=== PATIENT | male | born 1935 | race Asian ===

== ENCOUNTER 2016-11-20 20:58 | Inpatient (IN) | payer OTHER, MEDICARE, BC ==
[~2016-11-20] VITALS: Ht 170.2 cm; Wt 95.4 kg
[~2016-11-20 20:58] MED LIST: ALLO100T PO; ASPI-650 PO; ATOR40TA68 PO; Acetaminophen PO; CARV12.598 PO; CEFT1PIG2 IVPB; DOCU-159 PO; ETOMIDATE 20 MG INJ ONE; LATA2.5D9 OP; LOV40I SC; METR500T PO; NOVO3I SC; OMEP20CA9 PO; PERCOCET PO; REPA2TAB6 PO; ROCURONIUM 50 MG INJ ONE; SITA50TA2 PO; VANC1VIA2 IVPB; ZOF4I IV; [UNRECOGNIZED DRUG - CODE] IV; [UNRECOGNIZED DRUG - CODE] IV
[2016-11-20 21:14] LABS: ADD SCAN DIFF NO
[2016-11-20 21:17] LABS: BASOPHIL # 0.1 10^3/ul (0.0-0.1); BASOPHILS % 0.8 % (0.0-2.0); EOSINOPHILS # 0.5 10^3/ul (0.0-0.5); EOSINOPHILS % 6.6 % (0.0-7.0); HEMATOCRIT 44.7 % (42.0-52.0); HEMOGLOBIN 13.7 g/dl (14.0-18.0); LYMPHOCYTES # 1.7 10^3/ul (0.8-2.9); LYMPHOCYTES % 22.5 % (15.0-51.0); MEAN CORPUSCULAR HEMOGLOBIN 25.8 pg (29.0-33.0); MEAN CORPUSCULAR HGB CONC 30.6 g/dl (32.0-37.0); MEAN CORPUSCULAR VOLUME 84.3 fl (82.0-101.0); MONOCYTE # 0.9 10^3/ul (0.3-0.9); MONOCYTES % 12.4 % (0.0-11.0); NEUTROPHIL # 4.4 10^3/ul (1.6-7.5); NEUTROPHILS % 57.4 % (39.0-77.0); PLATELET COUNT 200 10^3/UL (140-415); RED CELL DISTRIBUTION WIDTH 16.6 % (11.5-14.5); WHITE BLOOD COUNT 7.6 10^3/ul (4.8-10.8)
[2016-11-20] MEDS ORDERED: HYDR-902 PO (21:21)
[2016-11-20] MEDS ORDERED: FURO40TA4 PO (21:21)
[2016-11-20] MEDS ORDERED: WARF3TAB PO (21:23)
[2016-11-20] MEDS ORDERED: ONDANSETRON 4 MG INJ ONE (21:25)
[2016-11-20 21:29] LABS: CREATININE 1.53 mg/dl (0.61-1.24)
[2016-11-20 21:30] LABS: CALCIUM 8.5 mg/dl (8.4-10.2)
[2016-11-20] MEDS ORDERED: LEVETIRACETAM IV 500 MG in SOD CHLORIDE 0.9% 100 ML IVPB ONE (21:30)
[2016-11-20] MEDS ORDERED: ETOMIDATE 20 MG INJ IV ONE (21:30)
[2016-11-20] MEDS ORDERED: ONDANSETRON 4 MG INJ IV STA (21:30)
--- NOTE | 2016-11-20 21:31 | RADRPT ---
PROCEDURE: CT head, without contrast. CLINICAL INDICATION: Cerebrovascular accident. TECHNIQUE: Noncontrast CT examination of the head, with axial, sagittal and coronal reformatted im ages. Automated dose exposure control was employed. CTDI: 43.86 mGy and DLP: 720.23 mGy-cm. COMPARISON: None. FINDINGS: Right basal ganglia hemorrhagic infarct. Ventricular hemorrhagic component seen in the bilateral la teral ventricles, the third ventricle, the cerebral aqueduct, and in the fourth ventricle. Right basal ganglia region of hemorrhagic infarct measures 38 x 25 x 19 mm. There is a 6 mm right-to -left midline shift at the level of the right basal ganglia. Chronic changes of atrophy and small vessel disease white matter. Subarachnoid spaces are substantially preserved and symmetric. Ventricles are unremarkable. Thomas-white matter distinction is otherwise substantially preserved. Sinuses and osseous structures are unremarkable. IMPRESSION: 1. Right basal ganglia hemorrhagic infarct. 2. Extensive bilateral ventricular hemorrhagic components from the lateral ventricles to the fourth ventricle. 3. There is a 6 mm right to left midline shift at the level of the right basal ganglia. 4. Chronic changes of atrophy and small vessel disease white matter. These findings and impression regarding basal ganglia hemorrhage and ventricular hemorrhagic compone nts were discussed with Dr. Cuenca of the [facility] emergency department at the conclusio n of this examination by the undersigned interpreting radiologist RPTAT: [facility]U Physician Vineet Date Time Electronically viewed and signed by Physician Vineet on 11/20/2016 21:31 RS/
[2016-11-20 21:34] LABS: INR 2.51; PROTIME 27.4 Sec (12.2-14.2); PT RATIO 2.1
[2016-11-20 21:35] LABS: PARTIAL THROMBOPLASTIN TIME 41.8 Sec (25.0-35.0)
[2016-11-20 21:41] LABS: TROPONIN-I 0.019 ng/ml (0.00-0.12)
[2016-11-20] MEDS ORDERED: PHYTONADIONE 10 MG in DEXTROSE 5% 50 ML IVPB ONE (22:00)
[2016-11-20] MEDS ORDERED: MANNITOL 20% 500 ML IV SCH (22:00)
[2016-11-20] MEDS ORDERED: PROTHROMBIN COMPLEX CONCENTRATE IV SCH (22:00)
--- NOTE | 2016-11-20 22:37 | ERA ---
ER Documentation Chief Complaint Date/Time DATE: 11/20/16 Times: On arrival Chief Complaint Left sided weakness HPI The patient is 81-year-old male, presenting to the ER because of sudden onset of left-sided weakness witnessed by his son around 8 PM. 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 He then fell and hit his head as against the chair. He is vomiting and has left-sided weakness. He is able to follow commands and answer simple questions. He complains of headache, denies chest pain, dyspnea, abdominal pain, dysuria, diarrhea. He does not smoke nor drink Past medical history: Hypertension, diabetes mellitus, dyslipidemia, CAD, chronic kidney disease, history of thyroid cancer, history of CHF, GERD Past surgical history: CABG, appendectomy, TURP ROS All systems reviewed and are negative except as per history of present illness. Medications Home Meds Active Scripts Repaglinide* (Prandin*) 2 Mg Tab, 2 MG PO AC MEALS for 30 Days, TAB 5 Refills Prov:HARISH WALKER MD 10/10/15 Insulin Aspart* (Novolog Insulin Pen*) 100 Unit/Ml Soln, 0 UNIT SC WITH MEALS BEDTIME for 30 Days, BOX 5 Refills Prov:HARISH WALKER MD 10/10/15 Carvedilol* (Coreg*) 12.5 Mg Tab, 12.5 MG PO BID, #60 TAB 5 Refills Prov:HARISH WALKER MD 10/10/15 Reported Medications Warfarin Sodium* (Jantoven*) 3 Mg Tablet, 3 MG PO DAILY, TAB TAKE 3MG M,,TH,F,SAT ANS 1.5MG SUN,W. 11/20/16 Furosemide* (Furosemide*) 40 Mg Tablet, 40 MG PO DAILY, TAB 11/20/16 Hydrocodone/Acetaminophen (Villanueva 10-325 Tablet) 1 Each Tablet, 1 EACH PO DAILY Y for PRN, TAB 11/20/16 Allopurinol* (Allopurinol*) 100 Mg Tablet, 100 MG PO DAILY, TAB 09/20/15 Sitagliptin* (Januvia*) 50 Mg Tablet, 50 MG PO DAILY, #30 TAB 09/20/15 Docusate Sodium* (Docusate Sodium*) 100 Mg Capsule, 300 MG PO BID, #60 CAP 09/20/15 Latanoprost (Xalatan) 2.5 Ml Drops, 2.5 ML OP DAILY 02/09/13 Atorvastatin* (Atorvastatin*) 40 Mg Tablet, 40 MG PO DAILY 02/09/13 Omeprazole* (Prilosec*) 20 Mg Capsule.dr, 20 MG PO DAILY 02/09/13 Aspirin (Aspirin) 81 Mg Tablet, 81 MG PO DAILY 09/27/11 Discontinued Scripts Caspofungin (Cancidas) 50 Mg Soln, 50 MG IV DAILY for 7 Days, EA 0 Refills Prov:HARISH WALKER MD 10/10/15 Ceftriaxone Sod* (Rocephin* 1GM/50ML (PMX)) 1 Gm/50 Ml Iv.soln., 1 GM IVPB Q24H for 7 Days, EA 0 Refills Prov:HARISH WALKER MD 10/10/15 Vancomycin Hcl (Vancomycin Hcl) 1 Gm/250 Ml Iv.soln., 1 GM IVPB Q24H for 7 Days , EA Prov:HARISH WALKER MD 10/10/15 Ondansetron Hcl* (Zofran*) 2 Mg/Ml Soln, 4 MG IV Q6H Y for NAUSEA AND/OR VOMITING for 30 Days, SYR 5 Refills Prov:HARISH WALKER MD 10/10/15 Oxycodone Hcl/Acetaminophen (Percocet) 1 Tab Tab, 1 TAB PO Q6H Y for PAIN LEVEL 6-10 for 7 Days, TAB 0 Refills Prov:HARISH WALKER MD 10/10/15 Metronidazole* (Flagyl*) 500 Mg Tab, 500 MG PO Q8 for 7 Days, TAB 0 Refills Prov:HARISH WALKER MD 10/10/15 Furosemide* (Furosemide*) 10 Mg/Ml Soln, 40 MG IV DAILY for 30 Days, SYR 5 Refills Prov:HARISH WALKER MD 10/10/15 Enoxaparin Sodium* (Enoxaparin Sodium*) 40 Mg/0.4 Ml Soln, 40 MG SC DAILY@07 for 30 Days, SYR 5 Refills Prov:HARISH WALKER MD 10/10/15 [Acetaminophen] 325 MG TAB No Conflict Check, 650 MG PO Q6H Y for PAIN AND OR ELEVATED TEMP for 30 Days, TAB 5 Refills Prov:HARISH WALKER MD 10/10/15 Allergies Allergies: Coded Allergies: latex (Verified Allergy, Mild, RASH, 11/20/16) PMhx/Soc History of Surgery: Yes (S/P LAPROSCOPIC HAND ASSISTED COLECTOMY 09-29-15) Anesthesia Reaction: No Hx Neurological Disorder: No Hx Respiratory Disorders: No Hx Cardiac Disorders: Yes (HTN, CAD, HIGH CHOLESTEROL) Hx Psychiatric Problems: No Hx Miscellaneous Medical Probl: Yes (CABG,CAD,CHF,CRI,HTN,MORBID OBESITY, THYROIDECTOMY DUE TO CA) Hx Alcohol Use: No Hx Substance Use: No Hx Tobacco Use: No Smoking Status: Never smoker Physical Exam Vitals Vital Signs Date Time Temp Pulse Resp B/P Pulse Ox O2 Delivery O2 Flow Rate FiO2 11/20/16 21:32 98.3 72 21 142/91 100 Nasal Cannula 2.0 11/20/16 21:15 98.3 63 21 142/92 100 Nasal Cannula 2.0 11/20/16 21:07 Nasal Cannula 2 11/20/16 21:05 98.3 88 18 148/80 98 Physical Exam Const: No acute distress. Head: Atraumatic. Eyes: Normal Conjunctiva. ENT: Normal External Ears, Nose and Mouth. Neck: Full range of motion. No meningismus. Resp: Clear to auscultation bilaterally. Cardio: Regular rate and rhythm, no murmurs. Abd: Soft, non distended, normal bowel sounds, non tender. Skin: No petechiae or rashes. Back: No midline or flank tenderness. Ext: No cyanosis, or edema. Neur: Awake and alert. Right upper and right lower extremity are 5/5. Upper and left lower extremity 0/5 Psych: Limited due to his condition Result Diagram: 11/20/16204911/20/162049 Results 24 hrs Laboratory Tests Test 11/20/16 20:50 11/20/16 20:59 White Blood Count 7.610^3/ul Red Blood Count 5.3010^6/ul Hemoglobin 13.7g/dl Hematocrit 44.7% Mean Corpuscular Volume 84.3fl Mean Corpuscular Hemoglobin 25.8pg Mean Corpuscular Hemoglobin Concent 30.6g/dl Red Cell Distribution Width 16.6% Platelet Count 09421^3/UL Mean Platelet Volume 12.0fl Neutrophils % 57.4% Lymphocytes % 22.5% Monocytes % 12.4% Eosinophils % 6.6% Basophils % 0.8% Nucleated Red Blood Cells % 0.0/100WBC Neutrophils # 4.410^3/ul Lymphocytes # 1.710^3/ul Monocytes # 0.910^3/ul Eosinophils # 0.510^3/ul Basophils # 0.110^3/ul Nucleated Red Blood Cells # 0.010^3/ul Prothrombin Time 27.4Sec Prothrombin Time Ratio 2.1 INR International Normalized Ratio 2.51 Activated Partial Thromboplast Time 41.8Sec Sodium Level 142mmol/L Potassium Level 4.0mmol/L Chloride Level 105mmol/L Carbon Dioxide Level 27mmol/L Anion Gap 14 Blood Urea Nitrogen 31mg/dl Creatinine 1.53mg/dl Glucose Level 137mg/dl Hemoglobin A1c 6.9% Calcium Level 8.5mg/dl Troponin I 0.019ng/ml Bedside Glucose 106mg/dL Current Medications Medications (Trade) Dose Ordered Sig/Zofia Route PRN Reason Start Time Stop Time Status Last Admin Dose Admin Etomidate (Amidate) 20 mg ONCE ONCE IV 11/20/16 21:30 11/20/16 21:31 DC Ondansetron HCl 4 mg 4 mg STK-MED ONCE .ROUTE 11/20/16 21:25 11/20/16 21:26 DC Levetiracetam/ Sodium Chloride (Keppra Iv/NS) 105 ml @ 420 mls/hr ONCE ONCE IVPB 11/20/16 21:30 11/20/16 21:50 DC 11/20/16 21:57 Ondansetron HCl 4 mg 4 mg ONCE STAT IV 11/20/16 21:30 11/20/16 21:31 DC 11/20/16 21:33 Phytonadione 10 mg/Dextrose 51 ml @ 102 mls/hr ONCE ONCE IVPB 11/20/16 22:00 11/20/16 22:29 11/20/16 21:56 Mannitol 500 ml @ 0 mls/hr ONCE IV 11/20/16 22:00 11/20/16 23:59 Prothrombin Complex Concent (Human) (Kcentra Kit) 100 ml @ 500 mls/hr ONCE IV 11/20/16 22:00 11/20/16 23:59 Allopurinol (Zyloprim) 100 mg DAILY PO 11/21/16 09:00 UNV Atorvastatin Calcium (Lipitor) 40 mg DAILY PO 11/21/16 09:00 UNV Carvedilol (Coreg) 12.5 mg BID PO 11/21/16 09:00 UNV Docusate Sodium (Colace) 300 mg BID PO 11/21/16 09:00 UNV Furosemide (Lasix) 40 mg DAILY PO 11/21/16 09:00 UNV Latanoprost (Xalatan) 1 drop DAILY BOTH EYES 11/21/16 09:00 UNV Repaglinide (Prandin) 2 mg AC MEALS PO 11/21/16 07:00 UNV Miscellaneous Information 20 mg DAILY PO 11/21/16 09:00 UNV Miscellaneous Information 50 mg DAILY PO 11/21/16 09:00 UNV Insulin Aspart (Novolog Insulin Pen) NOVOLOG *MILD* ALGORI... Q4 SC 11/21/16 01:00 UNV Miscellaneous Information (* Miscellaneous Pharmacy Order) HYPOGLYCEMIA PROTOCOL w... ONCE ONCE XX 11/20/16 22:30 11/20/16 22:31 UNV Miscellaneous Information (* Miscellaneous Pharmacy Order) Discontinue Glyburide, Glipizide,... ONCE ONCE XX 11/20/16 22:30 11/20/16 22:31 UNV Miscellaneous Information (* Miscellaneous Pharmacy Order) Discontinue all previ... ONCE ONCE XX 11/20/16 22:30 11/20/16 22:31 UNV Procedures/[place] [id number] Radiology Main Line: [phone] DIAGNOSTIC IMAGING REPORT Patient: RYANNE TORO : 1935 Age: 81 Sex: M MR #: [id number] DOS: 11/20/162101 Ordering MD: HARISH RODRIGES MD Location: E/R Room/Bed: PROCEDURE: CT head, without contrast. CLINICAL INDICATION: Cerebrovascular accident. TECHNIQUE: Noncontrast CT examination of the head, with axial, sagittal and coronal reformatted images. Automated dose exposure control was employed. CTDI: 43.86 mGy and DLP: 720.23 mGy-cm. COMPARISON: None. FINDINGS: Right basal ganglia hemorrhagic infarct. Ventricular hemorrhagic component seen in the bilateral lateral ventricles, the third ventricle, the cerebral aqueduct, and in the fourth ventricle. Right basal ganglia region of hemorrhagic infarct measures 38 x 25 x 19 mm. There is a 6 mm [id number] midline shift at the level of the right basal ganglia. Chronic changes of atrophy and small vessel disease white matter. Subarachnoid spaces are substantially preserved and symmetric. Ventricles are unremarkable. Thomas-white matter distinction is otherwise substantially preserved. Sinuses and osseous structures are unremarkable. IMPRESSION: 1. Right basal ganglia hemorrhagic infarct. 2. Extensive bilateral ventricular hemorrhagic components from the lateral ventricles to the fourth ventricle. 3. There is a 6 mm right to left midline shift at the level of the right basal ganglia. 4. Chronic changes of atrophy and small vessel disease white matter. These findings and impression regarding basal ganglia hemorrhage and ventricular hemorrhagic components were discussed with Dr. Cuenca of the [facility] emergency department at the conclusion of this examination by the undersigned interpreting radiologist RPTAT: UU Physician Vineet Date Time Electronically viewed and signed by Physician Vineet on 11/20/2016 21:31 RS/ CC: HARISH RODRIGES MD EKG: Read by emergency physician Rate/Rhythm: Normal Sinus Rhythm 68 beats/min QRS, ST, T-waves: No ST elevation, no T inversion, first-degree AV block, incomplete right bundle branch block, inferior Q waves, prolonged QT Impression: Abnormal EKG Portable chest x-ray is pending MEDICAL MAKING DECISION: The patient is 81-year-old male, presenting with acute hemorrhagic stroke with left hemiparesis. Code stroke was activated at 8:59 PM. He was treated with Zofran 4 mg IV 2 for nausea, vitamin K 10 mg IV over an hour, Kcentra 2500 units IV due to coagulopathy.Mannitol 1 g/kg IV over an hour due to probable increased intra-cerebral pressure. Consultation: I discussed the patient with the on-call neurosurgeon Dr. Smiley at 9:30 PM who agrees with the aforementioned treatment. He does not recommend intubation since patient is awake and alert Departure Diagnosis: Primary Impression: Hemorrhagic stroke Additional Impressions: Left hemiparesis Anemia Condition: Critical Comments I discussed the findings with the patient. I discussed the patient with his physician Dr. Gutierrez who was made aware of the lab, the treatment, the patient condition. The patient is admitted to ICU at 10:05 PM I discussed the patient critical condition with the family Critical Care: Time: 35 minutes excluding all billable procedures. Treatments/Evaluations: Close monitoring and treatment of unstable vital signs, cardiorespiratory, and neurologic status, while maintaining tight balance of fluid, respiratory, and cardiac interventions. HARISH RODRIGES MD Nov 20, 2016 22:37
--- NOTE | 2016-11-20 22:40 | RADRPT ---
PROCEDURE: XR Chest. CLINICAL INDICATION: Shortness of breath. TECHNIQUE: AP Portable chest. COMPARISON: 10/02/2015 FINDINGS: There is moderate cardiomegaly. Prior median sternotomy is noted. The lungs are clear. The osseou s structures are unremarkable. IMPRESSION: No acute findings. RPTAT: HIKT .Ignacio Momin MD, MD Date Time Electronically viewed and signed by .Ignacio Momin MD, MD on 11/20/2016 22:40 .T/
[2016-11-20] MEDS ORDERED: PROPOFOL 100 ML ONE (23:38)
[2016-11-21] VITALS (60 sets, daily range): BP systolic 76–149; BP diastolic 46–78; PULSE 69–98; RESP 18–23; TEMP 97.9
--- NOTE | 2016-11-21 | RADRPT ---
PROCEDURE: XR Chest. CLINICAL INDICATION: Tube placement TECHNIQUE: AP Portable chest. COMPARISON: 11/20/2016 chest x-ray FINDINGS: An endotracheal tube is present 3.5 cm above the vicky. An enteric tube is present in the stomach. The patient is status post median sternotomy. The soft tissues and bones are remarkable for status post median sternotomy and prior heart surgery. Moderate cardiomegaly is present with vascular calcifications of the thoracic aorta. Left lower l obe discoid atelectasis or infiltrate is present. No definite pleural effusions or pneumothorax is present. IMPRESSION: 1. Tubes as indicated above and status post median sternotomy. 2. Moderate cardiomegaly and atherosclerotic vascular disease 3. Left lower lobe discoid atelectasis or infiltrate. Recommend follow-up until resolution. RPTAT: HDC .Sophie Bonilla MD, Date Time Electronically viewed and signed by .Sophie Bonilla MD, on 11/21/2016 00:00 .C/
--- NOTE | 2016-11-21 00:48 | RADRPT ---
PROCEDURE: CT Brain without contrast. CLINICAL INDICATION: Intracranial hemorrhage. TECHNIQUE: A CT of the brain was performed on a multislice detector CT scanner utilizing axial sec tions from the skull base through the vertex without contrast. Images were reviewed on a high-resol [employer] PACS workstation. Exam CTDlvol = 41 mGy and DLP = 810 mGy-cm. One of the following 3 dose red uction techniques were used: Automated exposure control; adjustment of the mA and/or kV according to patient size; or use of iterative reconstruction technique. COMPARISON: None available FINDINGS: There has been interval increase in size of previously described right thalamic intraparenchymal hem orrhage, now measuring 4.3 x 3.7 cm. Hemorrhage extends inferiorly into the right cerebral peduncle. There is mild surrounding edema and increased effacement of the third ventricle. There is localize d 1.1 cm [id number] midline shift related to the hematoma abutting third ventricle. There is dif fuse increased hemorrhage within the ventricles. There is slight interval increase in size of the l ateral ventricles compatible with a component of hydrocephalus. Small amount of hemorrhage is noted the basilar cisterns likely related to fourth ventricular hemorrhage traversing the foramen of Lusc hka. Remainder of the examination is unchanged. Basilar cisterns are intact. There is generalized atrophy. There is nonspecific white matter changes. IMPRESSION: 1. Interval increase in size and volume of previously described acute intraparenchymal hemorrhage. Centered in the right thalamus. 2. Increased effacement third ventricle. 3. Increased intraventricular hemorrhage with increased size of the lateral ventricles compatible w ith mild hydrocephalus. 4. Small amount of hemorrhage within the basilar cisterns likely related to blood traversing the fo ramen of Luschka. 5. Localize right to left midline shift related to the hemorrhage itself. 6. Nonspecific white matter changes most commonly seen with microvascular ischemic disease. Findings reported to Dr. RODRIGES on 11/21/2016 12:43:30 AM. RPTAT: HMVK .Campbell Barajas MD, Date Time Electronically viewed and signed by .Campbell Barajas MD, on 11/21/2016 00:47 .K/
[2016-11-21] MEDS ORDERED: niCARdipine-D5W 0.1MG/ML DRIP 200 ML IV SCH ×2 (01:00→01:10)
[2016-11-21 01:10] LABS: AADO2 Arterial 305.7 mmHg (7.0-24.0); Allen Test ACCEPTAB; Arterial Base Excess -1.2 mmol/L (-3.0-3); Arterial COHb 0.5 % (0.0-3.0); Arterial Fraction of Oxyhgb 98.7 % (93.0-99.0); Arterial HCO3 23.4 mmol/L (22.0-26.0); Arterial MetHb 0.5 % (0.0-1.5); Arterial Total Hemglobin 15.4 g/dl (12.0-18.0); MODE VENT - AC
--- NOTE | 2016-11-21 01:17 | HP ---
Date/Time of Note Date/Time of Note DATE: 11/21/16 TIME: 00:37 Assessment/Plan VTE Prophylaxis VTE Prophylaxis Intervention: contraindicated VTE Contraindication Reason: hemorrhagic cerebral infarction Lines/Catheters Urinary Cath still in place: Yes Reason Cath still needed: other (indicate) (intubated) Assessment/Plan Chief Complaint/Hosp Course 81 year old man with initial complaint of left sided weakness due to hemorrhagic stroke of the basal ganglia that progressed causing patient to become unresponsive and require intubation. Patient will be transferred to the ICU. Neurosurgery and Neurology services have both been consulted. Problems: (1) Hemorrhagic stroke Status: Acute Comment: Patient with hemorrhagic stroke to Basal Ganglia. Recieved Kcentra in the [facility] for reversal of warfarin. Despite this patient rapidly deteriorated. Prognosis grim. (2) Type 2 diabetes mellitus with diabetic chronic kidney disease Status: Chronic Comment: Patient currently NPO. Will follow NPO protocol for accucheck and sliding scale coverage. (3) Diverticulitis of large intestine with perforation Status: Chronic Comment: Status post colectomy with colostomy. No acute issues at this time (4) Chronic kidney disease, stage II (mild) Status: Chronic (5) On mechanically assisted ventilation Status: Acute Comment: Patient with basal ganglia hemorrhagic stroke rapidly deteriorating requiring intubation for airway protection. (6) Chronic diastolic congestive heart failure, NYHA class 1 Status: Chronic (7) Essential (primary) hypertension Status: Chronic (8) H/O four vessel coronary artery bypass graft Status: Chronic Assessment/Plan 81 year old man with hemorrhagic stroke to Basal Ganglia. Prognosis guarded. HPI/ROS Admit Date/Time Admit Date/Time Sunday November 20, 2016 Hx of Present Illness 81 year old man with multiple medical issues and several complicated hospitalizations at [facility] presents to the [facility] with complaint of left sided weakness. (History obtained by Dr. Sherman and patients grandson). Patient was sitting on a chair, reached down to belt picker something that had fallen to the floor. Patient himself then fell and hit his head against another chair. He was not feeling well, immediately noted left sided weakness and was brought to the [facility]. He was initially able to follow commands and answer simple questions. Imaging of the brain showed a hemorrhagic stroke of the Basal Ganglia. Neurology and Neurosurgery were consulted. Patient received Kcentra for reversal of warfarin. While in the [facility] patient progressively deteriorated and became unresponsive at which point he was intubated for airway protection. ROS Per grandson patient was in his usually state of health. They had gone shopping earlier that day. Per grandson denied any complaints of weakness, headache or vertigo. (Patient is currently intubated and ROS obtained by grandson) Subjective hx not possible: pt non-verbal, pt critical status PMH/Family/Social Past Medical History Medical History: congestive heart failure, coronary artery disease, diverticulitis, hypertension, hypothyroid (proceedure induced), other (thyroid cancer) Past Surgical History Past Surgical Hx: appendectomy, bowel resection, coronary bypass surgery, other (total thyroidectomy) Family History Significant Family History: heart disease, vascular disease, other (stroke) Social History Alcohol Use: none Smoking Status: Unknown if ever smoked Drug Use: none Exam/Review of Systems Vital Signs Vitals Vital Signs Date Time Temp Pulse Resp B/P Pulse Ox O2 Delivery O2 Flow Rate FiO2 11/20/16 22:45 77 19 159/97 99 Nasal Cannula 2.0 11/20/16 21:32 98.3 Intake and Output 11/20/16 11/20/16 11/21/16 14:59 22:59 06:59 Intake Total 250 ml Balance 250 ml Exam Exam Patient is intubated and unresponsive. Head: normocephalic ENMT: intubated Neck: supple Respiratory: normal air movement Cardiovascular: regular rate and rhythm Gastrointestinal: soft Genitourinary - Male: nl penis, other ([place] in place) Musculoskeletal: nl extremities to inspection Extremities: normal pulses Neurological: other (unable to assess) Labs Result Diagram: 11/20/16204911/20/162049 Medications Medications Current Medications Allopurinol (Zyloprim) 100 mg DAILY PO ; Start 11/21/16 at 09:00; Status UNV Atorvastatin Calcium (Lipitor) 40 mg DAILY PO ; Start 11/21/16 at 09:00; Status UNV Carvedilol (Coreg) 12.5 mg BID PO ; Start 11/21/16 at 09:00; Status UNV Docusate Sodium (Colace) 300 mg BID PO ; Start 11/21/16 at 09:00; Status UNV Furosemide (Lasix) 40 mg DAILY PO ; Start 11/21/16 at 09:00; Status UNV Latanoprost (Xalatan) 1 drop DAILY BOTH EYES ; Start 11/21/16 at 09:00; Status UNV Miscellaneous Information 20 mg DAILY PO ; Start 11/21/16 at 09:00; Status UNV Miscellaneous Information 50 mg DAILY PO ; Start 11/21/16 at 09:00; Status UNV Insulin Aspart (Novolog Insulin Pen) NOVOLOG *MILD* ALGORI... Q4 SC ; Start at 01:00; Status UNV Miscellaneous Information (* Miscellaneous Pharmacy Order) HYPOGLYCEMIA PROTOCOL w... ONCE ONCE XX ; Start 11/20/16 at 22:30; Stop 11/20/16 at 22:31; Status UNV Miscellaneous Information (* Miscellaneous Pharmacy Order) Discontinue Glyburide , Glipizide,... ONCE ONCE XX ; Start 11/20/16 at 22:30; Stop 11/20/16 at 22:31 ; Status UNV Miscellaneous Information (* Miscellaneous Pharmacy Order) Discontinue all previ... ONCE ONCE XX ; Start 11/20/16 at 22:30; Stop 11/20/16 at 22:31; Status UNV CRISPIN GONZALES MD Nov 21, 2016 00:47
[2016-11-21 01:31] LABS: INR 1.04; PARTIAL THROMBOPLASTIN TIME 32.7 Sec (25.0-35.0); PROTIME 13.6 Sec (12.2-14.2); PT RATIO 1.1
[2016-11-21 01:33] LABS: ADD UMIC YES; URINE BILIRUBIN (Dip) NEGATIVE (NEGATIVE); URINE BLOOD (Dip) TRACE (NEGATIVE); URINE COLOR LT. YELLOW (YELLOW); URINE KETONES (Dip) NEGATIVE (NEGATIVE); URINE LEUKOCYTE ESTERASE (Dip) NEGATIVE (NEGATIVE); URINE NITRITE (Dip) NEGATIVE (NEGATIVE); URINE TOTAL PROTEIN (Dip) NEGATIVE (NEGATIVE); URINE UROBILINOGEN (Dip) 0.2 E.U./dL (0.1-1.0)
[2016-11-21 01:44] LABS: BACTERIA,URINE RARE; SQUAMOUS EPITHELIAL CELL,UR RARE
--- NOTE | 2016-11-21 02:32 | EN ---
Date/Time of Note Date/Time of Note DATE: 11/21/16 TIME: 02:27 ER Progress Note The patient condition deteriorates. GCS now is 5. He is intubated immediately without any difficulty. Nasogastric tube and Adair catheter ordered. I discussed the patient with the neurosurgeon Dr. Smiley at 11:40 PM, who was made aware of the patient condition. He requested for a repeat brain CT and repeat INR. His blood pressure is elevated, therefore he was treated with Cardene drip. He has non behavioral restraint Repeat brain CT show worsening hemorrhage. I did discuss the patient with Dr. Smiley at 12:45 AM regarding the worsening CT scan of the brain. At approximately 2 AM he was informed of the corrected INR of 1 by the nurse I discussed the patient with the admitting physician Dr. Gutierrez, was aware of the patient condition, repeat brain CT, corrected INR and my discussion with the neurosurgeon Dr. Smiley Endotracheal Intubation by me: Pre assessment performed. See preceding note for details. Pre-oxygenation performed with 100% oxygen RSI: Performed w/o complication or hypoxic events. Medications as ordered. Blade: [place] Scope ET Tube: 7.5 cm Depth: 23 cm at the lip Intubation confirmed by colorimetric CO2, equal breath sounds, quiet over the stomach. Critical Care: Time: 35 minutes excluding all billable procedures. Treatments/Evaluations: Close monitoring and treatment of unstable vital signs, cardiorespiratory, and neurologic status, while maintaining tight balance of fluid, respiratory, and cardiac interventions. HARISH RODRIGES MD Nov 21, 2016 02:32
[2016-11-21 02:35] LABS: BARBITURATES Negative (NEGATIVE); BENZODIAZEPINES Negative (NEGATIVE); CANNABINOIDS Negative (NEGATIVE); COCAINE Negative (NEGATIVE); OPIATES Negative (NEGATIVE)
[2016-11-21] MEDS ORDERED: GLUCOSE GEL 15 GRAM TUBE BUCCAL PRN (02:45)
[2016-11-21] MEDS ORDERED: GLUCAGON 1 MG INJ IM PRN (02:45)
[2016-11-21] MEDS ORDERED: DEXTROSE 50% 50 ML SYRINGE IV PRN ×2 (02:45)
[2016-11-21] MEDS ORDERED: GLUCOSE GEL 15 GRAM TUBE PO PRN ×2 (02:45)
--- NOTE | 2016-11-21 04:27 | QN ---
Documentation Comment 81 year old male with multiple medical problems presented to ED with acute onset of left sided deficits. CT showed a small right thalamic ICH with intraventricular extension. Patient takes coumadin and INR was 2.5, He was given K-centra. Upon initial presentation the patient was described as awake and alert in spite of deficits; he subsequently experienced a clinical decline and repeat CT shows significant expansion of the left thalamic clot, now measuring ~4cm, with extension into the ventricular system including casting of the third and fourth ventricles, and significant partial casting of the lateral ventricles. There is minimal increase in the ventricular silhouette. Overall, the prognosis for this combination of large thalamic hemorrhage and intraventricular hemorrhage in this patient population (80+ years old, multiple medical problems) is very very poor bordering on nil. CT follow up to rule out further hemorrhage and/ or development of hydrocephalus is indicated, but there is no role for surgical intervention at the present time. MIKE LEMA MD Nov 21, 2016 04:27
[2016-11-21] MEDS: INSULIN ASPART [NOVOLOG] 3 ML PEN SC SCH ×4 (05:00→16:57)
[2016-11-21] MEDS: PANTOPRAZOLE (EC) 40 MG TAB PO SCH (05:40)
[2016-11-21] MEDS: FUROSEMIDE 40 MG TAB PO SCH (05:40)
[2016-11-21 06:27] LABS: ADD SCAN DIFF NO
[2016-11-21 06:30] LABS: ABNORMAL IP MESSAGE 1; BASOPHILS % 0.3 % (0.0-2.0); EOSINOPHILS # 0.1 10^3/ul (0.0-0.5); EOSINOPHILS % 0.6 % (0.0-7.0); HEMATOCRIT 47.2 % (42.0-52.0); HEMOGLOBIN 14.4 g/dl (14.0-18.0); LYMPHOCYTES # 1.2 10^3/ul (0.8-2.9); LYMPHOCYTES % 12.1 % (15.0-51.0); MEAN CORPUSCULAR HEMOGLOBIN 25.9 pg (29.0-33.0); MEAN CORPUSCULAR HGB CONC 30.5 g/dl (32.0-37.0); MEAN PLATELET VOLUME 12.6 fl (7.4-10.4); MONOCYTES % 10.4 % (0.0-11.0); NEUTROPHIL # 7.5 10^3/ul (1.6-7.5); NEUTROPHILS % 76.3 % (39.0-77.0); PLATELET COUNT 189 10^3/UL (140-415); RED BLOOD COUNT 5.55 10^6/ul (4.70-6.10); RED CELL DISTRIBUTION WIDTH 17.1 % (11.5-14.5); WHITE BLOOD COUNT 9.8 10^3/ul (4.8-10.8)
[2016-11-21 06:47] LABS: INR 1.06; PROTIME 13.8 Sec (12.2-14.2); PT RATIO 1.1
[2016-11-21 07:03] LABS: ALBUMIN 3.5 g/dl (3.3-4.9)
[2016-11-21 07:04] LABS: POTASSIUM 4.2 mmol/L (3.5-5.1)
[2016-11-21 07:06] LABS: BILIRUBIN,INDIRECT 0.6 mg/dl (0-1.1); BILIRUBIN,TOTAL 0.6 mg/dl (0.2-1.3); CREATININE 1.45 mg/dl (0.61-1.24); TOTAL PROTEIN 7.2 g/dl (6.1-8.1)
[2016-11-21 07:07] LABS: CALCIUM 8.8 mg/dl (8.4-10.2)
[2016-11-21 07:36] LABS: ALBUMIN/GLOBULIN RATIO 0.97
--- NOTE | 2016-11-21 07:42 | CONS ---
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 The patient has a very poor prognosis. There is no indication for clot evacuation, but I recommend ventriculostomy placement to divert CSF and hopefully facilitate clearance of IVH.I spoke with the patient's regarding EVD placement; r/b/a were explained in detail including risks of possible iatrogenic hemorrhage. All questions were answered & the patient's has agreed to provide consent for the same. Consultation Date/Type/Reason Admit Date/Time Sunday November 20, 2016 Date of Consultation: Nov 21, 2016 Type of Consultation: neurological surgery Reason for Consultation right thalamic hemorrhage with intraventricular extension Hx of Present Illness 81 year old male with sudden onset of left hemiparesis, CT in ED + for R thalalmic ICH/ IVH, expanded on follow up CT. CT this am shows stable clot but interval development of hydrocephalus on CT. the patient is intubated and obtunded & therefore I cannot obtain ROS other than via chart review. Past Medical History Medical History: congestive heart failure, coronary artery disease, diverticulitis, hypertension, hypothyroid (proceedure induced), other (thyroid cancer) Past Surgical History the patient is intubated and obtunded & therefore this data obtained via chart review. Past Surgical Hx: appendectomy, bowel resection, coronary bypass surgery, other (total thyroidectomy) Family History Significant Family History: other (the patient is intubated and obtunded & therefore this data obtained via chart review.) Social History the patient is intubated and obtunded & therefore this data obtained via chart review. Alcohol Use: none Smoking Status: Unknown if ever smoked Drug Use: none Exam/Review of Systems Vital Signs Vitals Vital Signs Date Time Temp Pulse Resp B/P Pulse Ox O2 Delivery O2 Flow Rate FiO2 11/21/16 07:00 72 20 111/69 100 11/21/16 04:52 50 11/21/16 04:00 98.5 Mechanical Ventilator 11/20/16 22:45 2.0 Intake and Output 11/20/16 11/20/16 11/21/16 15:00 23:00 07:00 Intake Total 250 ml 0 ml Output Total 800 ml Balance 250 ml -800 ml Exam Constitutional: non-verbal, well developed Head: atraumatic, normocephalic Eyes: nl conjunctiva, nl sclera ENMT: nl external ears & nose, nl lips & teeth Neck: supple Respiratory: normal air movement Cardiovascular: regular rate and rhythm Gastrointestinal: soft Musculoskeletal: nl extremities to inspection Extremities: normal pulses Skin: nl turgor, rash or lesions Additional Comments On neurological examination, the patient is [id number]. Right pupil is 4mm, left is 2mm, both non-reactive. He localizes briskly with right upper extremity. Results Result Diagram: 11/21/1651911/20/162049 Results 24 hrs Laboratory Tests Test 11/20/16 20:50 11/20/16 20:59 11/21/16 00:45 11/21/16 00:50 White Blood Count 7.6 # Red Blood Count 5.30 # Hemoglobin 13.7 #L Hematocrit 44.7 # Mean Corpuscular Volume 84.3 Mean Corpuscular Hemoglobin 25.8 L Mean Corpuscular Hemoglobin Concent 30.6 L Red Cell Distribution Width 16.6 H Platelet Count 200 Mean Platelet Volume 12.0 #H Neutrophils % 57.4 Lymphocytes % 22.5 Monocytes % 12.4 H Eosinophils % 6.6 Basophils % 0.8 Nucleated Red Blood Cells % 0.0 Neutrophils # 4.4 Lymphocytes # 1.7 Monocytes # 0.9 Eosinophils # 0.5 Basophils # 0.1 Nucleated Red Blood Cells # 0.0 Prothrombin Time 27.4 H 13.6 # Prothrombin Time Ratio 2.1 1.1 INR International Normalized Ratio 2.51 1.04 Activated Partial Thromboplast Time 41.8 H 32.7 Sodium Level 142 Potassium Level 4.0 Chloride Level 105 Carbon Dioxide Level 27 Anion Gap 14 Blood Urea Nitrogen 31 H Creatinine 1.53 H Glucose Level 137 Hemoglobin A1c 6.9 H Calcium Level 8.5 Troponin I 0.019 Bedside Glucose 106 Urine Color LT. YELLOW Urine Clarity CLEAR Urine pH 6.0 Urine Specific M[place]ester 1.010 Urine Ketones NEGATIVE Urine Nitrite NEGATIVE Urine Bilirubin NEGATIVE Urine Urobilinogen 0.2 E.U./dL Urine Leukocyte Esterase NEGATIVE Urine Microscopic RBC 5-10 Urine Microscopic WBC 0-2 Urine Squamous Epithelial Cells RARE Urine Bacteria RARE Urine Hemoglobin TRACE Urine Glucose 0.1% H Urine Total Protein NEGATIVE Urine Opiates Screen Negative Urine Barbiturates Negative Urine Amphetamines Screen Negative Urine Benzodiazepines Screen Negative Urine Cocaine Screen Negative Urine Cannabinoids Negative Test 11/21/16 01:05 11/21/16 05:20 11/21/16 05:50 Blood Gas Specimen Source Blood arterial Arterial Blood Date Drawn 11/21/2016 1:05:34 AM Arterial Blood pH (Temp corrected) 7.397 Arterial Blood pCO2 (Temp correct) 38.9 Arterial Blood pO2 (Temp corrected) 368.4 H Arterial Blood HCO3 23.4 Arterial Blood Base Excess -1.2 Arterial Blood Oxygen Saturation 99.7 Ashish Test ACCEPTAB Arterial Blood Gas Puncture Site Right Radial Arterial Blood Carboxyhemoglobin 0.5 Arterial Blood Methemoglobin 0.5 Blood Gas A-a O2 Differential 305.7 H Oxyhemoglobin Percent 98.7 Total Hemoglobin 15.4 Blood Gas Temperature 37.0 Blood Gas Respiration Rate 20.0 Blood Gas Actual Respiration Rate 20 Blood Gas Modality VENT - AC FiO2 100.0 Blood Gas Tidal Volume 500.0 Blood Gas Low PEEP Setting 5.0 Blood Gas Notified Whom MG Blood Gas Notified Time 11/21/2016 1:10:00 AM White Blood Count 9.8 # Red Blood Count 5.55 Hemoglobin 14.4 Hematocrit 47.2 Mean Corpuscular Volume 85.0 Mean Corpuscular Hemoglobin 25.9 L Mean Corpuscular Hemoglobin Concent 30.5 L Red Cell Distribution Width 17.1 H Platelet Count 189 Mean Platelet Volume 12.6 H Neutrophils % 76.3 Lymphocytes % 12.1 L Monocytes % 10.4 Eosinophils % 0.6 Basophils % 0.3 Nucleated Red Blood Cells % 0.0 Neutrophils # 7.5 Lymphocytes # 1.2 Monocytes # 1.0 H Eosinophils # 0.1 Basophils # 0.0 Nucleated Red Blood Cells # 0.0 Prothrombin Time 13.8 Prothrombin Time Ratio 1.1 INR International Normalized Ratio 1.06 Sodium Level 139 Potassium Level 4.2 Chloride Level 101 Carbon Dioxide Level 29 Anion Gap 13 Blood Urea Nitrogen 26 H Creatinine 1.45 H Glucose Level 149 Calcium Level 8.8 Total Bilirubin 0.6 Direct Bilirubin 0.00 Indirect Bilirubin 0.6 Aspartate Amino Transf (AST/SGOT) 25 Alanine Aminotransferase (ALT/SGPT) 12 L Alkaline Phosphatase 120 Total Protein 7.2 Albumin 3.5 Globulin 3.70 H Albumin/Globulin Ratio 0.94 Bedside Glucose 115 Medications Medications Current Medications Allopurinol (Zyloprim) 100 mg DAILY PO ; Start 11/21/16 at 09:00 Atorvastatin Calcium (Lipitor) 40 mg DAILY@21 PO ; Start 11/21/16 at 21:00 Carvedilol (Coreg) 12.5 mg BID PO ; Start 11/21/16 at 09:00 Docusate Sodium (Colace) 300 mg BID PO ; Start 11/21/16 at 09:00 Furosemide (Lasix) 40 mg DAILY@06 PO Last administered on 11/21/16 05:40; Admin Dose 40 MG; Start 11/21/16 at 06:00 Latanoprost (Xalatan) 1 drop DAILY BOTH EYES ; Start 11/21/16 at 09:00 Pantoprazole (Protonix Tab) 40 mg DAILY@06 PO Last administered on 11/21/16 05 :40; Admin Dose 40 MG; Start 11/21/16 at 06:00 Linagliptin (Tradjenta) 5 mg DAILY PO ; Start 11/21/16 at 09:00 Insulin Aspart NOVOLOG *MILD* ALGORI... Q4 SC ; Start 11/21/16 at 05:00 Nicardipine HCl (Cardene Iv) 200 ml @ 50 mls/hr TITRATE IV Last administered on 11/21/16 01:31; Admin Dose 25 MLS/HR; Start 11/21/16 at 01:00 Miscellaneous Information 1 ea NOTE XX ; Start 11/21/16 at 02:45 Glucose (Glutose) 15 gm Q15M PRN PO DECREASED GLUCOSE; Start 11/21/16 at 02:45 Glucose (Glutose) 22.5 gm Q15M PRN PO DECREASED GLUCOSE; Start 11/21/16 at 02: 45 Dextrose (D50w Syringe) 25 ml Q15M PRN IV DECREASED GLUCOSE; Start 11/21/16 at 02:45 Dextrose (D50w Syringe) 50 ml Q15M PRN IV DECREASED GLUCOSE; Start 11/21/16 at 02:45 Glucagon (Glucagen) 1 mg Q15M PRN IM DECREASED GLUCOSE; Start 11/21/16 at 02:45 Glucose 15 gm 15 gm Q15M PRN BUCCAL DECREASED GLUCOSE; Start 11/21/16 at 02:45 Levetiracetam/ Dextrose (Keppra Iv/D5W) 105 ml @ 420 mls/hr Q12 IVPB ; Start at 09:00 MIKE LEMA MD Nov 21, 2016 07:42
[2016-11-21] MEDS ORDERED: PROPOFOL 100 ML ONE (07:49)
[2016-11-21] MEDS ORDERED: PROPOFOL 100 ML IV ONE (08:00)
--- NOTE | 2016-11-21 08:06 | RADRPT ---
PROCEDURE: CT Brain without contrast. CLINICAL INDICATION: Intracranial hemorrhage. TECHNIQUE: A CT of the brain was performed on a high-resolution CT scanner utilizing a low dose te chnique with axial imaging from the skull base through the vertex without IV contrast. Multiplanar reformatted images were made. Images were reviewed on a PACS workstation. The CTDIvol is 41.6 mGy and the DLP is 810.25 mGycm. One or more of the following dose reduction techniques were used: - Automated exposure control. - Adjustment of the mA and/or kV according to patient size. Use of iterative reconstruction technique. COMPARISON: CT scan brain 11/21/2016. FINDINGS: There is hemorrhage within the fourth ventricle which remains normal in size. There is a 2 mm calci fication in the cord plexus in the ventral aspect of the fourth ventricle. There is hemorrhage in t he cerebral aqueduct. There is hemorrhage in the third ventricle. There is dilatation of the third and lateral ventricles. The parenchymal hematoma in the right thalamus measures 3.8 mm AP by 4.6 c m transverse which is fairly larger when compared to 11/21/2016. There is surrounding vasogenic marcela ma with 1.2 cm of subfalcine herniation of midline structures from right to left is noted. Cerebral edema extends into the upper brainstem but there is no evidence of transtentorial herniation. Chron ic small vessel ischemic changes are still noted in the periventricular white matter tracts adjacent to the lateral ventricles. There are vascular calcifications in the cavernous and supracavernous po rtions of the internal carotid arteries. . There is minimal mucosal thickening in the maxillary sinuses and ethmoid sinuses. The sphenoid sinu ses are clear. The mastoid air cells and internal auditory canals are normal. The globes and extra ocular muscles are unremarkable except for a senescent calcification in the right lobe. The bony black varium is intact. IMPRESSION: 1. There has been no significant change in the right thalamic parenchymal hemorrhage with extension into the right cerebral peduncle since 11/21/2016 previously measuring 4.3 x 3.7 cm and now measuri ng 4.4 x 3.8 cm. 1.2 cm of subfalcine herniation of midline structures from right to left. 2. Stable moderate communicating hydrocephalus with stable intraventricular hemorrhage. 3. Chronic small vessel ischemic changes in the periventricular white matter tracts adjacent to the lateral ventricles. 4. There are vascular calcifications in the cavernous and supracavernous portions of the internal c arotid arteries. 5. Small scalp hematoma is adjacent to the right and left frontal bones. RPTAT:AAJJ Physician Eleazar Date Time Electronically viewed and signed by Rodrigo Brennan Physician on 11/21/2016 08:06 NAVARRO/
--- NOTE | 2016-11-21 08:09 | RADRPT ---
PROCEDURE: XR Chest. CLINICAL INDICATION: Assess endotracheal tube placement with the patient on ventilator. TECHNIQUE: Single frontal view of the chest was obtained COMPARISON: Chest x-ray 11/20/2016. FINDINGS: The soft tissues are normal. There are degenerative osteophytes in the thoracic spine. The heart i s enlarged. Endotracheal tube is well positioned 2 cm above the vicky. NG tube is positioned dist al to the GE junction. Mediastinum is then performed. Monitoring electrodes a direct across the ch est. The cardiomediastinal silhouette, pulmonary vasculature and hilar structures are normal. Graft sclerotic calcifications in the ectatic left-sided aorta. Mild compressive atelectasis is noted gre ater in the right lower lobe than left. This is unchanged. The costophrenic angles are normal. IMPRESSION: 1. Status post median sternotomy with satisfactory position of the endotracheal tube 2 cm above the vicky. 2. Suboptimal inspiratory effort with compressive atelectasis in the bases of the lung greater in t he left lower lobe. 3. Satisfactory positioning of an NG tube. RPTAT:AAJJ Physician Eleazar Date Time Electronically viewed and signed by Physician Eleazar on 11/21/2016 08:08 NAVARRO/
[2016-11-21] MEDS: LATANOPROST 0.005% 2.5 ML OPH BOTH EYES SCH (09:00)
[2016-11-21] MEDS: DOCUSATE SODIUM 100 MG CAP PO SCH ×2 (09:00→21:32)
[2016-11-21] MEDS: REPAGLINIDE 2 MG TAB PO SCH ×3 (09:32→16:58)
[2016-11-21] MEDS: LINAGLIPTIN 5 MG TABLET PO SCH (09:33)
[2016-11-21] MEDS: ALLOPURINOL 100 MG TAB PO SCH (09:33)
--- NOTE | 2016-11-21 10:11 | OPR ---
DATE OF OPERATION: 11/21/2016 PREOPERATIVE DIAGNOSES: Hydrocephalus and intraventricular hemorrhage. POSTOPERATIVE DIAGNOSES: Hydrocephalus and intraventricular hemorrhage. PROCEDURE PERFORMED: Left frontal ventriculostomy. SURGEON: John Monsivais MD ANESTHESIA: Local anesthetic. PRODUCT DEVELOPMENT CHEMIST: None. INDICATIONS: The patient is an 81-year-old male with a right thalamic bleed and intraventricular ex tension with hydrocephalus on followup CT. The risks, benefits, and alternatives to left frontal ve ntriculostomy were explained to the patient and the patient's and family in detail. Informed c onsent was obtained, the patient was telephone consented for a left frontal ventriculostomy. PROCEDURE IN DETAIL: The patient was positioned supine in the intensive care unit with the head jose luis vated at approximately 30 degrees. The hair over the left hemicalvarium was clipped. The scalp was prepped and draped in usual sterile fashion. A formal timeout was performed. The scalp was infilt rated with local anesthetic over Danyel's point, a stab incision was made with a 15 blade. A hand t wist drill was used to perforate the calvarium. The dura was perforated with the sharp end of the v entriculostomy trocar. A ventricular catheter was advanced to a depth of 7 cm into the frontal horn of the left lateral ventricle using anatomical landmarks in a single pass without difficulty. This was tunneled underneath the skin. CSF was collected and sent for routine studies. The drain was f urther secured with 4-0 nylon suture and ulises. The stab incision was closed with 4-0 figure-of-e ight nylon suture. The drainage catheter was connected to a closed Noland external drainage system, transduced to ICP. COMPLICATIONS: There were no complications. ESTIMATED BLOOD LOSS: 5 to 10 mL. Dictated By: JOHN TRAVIS/LOGAN Conf#: [id number] DID#: [id number]
[2016-11-21] MEDS: LEVETIRACETAM IV 500 MG in DEXTROSE 5% 100 ML IVPB SCH ×3 (10:25→21:33)
[2016-11-21 11:19] LABS: AADO2 Arterial 220.7 mmHg (7.0-24.0); Allen Test ACCEPTAB; Arterial Base Excess -1.6 mmol/L (-3.0-3); Arterial COHb 0.3 % (0.0-3.0); Arterial Fraction of Oxyhgb 97.3 % (93.0-99.0); Arterial HCO3 21.1 mmol/L (22.0-26.0); Arterial MetHb 0.2 % (0.0-1.5); Arterial Total Hemglobin 14.6 g/dl (12.0-18.0); MODE VENT - AC
--- NOTE | 2016-11-21 12:14 | CONS ---
Date/Time of Note Date/Time of Note DATE: 11/21/16 TIME: 12:10 Assessment/Plan Assessment/Plan Additional Assessment/Plan Chest x-ray was reviewed from today which is essentially unremarkable. There is unfolding of the aortic arch. Endotracheal tube is at an adequate level. CT of the head is showing thalamic bleed patient also has had intraventricular bleed as well. Ventilator settings are AC of 20, tidal volume 500, PEEP of 5, 50% FiO2. Assessment recommendations; 1. Patient admitted for CVA with intraventricular bleed, status post ventriculostomy. 2. History of hypertension. Patient off nicardipine drip. 3. Currently no evidence of any infective process. 4. History of multiple other comorbidities as outlined above. Which all appear fairly stable. 5. Currently no seizure activity noted. Continue current treatment. Wean down FiO2 to keep O2 sat around 92-94%. Prognosis appears poor. Consultation Date/Type/Reason Admit Date/Time Sunday November 20, 2016 Date of Consultation: Nov 21, 2016 Type of Consultation: Pulmonary/critical care Reason for Consultation Pulmonary consultation obtained for respiratory failure. Patient admitted for intraventricular hemorrhage. Next History presenting; patient is a 78-year-old oriental male who was brought into the emergency room after development of sudden generalized weakness patient was diagnosed with cerebral hemorrhage underwent emergent neurosurgical intervention where a ventriculostomy was placed. The patient also given respiratory failure. By the time I saw him he is in ICU, or intubated and sedated. Has remained hemodynamically stable. He is off nicardipine drip. History was obtained from medical records. Past medical history; 1. History of laparoscopic colectomy. 2. Acid reflux 3. CHF. 4. Coronary artery disease status post bypass surgery. 5. History of TURP. 6. Appendectomy. 7. Diabetes. 8. Hypertension. 9. History of thyroid cancer. 10. Chronic renal insufficiency. Medications; were reviewed. Allergies; are to latex. Family history; not available. Social history; most of any smoking alcohol or drug abuse. Occupational history; not available. Review of systems; not obtainable. General exam; elderly male, or intubated, sedated. Past Medical History Medical History: congestive heart failure, coronary artery disease, diverticulitis, hypertension, hypothyroid (proceedure induced), other (thyroid cancer) Past Surgical History Past Surgical Hx: appendectomy, bowel resection, coronary bypass surgery, other (total thyroidectomy) Social History Alcohol Use: none Smoking Status: Unknown if ever smoked Drug Use: none Exam/Review of Systems Vital Signs Vitals Vital Signs Date Time Temp Pulse Resp B/P Pulse Ox O2 Delivery O2 Flow Rate FiO2 11/21/16 11:15 85 20 111/61 100 Mechanical Ventilator 11/21/16 09:20 50 11/21/16 07:30 97.6 11/20/16 22:45 2.0 Intake and Output 11/20/16 11/20/16 11/21/16 15:00 23:00 07:00 Intake Total 250 ml 100 ml Output Total 1250 ml Balance 250 ml -1150 ml Exam HEENT examination; supple neck, no JVD. No lymphadenopathy. Midline trachea. No thyromegaly. There is a ventriculostomy in place. Bilateral cataracts are present. Pupils are midsize and nonreactive to light. No neck masses. No thyromegaly. No neck bruits. Chest examination; diminished but clear breath sounds bilaterally. No added salt. S1-S2 audible, no murmurs. Regular rhythm. There is a well-healed sternal scar present. Abdomen examination; soft, nondistended. No organomegaly. Multiple small well- healed scars are present. Extremity examination; no peripheral edema. Pulses 1+ bilaterally. DENTAL AIDE examination; patient is sedated. Results Result Diagram: 11/21/16 0520 11/21/16 0520 Results 24 hrs Laboratory Tests Test 11/20/16 20:50 11/20/16 20:59 11/21/16 00:45 11/21/16 00:50 White Blood Count 7.6 # Red Blood Count 5.30 # Hemoglobin 13.7 #L Hematocrit 44.7 # Mean Corpuscular Volume 84.3 Mean Corpuscular Hemoglobin 25.8 L Mean Corpuscular Hemoglobin Concent 30.6 L Red Cell Distribution Width 16.6 H Platelet Count 200 Mean Platelet Volume 12.0 #H Neutrophils % 57.4 Lymphocytes % 22.5 Monocytes % 12.4 H Eosinophils % 6.6 Basophils % 0.8 Nucleated Red Blood Cells % 0.0 Neutrophils # 4.4 Lymphocytes # 1.7 Monocytes # 0.9 Eosinophils # 0.5 Basophils # 0.1 Nucleated Red Blood Cells # 0.0 Prothrombin Time 27.4 H 13.6 # Prothrombin Time Ratio 2.1 1.1 INR International Normalized Ratio 2.51 1.04 Activated Partial Thromboplast Time 41.8 H 32.7 Sodium Level 142 Potassium Level 4.0 Chloride Level 105 Carbon Dioxide Level 27 Anion Gap 14 Blood Urea Nitrogen 31 H Creatinine 1.53 H Glucose Level 137 Hemoglobin A1c 6.9 H Calcium Level 8.5 Troponin I 0.019 Bedside Glucose 106 Urine Color LT. YELLOW Urine Clarity CLEAR Urine pH 6.0 Urine Specific [place] 1.010 Urine Ketones NEGATIVE Urine Nitrite NEGATIVE Urine Bilirubin NEGATIVE Urine Urobilinogen 0.2 E.U./dL Urine Leukocyte Esterase NEGATIVE Urine Microscopic RBC 5-10 Urine Microscopic WBC 0-2 Urine Squamous Epithelial Cells RARE Urine Bacteria RARE Urine Hemoglobin TRACE Urine Glucose 0.1% H Urine Total Protein NEGATIVE Urine Opiates Screen Negative Urine Barbiturates Negative Urine Amphetamines Screen Negative Urine Benzodiazepines Screen Negative Urine Cocaine Screen Negative Urine Cannabinoids Negative Test 11/21/16 01:05 11/21/16 05:20 11/21/16 05:50 11/21/16 07:00 Blood Gas Specimen Source Blood arterial Blood arterial Arterial Blood Date Drawn 11/21/2016 1:05:34 AM 11/21/2016 8:55:00 AM Arterial Blood pH (Temp corrected) 7.397 7.456 H Arterial Blood pCO2 (Temp correct) 38.9 30.7 L Arterial Blood pO2 (Temp corrected) 368.4 H 101.3 H Arterial Blood HCO3 23.4 21.1 L Arterial Blood Base Excess -1.2 -1.6 Arterial Blood Oxygen Saturation 99.7 97.8 Ashish Test ACCEPTAB ACCEPTAB Arterial Blood Gas Puncture Site Right Radial Right Radial Arterial Blood Carboxyhemoglobin 0.5 0.3 Arterial Blood Methemoglobin 0.5 0.2 Blood Gas A-a O2 Differential 305.7 H 220.7 H Oxyhemoglobin Percent 98.7 97.3 Total Hemoglobin 15.4 14.6 Blood Gas Temperature 37.0 37.0 Blood Gas Respiration Rate 20.0 20.0 Blood Gas Actual Respiration Rate 20 20 Blood Gas Modality VENT - AC VENT - AC FiO2 100.0 50.0 Blood Gas Tidal Volume 500.0 500.0 Blood Gas Low PEEP Setting 5.0 5.0 Blood Gas Notified Whom MG DT Blood Gas Notified Time 11/21/2016 1:10:00 AM 11/21/2016 9:14:00 AM White Blood Count 9.8 # Red Blood Count 5.55 Hemoglobin 14.4 Hematocrit 47.2 Mean Corpuscular Volume 85.0 Mean Corpuscular Hemoglobin 25.9 L Mean Corpuscular Hemoglobin Concent 30.5 L Red Cell Distribution Width 17.1 H Platelet Count 189 Mean Platelet Volume 12.6 H Neutrophils % 76.3 Lymphocytes % 12.1 L Monocytes % 10.4 Eosinophils % 0.6 Basophils % 0.3 Nucleated Red Blood Cells % 0.0 Neutrophils # 7.5 Lymphocytes # 1.2 Monocytes # 1.0 H Eosinophils # 0.1 Basophils # 0.0 Nucleated Red Blood Cells # 0.0 Prothrombin Time 13.8 Prothrombin Time Ratio 1.1 INR International Normalized Ratio 1.06 Sodium Level 139 Potassium Level 4.2 Chloride Level 101 Carbon Dioxide Level 29 Anion Gap 17 H Blood Urea Nitrogen 26 H Creatinine 1.45 H Glucose Level 149 Calcium Level 8.8 Total Bilirubin 0.6 Direct Bilirubin 0.00 Indirect Bilirubin 0.6 Aspartate Amino Transf (AST/SGOT) 25 Alanine Aminotransferase (ALT/SGPT) 12 L Alkaline Phosphatase 120 Total Protein 7.2 Albumin 3.5 Globulin 3.80 H Albumin/Globulin Ratio 0.97 Bedside Glucose 115 Test 11/21/16 09:31 Bedside Glucose 90 Medications Medications Current Medications Allopurinol (Zyloprim) 100 mg DAILY PO Last administered on 11/21/16 09:33; Admin Dose 100 MG; Start 11/21/16 at 09:00 Atorvastatin Calcium (Lipitor) 40 mg DAILY@21 PO ; Start 11/21/16 at 21:00 Carvedilol (Coreg) 12.5 mg BID PO ; Start 11/21/16 at 09:00 Docusate Sodium (Colace) 300 mg BID PO ; Start 11/21/16 at 09:00 Furosemide (Lasix) 40 mg DAILY@06 PO Last administered on 11/21/16 05:40; Admin Dose 40 MG; Start 11/21/16 at 06:00 Latanoprost (Xalatan) 1 drop DAILY BOTH EYES ; Start 11/21/16 at 09:00 Pantoprazole (Protonix Tab) 40 mg DAILY@06 PO Last administered on 11/21/16 05 :40; Admin Dose 40 MG; Start 11/21/16 at 06:00 Linagliptin (Tradjenta) 5 mg DAILY PO Last administered on 11/21/16 09:33; Admin Dose 5 MG; Start 11/21/16 at 09:00 Insulin Aspart NOVOLOG *MILD* ALGORI... Q4 SC ; Start 11/21/16 at 05:00 Nicardipine HCl (Cardene Iv) 200 ml @ 50 mls/hr TITRATE IV Last administered on 11/21/16 01:31; Admin Dose 25 MLS/HR; Start 11/21/16 at 01:00 Miscellaneous Information 1 ea NOTE XX ; Start 11/21/16 at 02:45 Glucose (Glutose) 15 gm Q15M PRN PO DECREASED GLUCOSE; Start 11/21/16 at 02:45 Glucose (Glutose) 22.5 gm Q15M PRN PO DECREASED GLUCOSE; Start 11/21/16 at 02: 45 Dextrose (D50w Syringe) 25 ml Q15M PRN IV DECREASED GLUCOSE; Start 11/21/16 at 02:45 Dextrose (D50w Syringe) 50 ml Q15M PRN IV DECREASED GLUCOSE; Start 11/21/16 at 02:45 Glucagon (Glucagen) 1 mg Q15M PRN IM DECREASED GLUCOSE; Start 11/21/16 at 02:45 Glucose 15 gm 15 gm Q15M PRN BUCCAL DECREASED GLUCOSE; Start 11/21/16 at 02:45 Levetiracetam/ Dextrose (Keppra Iv/D5W) 105 ml @ 420 mls/hr Q12 IVPB Last administered on 11/21/16 10:25; Admin Dose 420 MLS/HR; Start 11/21/16 at 09:00 REGINO RESTREPO Nov 21, 2016 12:14
[2016-11-21] MEDS: DEXTROSE 5%-0.45% NACL 1,000 ML IV SCH (14:50)
--- NOTE | 2016-11-21 15:30 | PN ---
Date/Time of Note Date/Time of Note DATE: 11/21/16 TIME: 15:21 Assessment/Plan VTE Prophylaxis VTE Prophylaxis Intervention: contraindicated VTE Contraindication Reason: hemorrhagic cerebral infarction Lines/Catheters IV [facility] Type [facility]from [facility] Saline Lock Urinary Cath still in place: Yes Reason Cath still needed: other (indicate) (intubated) Assessment/Plan Chief Complaint/Hosp Course 81 year old man with initial complaint of left sided weakness due to hemorrhagic stroke of the basal ganglia that progressed causing patient to become unresponsive and require intubation. Patient will be transferred to the ICU. Neurosurgery and Neurology services have both been consulted. Problems: (1) Hemorrhagic stroke Status: Acute Comment: Seen by neurosurgeon today. Left ventriculostomy placed for relief of hydrocephalus. Patient status critical. Appreciate neurosurgeon's participation in this patient's care. (2) Type 2 diabetes mellitus with diabetic chronic kidney disease Status: Chronic Comment: Good glycemic control. Will add dextrosed fluids as patient remains NPO. May eventually need to start feeds. (3) Essential (primary) hypertension Status: Chronic Comment: Good blood pressure control (4) Malignant neoplasm of thyroid gland Status: Chronic Comment: No issues at this time. (5) On mechanically assisted ventilation Status: Acute Comment: Airway protection in patient that is intubated and unresponsive. Appreciated pulmonary service participation in this patient's care. Assessment/Plan 81 year old man with thalamic bleed. Prognosis guarded Subjective 24 Hr Interval Summary Free Text/Dictation Transferred to ICU. Subjective hx not possible: pt critical status Exam/Review of Systems Vital Signs Vitals Vital Signs Date Time Temp Pulse Resp B/P Pulse Ox O2 Delivery O2 Flow Rate FiO2 11/21/16 15:00 100.0 91 21 110/56 98 Mechanical Ventilator 11/21/16 11:20 30 11/20/16 22:45 2.0 Intake and Output 11/20/16 11/20/16 11/21/16 15:00 23:00 07:00 Intake Total 250 ml 100 ml Output Total 1250 ml Balance 250 ml -1150 ml Exam Intubated, not sedated, unresponsive but withdraws to pain. Constitutional: non-verbal, well developed ENMT: intubated Respiratory: clear to auscultation Cardiovascular: regular rate and rhythm Gastrointestinal: soft Musculoskeletal: nl extremities to inspection Extremities: normal pulses Neurological: other (ventriculostomy in place) Results Labs reviewed Result Diagram: 11/21/16 0520 11/21/16 0520 Results 24 hrs Laboratory Tests Test 11/20/16 20:50 11/20/16 20:59 11/21/16 00:45 11/21/16 00:50 White Blood Count 7.6 # Red Blood Count 5.30 # Hemoglobin 13.7 #L Hematocrit 44.7 # Mean Corpuscular Volume 84.3 Mean Corpuscular Hemoglobin 25.8 L Mean Corpuscular Hemoglobin Concent 30.6 L Red Cell Distribution Width 16.6 H Platelet Count 200 Mean Platelet Volume 12.0 #H Neutrophils % 57.4 Lymphocytes % 22.5 Monocytes % 12.4 H Eosinophils % 6.6 Basophils % 0.8 Nucleated Red Blood Cells % 0.0 Neutrophils # 4.4 Lymphocytes # 1.7 Monocytes # 0.9 Eosinophils # 0.5 Basophils # 0.1 Nucleated Red Blood Cells # 0.0 Prothrombin Time 27.4 H 13.6 # Prothrombin Time Ratio 2.1 1.1 INR International Normalized Ratio 2.51 1.04 Activated Partial Thromboplast Time 41.8 H 32.7 Sodium Level 142 Potassium Level 4.0 Chloride Level 105 Carbon Dioxide Level 27 Anion Gap 14 Blood Urea Nitrogen 31 H Creatinine 1.53 H Glucose Level 137 Hemoglobin A1c 6.9 H Calcium Level 8.5 Troponin I 0.019 Bedside Glucose 106 Urine Color LT. YELLOW Urine Clarity CLEAR Urine pH 6.0 Urine Specific [place] 1.010 Urine Ketones NEGATIVE Urine Nitrite NEGATIVE Urine Bilirubin NEGATIVE Urine Urobilinogen 0.2 E.U./dL Urine Leukocyte Esterase NEGATIVE Urine Microscopic RBC 5-10 Urine Microscopic WBC 0-2 Urine Squamous Epithelial Cells RARE Urine Bacteria RARE Urine Hemoglobin TRACE Urine Glucose 0.1% H Urine Total Protein NEGATIVE Urine Opiates Screen Negative Urine Barbiturates Negative Urine Amphetamines Screen Negative Urine Benzodiazepines Screen Negative Urine Cocaine Screen Negative Urine Cannabinoids Negative Test 11/21/16 01:05 11/21/16 05:20 11/21/16 05:50 11/21/16 07:00 Blood Gas Specimen Source Blood arterial Blood arterial Arterial Blood Date Drawn 11/21/2016 1:05:34 AM 11/21/2016 8:55:00 AM Arterial Blood pH (Temp corrected) 7.397 7.456 H Arterial Blood pCO2 (Temp correct) 38.9 30.7 L Arterial Blood pO2 (Temp corrected) 368.4 H 101.3 H Arterial Blood HCO3 23.4 21.1 L Arterial Blood Base Excess -1.2 -1.6 Arterial Blood Oxygen Saturation 99.7 97.8 Ashish Test ACCEPTAB ACCEPTAB Arterial Blood Gas Puncture Site Right Radial Right Radial Arterial Blood Carboxyhemoglobin 0.5 0.3 Arterial Blood Methemoglobin 0.5 0.2 Blood Gas A-a O2 Differential 305.7 H 220.7 H Oxyhemoglobin Percent 98.7 97.3 Total Hemoglobin 15.4 14.6 Blood Gas Temperature 37.0 37.0 Blood Gas Respiration Rate 20.0 20.0 Blood Gas Actual Respiration Rate 20 20 Blood Gas Modality VENT - AC VENT - AC FiO2 100.0 50.0 Blood Gas Tidal Volume 500.0 500.0 Blood Gas Low PEEP Setting 5.0 5.0 Blood Gas Notified Whom MG DT Blood Gas Notified Time 11/21/2016 1:10:00 AM 11/21/2016 9:14:00 AM White Blood Count 9.8 # Red Blood Count 5.55 Hemoglobin 14.4 Hematocrit 47.2 Mean Corpuscular Volume 85.0 Mean Corpuscular Hemoglobin 25.9 L Mean Corpuscular Hemoglobin Concent 30.5 L Red Cell Distribution Width 17.1 H Platelet Count 189 Mean Platelet Volume 12.6 H Neutrophils % 76.3 Lymphocytes % 12.1 L Monocytes % 10.4 Eosinophils % 0.6 Basophils % 0.3 Nucleated Red Blood Cells % 0.0 Neutrophils # 7.5 Lymphocytes # 1.2 Monocytes # 1.0 H Eosinophils # 0.1 Basophils # 0.0 Nucleated Red Blood Cells # 0.0 Prothrombin Time 13.8 Prothrombin Time Ratio 1.1 INR International Normalized Ratio 1.06 Sodium Level 139 Potassium Level 4.2 Chloride Level 101 Carbon Dioxide Level 29 Anion Gap 17 H Blood Urea Nitrogen 26 H Creatinine 1.45 H Glucose Level 149 Calcium Level 8.8 Total Bilirubin 0.6 Direct Bilirubin 0.00 Indirect Bilirubin 0.6 Aspartate Amino Transf (AST/SGOT) 25 Alanine Aminotransferase (ALT/SGPT) 12 L Alkaline Phosphatase 120 Total Protein 7.2 Albumin 3.5 Globulin 3.80 H Albumin/Globulin Ratio 0.97 Bedside Glucose 115 Test 11/21/16 09:31 11/21/16 12:54 Bedside Glucose 90 107 Medications Medications Current Medications Allopurinol (Zyloprim) 100 mg DAILY PO Last administered on 11/21/16 09:33; Admin Dose 100 MG; Start 11/21/16 at 09:00 Atorvastatin Calcium (Lipitor) 40 mg DAILY@21 PO ; Start 11/21/16 at 21:00 Carvedilol (Coreg) 12.5 mg BID PO ; Start 11/21/16 at 09:00 Docusate Sodium (Colace) 300 mg BID PO ; Start 11/21/16 at 09:00 Furosemide (Lasix) 40 mg DAILY@06 PO Last administered on 11/21/16 05:40; Admin Dose 40 MG; Start 11/21/16 at 06:00 Latanoprost (Xalatan) 1 drop DAILY BOTH EYES ; Start 11/21/16 at 09:00 Pantoprazole (Protonix Tab) 40 mg DAILY@06 PO Last administered on 11/21/16 05 :40; Admin Dose 40 MG; Start 11/21/16 at 06:00 Linagliptin (Tradjenta) 5 mg DAILY PO Last administered on 11/21/16 09:33; Admin Dose 5 MG; Start 11/21/16 at 09:00 Insulin Aspart NOVOLOG *MILD* ALGORI... Q4 SC ; Start 11/21/16 at 05:00 Nicardipine HCl (Cardene Iv) 200 ml @ 50 mls/hr TITRATE IV Last administered on 11/21/16 01:31; Admin Dose 25 MLS/HR; Start 11/21/16 at 01:00 Miscellaneous Information 1 ea NOTE XX ; Start 11/21/16 at 02:45 Glucose (Glutose) 15 gm Q15M PRN PO DECREASED GLUCOSE; Start 11/21/16 at 02:45 Glucose (Glutose) 22.5 gm Q15M PRN PO DECREASED GLUCOSE; Start 11/21/16 at 02: 45 Dextrose (D50w Syringe) 25 ml Q15M PRN IV DECREASED GLUCOSE; Start 11/21/16 at 02:45 Dextrose (D50w Syringe) 50 ml Q15M PRN IV DECREASED GLUCOSE; Start 11/21/16 at 02:45 Glucagon (Glucagen) 1 mg Q15M PRN IM DECREASED GLUCOSE; Start 11/21/16 at 02:45 Glucose 15 gm 15 gm Q15M PRN BUCCAL DECREASED GLUCOSE; Start 11/21/16 at 02:45 Levetiracetam 500 mg/Dextrose 105 ml @ 420 mls/hr Q12 IVPB Last administered on 11/21/16 10:25; Admin Dose 420 MLS/HR; Start 11/21/16 at 09:00 Dextrose/Sodium Chloride (D5-1/2ns) 1,000 ml @ 70 mls/hr [id number] IV Last administered on 11/21/16 14:50; Admin Dose 70 MLS/HR; Start 11/21/16 at 14:30 Procedures Procedures Left ventriculostomy placed today CRISPIN GONZALES MD Nov 21, 2016 15:30
--- NOTE | 2016-11-21 19:28 | RADRPT ---
PROCEDURE: CT Head without. CLINICAL INDICATION: Follow-up intracranial hemorrhage. TECHNIQUE: The study was performed utilizing a multi-slice, multidetector CT scanner. Direct spira l 1 mm axial sections were obtained through the head without the use of intravenous contrast materia l. 1 or more of the following dose reduction techniques were utilized: Automated exposure control, adjustment of the mA and/or kV according to patient's size, iterative reconstruction technique. Co marcello and sagittal reformations were obtained. The images were reviewed on a PACS workstation. RADIATION DOSE: CTDIvol: 44.0 mGyDLP: 810.3 mGy-cm COMPARISON: Multiple prior exams including most recent on 11/22/2015. FINDINGS: There has been interval placement of a left frontal approach ventriculostomy, with postoperative zulema nges in the left frontal region. The ventriculostomy traverses the left frontal lobe, with tip near the left foramen of Monro. There is redemonstration of markedly severe right thalamic hemorrhage m easuring 3.8 x 4.6 x 3.3 cm(AP x TR x CC), which is stable in size compared to the prior examination measuring 4.20 x 4.5 x 3.0 cm. There is redemonstration of moderate mass effect on the midline sep marsha pellucidum, with 12-13 mm of leftward midline shift at the level of the hemorrhage. There is re demonstration of extensive hemorrhage within the lateral, third and fourth ventricles. There is bal looning of the temporal horns compatible with hydrocephalus, slightly improved compared to the prior examination. There is persistent crowding of the cerebellar tonsils at the foramen magnum without definite herniation. There is no significant subfalcine herniation. No definite transtentorial herniation is seen. There is persistent mild periventricular subcortical white matter hypodensity. IMPRESSION: 1. Interval placement of left frontal approach ventriculostomy with tip near the left foramen of Mo nro. There is persistent mild to moderate prominence of the lateral ventricles with mild ballooning of the temporal horns, slightly improved compared to the prior examination on 11/21/2016 at 06:38 a .m.. 2. Stable appearance of prominent left thalamic hemorrhage measuring 4.2 x 4.5 x 3.3 cm, stable com pared to prior exam when it measured 4.2 x 4.5 x 3.0 cm. 3. Redemonstration of extensive intraventricular hemorrhage. 4. Redemonstration of moderate leftward midline shift, measuring 12 13 mm at the level of the septu m lucent, stable compared to the prior examination. 5. Stable crowding of the cerebellar tonsils at the foramen magnum without evidence of herniation. No significant subfalcine transtentorial herniation. RPTAT: HGAS .Atul Xiao MD, MD Date Time Electronically viewed and signed by .Atul Xiao MD, MD on 11/21/2016 19:28 .S/
[2016-11-21] MEDS ORDERED: SOD CHLORIDE 0.9% 1,000 ML IV ONE (21:00)
[2016-11-21] MEDS ORDERED: ACETAMINOPHEN 650 MG SUPP PR PRN (21:00)
[2016-11-21] MEDS: ATORVASTATIN 40 MG TAB PO SCH (21:31)
[2016-11-21] MEDS: ACETAMINOPHEN 650MG/20.3ML CUP NGT PRN (21:31)
[2016-11-21 22:23] LABS: # OF CELLS COUNTED 100
[2016-11-21 23:41] LABS: GLUCOSE,CSF 85 mg/dl (50-80)
[2016-11-22] VITALS (45 sets, daily range): BP systolic 100–140; BP diastolic 53–73; PULSE 69–163; RESP 15–23
[2016-11-22] MEDS: INSULIN ASPART [NOVOLOG] 3 ML PEN SC SCH ×7 (01:00→21:00)
[2016-11-22 01:19] LABS: CSF COLOR RED
[2016-11-22 01:20] LABS: %CREANATED RBC CSF 0 %; CSF#TUBE COUNT TUBE#1; CSF#TUBES REC'D 1
--- NOTE | 2016-11-22 01:56 | RADRPT ---
AMENDMENT: 11/22/2016 1:57:07 AM Bernardo Terry MD ADDENDUM: COMPARISON: Plain film chest dated today, about 14 hours ago. PROCEDURE: XR Chest. CLINICAL INDICATION: Fever. TECHNIQUE: Single frontal view of the chest was obtained COMPARISON: None FINDINGS: Endotracheal intubation is seen with tip about 5 cm above the vicky. Nasogastric tube is seen with tip not visualized below of the inferior heart border, and consider repeat film. The present radio graph is underpenetrated at the lung bases and upper abdomen. Cardiomegaly and tortuous thoracic aorta. Mild left base atelectasis versus airspace disease with small left pleural effusion. Right lung bas e mild atelectasis versus airspace disease, new over interval. There is no pneumothorax. Remote healed fracture of the left clavicle. IMPRESSION: 1. Recommend repeat films evaluate nasogastric tube tip position. 2. Left lung base atelectasis versus airspace disease versus pleural effusion, similar in appearanc e to the prior examination. 3. Right lung base mild atelectasis versus airspace disease, new over the interval. RPTAT: [facility] Physician Vineet Date Time Electronically viewed and signed by Physician Vineet on 11/22/2016 01:57 RS/
[2016-11-22] MEDS: DEXTROSE 5%-0.45% NACL 1,000 ML IV SCH ×3 (04:48→22:00)
[2016-11-22 05:05] LABS: ADD SCAN DIFF NO
[2016-11-22 05:13] LABS: ABNORMAL IP MESSAGE 1; BASOPHILS % 0.3 % (0.0-2.0); EOSINOPHILS % 0.1 % (0.0-7.0); HEMATOCRIT 42.8 % (42.0-52.0); HEMOGLOBIN 13.4 g/dl (14.0-18.0); LYMPHOCYTES # 1.1 10^3/ul (0.8-2.9); LYMPHOCYTES % 7.2 % (15.0-51.0); MEAN CORPUSCULAR HEMOGLOBIN 26.3 pg (29.0-33.0); MEAN CORPUSCULAR HGB CONC 31.3 g/dl (32.0-37.0); MEAN CORPUSCULAR VOLUME 83.9 fl (82.0-101.0); MEAN PLATELET VOLUME 12.5 fl (7.4-10.4); NEUTROPHIL # 12.5 10^3/ul (1.6-7.5); PLATELET COUNT 166 10^3/UL (140-415); RED CELL DISTRIBUTION WIDTH 16.9 % (11.5-14.5); WHITE BLOOD COUNT 14.7 10^3/ul (4.8-10.8)
[2016-11-22 05:31] LABS: POTASSIUM 3.9 mmol/L (3.5-5.1)
[2016-11-22 05:33] LABS: CREATININE 1.99 mg/dl (0.61-1.24)
[2016-11-22] MEDS: FUROSEMIDE 40 MG TAB PO SCH (05:48)
[2016-11-22] MEDS: PANTOPRAZOLE (EC) 40 MG TAB PO SCH (05:48)
[2016-11-22] MEDS: REPAGLINIDE 2 MG TAB PO SCH ×3 (07:05→17:05)
[2016-11-22] MEDS: ALLOPURINOL 100 MG TAB PO SCH (08:19)
[2016-11-22] MEDS: LEVETIRACETAM IV 500 MG in DEXTROSE 5% 100 ML IVPB SCH ×2 (08:19→21:32)
[2016-11-22] MEDS: DOCUSATE SODIUM 100 MG CAP PO SCH ×2 (08:20→21:32)
[2016-11-22] MEDS: LINAGLIPTIN 5 MG TABLET PO SCH (08:21)
[2016-11-22 08:44] LABS: Allen Test ACCEPTAB; Arterial Fraction of Oxyhgb 98.6 % (93.0-99.0); MODE VENT - AC
[2016-11-22 08:48] LABS: Arterial Base Excess -1.4 mmol/L (-3.0-3); Arterial COHb 0.6 % (0.0-3.0); Arterial HCO3 21.2 mmol/L (22.0-26.0); Arterial MetHb 0.3 % (0.0-1.5)
--- NOTE | 2016-11-22 09:26 | CONS ---
Date/Time of Note Date/Time of Note DATE: 11/22/16 TIME: 09:22 Assessment/Plan Assessment/Plan Additional Assessment/Plan Ventilator settings; AC of 20, tidal volume 500, PEEP of 5, 30% FiO2. CT of the head was reviewed from last night which is showing left thalamic bleed with extensive intraventricular bleed as well. Assessment recommendations; 1. Patient admitted for intracranial bleed with respiratory failure. 2. Multiple other comorbidities including history of laparoscopic colectomy, CHF, acid reflux, prior coronary artery disease with coronary artery bypass surgery, diabetes hypertension history of thyroid cancer and chronic renal insufficiency. Continue current treatment. Prognosis is extremely poor. Consultation Date/Type/Reason Admit Date/Time Nov 20, 2016 at 23:09 Initial Consult Date 11/21/16 Type of Consultation: Pulmonary/critical care 24 HR Interval Summary Free Text/Dictation Patient condition remains critical. Still requiring full ventilator support. Patient remains unresponsive. Has been off sedation. General exam; elderly male, orally intubated. Unresponsive. Currently in no distress. Exam/Review of Systems Vital Signs Vitals Vital Signs Date Time Temp Pulse Resp B/P Pulse Ox O2 Delivery O2 Flow Rate FiO2 11/22/16 08:12 80 11/22/16 06:00 21 131/67 97 11/22/16 04:45 30 11/22/16 04:00 98.2 Mechanical Ventilator 11/20/16 22:45 2.0 Intake and Output 11/21/16 11/21/16 11/22/16 15:00 23:00 07:00 Intake Total 490 ml 1785 ml 590 ml Output Total 422 ml 203 ml 302 ml Balance 68 ml 1582 ml 288 ml Exam HEENT examination; supple neck, no JVD. No lymphadenopathy. Midline trachea. No thyromegaly. Ventriculostomy is in place. Pupils are midsize. Next Chest examination; clear to auscultation bilaterally. S1-S2 audible, no murmurs. Regular rhythm. Abdomen examination; soft, no organomegaly. Bowel is audible. Next Extremity examination; no peripheral edema. Next IRRIGATION SERVICE TECHNICIAN examination; patient is awake but does not follow any commands. No spontaneous movements of any limb seen. Results Result Diagram: 11/22/16 0445 11/22/16 0445 Results 24 hrs Laboratory Tests Test 11/21/16 09:31 11/21/16 12:54 11/21/16 16:53 11/21/16 21:36 Bedside Glucose 90 107 127 170 Test 11/22/16 01:20 11/22/16 04:45 11/22/16 05:49 11/22/16 07:00 Bedside Glucose 188 188 White Blood Count 14.7 #H Red Blood Count 5.10 Hemoglobin 13.4 L Hematocrit 42.8 Mean Corpuscular Volume 83.9 Mean Corpuscular Hemoglobin 26.3 L Mean Corpuscular Hemoglobin Concent 31.3 L Red Cell Distribution Width 16.9 H Platelet Count 166 Mean Platelet Volume 12.5 H Neutrophils % 85.0 H Lymphocytes % 7.2 L Monocytes % 7.0 Eosinophils % 0.1 Basophils % 0.3 Nucleated Red Blood Cells % 0.0 Neutrophils # 12.5 H Lymphocytes # 1.1 Monocytes # 1.0 H Eosinophils # 0.0 Basophils # 0.0 Nucleated Red Blood Cells # 0.0 Sodium Level 137 Potassium Level 3.9 Chloride Level 105 Carbon Dioxide Level 25 Anion Gap 11 Blood Urea Nitrogen 33 H Creatinine 1.99 H Glucose Level 225 H Calcium Level 8.0 L Blood Gas Specimen Source Blood arterial Arterial Blood Date Drawn 11/22/2016 8:30:31 AM Arterial Blood pH (Temp corrected) 7.469 H Arterial Blood pCO2 (Temp correct) 29.8 L Arterial Blood pO2 (Temp corrected) 269.1 H Arterial Blood HCO3 21.2 L Arterial Blood Base Excess -1.4 Arterial Blood Oxygen Saturation 99.5 Ashish Test ACCEPTAB Arterial Blood Gas Puncture Site Right Radial Arterial Blood Carboxyhemoglobin 0.6 Arterial Blood Methemoglobin 0.3 Oxyhemoglobin Percent 98.6 Total Hemoglobin 14.0 Blood Gas Temperature 37.0 Blood Gas Respiration Rate 20.0 Blood Gas Actual Respiration Rate 20 Blood Gas Modality VENT - AC FiO2 30.0 Blood Gas Tidal Volume 500.0 Blood Gas Low PEEP Setting 5.0 Blood Gas Critical Value Read Back J TAVIA RN Blood Gas Notified Whom DT Blood Gas Notified Time 11/15/2016 8:48:04 AM Test 11/22/16 08:19 Bedside Glucose 192 Medications Medications Current Medications Allopurinol (Zyloprim) 100 mg DAILY PO Last administered on 11/22/16t 08:19; Admin Dose 100 MG; Start 11/21/16 at 09:00 Atorvastatin Calcium (Lipitor) 40 mg DAILY@21 PO Last administered on 21:31; Admin Dose 40 MG; Start 11/21/16 at 21:00 Carvedilol (Coreg) 12.5 mg BID PO Last administered on 11/22/16 08:20; Admin Dose 12.5 MG; Start 11/21/16 at 09:00 Docusate Sodium (Colace) 300 mg BID PO Last administered on 11/22/16 08:20; Admin Dose 300 MG; Start 11/21/16 at 09:00 Furosemide (Lasix) 40 mg DAILY@06 PO Last administered on 11/22/16 05:48; Admin Dose 40 MG; Start 11/21/16 at 06:00 Latanoprost (Xalatan) 1 drop DAILY BOTH EYES ; Start 11/21/16 at 09:00 Pantoprazole (Protonix Tab) 40 mg DAILY@06 PO Last administered on 11/22/16 05 :48; Admin Dose 40 MG; Start 11/21/16 at 06:00 Linagliptin (Tradjenta) 5 mg DAILY PO Last administered on 11/21/16 09:33; Admin Dose 5 MG; Start 11/21/16 at 09:00 Insulin Aspart NOVOLOG *MILD* ALGORI... Q4 SC Last administered on 11/22/16 08 :22; Admin Dose 2 UNIT; Start 11/21/16 at 05:00 Nicardipine HCl (Cardene Iv) 200 ml @ 50 mls/hr TITRATE IV Last administered on 11/21/16 01:31; Admin Dose 25 MLS/HR; Start 11/21/16 at 01:00 Miscellaneous Information 1 ea NOTE XX ; Start 11/21/16 at 02:45 Glucose (Glutose) 15 gm Q15M PRN PO DECREASED GLUCOSE; Start 11/21/16 at 02:45 Glucose (Glutose) 22.5 gm Q15M PRN PO DECREASED GLUCOSE; Start 11/21/16 at 02: 45 Dextrose (D50w Syringe) 25 ml Q15M PRN IV DECREASED GLUCOSE; Start 11/21/16 at 02:45 Dextrose (D50w Syringe) 50 ml Q15M PRN IV DECREASED GLUCOSE; Start 11/21/16 at 02:45 Glucagon (Glucagen) 1 mg Q15M PRN IM DECREASED GLUCOSE; Start 11/21/16 at 02:45 Glucose 15 gm 15 gm Q15M PRN BUCCAL DECREASED GLUCOSE; Start 11/21/16 at 02:45 Levetiracetam 500 mg/Dextrose 105 ml @ 420 mls/hr Q12 IVPB Last administered on 11/22/16 08:19; Admin Dose 420 MLS/HR; Start 11/21/16 at 09:00 Dextrose/Sodium Chloride (D5-1/2ns) 1,000 ml @ 70 mls/hr [id number] IV Last administered on 11/22/16 06:17; Admin Dose 70 MLS/HR; Start 11/21/16 at 14:30 Acetaminophen (Tylenol Liquid) 650 mg PRN PRN NGT PAIN AND OR ELEVATED TEMP Last administered on 11/21/16 21:31; Admin Dose 650 MG; Start 11/21/16 at 21:00 Acetaminophen (Tylenol Supp) 650 mg PRN PRN [place] fever; Start 11/21/16 at 21:00 REGINO RESTREPO Nov 22, 2016 09:26
[2016-11-22] MEDS: LATANOPROST 0.005% 2.5 ML OPH BOTH EYES SCH (10:30)
[2016-11-22] MEDS: CIPROFLOXACIN 400MG/D5W 200 ML IVPB SCH (13:18)
--- NOTE | 2016-11-22 18:28 | QN ---
Documentation Comment Thalamic ICH with IVH. O/E ICP 2 with good waveform, currently draining 05cc / hour. On exam ?opening eyes to painful stimuli. Gaze not convergent. Does not follow commands. Left hemiplegia. IMP/PLAN: poor prognosis. cont EVD for now. MIKE LEMA MD Nov 22, 2016 18:28
[2016-11-22] MEDS: ATORVASTATIN 40 MG TAB PO SCH (21:32)
--- NOTE | 2016-11-22 22:10 | PN ---
Date/Time of Note Date/Time of Note DATE: 11/22/16 TIME: 22:02 Assessment/Plan VTE Prophylaxis VTE Prophylaxis Intervention: contraindicated VTE Contraindication Reason: hemorrhagic cerebral infarction Lines/Catheters [facility] Peripheral IV Urinary Cath still in place: Yes Reason Cath still needed: other (indicate) (intubated) Assessment/Plan Chief Complaint/Hosp Course 81 year old man with initial complaint of left sided weakness due to hemorrhagic stroke of the basal ganglia that progressed causing patient to become unresponsive and require intubation. Patient will be transferred to the ICU. Neurosurgery and Neurology services have both been consulted. Problems: (1) Hemorrhagic stroke Status: Acute Comment: S/P thalamic stroke. S/P ventriculostomy. Patient remains unresponsive. Poor prognosis. (2) Type 2 diabetes mellitus with diabetic chronic kidney disease Status: Chronic Comment: Blood glucose readings decent on dextrosed fluids. (3) Essential (primary) hypertension Status: Chronic Comment: Blood pressures remain stable. (4) Malignant neoplasm of thyroid gland Status: Chronic Comment: No issues (5) Chronic diastolic congestive heart failure, NYHA class 1 Status: Chronic Comment: Compensated at this time. (6) On mechanically assisted ventilation Status: Acute Comment: Still requiring full ventilator support Assessment/Plan Prognosis guarded Subjective 24 Hr Interval Summary Subjective hx not possible: pt non-verbal, pt critical status Exam/Review of Systems Vital Signs Vitals Vital Signs Date Time Temp Pulse Resp B/P Pulse Ox O2 Delivery O2 Flow Rate FiO2 11/22/16 18:00 72 20 102/53 95 Mechanical Ventilator 11/22/16 17:20 30 11/22/16 16:00 99.6 11/20/16 22:45 2.0 Intake and Output 11/21/16 11/21/16 11/22/16 15:00 23:00 07:00 Intake Total 490 ml 1785 ml 660 ml Output Total 422 ml 203 ml 503 ml Balance 68 ml 1582 ml 157 ml Exam Constitutional: non-verbal, other (unresponsive) ENMT: intubated Respiratory: clear to auscultation, respirations (breathing with ventilator) Cardiovascular: regular rate and rhythm Gastrointestinal: soft Genitourinary - Male: other (webster in place) Musculoskeletal: nl extremities to inspection Extremities: normal pulses Results POC glucose reviewed. I/O reviewed Result Diagram: 11/22/16 0445 11/22/16 0445 Results 24 hrs Laboratory Tests Test 11/22/16 01:20 11/22/16 04:45 11/22/16 05:49 11/22/16 07:00 Bedside Glucose 188 188 White Blood Count 14.7 #H Red Blood Count 5.10 Hemoglobin 13.4 L Hematocrit 42.8 Mean Corpuscular Volume 83.9 Mean Corpuscular Hemoglobin 26.3 L Mean Corpuscular Hemoglobin Concent 31.3 L Red Cell Distribution Width 16.9 H Platelet Count 166 Mean Platelet Volume 12.5 H Neutrophils % 85.0 H Lymphocytes % 7.2 L Monocytes % 7.0 Eosinophils % 0.1 Basophils % 0.3 Nucleated Red Blood Cells % 0.0 Neutrophils # 12.5 H Lymphocytes # 1.1 Monocytes # 1.0 H Eosinophils # 0.0 Basophils # 0.0 Nucleated Red Blood Cells # 0.0 Sodium Level 137 Potassium Level 3.9 Chloride Level 105 Carbon Dioxide Level 25 Anion Gap 11 Blood Urea Nitrogen 33 H Creatinine 1.99 H Glucose Level 225 H Calcium Level 8.0 L Blood Gas Specimen Source Blood arterial Arterial Blood Date Drawn 11/22/2016 8:30:31 AM Arterial Blood pH (Temp corrected) 7.469 H Arterial Blood pCO2 (Temp correct) 29.8 L Arterial Blood pO2 (Temp corrected) 269.1 H Arterial Blood HCO3 21.2 L Arterial Blood Base Excess -1.4 Arterial Blood Oxygen Saturation 99.5 Ashish Test ACCEPTAB Arterial Blood Gas Puncture Site Right Radial Arterial Blood Carboxyhemoglobin 0.6 Arterial Blood Methemoglobin 0.3 Oxyhemoglobin Percent 98.6 Total Hemoglobin 14.0 Blood Gas Temperature 37.0 Blood Gas Respiration Rate 20.0 Blood Gas Actual Respiration Rate 20 Blood Gas Modality VENT - AC FiO2 30.0 Blood Gas Tidal Volume 500.0 Blood Gas Low PEEP Setting 5.0 Blood Gas Critical Value Read Back J TAVIA RN Blood Gas Notified Whom DT Blood Gas Notified Time 11/15/2016 8:48:04 AM Test 11/22/16 08:19 11/22/16 13:26 11/22/16 17:00 11/22/16 21:00 Bedside Glucose 192 148 136 136 Medications Medications Current Medications Allopurinol (Zyloprim) 100 mg DAILY PO Last administered on 11/22/16t 08:19; Admin Dose 100 MG; Start 11/21/16 at 09:00 Atorvastatin Calcium (Lipitor) 40 mg DAILY@21 PO Last administered on 21:32; Admin Dose 40 MG; Start 11/21/16 at 21:00 Carvedilol (Coreg) 12.5 mg BID PO Last administered on 11/22/16 21:32; Admin Dose 12.5 MG; Start 11/21/16 at 09:00 Docusate Sodium (Colace) 300 mg BID PO Last administered on 11/22/16 21:32; Admin Dose 300 MG; Start 11/21/16 at 09:00 Furosemide (Lasix) 40 mg DAILY@06 PO Last administered on 11/22/16 05:48; Admin Dose 40 MG; Start 11/21/16 at 06:00 Latanoprost (Xalatan) 1 drop DAILY BOTH EYES Last administered on 11/22/16 10: 30; Admin Dose 1 DROP; Start 11/21/16 at 09:00 Pantoprazole (Protonix Tab) 40 mg DAILY@06 PO Last administered on 11/22/16 05 :48; Admin Dose 40 MG; Start 11/21/16 at 06:00 Linagliptin (Tradjenta) 5 mg DAILY PO Last administered on 11/21/16 09:33; Admin Dose 5 MG; Start 11/21/16 at 09:00 Insulin Aspart NOVOLOG *MILD* ALGORI... Q4 SC Last administered on 11/22/16 13 :28; Admin Dose 1 UNIT; Start 11/21/16 at 05:00 Nicardipine HCl (Cardene Iv) 200 ml @ 50 mls/hr TITRATE IV Last administered on 11/21/16 01:31; Admin Dose 25 MLS/HR; Start 11/21/16 at 01:00 Miscellaneous Information 1 ea NOTE XX ; Start 11/21/16 at 02:45 Glucose (Glutose) 15 gm Q15M PRN PO DECREASED GLUCOSE; Start 11/21/16 at 02:45 Glucose (Glutose) 22.5 gm Q15M PRN PO DECREASED GLUCOSE; Start 11/21/16 at 02: 45 Dextrose (D50w Syringe) 25 ml Q15M PRN IV DECREASED GLUCOSE; Start 11/21/16 at 02:45 Dextrose (D50w Syringe) 50 ml Q15M PRN IV DECREASED GLUCOSE; Start 11/21/16 at 02:45 Glucagon (Glucagen) 1 mg Q15M PRN IM DECREASED GLUCOSE; Start 11/21/16 at 02:45 Glucose 15 gm 15 gm Q15M PRN BUCCAL DECREASED GLUCOSE; Start 11/21/16 at 02:45 Levetiracetam 500 mg/Dextrose 105 ml @ 420 mls/hr Q12 IVPB Last administered on 11/22/16 21:32; Admin Dose 420 MLS/HR; Start 11/21/16 at 09:00 Dextrose/Sodium Chloride (D5-1/2ns) 1,000 ml @ 70 mls/hr [id number] IV Last administered on 11/22/16 06:17; Admin Dose 70 MLS/HR; Start 11/21/16 at 14:30 Acetaminophen (Tylenol Liquid) 650 mg PRN PRN NGT PAIN AND OR ELEVATED TEMP Last administered on 11/21/16 21:31; Admin Dose 650 MG; Start 11/21/16 at 21:00 Acetaminophen 650 mg 650 mg PRN PRN [place] fever; Start 11/21/16 at 21:00 Ciprofloxacin/ Dextrose (Cipro Ivpb) 200 ml @ 200 mls/hr Q24H IVPB Last administered on 11/22/16 13:18; Admin Dose 200 MLS/HR; Start 11/22/16 at 12:30 CRISPIN GONZALES MD Nov 22, 2016 22:10
[2016-11-23] VITALS (43 sets, daily range): BP systolic 85–134; BP diastolic 42–68; PULSE 59–70; RESP 16–21
[2016-11-23] MEDS: INSULIN ASPART [NOVOLOG] 3 ML PEN SC SCH ×6 (00:37→20:58)
[2016-11-23] MEDS: PANTOPRAZOLE (EC) 40 MG TAB PO SCH (06:31)
[2016-11-23] MEDS: FUROSEMIDE 40 MG TAB PO SCH (06:31)
[2016-11-23] MEDS: REPAGLINIDE 2 MG TAB PO SCH ×3 (07:05→17:05)
[2016-11-23] MEDS: LINAGLIPTIN 5 MG TABLET PO SCH (09:40)
[2016-11-23] MEDS: ALLOPURINOL 100 MG TAB PO SCH (09:40)
[2016-11-23] MEDS: DOCUSATE SODIUM 100 MG CAP PO SCH ×2 (09:40→20:56)
[2016-11-23] MEDS: LATANOPROST 0.005% 2.5 ML OPH BOTH EYES SCH (09:41)
[2016-11-23] MEDS: LEVETIRACETAM IV 500 MG in DEXTROSE 5% 100 ML IVPB SCH ×2 (09:41→20:56)
--- NOTE | 2016-11-23 10:40 | CONS ---
Date/Time of Note Date/Time of Note DATE: 11/23/16 TIME: 10:37 Consult Date/Type/Reason Admit Date/Time Nov 20, 2016 at 23:09 Initial Consult Date 11/21/16 Type of Consultation: Pulmonary/critical care Subjective Patient remains intubated on mechanical ventilation minimal sedation Remains somnolent Ventriculostomy continues to drain Objective Vital Signs Date Time Temp Pulse Resp B/P Pulse Ox O2 Delivery O2 Flow Rate FiO2 11/23/16 09:20 65 20 100 30 11/23/16 08:00 99.7 130/68 Mechanical Ventilator 11/20/16 22:45 2.0 Intake and Output 11/22/16 11/22/16 11/23/16 15:00 23:00 07:00 Intake Total 810 ml 725 ml 490 ml Output Total 780 ml 305 ml 358 ml Balance 30 ml 420 ml 132 ml Exam PHYSICAL EXAMINATION GENERAL: Elderly gentleman, intubated on mechanical ventilation, VITAL SIGNS: see below. HEENT: Pupils equal, round, and reactive to CARDIAC: S1, S2, tachycardia. CHEST: Diminished air entry bilaterally. ABDOMEN: Mildly distended. Bowel sounds present no guarding or rebound EXTREMITIES: No cyanosis, clubbing edema +1 NEUROLOGIC: Unable to assess Results/Medications Result Diagram: 11/22/165 11/22/16 0445 Results 24 hrs Laboratory Tests Test 11/22/16 13:26 11/22/16 17:00 11/22/16 21:00 11/23/16 00:31 Bedside Glucose 148 136 136 165 Test 11/23/16 04:37 11/23/16 09:38 Bedside Glucose 203 184 Medications Current Medications Allopurinol (Zyloprim) 100 mg DAILY PO Last administered on 11/23/16 09:40; Admin Dose 100 MG; Start 11/21/16 at 09:00 Atorvastatin Calcium (Lipitor) 40 mg DAILY@21 PO Last administered on 21:32; Admin Dose 40 MG; Start 11/21/16 at 21:00 Carvedilol (Coreg) 12.5 mg BID PO Last administered on 11/23/16 09:40; Admin Dose 12.5 MG; Start 11/21/16 at 09:00 Docusate Sodium (Colace) 300 mg BID PO Last administered on 11/23/16 09:40; Admin Dose 300 MG; Start 11/21/16 at 09:00 Furosemide (Lasix) 40 mg DAILY@06 PO Last administered on 11/23/16 06:31; Admin Dose 40 MG; Start 11/21/16 at 06:00 Latanoprost (Xalatan) 1 drop DAILY BOTH EYES Last administered on 11/23/16 09: 41; Admin Dose 1 DROP; Start 11/21/16 at 09:00 Pantoprazole (Protonix Tab) 40 mg DAILY@06 PO Last administered on 11/23/16 06 :31; Admin Dose 40 MG; Start 11/21/16 at 06:00 Linagliptin (Tradjenta) 5 mg DAILY PO Last administered on 11/23/16 09:40; Admin Dose 5 MG; Start 11/21/16 at 09:00 Insulin Aspart NOVOLOG *MILD* ALGORI... Q4 SC Last administered on 11/23/16 09 :43; Admin Dose 2 UNIT; Start 11/21/16 at 05:00 Nicardipine HCl (Cardene Iv) 200 ml @ 50 mls/hr TITRATE IV Last administered on 11/21/16 01:31; Admin Dose 25 MLS/HR; Start 11/21/16 at 01:00 Miscellaneous Information 1 ea NOTE XX ; Start 11/21/16 at 02:45 Glucose (Glutose) 15 gm Q15M PRN PO DECREASED GLUCOSE; Start 11/21/16 at 02:45 Glucose (Glutose) 22.5 gm Q15M PRN PO DECREASED GLUCOSE; Start 11/21/16 at 02: 45 Dextrose (D50w Syringe) 25 ml Q15M PRN IV DECREASED GLUCOSE; Start 11/21/16 at 02:45 Dextrose (D50w Syringe) 50 ml Q15M PRN IV DECREASED GLUCOSE; Start 11/21/16 at 02:45 Glucagon (Glucagen) 1 mg Q15M PRN IM DECREASED GLUCOSE; Start 11/21/16 at 02:45 Glucose 15 gm 15 gm Q15M PRN BUCCAL DECREASED GLUCOSE; Start 11/21/16 at 02:45 Levetiracetam 500 mg/Dextrose 105 ml @ 420 mls/hr Q12 IVPB Last administered on 11/23/16 09:41; Admin Dose 420 MLS/HR; Start 11/21/16 at 09:00 Dextrose/Sodium Chloride (D5-1/2ns) 1,000 ml @ 70 mls/hr [id number] IV Last administered on 11/22/16 22:00; Admin Dose 70 MLS/HR; Start 11/21/16 at 14:30 Acetaminophen (Tylenol Liquid) 650 mg PRN PRN NGT PAIN AND OR ELEVATED TEMP Last administered on 11/21/16 21:31; Admin Dose 650 MG; Start 11/21/16 at 21:00 Acetaminophen 650 mg 650 mg PRN PRN [place] fever; Start 11/21/16 at 21:00 Ciprofloxacin/ Dextrose (Cipro Ivpb) 200 ml @ 200 mls/hr Q24H IVPB Last administered on 11/22/16 13:18; Admin Dose 200 MLS/HR; Start 11/22/16 at 12:30 Assessment/Plan Chief Complaint/Hosp Course Assessment 1. Acute intracerebral bleed thalamic and intraventricular status post ventriculostomy, now with encephalopathy 2. History of hypertension 3. Possible aspiration pneumonia 4. Respiratory failure secondary to above 5. History of chronic renal insufficiency 6. History of thyroid cancer Plan 1. Continue mechanical ventilation will check arterial blood gas 2. Continue ventriculostomy drainage and neurosurgical recommendations 3. Consider broadening antibiotic coverage 4. Consider starting to feeding soon 5. DVT and GI prophylaxis Disposition Overall prognosis remains guarded patient may benefit from palliative care consult Problems: LELIA ENGEL MD, [facility] Nov 23, 2016 10:40
[2016-11-23] MEDS: DEXTROSE 5%-0.45% NACL 1,000 ML IV SCH (10:58)
[2016-11-23] MEDS: CIPROFLOXACIN 400MG/D5W 200 ML IVPB SCH (12:21)
--- NOTE | 2016-11-23 17:19 | CONS ---
DATE OF ADMISSION: 11/20/2016 DATE OF CONSULTATION: 11/23/2016 TYPE OF CONSULTATION: Palliative care. REFERRING PHYSICIAN: Dr. Campbell Penaloza HISTORY OF PRESENT ILLNESS: This is an 81-year-old gentleman who does not look like his stated age who became altered on the day of admission and fell to the floor and struck his head. It was notice d by family members they had left-sided weakness. Patient was transferred to the emergency room at [facility]. Initial CT scan showed hemorrhage and basal ganglia. He was seen by n eurology and neurosurgical consultations and the patient was taken to the operating room by Dr. Gerry Smiley, underwent a left frontal ventriculostomy and thereafter has been in the intensive care unit. Unfortunately, reading over Dr. Smiley's notes patient had a further clinical decline. Repe at CT scan showed significant expansion of the left thalamic clot with extension into the ventricula r system including casting of the 3rd and 4th ventricles and significant partial casting of the late ral ventricles. The patient has been in the intensive care unit since hospitalization. He is intub ated, nonsedated but remains unresponsive. He has been seen by pulmonary medicine following his crit ical care course on November 22 patient was reevaluated by Dr. Smiley. At that time his exam was openi ng eyes to painful stimuli, gaze not convergent. Does not follow commands. Left hemiplegia noted. I am asked to speak to family members just to introduce myself initially and begin a level of commun ication and support while patient is in the intensive care unit. MEDICATIONS: Please refer to reconciliation sheets. ALLERGIES: NO KNOWN DRUG ALLERGIES EXCEPT LATEX. MAJOR MEDICAL PROBLEMS IN THE PAST: With an incomplete database send, except what I could detail fro m patient's medical records, type 2 diabetes, diverticulitis, chronic kidney disease, congestive hea rt failure ____ classification 1, hypertension and history of coronary artery bypass. The patient w as anticoagulated and was therapeutic prior to hospitalization. SOCIAL HISTORY: According to medical records he is nonsmoker, nondrinker. FAMILY HISTORY: Noncontributory. REVIEW OF SYSTEMS: Cannot be obtained. PHYSICAL EXAMINATION: VITAL SIGNS: Blood pressure 106/58, pulse is 63 and regular, respirations of 20, temperature 99.7 d egrees, 96% saturations on 30% FIO2 back. GENERAL: Shows an elderly male who looks younger than his chronological age. HEENT: He is otherwise normocephalic, atraumatic. Ventriculostomy is in place. CHEST: Shows bilateral distant breath sounds throughout both lung garcia. CARDIOVASCULAR: S1, S2, without S3, S4, murmur, gallop, rub. Normal rate, normal rhythm. ABDOMEN: Grossly benign. EXTREMITIES: Without clubbing, cyanosis, or edema. NEUROLOGIC: He does not respond to any minor tactile stimulation. He spontaneously moves his right upper extremity, but nonpurposefully. He has sluggish doll's eyes. I cannot appreciate pupillary light reflex. He has a positive gag. LABORATORIES: Pending. ASSESSMENT AND PLAN: This is an 81-year-old gentleman who is in the intensive care unit at [facility] with hemorrhagic stroke, being seen by neurology and neurosurgical consultation status post ventriculostomy. Patient remains altered. This is day 3 of his hospitalization. I hav e had a conversation with patient's brother and with patient's . I have just introduced myself and described what my job would be insofar primarily as transferring information from the physicians and having family conferences, transmitting that information to family members and to be supportiv e. I did tell family members that there was a significant chance that they would have to make some painful decisions in the future, but at this time there is no reason that they have to do so and I s uggested that they do the same that the primary care physicians are doing, and that is follow his ov erall mental status. Hopefully, he will improve. I did tell family members that based on the inform ation I have obtained from medical records and reviewing other physicians' notes, that he may have a very poor outcome and they may have to make some very painful decisions; however, once again I told family members that there is no reason that they need to make those decisions at this time. I have given them my cell phone number and will organize a family meeting. They are 3 children, other seco nd degree relatives. They are all in agreement to speak. I will wait for return phone call to milan rdz this meeting. Dictated By: WENCESLAO MULLEN MD, LP/LOGAN Conf#: [id number] DID#: [id number]
--- NOTE | 2016-11-23 18:26 | PN ---
Date/Time of Note Date/Time of Note DATE: 11/23/16 TIME: 18:18 Assessment/Plan VTE Prophylaxis VTE Prophylaxis Intervention: contraindicated (hemorrhagic CVA) Lines/Catheters IV Catheter Type (from Nrs): Saline Lock Urinary Cath still in place: Yes Reason Cath still needed: terminal illness/intractable pain Assessment/Plan Problems: (1) Hemorrhagic stroke Status: Acute Comment: Neurosurgery following. Prognosis poor. Family expressing wishes that pt. not suffer. Called palliative care consult. (2) Left hemiparesis Status: Acute Comment: Neurosurgery following. Prognosis poor. Family expressing wishes that pt. not suffer. Called palliative care consult. (3) Intraventricular hemorrhage Status: Acute Comment: Neurosurgery following. Prognosis poor. Family expressing wishes that pt. not suffer. Called palliative care consult. (4) On mechanically assisted ventilation Status: Acute Comment: Pulmonology following and managing vent (5) Type 2 diabetes mellitus with diabetic chronic kidney disease Status: Chronic Comment: On linagliptin and Novolog ISS and controlled (6) Essential (primary) hypertension Status: Chronic Comment: On nicardipine and controlled (7) Chronic kidney disease, stage II (mild) Status: Chronic Comment: Monitor renal function Subjective 24 Hr Interval Summary Subjective hx not possible: pt non-verbal, pt critical status Exam/Review of Systems Vital Signs Vitals VS - Last 72 Hours, by Label Date Time Temp Pulse Resp B/P Pulse Ox O2 Delivery O2 Flow Rate FiO2 11/23/16 17:25 66 20 98 30 11/23/16 16:00 66 11/23/16 15:55 65 20 96 30 11/23/16 13:15 68 20 99 30 11/23/16 12:00 64 11/23/16 12:00 30 11/23/16 11:05 63 20 98 30 11/23/16 11:00 63 20 106/58 96 Mechanical Ventilator 11/23/16 10:00 64 20 130/61 98 Mechanical Ventilator 11/23/16 09:30 64 20 114/59 99 Mechanical Ventilator 11/23/16 09:20 65 20 100 30 11/23/16 09:00 65 20 112/59 97 Mechanical Ventilator 11/23/16 08:30 70 20 114/59 100 Mechanical Ventilator 11/23/16 08:00 99.7 67 20 130/68 99 Mechanical Ventilator 11/23/16 08:00 69 11/23/16 08:00 30 11/23/16 07:30 63 20 100 30 11/23/16 07:30 61 21 130/63 100 Mechanical Ventilator 11/23/16 07:00 59 21 129/64 100 Mechanical Ventilator 11/23/16 06:00 64 18 129/62 100 11/23/16 05:30 59 20 109/58 100 11/23/16 05:07 65 20 100 30 11/23/16 05:00 61 20 116/61 100 11/23/16 04:30 62 19 134/64 100 11/23/16 04:00 60 11/23/16 04:00 98.8 63 18 92/58 100 Mechanical Ventilator 11/23/16 03:30 66 20 88/48 94 11/23/16 03:25 66 20 97 30 11/23/16 03:00 66 20 85/53 95 11/23/16 02:30 68 20 97/42 98 11/23/16 02:00 67 18 113/54 97 11/23/16 01:40 64 20 100 30 11/23/16 01:30 65 20 113/43 99 11/23/16 01:00 61 16 99/45 97 11/23/16 00:00 98.1 67 20 90/52 91 11/23/16 00:00 30 11/23/16 00:00 65 11/22/16 23:35 66 20 96 30 11/22/16 23:00 71 20 103/61 93 11/22/16 22:00 71 20 113/61 94 11/22/16 21:30 74 20 100 30 11/22/16 21:00 73 21 118/64 100 11/22/16 20:00 99.1 72 20 106/61 96 Mechanical Ventilator 11/22/16 20:00 75 11/22/16 20:00 30 11/22/16 19:45 70 23 100 30 11/22/16 19:00 69 19 111/59 96 11/22/16 18:00 72 20 102/53 95 Mechanical Ventilator 11/22/16 17:20 81 20 99 30 11/22/16 17:00 70 20 126/63 95 Mechanical Ventilator 11/22/16 16:09 72 11/22/16 16:00 99.6 71 20 111/55 96 Mechanical Ventilator 11/22/16 15:20 71 22 96 30 11/22/16 15:00 70 20 106/58 94 Mechanical Ventilator 11/22/16 14:00 78 20 127/61 100 Mechanical Ventilator 11/22/16 13:20 82 20 98 30 11/22/16 13:00 76 20 106/59 95 Mechanical Ventilator 11/22/16 12:07 72 11/22/16 12:00 99.5 75 22 140/63 99 Mechanical Ventilator 11/22/16 11:20 70 20 99 30 11/22/16 11:00 70 20 126/66 93 Mechanical Ventilator 11/22/16 10:00 72 20 111/59 94 Mechanical Ventilator 11/22/16 09:40 73 20 96 30 11/22/16 09:00 80 22 121/65 96 Mechanical Ventilator 11/22/16 08:30 30 11/22/16 08:12 80 11/22/16 08:00 98.7 80 21 133/73 98 Mechanical Ventilator 11/22/16 07:50 86 20 98 30 11/22/16 07:00 76 23 139/72 96 Mechanical Ventilator 11/22/16 06:00 78 21 131/67 97 11/22/16 05:00 76 15 130/69 92 11/22/16 04:45 78 22 98 30 11/22/16 04:30 79 22 128/64 95 11/22/16 04:00 73 11/22/16 04:00 40 11/22/16 04:00 98.2 72 22 121/73 95 Mechanical Ventilator 11/22/16 03:45 73 21 97 40 11/22/16 03:30 73 21 131/60 94 11/22/16 03:00 75 23 131/62 93 11/22/16 02:30 76 23 130/70 91 11/22/16 02:00 80 23 119/59 92 11/22/16 01:45 79 22 98 40 11/22/16 01:30 78 20 118/56 93 11/22/16 01:00 79 22 117/58 92 11/22/16 00:30 86 20 100/61 93 11/22/16 00:00 75 11/22/16 00:00 98.0 74 19 117/54 92 Mechanical Ventilator 11/22/16 00:00 40 11/21/16 23:30 82 23 98 40 11/21/16 23:30 75 22 110/53 92 11/21/16 23:00 78 20 102/57 94 11/21/16 22:30 80 22 97/52 93 11/21/16 22:00 87 23 119/62 98 11/21/16 21:30 89 22 112/62 94 11/21/16 21:05 95 22 98 50 11/21/16 21:00 92 22 100/70 96 11/21/16 20:30 92 22 104/65 93 11/21/16 20:00 100.6 94 22 99/57 96 Mechanical Ventilator 11/21/16 20:00 94 11/21/16 20:00 50 11/21/16 19:40 95 20 98 50 11/21/16 19:30 94 20 93/56 92 11/21/16 19:00 101.2 98 22 104/59 92 Mechanical Ventilator 11/21/16 18:00 97 21 96/55 98 Mechanical Ventilator 11/21/16 17:20 96 20 99 30 11/21/16 17:00 94 20 90/51 98 Mechanical Ventilator 11/21/16 16:00 87 11/21/16 16:00 86 20 95/52 98 Mechanical Ventilator 11/21/16 15:20 95 22 97 30 11/21/16 15:00 100.0 91 21 110/56 98 Mechanical Ventilator 11/21/16 14:30 92 21 104/55 97 11/21/16 14:00 89 20 106/55 99 Mechanical Ventilator 11/21/16 13:30 81 21 108/49 100 Mechanical Ventilator 11/21/16 13:20 88 20 99 30 11/21/16 13:00 100.0 86 20 111/53 99 Mechanical Ventilator 11/21/16 12:45 81 20 102/51 98 Mechanical Ventilator 11/21/16 12:30 75 20 99/46 99 Mechanical Ventilator 11/21/16 12:15 79 20 92/54 96 Mechanical Ventilator 11/21/16 12:00 84 11/21/16 12:00 100.1 82 20 76/50 97 Mechanical Ventilator 11/21/16 11:30 84 21 105/57 95 Mechanical Ventilator 11/21/16 11:20 86 20 99 30 11/21/16 11:15 85 20 111/61 100 Mechanical Ventilator 11/21/16 11:00 87 21 116/60 100 Mechanical Ventilator 11/21/16 10:45 83 20 120/49 100 Mechanical Ventilator 11/21/16 10:30 80 20 124/64 100 Mechanical Ventilator 11/21/16 10:15 77 21 125/62 100 Mechanical Ventilator 11/21/16 10:00 78 21 131/65 100 Mechanical Ventilator 11/21/16 09:45 75 20 123/64 100 Mechanical Ventilator 11/21/16 09:30 69 20 114/63 100 Mechanical Ventilator 11/21/16 09:22 30 11/21/16 09:20 70 20 99 50 11/21/16 09:15 70 20 107/59 100 Mechanical Ventilator 11/21/16 09:00 75 20 92/56 100 Mechanical Ventilator 11/21/16 08:45 84 20 84/61 100 Mechanical Ventilator 11/21/16 08:30 84 20 102/69 99 Mechanical Ventilator 11/21/16 08:15 81 20 127/70 100 Mechanical Ventilator 11/21/16 08:00 50 11/21/16 08:00 79 11/21/16 08:00 80 19 149/76 100 Mechanical Ventilator 11/21/16 07:30 97.6 69 20 117/68 100 Mechanical Ventilator 11/21/16 07:20 72 20 100 50 11/21/16 07:00 72 20 111/69 100 11/21/16 06:00 84 20 114/56 99 11/21/16 05:30 72 20 126/66 100 11/21/16 05:00 72 20 121/63 100 11/21/16 04:52 72 20 100 50 11/21/16 04:30 78 20 137/78 100 11/21/16 04:15 72 20 121/66 100 11/21/16 04:00 98.5 71 20 135/72 100 Mechanical Ventilator 11/21/16 04:00 50 11/21/16 04:00 85 11/21/16 03:30 72 20 135/70 100 11/21/16 03:15 72 20 128/74 99 11/21/16 03:00 74 20 128/74 100 11/21/16 02:45 98.7 78 18 127/76 98 Mechanical Ventilator 11/21/16 02:30 50 11/21/16 02:30 83 20 144/72 98 11/21/16 02:14 80 20 112/76 97 Mechanical Ventilator 11/21/16 01:50 83 20 143/78 98 11/21/16 01:40 66 20 192/99 100 11/21/16 01:20 175/112 11/21/16 01:15 74 20 100 50 11/21/16 01:08 74 18 172/101 100 11/21/16 00:35 72 20 179/97 100 11/21/16 00:15 97.9 73 20 148/90 100 11/21/16 00:00 67 20 153/90 100 11/20/16 23:35 86 20 100 100 11/20/16 22:45 77 19 159/97 99 Nasal Cannula 2.0 11/20/16 22:30 71 19 157/87 97 Nasal Cannula 2.0 11/20/16 22:00 73 21 152/85 97 Nasal Cannula 2.0 11/20/16 21:45 75 21 160/87 97 Nasal Cannula 2.0 11/20/16 21:32 98.3 72 21 142/91 100 Nasal Cannula 2.0 11/20/16 21:15 98.3 63 21 142/92 100 Nasal Cannula 2.0 11/20/16 21:07 Nasal Cannula 2 11/20/16 21:05 98.3 88 18 148/80 98 Vital Signs Date Time Temp Pulse Resp B/P Pulse Ox O2 Delivery O2 Flow Rate FiO2 11/23/16 17:25 66 20 98 30 11/23/16 11:00 106/58 Mechanical Ventilator 11/23/16 08:00 99.7 11/20/16 22:45 2.0 Intake and Output 11/22/16 11/22/16 11/23/16 15:00 23:00 07:00 Intake Total 810 ml 725 ml 560 ml Output Total 780 ml 305 ml 418 ml Balance 30 ml 420 ml 142 ml Exam Constitutional: non-verbal, obese, No alert ENMT: intubated Respiratory: clear to auscultation, normal air movement Cardiovascular: nl pulses, regular rate and rhythm, No edema, No murmurs/extra sounds, No rub Gastrointestinal: bowel sounds, nl liver, spleen, non-tender, soft, No mass, No rebound or guarding Musculoskeletal: nl extremities to inspection Extremities: normal pulses, No clubbing, No cyanosis, No edema Neurological: unresponsive Additional Comments Bedside Glucose - 72 Hours Test 11/20/16 20:59 11/21/16 05:50 11/21/16 09:31 11/21/16 12:54 Bedside Glucose 106mg/dL (70-220) 115mg/dL (70-220) 90mg/dL (70-220) 107mg/dL (70-220) Test 11/21/16 16:53 11/21/16 21:36 11/22/16 01:20 11/22/16 05:49 Bedside Glucose 127mg/dL (70-220) 170mg/dL (70-220) 188mg/dL (70-220) 188mg/dL (70-220) Test 11/22/16 08:19 11/22/16 13:26 11/22/16 17:00 11/22/16 21:00 Bedside Glucose 192mg/dL (70-220) 148mg/dL (70-220) 136mg/dL (70-220) 136mg/dL (70-220) Test 11/23/16 00:31 11/23/16 04:37 11/23/16 09:38 11/23/16 13:18 Bedside Glucose 165mg/dL (70-220) 203mg/dL (70-220) 184mg/dL (70-220) 187mg/dL (70-220) Test 11/23/16 17:43 Bedside Glucose 155mg/dL (70-220) Results Result Diagram: 11/22/16 0445 11/22/16 0445 Results 24 hrs Laboratory Tests Test 11/22/16 21:00 11/23/16 00:31 11/23/16 04:37 11/23/16 09:38 Bedside Glucose 136 165 203 184 Test 11/23/16 13:18 11/23/16 17:43 Bedside Glucose 187 155 Medications Medications Current Medications Allopurinol (Zyloprim) 100 mg DAILY PO Last administered on 11/23/16 09:40; Admin Dose 100 MG; Start 11/21/16 at 09:00 Atorvastatin Calcium (Lipitor) 40 mg DAILY@21 PO Last administered on 21:32; Admin Dose 40 MG; Start 11/21/16 at 21:00 Carvedilol (Coreg) 12.5 mg BID PO Last administered on 11/23/16 09:40; Admin Dose 12.5 MG; Start 11/21/16 at 09:00 Docusate Sodium (Colace) 300 mg BID PO Last administered on 11/23/16 09:40; Admin Dose 300 MG; Start 11/21/16 at 09:00 Furosemide (Lasix) 40 mg DAILY@06 PO Last administered on 11/23/16 06:31; Admin Dose 40 MG; Start 11/21/16 at 06:00 Latanoprost (Xalatan) 1 drop DAILY BOTH EYES Last administered on 11/23/16 09: 41; Admin Dose 1 DROP; Start 11/21/16 at 09:00 Pantoprazole (Protonix Tab) 40 mg DAILY@06 PO Last administered on 11/23/16 06 :31; Admin Dose 40 MG; Start 11/21/16 at 06:00 Linagliptin (Tradjenta) 5 mg DAILY PO Last administered on 11/23/16 09:40; Admin Dose 5 MG; Start 11/21/16 at 09:00 Insulin Aspart NOVOLOG *MILD* ALGORI... Q4 SC Last administered on 11/23/16 17 :47; Admin Dose 1 UNIT; Start 11/21/16 at 05:00 Nicardipine HCl (Cardene Iv) 200 ml @ 50 mls/hr TITRATE IV Last administered on 11/21/16 01:31; Admin Dose 25 MLS/HR; Start 11/21/16 at 01:00 Miscellaneous Information 1 ea NOTE XX ; Start 11/21/16 at 02:45 Glucose (Glutose) 15 gm Q15M PRN PO DECREASED GLUCOSE; Start 11/21/16 at 02:45 Glucose (Glutose) 22.5 gm Q15M PRN PO DECREASED GLUCOSE; Start 11/21/16 at 02: 45 Dextrose (D50w Syringe) 25 ml Q15M PRN IV DECREASED GLUCOSE; Start 11/21/16 at 02:45 Dextrose (D50w Syringe) 50 ml Q15M PRN IV DECREASED GLUCOSE; Start 11/21/16 at 02:45 Glucagon (Glucagen) 1 mg Q15M PRN IM DECREASED GLUCOSE; Start 11/21/16 at 02:45 Glucose 15 gm 15 gm Q15M PRN BUCCAL DECREASED GLUCOSE; Start 11/21/16 at 02:45 Levetiracetam 500 mg/Dextrose 105 ml @ 420 mls/hr Q12 IVPB Last administered on 11/23/16 09:41; Admin Dose 420 MLS/HR; Start 11/21/16 at 09:00 Dextrose/Sodium Chloride (D5-1/2ns) 1,000 ml @ 70 mls/hr [id number] IV Last administered on 11/23/16 10:58; Admin Dose 70 MLS/HR; Start 11/21/16 at 14:30 Acetaminophen (Tylenol Liquid) 650 mg PRN PRN NGT PAIN AND OR ELEVATED TEMP Last administered on 11/21/16 21:31; Admin Dose 650 MG; Start 11/21/16 at 21:00 Acetaminophen 650 mg 650 mg PRN PRN MD fever; Start 11/21/16 at 21:00 Ciprofloxacin/ Dextrose (Cipro Ivpb) 200 ml @ 200 mls/hr Q24H IVPB Last administered on 11/23/16 12:21; Admin Dose 200 MLS/HR; Start 11/22/16 at 12:30 HARISH WALKER MD Nov 23, 2016 18:26
[2016-11-23] MEDS: ATORVASTATIN 40 MG TAB PO SCH (20:56)
[2016-11-24] VITALS (34 sets, daily range): BP systolic 96–144; BP diastolic 45–70; PULSE 56–98; RESP 18–25; BMI 33.9
[2016-11-24] MEDS: INSULIN ASPART [NOVOLOG] 3 ML PEN SC SCH ×6 (01:22→21:44)
[2016-11-24] MEDS: DEXTROSE 5%-0.45% NACL 1,000 ML IV SCH ×2 (01:23→16:02)
[2016-11-24 05:08] LABS: ADD SCAN DIFF NO
[2016-11-24 05:17] LABS: ABNORMAL IP MESSAGE 1; BASOPHILS % 0.3 % (0.0-2.0); EOSINOPHILS # 0.2 10^3/ul (0.0-0.5); EOSINOPHILS % 1.6 % (0.0-7.0); HEMATOCRIT 40.4 % (42.0-52.0); HEMOGLOBIN 12.8 g/dl (14.0-18.0); LYMPHOCYTES # 0.9 10^3/ul (0.8-2.9); LYMPHOCYTES % 9.1 % (15.0-51.0); MEAN CORPUSCULAR HEMOGLOBIN 26.6 pg (29.0-33.0); MEAN CORPUSCULAR HGB CONC 31.7 g/dl (32.0-37.0); MEAN CORPUSCULAR VOLUME 83.8 fl (82.0-101.0); MONOCYTE # 0.8 10^3/ul (0.3-0.9); MONOCYTES % 8.6 % (0.0-11.0); NEUTROPHIL # 7.7 10^3/ul (1.6-7.5); PLATELET COUNT 151 10^3/UL (140-415); RED BLOOD COUNT 4.82 10^6/ul (4.70-6.10); RED CELL DISTRIBUTION WIDTH 17.1 % (11.5-14.5); WHITE BLOOD COUNT 9.6 10^3/ul (4.8-10.8)
[2016-11-24] MEDS: PANTOPRAZOLE (EC) 40 MG TAB PO SCH (05:28)
[2016-11-24] MEDS: FUROSEMIDE 40 MG TAB PO SCH (05:29)
[2016-11-24] MEDS: REPAGLINIDE 2 MG TAB PO SCH ×3 (07:05→17:23)
[2016-11-24 07:37] LABS: POTASSIUM 3.8 mmol/L (3.5-5.1)
[2016-11-24 07:40] LABS: CREATININE 1.39 mg/dl (0.61-1.24); PHOSPHORUS 2.6 mg/dl (2.5-4.9)
[2016-11-24 07:41] LABS: CALCIUM 7.9 mg/dl (8.4-10.2); MAGNESIUM 2.3 mg/dl (1.7-2.5)
[2016-11-24 08:13] LABS: AADO2 Arterial 92.6 mmHg (7.0-24.0); Allen Test ACCEPTAB; Arterial Base Excess -0.1 mmol/L (-3.0-3); Arterial COHb 0.4 % (0.0-3.0); Arterial HCO3 22.5 mmol/L (22.0-26.0); Arterial MetHb 0.4 % (0.0-1.5); Arterial Total Hemglobin 12.5 g/dl (12.0-18.0); MODE VENT - AC
[2016-11-24] MEDS: DOCUSATE SODIUM 100 MG CAP PO SCH ×2 (09:01→21:09)
[2016-11-24] MEDS: LINAGLIPTIN 5 MG TABLET PO SCH (09:01)
[2016-11-24] MEDS: LEVETIRACETAM IV 500 MG in DEXTROSE 5% 100 ML IVPB SCH ×2 (09:01→21:07)
[2016-11-24] MEDS: ALLOPURINOL 100 MG TAB PO SCH (09:02)
[2016-11-24] MEDS: LATANOPROST 0.005% 2.5 ML OPH BOTH EYES SCH (09:03)
--- NOTE | 2016-11-24 09:37 | RADRPT ---
PROCEDURE: XR Chest 1 view. CLINICAL INDICATION: Shortness of breath TECHNIQUE: AP views of the chest were obtained. COMPARISON: November 21, 2016 FINDINGS: The heart is large. Calcified atherosclerosis is noted in the aorta. Endotracheal and nasogastric t ubes are stable and appear in grossly appropriate location. Retrocardiac opacity is unchanged. Ate lectasis is seen at the right lung base. The osseous structures are osteopenic, but appear grossly intact. Degenerative changes are seen in the shoulders. IMPRESSION: Cardiomegaly with calcified atherosclerosis in the aorta. Stable retrocardiac opacity that may reflect left lower lobe atelectasis or infiltrate combined with small pleural effusion. Atelectasis at the right lung base. RPTAT: AA .Chris Patel MD, Date Time Electronically viewed and signed by .Chris Patel MD, MD on 11/24/2016 09:37 .P/
--- NOTE | 2016-11-24 09:38 | CONS ---
Date/Time of Note Date/Time of Note DATE: 11/24/16 TIME: 09:35 Consult Date/Type/Reason Admit Date/Time Nov 20, 2016 at 23:09 Initial Consult Date 11/21/16 Type of Consultation: Pulmonary/critical care Subjective Patient opens eyes and follows simple commands Continues mechanical ventilation Still has significant bloody drainage from ventriculostomy Objective Vital Signs Date Time Temp Pulse Resp B/P Pulse Ox O2 Delivery O2 Flow Rate FiO2 11/24/16 08:00 66 11/24/16 07:07 20 100 30 11/24/16 07:00 119/53 Mechanical Ventilator 11/24/16 03:00 98.8 11/20/16 22:45 2.0 Intake and Output 11/23/16 11/23/16 11/24/16 15:00 23:00 07:00 Intake Total 465 ml 455 ml 560 ml Output Total 642 ml 578 ml 425 ml Balance -177 ml -123 ml 135 ml Exam PHYSICAL EXAMINATION GENERAL: Elderly gentleman, intubated on mechanical ventilation, ventriculostomy in place VITAL SIGNS: see below. HEENT: Pupils equal, round, and reactive to CARDIAC: S1, S2, tachycardia. CHEST: Diminished air entry bilaterally. ABDOMEN: Mildly distended. Bowel sounds present no guarding or rebound EXTREMITIES: No cyanosis, clubbing edema +1 NEUROLOGIC: Hemiplegia but moves right arm and right foot Results/Medications Result Diagram: 11/24/16 0435 11/24/16 0435 Results 24 hrs Laboratory Tests Test 11/23/16 09:38 11/23/16 13:18 11/23/16 17:43 11/23/16 20:55 Bedside Glucose 184 187 155 142 Test 11/24/16 01:19 11/24/16 04:35 11/24/16 05:24 11/24/16 07:00 Bedside Glucose 151 137 White Blood Count 9.6 # Red Blood Count 4.82 Hemoglobin 12.8 L Hematocrit 40.4 L Mean Corpuscular Volume 83.8 Mean Corpuscular Hemoglobin 26.6 L Mean Corpuscular Hemoglobin Concent 31.7 L Red Cell Distribution Width 17.1 H Platelet Count 151 Mean Platelet Volume 12.0 H Neutrophils % 80.0 H Lymphocytes % 9.1 L Monocytes % 8.6 Eosinophils % 1.6 Basophils % 0.3 Nucleated Red Blood Cells % 0.0 Neutrophils # 7.7 H Lymphocytes # 0.9 Monocytes # 0.8 Eosinophils # 0.2 Basophils # 0.0 Nucleated Red Blood Cells # 0.0 Sodium Level 132 L Potassium Level 3.8 Chloride Level 103 Carbon Dioxide Level 19 L Anion Gap 14 Blood Urea Nitrogen 27 H Creatinine 1.39 H Glucose Level 171 Calcium Level 7.9 L Phosphorus Level 2.6 Magnesium Level 2.3 Blood Gas Specimen Source Blood arterial Arterial Blood Date Drawn 11/24/2016 7:18:08 AM Arterial Blood pH (Temp corrected) 7.488 H Arterial Blood pCO2 (Temp correct) 30.3 L Arterial Blood pO2 (Temp corrected) 85.7 Arterial Blood HCO3 22.5 Arterial Blood Base Excess -0.1 Arterial Blood Oxygen Saturation 96.8 Ashish Test ACCEPTAB Arterial Blood Gas Puncture Site Right Radial Arterial Blood Carboxyhemoglobin 0.4 Arterial Blood Methemoglobin 0.4 Blood Gas A-a O2 Differential 92.6 H Oxyhemoglobin Percent 96.0 Total Hemoglobin 12.5 Blood Gas Temperature 37.0 Blood Gas Respiration Rate 20.0 Blood Gas Actual Respiration Rate 20 Blood Gas Modality VENT - AC FiO2 30.0 Blood Gas Tidal Volume 500.0 Blood Gas Low PEEP Setting 5.0 Blood Gas Notified Whom JLD Blood Gas Notified Time 11/24/2016 8:12:59 AM Test 11/24/16 08:50 Bedside Glucose 148 Medications Current Medications Allopurinol (Zyloprim) 100 mg DAILY PO Last administered on 11/24/16 09:02; Admin Dose 100 MG; Start 11/21/16 at 09:00 Atorvastatin Calcium (Lipitor) 40 mg DAILY@21 PO Last administered on 20:56; Admin Dose 40 MG; Start 11/21/16 at 21:00 Carvedilol (Coreg) 12.5 mg BID PO Last administered on 11/24/16 09:03; Admin Dose 12.5 MG; Start 11/21/16 at 09:00 Docusate Sodium (Colace) 300 mg BID PO Last administered on 11/24/16 09:01; Admin Dose 300 MG; Start 11/21/16 at 09:00 Furosemide (Lasix) 40 mg DAILY@06 PO Last administered on 11/24/16 05:29; Admin Dose 40 MG; Start 11/21/16 at 06:00 Latanoprost (Xalatan) 1 drop DAILY BOTH EYES Last administered on 11/24/16 09: 03; Admin Dose 1 DROP; Start 11/21/16 at 09:00 Pantoprazole (Protonix Tab) 40 mg DAILY@06 PO Last administered on 11/24/16 05 :28; Admin Dose 40 MG; Start 11/21/16 at 06:00 Linagliptin (Tradjenta) 5 mg DAILY PO Last administered on 11/24/16 09:01; Admin Dose 5 MG; Start 11/21/16 at 09:00 Insulin Aspart NOVOLOG *MILD* ALGORI... Q4 SC Last administered on 11/24/16 09 :01; Admin Dose 1 UNIT; Start 11/21/16 at 05:00 Nicardipine HCl (Cardene Iv) 200 ml @ 50 mls/hr TITRATE IV Last administered on 11/21/16 01:31; Admin Dose 25 MLS/HR; Start 11/21/16 at 01:00 Miscellaneous Information 1 ea NOTE XX ; Start 11/21/16 at 02:45 Glucose (Glutose) 15 gm Q15M PRN PO DECREASED GLUCOSE; Start 11/21/16 at 02:45 Glucose (Glutose) 22.5 gm Q15M PRN PO DECREASED GLUCOSE; Start 11/21/16 at 02: 45 Dextrose (D50w Syringe) 25 ml Q15M PRN IV DECREASED GLUCOSE; Start 11/21/16 at 02:45 Dextrose (D50w Syringe) 50 ml Q15M PRN IV DECREASED GLUCOSE; Start 11/21/16 at 02:45 Glucagon (Glucagen) 1 mg Q15M PRN IM DECREASED GLUCOSE; Start 11/21/16 at 02:45 Glucose 15 gm 15 gm Q15M PRN BUCCAL DECREASED GLUCOSE; Start 11/21/16 at 02:45 Levetiracetam 500 mg/Dextrose 105 ml @ 420 mls/hr Q12 IVPB Last administered on 11/24/16 09:01; Admin Dose 420 MLS/HR; Start 11/21/16 at 09:00 Dextrose/Sodium Chloride (D5-1/2ns) 1,000 ml @ 70 mls/hr [id number] IV Last administered on 11/24/16 01:23; Admin Dose 70 MLS/HR; Start 11/21/16 at 14:30 Acetaminophen (Tylenol Liquid) 650 mg PRN PRN NGT PAIN AND OR ELEVATED TEMP Last administered on 11/21/16 21:31; Admin Dose 650 MG; Start 11/21/16 at 21:00 Acetaminophen 650 mg 650 mg PRN PRN SD fever; Start 11/21/16 at 21:00 Ciprofloxacin/ Dextrose (Cipro Ivpb) 200 ml @ 200 mls/hr Q24H IVPB Last administered on 11/23/16 12:21; Admin Dose 200 MLS/HR; Start 11/22/16 at 12:30 Assessment/Plan Chief Complaint/Hosp Course Assessment 1. 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 History of hypertension 3. Possible aspiration pneumonia 4. Respiratory failure secondary to above 5. History of chronic renal insufficiency 6. History of thyroid cancer Plan 1. Continue mechanical ventilation not amenable secondary to mental status 2. Continue ventriculostomy drainage and neurosurgical recommendations. Repeat CT of the head questionable 3. Continue current antibiotics 4. Start tube feeding 5. DVT and GI prophylaxis Disposition Continue current supportive care in intensive care unit Problems: LELIA ENGEL MD, [facility] Nov 24, 2016 09:38
[2016-11-24] MEDS: CIPROFLOXACIN 400MG/D5W 200 ML IVPB SCH (11:46)
--- NOTE | 2016-11-24 13:00 | PN ---
DATE: I spoke to the patient's this morning and daughter. The patient's brother and [id number] we re both present. We have scheduled a meeting for at 1500 hours to speak with the entire family. I have also spoken with Dr. Smiley who confirmed to me that patient has a poor prognosis for any si gnificant improvement in cognitive status. This information will be conveyed to family members and my impressions are the family have already s poken about his code status, but once again this is early after his catastrophic injury and I will n ot press them on that. We will discuss that on . Dictated By: WENCESLAO MULLEN MD, LP/LOGAN Conf#: [id number] DID#: [id number]
--- NOTE | 2016-11-24 14:15 | PN ---
Date/Time of Note Date/Time of Note DATE: 11/24/16 TIME: 14:10 Assessment/Plan VTE Prophylaxis VTE Prophylaxis Intervention: contraindicated VTE Contraindication Reason: hemorrhagic cerebral infarction Lines/Catheters IV Catheter Type (from Nrs): Peripheral IV Urinary Cath still in place: Yes Reason Cath still needed: terminal illness/intractable pain Assessment/Plan Problems: (1) Intraventricular hemorrhage Status: Acute Comment: CSF drainage ongoing. Neurosurgery monitoring. Prognosis remains poor. Palliative care in discussions with family. (2) Left hemiparesis Status: Acute Comment: CSF drainage ongoing. Neurosurgery monitoring. Prognosis remains poor. Palliative care in discussions with family. (3) Hemorrhagic stroke Status: Acute Comment: CSF drainage ongoing. Neurosurgery monitoring. Prognosis remains poor. Palliative care in discussions with family. (4) On mechanically assisted ventilation Status: Acute Comment: Pulmonary managing vent (5) Type 2 diabetes mellitus with diabetic chronic kidney disease Status: Chronic Comment: On tradjenta and ISS which have been effective (6) Essential (primary) hypertension Status: Chronic Comment: Controlled w/ nicardipine (7) Chronic kidney disease, stage II (mild) Status: Chronic Comment: Stable Subjective 24 Hr Interval Summary Subjective hx not possible: pt non-verbal, pt critical status Exam/Review of Systems Vital Signs Vitals VS - Last 72 Hours, by Label Date Time Temp Pulse Resp B/P Pulse Ox O2 Delivery O2 Flow Rate FiO2 11/24/16 13:00 67 23 144/57 100 Mechanical Ventilator 11/24/16 12:00 64 11/24/16 12:00 100.3 65 21 132/64 99 Mechanical Ventilator 11/24/16 11:37 63 20 100 30 11/24/16 11:00 62 21 128/63 100 Mechanical Ventilator 11/24/16 10:00 62 21 127/61 100 Mechanical Ventilator 11/24/16 09:00 61 21 127/61 100 Mechanical Ventilator 11/24/16 09:00 58 20 100 30 11/24/16 08:00 66 11/24/16 08:00 101.0 61 18 119/56 100 Mechanical Ventilator 11/24/16 08:00 30 11/24/16 07:07 60 20 100 30 11/24/16 07:00 60 20 119/53 100 Mechanical Ventilator 11/24/16 06:00 59 20 113/55 100 Mechanical Ventilator 11/24/16 05:00 66 20 129/61 100 Mechanical Ventilator 11/24/16 04:55 58 20 100 30 11/24/16 04:00 59 20 106/45 98 Mechanical Ventilator 11/24/16 04:00 57 11/24/16 03:24 59 20 100 30 11/24/16 03:00 98.8 64 23 133/70 100 Mechanical Ventilator 11/24/16 02:00 61 20 112/52 100 Mechanical Ventilator 11/24/16 01:42 65 20 100 30 11/24/16 01:00 56 20 97/46 100 Mechanical Ventilator 11/24/16 00:00 60 11/24/16 00:00 98.8 58 20 114/58 100 Mechanical Ventilator 11/23/16 23:51 61 20 100 30 11/23/16 23:00 61 20 104/56 96 Mechanical Ventilator 11/23/16 22:00 64 20 98/51 97 Mechanical Ventilator 11/23/16 21:22 64 20 97 30 11/23/16 21:00 64 20 119/58 98 Mechanical Ventilator 11/23/16 20:00 30 11/23/16 20:00 64 11/23/16 20:00 65 21 124/58 100 Mechanical Ventilator 11/23/16 19:19 63 20 100 30 11/23/16 19:00 98.8 64 20 106/52 98 Mechanical Ventilator 11/23/16 18:00 65 20 99/48 97 Mechanical Ventilator 11/23/16 17:25 66 20 98 30 11/23/16 17:00 66 20 100/52 96 Mechanical Ventilator 11/23/16 16:00 66 11/23/16 16:00 99.3 65 20 108/56 94 Mechanical Ventilator 11/23/16 15:55 65 20 96 30 11/23/16 15:00 66 20 117/67 96 Mechanical Ventilator 11/23/16 14:00 63 20 107/54 96 Mechanical Ventilator 11/23/16 13:15 68 20 99 30 11/23/16 13:00 62 20 119/60 100 Mechanical Ventilator 11/23/16 12:00 99.5 64 20 123/67 96 Mechanical Ventilator 11/23/16 12:00 64 11/23/16 12:00 30 11/23/16 11:05 63 20 98 30 11/23/16 11:00 63 20 106/58 96 Mechanical Ventilator 11/23/16 10:00 64 20 130/61 98 Mechanical Ventilator 11/23/16 09:30 64 20 114/59 99 Mechanical Ventilator 11/23/16 09:20 65 20 100 30 11/23/16 09:00 65 20 112/59 97 Mechanical Ventilator 11/23/16 08:30 70 20 114/59 100 Mechanical Ventilator 11/23/16 08:00 99.7 67 20 130/68 99 Mechanical Ventilator 11/23/16 08:00 69 11/23/16 08:00 30 11/23/16 07:30 63 20 100 30 11/23/16 07:30 61 21 130/63 100 Mechanical Ventilator 11/23/16 07:00 59 21 129/64 100 Mechanical Ventilator 11/23/16 06:00 64 18 129/62 100 11/23/16 05:30 59 20 109/58 100 11/23/16 05:07 65 20 100 30 11/23/16 05:00 61 20 116/61 100 11/23/16 04:30 62 19 134/64 100 11/23/16 04:00 60 11/23/16 04:00 98.8 63 18 92/58 100 Mechanical Ventilator 11/23/16 03:30 66 20 88/48 94 11/23/16 03:25 66 20 97 30 11/23/16 03:00 66 20 85/53 95 11/23/16 02:30 68 20 97/42 98 11/23/16 02:00 67 18 113/54 97 11/23/16 01:40 64 20 100 30 11/23/16 01:30 65 20 113/43 99 11/23/16 01:00 61 16 99/45 97 11/23/16 00:00 98.1 67 20 90/52 91 11/23/16 00:00 30 11/23/16 00:00 65 11/22/16 23:35 66 20 96 30 11/22/16 23:00 71 20 103/61 93 11/22/16 22:00 71 20 113/61 94 11/22/16 21:30 74 20 100 30 11/22/16 21:00 73 21 118/64 100 11/22/16 20:00 99.1 72 20 106/61 96 Mechanical Ventilator 11/22/16 20:00 75 11/22/16 20:00 30 11/22/16 19:45 70 23 100 30 11/22/16 19:00 69 19 111/59 96 11/22/16 18:00 72 20 102/53 95 Mechanical Ventilator 11/22/16 17:20 81 20 99 30 11/22/16 17:00 70 20 126/63 95 Mechanical Ventilator 11/22/16 16:09 72 11/22/16 16:00 99.6 71 20 111/55 96 Mechanical Ventilator 11/22/16 15:20 71 22 96 30 11/22/16 15:00 70 20 106/58 94 Mechanical Ventilator 11/22/16 14:00 78 20 127/61 100 Mechanical Ventilator 11/22/16 13:20 82 20 98 30 11/22/16 13:00 76 20 106/59 95 Mechanical Ventilator 11/22/16 12:07 72 11/22/16 12:00 99.5 75 22 140/63 99 Mechanical Ventilator 11/22/16 11:20 70 20 99 30 11/22/16 11:00 70 20 126/66 93 Mechanical Ventilator 11/22/16 10:00 72 20 111/59 94 Mechanical Ventilator 11/22/16 09:40 73 20 96 30 11/22/16 09:00 80 22 121/65 96 Mechanical Ventilator 11/22/16 08:30 30 11/22/16 08:12 80 11/22/16 08:00 98.7 80 21 133/73 98 Mechanical Ventilator 11/22/16 07:50 86 20 98 30 11/22/16 07:00 76 23 139/72 96 Mechanical Ventilator 11/22/16 06:00 78 21 131/67 97 11/22/16 05:00 76 15 130/69 92 11/22/16 04:45 78 22 98 30 11/22/16 04:30 79 22 128/64 95 11/22/16 04:00 73 11/22/16 04:00 40 11/22/16 04:00 98.2 72 22 121/73 95 Mechanical Ventilator 11/22/16 03:45 73 21 97 40 11/22/16 03:30 73 21 131/60 94 11/22/16 03:00 75 23 131/62 93 11/22/16 02:30 76 23 130/70 91 11/22/16 02:00 80 23 119/59 92 11/22/16 01:45 79 22 98 40 11/22/16 01:30 78 20 118/56 93 11/22/16 01:00 79 22 117/58 92 11/22/16 00:30 86 20 100/61 93 11/22/16 00:00 75 11/22/16 00:00 98.0 74 19 117/54 92 Mechanical Ventilator 11/22/16 00:00 40 11/21/16 23:30 82 23 98 40 11/21/16 23:30 75 22 110/53 92 11/21/16 23:00 78 20 102/57 94 11/21/16 22:30 80 22 97/52 93 11/21/16 22:00 87 23 119/62 98 11/21/16 21:30 89 22 112/62 94 11/21/16 21:05 95 22 98 50 11/21/16 21:00 92 22 100/70 96 11/21/16 20:30 92 22 104/65 93 11/21/16 20:00 100.6 94 22 99/57 96 Mechanical Ventilator 11/21/16 20:00 94 11/21/16 20:00 50 11/21/16 19:40 95 20 98 50 11/21/16 19:30 94 20 93/56 92 11/21/16 19:00 101.2 98 22 104/59 92 Mechanical Ventilator 11/21/16 18:00 97 21 96/55 98 Mechanical Ventilator 11/21/16 17:20 96 20 99 30 11/21/16 17:00 94 20 90/51 98 Mechanical Ventilator 11/21/16 16:00 87 11/21/16 16:00 86 20 95/52 98 Mechanical Ventilator 11/21/16 15:20 95 22 97 30 11/21/16 15:00 100.0 91 21 110/56 98 Mechanical Ventilator 11/21/16 14:30 92 21 104/55 97 Vital Signs Date Time Temp Pulse Resp B/P Pulse Ox O2 Delivery O2 Flow Rate FiO2 11/24/16 13:00 67 23 144/57 100 Mechanical Ventilator 11/24/16 12:00 100.3 11/24/16 11:37 30 11/20/16 22:45 2.0 Intake and Output 11/23/16 11/23/16 11/24/16 15:00 23:00 07:00 Intake Total 465 ml 455 ml 560 ml Output Total 642 ml 578 ml 425 ml Balance -177 ml -123 ml 135 ml Exam Constitutional: non-verbal, obese, No alert ENMT: intubated Respiratory: clear to auscultation, normal air movement Cardiovascular: nl pulses, regular rate and rhythm, No edema, No murmurs/extra sounds, No rub Gastrointestinal: bowel sounds, nl liver, spleen, non-tender, soft, No mass, No rebound or guarding Musculoskeletal: nl extremities to inspection Extremities: normal pulses, No clubbing, No cyanosis, No edema Neurological: lethargic (minimally responsive to command. Opens eyes weakly when daughter tells him to.) Additional Comments Bedside Glucose - 72 Hours Test 11/21/16 16:53 11/21/16 21:36 11/22/16 01:20 11/22/16 05:49 Bedside Glucose 127mg/dL (70-220) 170mg/dL (70-220) 188mg/dL (70-220) 188mg/dL (70-220) Test 11/22/16 08:19 11/22/16 13:26 11/22/16 17:00 11/22/16 21:00 Bedside Glucose 192mg/dL (70-220) 148mg/dL (70-220) 136mg/dL (70-220) 136mg/dL (70-220) Test 11/23/16 00:31 11/23/16 04:37 11/23/16 09:38 11/23/16 13:18 Bedside Glucose 165mg/dL (70-220) 203mg/dL (70-220) 184mg/dL (70-220) 187mg/dL (70-220) Test 11/23/16 17:43 11/23/16 20:55 11/24/16 01:19 11/24/16 05:24 Bedside Glucose 155mg/dL (70-220) 142mg/dL (70-220) 151mg/dL (70-220) 137mg/dL (70-220) Test 11/24/16 08:50 11/24/16 12:47 Bedside Glucose 148mg/dL (70-220) 158mg/dL (70-220) Results Result Diagram: 11/24/16 0435 11/24/16 0435 Results 24 hrs Laboratory Tests Test 11/23/16 17:43 11/23/16 20:55 11/24/16 01:19 11/24/16 04:35 Bedside Glucose 155 142 151 White Blood Count 9.6 # Red Blood Count 4.82 Hemoglobin 12.8 L Hematocrit 40.4 L Mean Corpuscular Volume 83.8 Mean Corpuscular Hemoglobin 26.6 L Mean Corpuscular Hemoglobin Concent 31.7 L Red Cell Distribution Width 17.1 H Platelet Count 151 Mean Platelet Volume 12.0 H Neutrophils % 80.0 H Lymphocytes % 9.1 L Monocytes % 8.6 Eosinophils % 1.6 Basophils % 0.3 Nucleated Red Blood Cells % 0.0 Neutrophils # 7.7 H Lymphocytes # 0.9 Monocytes # 0.8 Eosinophils # 0.2 Basophils # 0.0 Nucleated Red Blood Cells # 0.0 Sodium Level 132 L Potassium Level 3.8 Chloride Level 103 Carbon Dioxide Level 19 L Anion Gap 14 Blood Urea Nitrogen 27 H Creatinine 1.39 H Glucose Level 171 Calcium Level 7.9 L Phosphorus Level 2.6 Magnesium Level 2.3 Test 11/24/16 05:24 11/24/16 07:00 11/24/16 08:50 11/24/16 12:47 Bedside Glucose 137 148 158 Blood Gas Specimen Source Blood arterial Arterial Blood Date Drawn 11/24/2016 7:18:08 AM Arterial Blood pH (Temp corrected) 7.488 H Arterial Blood pCO2 (Temp correct) 30.3 L Arterial Blood pO2 (Temp corrected) 85.7 Arterial Blood HCO3 22.5 Arterial Blood Base Excess -0.1 Arterial Blood Oxygen Saturation 96.8 Ashish Test ACCEPTAB Arterial Blood Gas Puncture Site Right Radial Arterial Blood Carboxyhemoglobin 0.4 Arterial Blood Methemoglobin 0.4 Blood Gas A-a O2 Differential 92.6 H Oxyhemoglobin Percent 96.0 Total Hemoglobin 12.5 Blood Gas Temperature 37.0 Blood Gas Respiration Rate 20.0 Blood Gas Actual Respiration Rate 20 Blood Gas Modality VENT - AC FiO2 30.0 Blood Gas Tidal Volume 500.0 Blood Gas Low PEEP Setting 5.0 Blood Gas Notified Whom JLD Blood Gas Notified Time 11/24/2016 8:12:59 AM Medications Medications Current Medications Allopurinol (Zyloprim) 100 mg DAILY PO Last administered on 11/24/16t 09:02; Admin Dose 100 MG; Start 11/21/16 at 09:00 Atorvastatin Calcium (Lipitor) 40 mg DAILY@21 PO Last administered on 20:56; Admin Dose 40 MG; Start 11/21/16 at 21:00 Carvedilol (Coreg) 12.5 mg BID PO Last administered on 11/24/16 09:03; Admin Dose 12.5 MG; Start 11/21/16 at 09:00 Docusate Sodium (Colace) 300 mg BID PO Last administered on 11/24/16 09:01; Admin Dose 300 MG; Start 11/21/16 at 09:00 Furosemide (Lasix) 40 mg DAILY@06 PO Last administered on 11/24/16 05:29; Admin Dose 40 MG; Start 11/21/16 at 06:00 Latanoprost (Xalatan) 1 drop DAILY BOTH EYES Last administered on 11/24/16 09: 03; Admin Dose 1 DROP; Start 11/21/16 at 09:00 Pantoprazole (Protonix Tab) 40 mg DAILY@06 PO Last administered on 11/24/16 05 :28; Admin Dose 40 MG; Start 11/21/16 at 06:00 Linagliptin (Tradjenta) 5 mg DAILY PO Last administered on 11/24/16 09:01; Admin Dose 5 MG; Start 11/21/16 at 09:00 Insulin Aspart NOVOLOG *MILD* ALGORI... Q4 SC Last administered on 11/24/16 12 :51; Admin Dose 1 UNIT; Start 11/21/16 at 05:00 Nicardipine HCl (Cardene Iv) 200 ml @ 50 mls/hr TITRATE IV Last administered on 11/21/16 01:31; Admin Dose 25 MLS/HR; Start 11/21/16 at 01:00 Miscellaneous Information 1 ea NOTE XX ; Start 11/21/16 at 02:45 Glucose (Glutose) 15 gm Q15M PRN PO DECREASED GLUCOSE; Start 11/21/16 at 02:45 Glucose (Glutose) 22.5 gm Q15M PRN PO DECREASED GLUCOSE; Start 11/21/16 at 02: 45 Dextrose (D50w Syringe) 25 ml Q15M PRN IV DECREASED GLUCOSE; Start 11/21/16 at 02:45 Dextrose (D50w Syringe) 50 ml Q15M PRN IV DECREASED GLUCOSE; Start 11/21/16 at 02:45 Glucagon (Glucagen) 1 mg Q15M PRN IM DECREASED GLUCOSE; Start 11/21/16 at 02:45 Glucose 15 gm 15 gm Q15M PRN BUCCAL DECREASED GLUCOSE; Start 11/21/16 at 02:45 Levetiracetam 500 mg/Dextrose 105 ml @ 420 mls/hr Q12 IVPB Last administered on 11/24/16 09:01; Admin Dose 420 MLS/HR; Start 11/21/16 at 09:00 Dextrose/Sodium Chloride (D5-1/2ns) 1,000 ml @ 70 mls/hr [id number] IV Last administered on 11/24/16 01:23; Admin Dose 70 MLS/HR; Start 11/21/16 at 14:30 Acetaminophen (Tylenol Liquid) 650 mg PRN PRN NGT PAIN AND OR ELEVATED TEMP Last administered on 11/21/16 21:31; Admin Dose 650 MG; Start 11/21/16 at 21:00 Acetaminophen 650 mg 650 mg PRN PRN [place] fever; Start 11/21/16 at 21:00 Ciprofloxacin/ Dextrose (Cipro Ivpb) 200 ml @ 200 mls/hr Q24H IVPB Last administered on 11/24/16 11:46; Admin Dose 200 MLS/HR; Start 11/22/16 at 12:30 HARISH WALKER MD Nov 24, 2016 14:14
[2016-11-24] MEDS: ACETAMINOPHEN 650MG/20.3ML CUP NGT PRN (21:09)
[2016-11-24] MEDS: ATORVASTATIN 40 MG TAB PO SCH (21:10)
[2016-11-25] VITALS (51 sets, daily range): BP systolic 88–161; BP diastolic 47–75; PULSE 58–74; RESP 19–26
[2016-11-25] MEDS: DEXTROSE 5%-0.45% NACL 1,000 ML IV SCH ×2 (01:32→19:24)
[2016-11-25] MEDS: INSULIN ASPART [NOVOLOG] 3 ML PEN SC SCH ×6 (01:34→20:51)
[2016-11-25 06:02] LABS: ADD SCAN DIFF NO
[2016-11-25] MEDS: FUROSEMIDE 40 MG TAB PO SCH (06:42)
[2016-11-25] MEDS: REPAGLINIDE 2 MG TAB PO SCH ×3 (06:42→18:10)
[2016-11-25] MEDS: LANSOPRAZOLE 30 MG CAP GTB SCH (06:43)
--- NOTE | 2016-11-25 07:45 | RADRPT ---
PROCEDURE: XR Chest. CLINICAL INDICATION: CHF TECHNIQUE: An AP view of the chest was obtained. COMPARISON: Chest x-ray dated 11/24/2016 FINDINGS: The endotracheal tube tip is approximately 3.8 cm above the vicky. The tip of the enteric tube ex tends below the left diaphragm. Lung volumes are low with ill-defined bilateral interstitial opacities and small bilateral pleural e ffusions. There is obscuration of the left diaphragm. No pneumothorax is seen. The cardiomediastina l silhouette is mildly enlarged . Calcifications are seen within the aortic arch. There are post ca rdiac surgery changes with sternotomy wires. The osseous structures demonstrate an old fracture of t he left mid clavicle. IMPRESSION: 1. Low lung volumes with findings suggesting interstitial edema and small bilateral pleural effusio ns. There is mild increased left basilar atelectasis when compared to the prior examination. Otherw ise, no significant interval change. 2. Mild cardiomegaly and aortic atherosclerosis. 3. Tubes and lines, as described above. RPTAT: HH .Magali Mirza MD, MD Date Time Electronically viewed and signed by .Magali Mirza MD, MD on 11/25/2016 07:44 .G/
[2016-11-25 08:00] LABS: ABNORMAL IP MESSAGE 1; BASOPHILS % 0.4 % (0.0-2.0); EOSINOPHILS # 0.1 10^3/ul (0.0-0.5); HEMATOCRIT 29.4 % (42.0-52.0); HEMOGLOBIN 8.1 g/dl (14.0-18.0); LYMPHOCYTES % 14.2 % (15.0-51.0); MEAN CORPUSCULAR HEMOGLOBIN 26.9 pg (29.0-33.0); MEAN CORPUSCULAR HGB CONC 27.6 g/dl (32.0-37.0); MEAN CORPUSCULAR VOLUME 97.7 fl (82.0-101.0); MEAN PLATELET VOLUME 13.4 fl (7.4-10.4); MONOCYTES % 14.3 % (0.0-11.0); NEUTROPHIL # 4.6 10^3/ul (1.6-7.5); NEUTROPHILS % 67.6 % (39.0-77.0); PLATELET COUNT 100 10^3/UL (140-415); RED BLOOD COUNT 3.01 10^6/ul (4.70-6.10); RED CELL DISTRIBUTION WIDTH 17.9 % (11.5-14.5); WHITE BLOOD COUNT 6.9 10^3/ul (4.8-10.8)
--- NOTE | 2016-11-25 08:56 | CONS ---
Date/Time of Note Date/Time of Note DATE: 11/25/16 TIME: 08:52 Assessment/Plan Assessment/Plan Additional Assessment/Plan Chest x-ray was reviewed from today which is showing a developing left lower lobe infiltrate. Ventilator settings; AC of 20, tidal volume 500, PEEP of 5, 40% FiO2. Assessment and recommendations; 1. Patient admitted with intraventricular and intraparenchymal bleed. Status post ventriculostomy. 2. Respiratory failure. 3. Multiple other comorbidities including chronic renal insufficiency, history of CABG surgery, laparoscopic colectomy, diabetes, hypertension, 4. Left lower lobe pneumonia. Healthcare associated. Continue current treatment. Continue current ventilator settings. Add cefepime 1 g IV every 12 hours. Continue ciprofloxacin. Prognosis is extremely poor. Consultation Date/Type/Reason Admit Date/Time Nov 20, 2016 at 23:09 Initial Consult Date 11/21/16 Type of Consultation: Pulmonary/critical care 24 HR Interval Summary Free Text/Dictation Patient condition remains critical. Remains completely unresponsive. Remains ventilator dependent. No overt seizure activity noted. General exam; elderly male, orally intubated, unresponsive. Currently in no distress. Exam/Review of Systems Vital Signs Vitals Vital Signs Date Time Temp Pulse Resp B/P Pulse Ox O2 Delivery O2 Flow Rate FiO2 11/25/16 08:00 63 23 100 30 11/25/16 05:00 120/54 Mechanical Ventilator 11/25/16 04:00 99.4 Intake and Output 11/24/16 11/24/16 11/25/16 15:00 23:00 07:00 Intake Total 220 ml 830 ml 870 ml Output Total 1190 ml 533 ml 335 ml Balance -970 ml 297 ml 535 ml Exam HEENT examination; supple neck, no JVD. No lymphadenopathy. Midline trachea. Orally intubated. No neck masses. Dentition is fair. Patient bilateral cataracts. Ventriculostomy is in place. Chest examination; diminished breath sounds left lower lobe. S1-S2 audible, no murmurs. Regular rhythm. There is a well-healed sternal scar. Abdomen examination; soft, no organomegaly. Bowel sounds audible. Nondistended. Extremity examination; no peripheral edema. [employer] exam; patient remains unresponsive. Results Result Diagram: 11/25/16 0720 11/24/16 0435 Results 24 hrs Laboratory Tests Test 11/24/16 12:47 11/24/16 16:38 11/24/16 21:39 11/25/16 01:14 Bedside Glucose 158 111 177 188 Test 11/25/16 05:26 11/25/16 07:20 Bedside Glucose 171 White Blood Count 6.9 # Red Blood Count 3.01 #L Hemoglobin 8.1 #L Hematocrit 29.4 #L Mean Corpuscular Volume 97.7 Mean Corpuscular Hemoglobin 26.9 L Mean Corpuscular Hemoglobin Concent 27.6 L Red Cell Distribution Width 17.9 H Platelet Count 100 #L Mean Platelet Volume 13.4 H Neutrophils % 67.6 Lymphocytes % 14.2 L Monocytes % 14.3 H Eosinophils % 2.0 Basophils % 0.4 Nucleated Red Blood Cells % 0.0 Neutrophils # 4.6 Lymphocytes # 1.0 Monocytes # 1.0 H Eosinophils # 0.1 Basophils # 0.0 Nucleated Red Blood Cells # 0.0 Medications Medications Current Medications Allopurinol (Zyloprim) 100 mg DAILY PO Last administered on 11/24/16 09:02; Admin Dose 100 MG; Start 11/21/16 at 09:00 Atorvastatin Calcium (Lipitor) 40 mg DAILY@21 PO Last administered on 21:10; Admin Dose 40 MG; Start 11/21/16 at 21:00 Carvedilol (Coreg) 12.5 mg BID PO Last administered on 11/24/16 21:10; Admin Dose 12.5 MG; Start 11/21/16 at 09:00 Docusate Sodium (Colace) 300 mg BID PO Last administered on 11/24/16 21:09; Admin Dose 300 MG; Start 11/21/16 at 09:00 Furosemide (Lasix) 40 mg DAILY@06 PO Last administered on 11/25/16 06:42; Admin Dose 40 MG; Start 11/21/16 at 06:00 Latanoprost (Xalatan) 1 drop DAILY BOTH EYES Last administered on 11/24/16 09: 03; Admin Dose 1 DROP; Start 11/21/16 at 09:00 Linagliptin (Tradjenta) 5 mg DAILY PO Last administered on 11/24/16 09:01; Admin Dose 5 MG; Start 11/21/16 at 09:00 Insulin Aspart NOVOLOG *MILD* ALGORI... Q4 SC Last administered on 11/25/16 05 :33; Admin Dose 1 UNIT; Start 11/21/16 at 05:00 Nicardipine HCl (Cardene Iv) 200 ml @ 50 mls/hr TITRATE IV Last administered on 11/21/16 01:31; Admin Dose 25 MLS/HR; Start 11/21/16 at 01:00 Miscellaneous Information 1 ea NOTE XX ; Start 11/21/16 at 02:45 Glucose (Glutose) 15 gm Q15M PRN PO DECREASED GLUCOSE; Start 11/21/16 at 02:45 Glucose (Glutose) 22.5 gm Q15M PRN PO DECREASED GLUCOSE; Start 11/21/16 at 02: 45 Dextrose (D50w Syringe) 25 ml Q15M PRN IV DECREASED GLUCOSE; Start 11/21/16 at 02:45 Dextrose (D50w Syringe) 50 ml Q15M PRN IV DECREASED GLUCOSE; Start 11/21/16 at 02:45 Glucagon (Glucagen) 1 mg Q15M PRN IM DECREASED GLUCOSE; Start 11/21/16 at 02:45 Glucose 15 gm 15 gm Q15M PRN BUCCAL DECREASED GLUCOSE; Start 11/21/16 at 02:45 Levetiracetam 500 mg/Dextrose 105 ml @ 420 mls/hr Q12 IVPB Last administered on 11/24/16 21:07; Admin Dose 420 MLS/HR; Start 11/21/16 at 09:00 Dextrose/Sodium Chloride (D5-1/2ns) 1,000 ml @ 70 mls/hr [id number] IV Last administered on 11/25/16 01:32; Admin Dose 70 MLS/HR; Start 11/21/16 at 14:30 Acetaminophen (Tylenol Liquid) 650 mg PRN PRN NGT PAIN AND OR ELEVATED TEMP Last administered on 11/24/16 21:09; Admin Dose 650 MG; Start 11/21/16 at 21:00 Acetaminophen 650 mg 650 mg PRN PRN [place] fever; Start 11/21/16 at 21:00 Ciprofloxacin/ Dextrose (Cipro Ivpb) 200 ml @ 200 mls/hr Q24H IVPB Last administered on 11/24/16 11:46; Admin Dose 200 MLS/HR; Start 11/22/16 at 12:30 Lansoprazole (Prevacid) 30 mg DAILY@06 GTB Last administered on 11/25/16t 06:43 ; Admin Dose 30 MG; Start 11/25/16 at 06:00 REGINO RESTREPO Nov 25, 2016 08:55
[2016-11-25] MEDS: DOCUSATE SODIUM 100 MG CAP PO SCH ×2 (09:00→20:40)
[2016-11-25] MEDS: LINAGLIPTIN 5 MG TABLET PO SCH (09:20)
[2016-11-25] MEDS: ALLOPURINOL 100 MG TAB PO SCH (09:20)
[2016-11-25] MEDS: LATANOPROST 0.005% 2.5 ML OPH BOTH EYES SCH (09:21)
[2016-11-25] MEDS: LEVETIRACETAM IV 500 MG in DEXTROSE 5% 100 ML IVPB SCH (09:42)
[2016-11-25 09:50] LABS: POTASSIUM 3.5 mmol/L (3.5-5.1)
[2016-11-25 09:52] LABS: CREATININE 1.44 mg/dl (0.61-1.24)
[2016-11-25 09:54] LABS: CALCIUM 7.6 mg/dl (8.4-10.2); MAGNESIUM 2.3 mg/dl (1.7-2.5); PHOSPHORUS 2.4 mg/dl (2.5-4.9)
[2016-11-25 10:59] LABS: ADD SCAN DIFF NO
[2016-11-25 11:02] LABS: BASOPHILS % 0.4 % (0.0-2.0); EOSINOPHILS # 0.2 10^3/ul (0.0-0.5); EOSINOPHILS % 2.2 % (0.0-7.0); HEMATOCRIT 38.7 % (42.0-52.0); HEMOGLOBIN 12.2 g/dl (14.0-18.0); LYMPHOCYTES # 1.1 10^3/ul (0.8-2.9); LYMPHOCYTES % 13.6 % (15.0-51.0); MEAN CORPUSCULAR HEMOGLOBIN 26.5 pg (29.0-33.0); MEAN CORPUSCULAR HGB CONC 31.5 g/dl (32.0-37.0); MEAN CORPUSCULAR VOLUME 84.1 fl (82.0-101.0); MEAN PLATELET VOLUME 12.8 fl (7.4-10.4); MONOCYTE # 0.9 10^3/ul (0.3-0.9); MONOCYTES % 11.3 % (0.0-11.0); NEUTROPHIL # 5.6 10^3/ul (1.6-7.5); NEUTROPHILS % 71.2 % (39.0-77.0); PLATELET COUNT 146 10^3/UL (140-415); RED CELL DISTRIBUTION WIDTH 16.9 % (11.5-14.5); WHITE BLOOD COUNT 7.9 10^3/ul (4.8-10.8)
[2016-11-25] MEDS: CEFEPIME 1GM/50 ML (PMX) 50 ML IVPB SCH ×2 (11:28→20:41)
[2016-11-25] MEDS: CIPROFLOXACIN 400MG/D5W 200 ML IVPB SCH (13:25)
--- NOTE | 2016-11-25 14:23 | PN ---
Date/Time of Note Date/Time of Note DATE: 11/25/16 TIME: 14:13 Assessment/Plan VTE Prophylaxis VTE Prophylaxis Intervention: contraindicated VTE Contraindication Reason: hemorrhagic cerebral infarction Lines/Catheters IV Catheter Type (from Nrsg): Peripheral IV Urinary Cath still in place: Yes Reason Cath still needed: terminal illness/intractable pain Assessment/Plan Problems: (1) Hemorrhagic stroke Status: Acute Comment: Pt. continues to have poor responsiveness and poor prognosis. Family aware. Meeting w/ palliative care tomorrow. (2) Left hemiparesis Status: Acute Comment: Pt. continues to have poor responsiveness and poor prognosis. Family aware. Meeting w/ palliative care tomorrow. (3) Intraventricular hemorrhage Status: Acute Comment: Pt. continues to have poor responsiveness and poor prognosis. Family aware. Meeting w/ palliative care tomorrow. (4) On mechanically assisted ventilation Status: Acute Comment: Pulmonary managing vent. Remains vent-dependent. 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 TF on hold due to high residual (6) Essential (primary) hypertension Status: Chronic Comment: Controlled w/ nicardipine (7) Chronic kidney disease, stage II (mild) Status: Chronic Comment: Stable. Cont. to monitor Subjective 24 Hr Interval Summary Subjective hx not possible: pt non-verbal, pt critical status Exam/Review of Systems Vital Signs Vitals VS - Last 72 Hours, by Label Date Time Temp Pulse Resp B/P Pulse Ox O2 Delivery O2 Flow Rate FiO2 11/25/16 13:05 68 26 100 30 11/25/16 12:30 63 22 122/49 100 Mechanical Ventilator 11/25/16 12:00 61 11/25/16 12:00 98.9 64 22 118/48 100 Mechanical Ventilator 11/25/16 11:30 62 23 115/47 99 Mechanical Ventilator 11/25/16 11:08 65 24 100 30 11/25/16 11:00 65 24 116/50 99 Mechanical Ventilator 11/25/16 10:30 62 23 113/48 100 Mechanical Ventilator 11/25/16 10:00 66 22 123/57 100 Mechanical Ventilator 11/25/16 09:30 65 24 100 30 11/25/16 09:00 63 21 118/56 100 Mechanical Ventilator 11/25/16 08:00 63 11/25/16 08:00 98.9 63 23 123/56 100 Mechanical Ventilator 11/25/16 08:00 63 23 100 30 11/25/16 07:00 68 20 105/57 99 Mechanical Ventilator 11/25/16 05:13 68 20 100 30 11/25/16 05:00 69 21 120/54 100 Mechanical Ventilator 11/25/16 04:00 99.4 61 21 111/58 100 Mechanical Ventilator 11/25/16 04:00 58 11/25/16 03:13 62 24 100 30 11/25/16 03:00 59 19 101/48 100 Mechanical Ventilator 11/25/16 02:00 59 20 96/50 98 Mechanical Ventilator 11/25/16 01:10 61 21 98 30 11/25/16 01:00 61 20 88/48 97 Mechanical Ventilator 11/25/16 00:00 65 11/25/16 00:00 99.3 63 21 95/48 97 Mechanical Ventilator 11/25/16 00:00 63 21 95/48 97 11/24/16 23:17 64 22 97 30 11/24/16 23:00 66 23 96/49 95 Mechanical Ventilator 11/24/16 22:00 100.9 70 23 110/53 97 Mechanical Ventilator 11/24/16 21:13 69 24 98 30 11/24/16 21:00 101.2 68 24 120/58 99 Mechanical Ventilator 11/24/16 20:00 102.5 68 23 116/52 100 Mechanical Ventilator 11/24/16 20:00 30 11/24/16 20:00 68 11/24/16 19:21 69 23 100 30 11/24/16 18:00 69 23 119/53 100 Mechanical Ventilator 11/24/16 17:20 70 20 100 30 11/24/16 17:00 69 24 119/52 100 Mechanical Ventilator 11/24/16 16:00 100.2 68 25 128/57 100 Mechanical Ventilator 11/24/16 16:00 69 11/24/16 15:10 66 20 100 30 11/24/16 15:00 70 24 112/50 100 Mechanical Ventilator 11/24/16 14:00 66 21 115/50 100 Mechanical Ventilator 11/24/16 13:40 60 20 100 30 11/24/16 13:00 67 23 144/57 100 Mechanical Ventilator 11/24/16 12:00 64 11/24/16 12:00 100.3 65 21 132/64 99 Mechanical Ventilator 11/24/16 11:37 63 20 100 30 11/24/16 11:00 62 21 128/63 100 Mechanical Ventilator 11/24/16 10:00 62 21 127/61 100 Mechanical Ventilator 11/24/16 09:00 61 21 127/61 100 Mechanical Ventilator 11/24/16 09:00 58 20 100 30 11/24/16 08:00 66 11/24/16 08:00 101.0 61 18 119/56 100 Mechanical Ventilator 11/24/16 08:00 30 11/24/16 07:07 60 20 100 30 11/24/16 07:00 60 20 119/53 100 Mechanical Ventilator 11/24/16 06:00 59 20 113/55 100 Mechanical Ventilator 11/24/16 05:00 66 20 129/61 100 Mechanical Ventilator 11/24/16 04:55 58 20 100 30 11/24/16 04:00 59 20 106/45 98 Mechanical Ventilator 11/24/16 04:00 57 11/24/16 03:24 59 20 100 30 11/24/16 03:00 98.8 64 23 133/70 100 Mechanical Ventilator 11/24/16 02:00 61 20 112/52 100 Mechanical Ventilator 11/24/16 01:42 65 20 100 30 11/24/16 01:00 56 20 97/46 100 Mechanical Ventilator 11/24/16 00:00 60 11/24/16 00:00 98.8 58 20 114/58 100 Mechanical Ventilator 11/23/16 23:51 61 20 100 30 11/23/16 23:00 61 20 104/56 96 Mechanical Ventilator 11/23/16 22:00 64 20 98/51 97 Mechanical Ventilator 11/23/16 21:22 64 20 97 30 11/23/16 21:00 64 20 119/58 98 Mechanical Ventilator 11/23/16 20:00 30 11/23/16 20:00 64 11/23/16 20:00 65 21 124/58 100 Mechanical Ventilator 11/23/16 19:19 63 20 100 30 11/23/16 19:00 98.8 64 20 106/52 98 Mechanical Ventilator 11/23/16 18:00 65 20 99/48 97 Mechanical Ventilator 11/23/16 17:25 66 20 98 30 11/23/16 17:00 66 20 100/52 96 Mechanical Ventilator 11/23/16 16:00 66 3/27/17 16:00 99.3 65 20 108/56 94 Mechanical Ventilator 11/23/16 15:55 65 20 96 30 11/23/16 15:00 66 20 117/67 96 Mechanical Ventilator 11/23/16 14:00 63 20 107/54 96 Mechanical Ventilator 11/23/16 13:15 68 20 99 30 11/23/16 13:00 62 20 119/60 100 Mechanical Ventilator 11/23/16 12:00 99.5 64 20 123/67 96 Mechanical Ventilator 11/23/16 12:00 64 11/23/16 12:00 30 11/23/16 11:05 63 20 98 30 11/23/16 11:00 63 20 106/58 96 Mechanical Ventilator 11/23/16 10:00 64 20 130/61 98 Mechanical Ventilator 11/23/16 09:30 64 20 114/59 99 Mechanical Ventilator 11/23/16 09:20 65 20 100 30 11/23/16 09:00 65 20 112/59 97 Mechanical Ventilator 11/23/16 08:30 70 20 114/59 100 Mechanical Ventilator 11/23/16 08:00 99.7 67 20 130/68 99 Mechanical Ventilator 11/23/16 08:00 69 11/23/16 08:00 30 11/23/16 07:30 63 20 100 30 11/23/16 07:30 61 21 130/63 100 Mechanical Ventilator 11/23/16 07:00 59 21 129/64 100 Mechanical Ventilator 11/23/16 06:00 64 18 129/62 100 11/23/16 05:30 59 20 109/58 100 11/23/16 05:07 65 20 100 30 11/23/16 05:00 61 20 116/61 100 11/23/16 04:30 62 19 134/64 100 11/23/16 04:00 60 11/23/16 04:00 98.8 63 18 92/58 100 Mechanical Ventilator 11/23/16 03:30 66 20 88/48 94 11/23/16 03:25 66 20 97 30 11/23/16 03:00 66 20 85/53 95 11/23/16 02:30 68 20 97/42 98 11/23/16 02:00 67 18 113/54 97 11/23/16 01:40 64 20 100 30 11/23/16 01:30 65 20 113/43 99 11/23/16 01:00 61 16 99/45 97 11/23/16 00:00 98.1 67 20 90/52 91 11/23/16 00:00 30 11/23/16 00:00 65 11/22/16 23:35 66 20 96 30 11/22/16 23:00 71 20 103/61 93 11/22/16 22:00 71 20 113/61 94 11/22/16 21:30 74 20 100 30 11/22/16 21:00 73 21 118/64 100 11/22/16 20:00 99.1 72 20 106/61 96 Mechanical Ventilator 11/22/16 20:00 75 11/22/16 20:00 30 11/22/16 19:45 70 23 100 30 11/22/16 19:00 69 19 111/59 96 11/22/16 18:00 72 20 102/53 95 Mechanical Ventilator 11/22/16 17:20 81 20 99 30 11/22/16 17:00 70 20 126/63 95 Mechanical Ventilator 11/22/16 16:09 72 11/22/16 16:00 99.6 71 20 111/55 96 Mechanical Ventilator 11/22/16 15:20 71 22 96 30 11/22/16 15:00 70 20 106/58 94 Mechanical Ventilator Vital Signs Date Time Temp Pulse Resp B/P Pulse Ox O2 Delivery O2 Flow Rate FiO2 11/25/16 13:05 68 26 100 30 11/25/16 12:30 122/49 Mechanical Ventilator 11/25/16 12:00 98.9 Intake and Output 11/24/16 11/24/16 11/25/16 15:00 23:00 07:00 Intake Total 220 ml 830 ml 870 ml Output Total 1190 ml 533 ml 355 ml Balance -970 ml 297 ml 515 ml Exam Constitutional: non-verbal, No alert ENMT: intubated Respiratory: clear to auscultation, normal air movement Cardiovascular: nl pulses, regular rate and rhythm, No edema, No murmurs/extra sounds, No rub Gastrointestinal: bowel sounds, nl liver, spleen, non-tender, soft, No mass, No rebound or guarding Musculoskeletal: nl extremities to inspection Extremities: normal pulses, No clubbing, No cyanosis, No edema Neurological: unresponsive Additional Comments Bedside Glucose - 72 Hours Test 11/22/16 17:00 11/22/16 21:00 11/23/16 00:31 11/23/16 04:37 Bedside Glucose 136mg/dL (70-220) 136mg/dL (70-220) 165mg/dL (70-220) 203mg/dL (70-220) Test 11/23/16 09:38 11/23/16 13:18 11/23/16 17:43 11/23/16 20:55 Bedside Glucose 184mg/dL (70-220) 187mg/dL (70-220) 155mg/dL (70-220) 142mg/dL (70-220) Test 11/24/16 01:19 11/24/16 05:24 11/24/16 08:50 11/24/16 12:47 Bedside Glucose 151mg/dL (70-220) 137mg/dL (70-220) 148mg/dL (70-220) 158mg/dL (70-220) Test 11/24/16 16:38 11/24/16 21:39 11/25/16 01:14 11/25/16 05:26 Bedside Glucose 111mg/dL (70-220) 177mg/dL (70-220) 188mg/dL (70-220) 171mg/dL (70-220) Test 11/25/16 09:29 11/25/16 13:13 Bedside Glucose 169mg/dL (70-220) 181mg/dL (70-220) Results Result Diagram: 11/25/16 0910 11/25/16 0700 Results 24 hrs Laboratory Tests Test 11/24/16 16:38 11/24/16 21:39 11/25/16 01:14 11/25/16 05:26 Bedside Glucose 111 177 188 171 Test 11/25/16 07:00 11/25/16 07:20 11/25/16 09:10 11/25/16 09:29 Sodium Level 133 L Potassium Level 3.5 Chloride Level 102 Carbon Dioxide Level 26 Anion Gap 9 # Blood Urea Nitrogen 28 H Creatinine 1.44 H Glucose Level 197 Calcium Level 7.6 L Phosphorus Level 2.4 L Magnesium Level 2.3 White Blood Count 6.9 # 7.9 Red Blood Count 3.01 #L 4.60 #L Hemoglobin 8.1 #L 12.2 #L Hematocrit 29.4 #L 38.7 #L Mean Corpuscular Volume 97.7 84.1 Mean Corpuscular Hemoglobin 26.9 L 26.5 L Mean Corpuscular Hemoglobin Concent 27.6 L 31.5 L Red Cell Distribution Width 17.9 H 16.9 H Platelet Count 100 #L 146 # Mean Platelet Volume 13.4 H 12.8 H Neutrophils % 67.6 71.2 Lymphocytes % 14.2 L 13.6 L Monocytes % 14.3 H 11.3 H Eosinophils % 2.0 2.2 Basophils % 0.4 0.4 Nucleated Red Blood Cells % 0.0 0.0 Neutrophils # 4.6 5.6 Lymphocytes # 1.0 1.1 Monocytes # 1.0 H 0.9 Eosinophils # 0.1 0.2 Basophils # 0.0 0.0 Nucleated Red Blood Cells # 0.0 0.0 Bedside Glucose 169 Test 11/25/16 13:13 Bedside Glucose 181 Medications Medications Current Medications Allopurinol (Zyloprim) 100 mg DAILY PO Last administered on 11/25/16 09:20; Admin Dose 100 MG; Start 11/21/16 at 09:00 Atorvastatin Calcium (Lipitor) 40 mg DAILY@21 PO Last administered on 21:10; Admin Dose 40 MG; Start 11/21/16 at 21:00 Carvedilol (Coreg) 12.5 mg BID PO Last administered on 11/25/16 09:20; Admin Dose 12.5 MG; Start 11/21/16 at 09:00 Docusate Sodium (Colace) 300 mg BID PO Last administered on 11/24/16 21:09; Admin Dose 300 MG; Start 11/21/16 at 09:00 Furosemide (Lasix) 40 mg DAILY@06 PO Last administered on 11/25/16 06:42; Admin Dose 40 MG; Start 11/21/16 at 06:00 Latanoprost (Xalatan) 1 drop DAILY BOTH EYES Last administered on 11/25/16 09: 21; Admin Dose 1 DROP; Start 11/21/16 at 09:00 Linagliptin (Tradjenta) 5 mg DAILY PO Last administered on 11/25/16 09:20; Admin Dose 5 MG; Start 11/21/16 at 09:00 Insulin Aspart NOVOLOG *MILD* ALGORI... Q4 SC Last administered on 11/25/16 13 :25; Admin Dose 2 UNIT; Start 11/21/16 at 05:00 Nicardipine HCl (Cardene Iv) 200 ml @ 50 mls/hr TITRATE IV Last administered on 11/21/16 01:31; Admin Dose 25 MLS/HR; Start 11/21/16 at 01:00 Miscellaneous Information 1 ea NOTE XX ; Start 11/21/16 at 02:45 Glucose (Glutose) 15 gm Q15M PRN PO DECREASED GLUCOSE; Start 11/21/16 at 02:45 Glucose (Glutose) 22.5 gm Q15M PRN PO DECREASED GLUCOSE; Start 11/21/16 at 02: 45 Dextrose (D50w Syringe) 25 ml Q15M PRN IV DECREASED GLUCOSE; Start 11/21/16 at 02:45 Dextrose (D50w Syringe) 50 ml Q15M PRN IV DECREASED GLUCOSE; Start 11/21/16 at 02:45 Glucagon (Glucagen) 1 mg Q15M PRN IM DECREASED GLUCOSE; Start 11/21/16 at 02:45 Glucose 15 gm 15 gm Q15M PRN BUCCAL DECREASED GLUCOSE; Start 11/21/16 at 02:45 Dextrose/Sodium Chloride (D5-1/2ns) 1,000 ml @ 70 mls/hr [id number] IV Last administered on 11/25/16 01:32; Admin Dose 70 MLS/HR; Start 11/21/16 at 14:30 Acetaminophen (Tylenol Liquid) 650 mg PRN PRN NGT PAIN AND OR ELEVATED TEMP Last administered on 11/24/16 21:09; Admin Dose 650 MG; Start 11/21/16 at 21:00 Acetaminophen 650 mg 650 mg PRN PRN [place] fever; Start 11/21/16 at 21:00 Ciprofloxacin/ Dextrose (Cipro Ivpb) 200 ml @ 200 mls/hr Q24H IVPB Last administered on 11/25/16 13:25; Admin Dose 200 MLS/HR; Start 11/22/16 at 12:30 Lansoprazole 30 mg 30 mg DAILY@06 GTB Last administered on 11/25/16 06:43; Admin Dose 30 MG; Start 11/25/16 at 06:00 Cefepime HCl 50 ml @ 100 mls/hr Q12 IVPB Last administered on 11/25/16t 11:28 ; Admin Dose 100 MLS/HR; Start 11/25/16 at 10:30 Levetiracetam (Keppra 500 Mg/ 100ml (Pmx)) 100 ml @ 400 mls/hr Q12 IVPB ; Start 11/25/16 at 21:00 HARISH WALKER MD Nov 25, 2016 14:23
--- NOTE | 2016-11-25 17:19 | PN ---
DATE: 11/25/2016 SUBJECTIVE: There has been no significant improvement in his overall neurological condition. Famil y members are at the bedside. I have a family conference scheduled tomorrow at 3:00 and confirmed t hat with his yesterday. OBJECTIVE: VITAL SIGNS: Blood pressure 130/53, pulse of 65 and regular, respiration of 25, saturations 100% on 30% FIO2. NEUROLOGICAL: He has sluggish doll's eyes. I cannot elicit a pupillary light reflex on left and e right eye. The left side is cloudy and erythematous conjunctiva and difficult to evaluate. He villar s a positive gag reflex and no corneals, does not respond to any verbal stimulation. ____ he is not moving purposefully today. PLAN: Family conference tomorrow. Further recommendations and code status recommendations after e family conference. Dictated By: WENCESLAO MULLEN MD, LP/LOGAN Conf#: [id number] DID#: [id number]
[2016-11-25] MEDS: ACETAMINOPHEN 650MG/20.3ML CUP NGT PRN (19:54)
[2016-11-25] MEDS: ATORVASTATIN 40 MG TAB PO SCH (20:41)
[2016-11-25] MEDS: LEVETIRACETAM 500 MG (PMX) 100 ML IVPB SCH (20:45)
[2016-11-26] VITALS (52 sets, daily range): BP systolic 85–131; BP diastolic 41–66; PULSE 56–75; RESP 19–23; Ht 170.2 cm; Wt 95.4 kg
[2016-11-26] MEDS: INSULIN ASPART [NOVOLOG] 3 ML PEN SC SCH ×6 (01:14→20:49)
[2016-11-26] MEDS: FUROSEMIDE 40 MG TAB PO SCH (06:02)
[2016-11-26] MEDS: ACETAMINOPHEN 650MG/20.3ML CUP NGT PRN (06:02)
[2016-11-26] MEDS: LANSOPRAZOLE 30 MG CAP GTB SCH (06:02)
[2016-11-26] MEDS: REPAGLINIDE 2 MG TAB PO SCH ×3 (06:12→16:45)
--- NOTE | 2016-11-26 08:58 | PN ---
DATE: 11/26/2016 There has been no clinical change in his overall cognitive status. I have an appointment for a [facility] conference today with the patient's , children and other extended family members at 1500 hour s. A followup note will be done at that time. Dictated By: WENCESLAO MULLEN MD LP/NTS Conf#: [id number] DID#: [id number]
--- NOTE | 2016-11-26 09:14 | CONS ---
Date/Time of Note Date/Time of Note DATE: 11/26/16 TIME: 09:11 Assessment/Plan Assessment/Plan Additional Assessment/Plan Ventilator settings are AC of 20, tidal volume 500, PEEP of 5, 30% FiO2. Assessment and recommendations; 1. Patient admitted intraventricular bleed. Requiring ventriculostomy. 2. Respiratory failure. 3. History of hypertension. 4. Very minimal neurological recovery. Continue supportive care for now obtain routine CBC and a BMP panel. The patient's family likely may opt for terminal extubation sometime today. Prognosis is poor. Consultation Date/Type/Reason Admit Date/Time Nov 20, 2016 at 23:09 Initial Consult Date 11/21/16 Type of Consultation: Pulmonary/critical care 24 HR Interval Summary Free Text/Dictation Patient condition remains critical. Still requiring full ventilator support. Patient however is waking up gradually. And very rarely follow simple commands like minimal hand squeezing on command on the right side. Has remained hemodynamically stable. General exam; elderly male, orally intubated, awake now. Exam/Review of Systems Vital Signs Vitals Vital Signs Date Time Temp Pulse Resp B/P Pulse Ox O2 Delivery O2 Flow Rate FiO2 11/26/16 08:00 57 11/26/16 06:00 20 114/56 100 11/26/16 05:15 30 11/26/16 04:00 100.8 11/25/16 20:00 Mechanical Ventilator Intake and Output 11/25/16 11/25/16 11/26/16 15:00 23:00 07:00 Intake Total 800 ml 1050 ml 820 ml Output Total 963 ml 862 ml 605 ml Balance -163 ml 188 ml 215 ml Exam HEENT examination; supple neck, no JVD. No lymphadenopathy. Midline trachea. No thyromegaly. Orally intubated. No neck masses, pupils are small bilaterally. Ventriculostomy in place. Chest examination; diminished but clear breath sounds bilaterally. S1-S2 audible, no murmurs. Regular rhythm. Abdomen examination; soft, nondistended. No organomegaly. Bowel sounds audible. Extremity exam is; no peripheral edema. Pulses 1+ bilaterally. NURSING TECH examination; patient is awake. Moves right hand to a very minimal extent on command. Results Result Diagram: 11/25/16 0910 11/25/16 0700 Results 24 hrs Laboratory Tests Test 3/29/17 09:29 11/25/16 13:13 11/25/16 18:49 11/25/16 20:48 Bedside Glucose 169 181 134 161 Test 11/26/16 01:11 11/26/16 05:59 Bedside Glucose 183 155 Medications Medications Current Medications Allopurinol (Zyloprim) 100 mg DAILY PO Last administered on 11/25/16 09:20; Admin Dose 100 MG; Start 11/21/16 at 09:00 Atorvastatin Calcium (Lipitor) 40 mg DAILY@21 PO Last administered on 20:41; Admin Dose 40 MG; Start 11/21/16 at 21:00 Carvedilol (Coreg) 12.5 mg BID PO Last administered on 11/25/16 20:43; Admin Dose 12.5 MG; Start 11/21/16 at 09:00 Docusate Sodium (Colace) 300 mg BID PO Last administered on 11/25/16 20:40; Admin Dose 300 MG; Start 11/21/16 at 09:00 Furosemide (Lasix) 40 mg DAILY@06 PO Last administered on 11/26/16 06:02; Admin Dose 40 MG; Start 11/21/16 at 06:00 Latanoprost (Xalatan) 1 drop DAILY BOTH EYES Last administered on 11/25/16 09: 21; Admin Dose 1 DROP; Start 11/21/16 at 09:00 Linagliptin (Tradjenta) 5 mg DAILY PO Last administered on 11/25/16 09:20; Admin Dose 5 MG; Start 11/21/16 at 09:00 Insulin Aspart NOVOLOG *MILD* ALGORI... Q4 SC Last administered on 11/26/16 06 :01; Admin Dose 1 UNIT; Start 11/21/16 at 05:00 Nicardipine HCl (Cardene Iv) 200 ml @ 50 mls/hr TITRATE IV Last administered on 11/21/16 01:31; Admin Dose 25 MLS/HR; Start 11/21/16 at 01:00 Miscellaneous Information 1 ea NOTE XX ; Start 11/21/16 at 02:45 Glucose (Glutose) 15 gm Q15M PRN PO DECREASED GLUCOSE; Start 11/21/16 at 02:45 Glucose (Glutose) 22.5 gm Q15M PRN PO DECREASED GLUCOSE; Start 11/21/16 at 02: 45 Dextrose (D50w Syringe) 25 ml Q15M PRN IV DECREASED GLUCOSE; Start 11/21/16 at 02:45 Dextrose (D50w Syringe) 50 ml Q15M PRN IV DECREASED GLUCOSE; Start 11/21/16 at 02:45 Glucagon (Glucagen) 1 mg Q15M PRN IM DECREASED GLUCOSE; Start 11/21/16 at 02:45 Glucose 15 gm 15 gm Q15M PRN BUCCAL DECREASED GLUCOSE; Start 11/21/16 at 02:45 Dextrose/Sodium Chloride (D5-1/2ns) 1,000 ml @ 70 mls/hr [id number] IV Last administered on 11/25/16 19:24; Admin Dose 70 MLS/HR; Start 11/21/16 at 14:30 Acetaminophen (Tylenol Liquid) 650 mg PRN PRN NGT PAIN AND OR ELEVATED TEMP Last administered on 11/26/16 06:02; Admin Dose 650 MG; Start 11/21/16 at 21:00 Acetaminophen 650 mg 650 mg PRN PRN [place] fever; Start 11/21/16 at 21:00 Ciprofloxacin/ Dextrose (Cipro Ivpb) 200 ml @ 200 mls/hr Q24H IVPB Last administered on 11/25/16 13:25; Admin Dose 200 MLS/HR; Start 11/22/16 at 12:30 Lansoprazole 30 mg 30 mg DAILY@06 GTB Last administered on 11/26/16 06:02; Admin Dose 30 MG; Start 11/25/16 at 06:00 Cefepime HCl 50 ml @ 100 mls/hr Q12 IVPB Last administered on 11/25/16 20:41 ; Admin Dose 100 MLS/HR; Start 11/25/16 at 10:30 Levetiracetam (Keppra 500 Mg/ 100ml (Pmx)) 100 ml @ 400 mls/hr Q12 IVPB Last administered on 11/25/16 20:45; Admin Dose 400 MLS/HR; Start 11/25/16 at 21:00 REGINO RESTREPO Nov 26, 2016 09:14
[2016-11-26] MEDS: CEFEPIME 1GM/50 ML (PMX) 50 ML IVPB SCH ×2 (09:41→20:41)
[2016-11-26] MEDS: LINAGLIPTIN 5 MG TABLET PO SCH (09:41)
[2016-11-26] MEDS: ALLOPURINOL 100 MG TAB PO SCH (09:41)
[2016-11-26] MEDS: LATANOPROST 0.005% 2.5 ML OPH BOTH EYES SCH (09:41)
[2016-11-26] MEDS: LEVETIRACETAM 500 MG (PMX) 100 ML IVPB SCH ×2 (09:43→20:39)
[2016-11-26 10:06] LABS: ADD SCAN DIFF NO
[2016-11-26 10:18] LABS: POTASSIUM 4.4 mmol/L (3.5-5.1)
[2016-11-26 10:21] LABS: CREATININE 1.25 mg/dl (0.61-1.24)
[2016-11-26 10:22] LABS: CALCIUM 7.7 mg/dl (8.4-10.2)
[2016-11-26 11:10] LABS: BASOPHILS % 0.2 % (0.0-2.0); EOSINOPHILS # 0.3 10^3/ul (0.0-0.5); EOSINOPHILS % 3.5 % (0.0-7.0); HEMATOCRIT 35.9 % (42.0-52.0); HEMOGLOBIN 11.3 g/dl (14.0-18.0); LYMPHOCYTES % 11.7 % (15.0-51.0); MEAN CORPUSCULAR HEMOGLOBIN 25.9 pg (29.0-33.0); MEAN CORPUSCULAR HGB CONC 31.5 g/dl (32.0-37.0); MEAN CORPUSCULAR VOLUME 82.3 fl (82.0-101.0); MEAN PLATELET VOLUME 12.7 fl (7.4-10.4); MONOCYTE # 1.1 10^3/ul (0.3-0.9); MONOCYTES % 12.3 % (0.0-11.0); NEUTROPHIL # 6.1 10^3/ul (1.6-7.5); NEUTROPHILS % 70.8 % (39.0-77.0); PLATELET COUNT 159 10^3/UL (140-415); RED BLOOD COUNT 4.36 10^6/ul (4.70-6.10); RED CELL DISTRIBUTION WIDTH 16.8 % (11.5-14.5); WHITE BLOOD COUNT 8.6 10^3/ul (4.8-10.8)
[2016-11-26] MEDS: DEXTROSE 5%-0.45% NACL 1,000 ML IV SCH (12:03)
[2016-11-26] MEDS: DOCUSATE SODIUM 100 MG CAP PO SCH ×2 (12:04→20:40)
[2016-11-26] MEDS: CIPROFLOXACIN 400MG/D5W 200 ML IVPB SCH (12:05)
--- NOTE | 2016-11-26 13:22 | PN ---
Date/Time of Note Date/Time of Note DATE: 11/26/16 TIME: 13:16 Assessment/Plan VTE Prophylaxis VTE Prophylaxis Intervention: contraindicated VTE Contraindication Reason: hemorrhagic cerebral infarction Lines/Catheters IV Catheter Type (from Nrs): Peripheral IV Urinary Cath still in place: Yes Reason Cath still needed: terminal illness/intractable pain Assessment/Plan Problems: (1) Hemorrhagic stroke Status: Acute Comment: Marked improvement in neurologic status but pt. continues to have poor prognosis for recovery. Family to have meeting w/ palliative care today. (2) Left hemiparesis Status: Acute Comment: Marked improvement in neurologic status but pt. continues to have poor prognosis for recovery. Hemiparesis persists. Family to have meeting w/ palliative care today. (3) Intraventricular hemorrhage Status: Acute Comment: Marked improvement in neurologic status but pt. continues to have poor prognosis for recovery. Neurological improvement likely represents reduction in pressure of blood in ventricles. Family to have meeting w/ palliative care today. (4) On mechanically assisted ventilation Status: Acute Comment: Pt. continues to mostly "ride the vent." Per RT breathing over the vent about 2x/minute. 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 linagliptin and Novolog ISS (6) Essential (primary) hypertension Status: Chronic Comment: Cont. nicardipine (7) Chronic kidney disease, stage II (mild) Status: Chronic Comment: Stable. Will monitor Subjective 24 Hr Interval Summary Subjective hx not possible: pt non-verbal, pt critical status Exam/Review of Systems Vital Signs Vitals VS - Last 72 Hours, by Label Date Time Temp Pulse Resp B/P Pulse Ox O2 Delivery O2 Flow Rate FiO2 11/26/16 12:00 59 11/26/16 11:30 59 20 124/63 100 11/26/16 11:10 59 20 100 30 11/26/16 11:00 59 20 109/57 100 11/26/16 10:30 60 20 114/53 97 11/26/16 10:00 57 21 113/50 97 11/26/16 09:30 59 23 120/59 99 11/26/16 09:10 61 22 99 30 11/26/16 09:00 57 19 85/51 100 11/26/16 08:30 56 20 94/51 99 11/26/16 08:00 99.1 58 20 95/47 100 11/26/16 08:00 57 11/26/16 07:40 59 22 98 30 11/26/16 07:30 59 20 90/41 98 11/26/16 07:00 59 20 91/48 99 11/26/16 06:00 57 20 114/56 100 11/26/16 05:15 58 20 100 30 11/26/16 05:00 61 20 114/54 100 11/26/16 04:00 61 20 128/54 100 11/26/16 04:00 100.8 11/26/16 04:00 59 11/26/16 03:09 58 20 100 30 11/26/16 03:00 60 20 121/54 100 11/26/16 02:00 63 20 112/55 100 11/26/16 01:12 56 20 100 30 11/26/16 01:00 57 20 108/47 100 11/26/16 00:00 99.8 11/26/16 00:00 59 11/26/16 00:00 59 20 111/54 100 11/25/16 23:30 60 20 109/54 100 11/25/16 23:25 61 20 100 30 11/25/16 23:00 60 20 100/59 99 11/25/16 22:00 62 20 105/53 97 11/25/16 21:15 59 20 100 30 11/25/16 21:00 100.6 11/25/16 21:00 65 21 118/56 98 11/25/16 20:30 65 21 119/57 95 11/25/16 20:00 101.8 66 21 130/55 99 Mechanical Ventilator 11/25/16 20:00 65 11/25/16 19:41 59 20 100 30 11/25/16 19:00 69 24 134/62 98 Mechanical Ventilator 11/25/16 18:45 74 25 161/63 100 11/25/16 18:30 69 26 147/69 98 11/25/16 18:15 67 23 139/58 99 11/25/16 18:00 68 22 133/64 99 Mechanical Ventilator 11/25/16 17:45 68 22 139/63 99 Mechanical Ventilator 11/25/16 17:30 68 24 143/66 99 Mechanical Ventilator 11/25/16 17:15 64 24 140/61 99 Mechanical Ventilator 11/25/16 17:05 66 24 99 30 11/25/16 17:00 67 26 146/75 99 Mechanical Ventilator 11/25/16 16:45 66 23 100 11/25/16 16:30 66 24 138/54 100 Mechanical Ventilator 11/25/16 16:15 66 23 128/59 100 Mechanical Ventilator 11/25/16 16:00 30 11/25/16 16:00 67 11/25/16 16:00 99.9 63 24 134/54 99 Mechanical Ventilator 11/25/16 15:30 65 25 130/53 100 Mechanical Ventilator 11/25/16 15:05 68 25 100 30 11/25/16 15:00 63 21 113/52 100 Mechanical Ventilator 11/25/16 14:30 66 24 127/52 99 Mechanical Ventilator 11/25/16 14:00 69 23 132/63 99 Mechanical Ventilator 11/25/16 13:30 66 24 138/68 99 Mechanical Ventilator 11/25/16 13:05 68 26 100 30 11/25/16 13:00 66 23 134/59 100 Mechanical Ventilator 11/25/16 12:30 63 22 122/49 100 Mechanical Ventilator 11/25/16 12:00 61 11/25/16 12:00 98.9 64 22 118/48 100 Mechanical Ventilator 11/25/16 12:00 30 11/25/16 11:30 62 23 115/47 99 Mechanical Ventilator 11/25/16 11:08 65 24 100 30 11/25/16 11:00 65 24 116/50 99 Mechanical Ventilator 11/25/16 10:30 62 23 113/48 100 Mechanical Ventilator 11/25/16 10:00 66 22 123/57 100 Mechanical Ventilator 11/25/16 09:30 65 24 100 30 11/25/16 09:00 63 21 118/56 100 Mechanical Ventilator 11/25/16 08:00 63 11/25/16 08:00 30 11/25/16 08:00 98.9 63 23 123/56 100 Mechanical Ventilator 11/25/16 08:00 63 23 100 30 11/25/16 07:00 68 20 105/57 99 Mechanical Ventilator 11/25/16 05:13 68 20 100 30 11/25/16 05:00 69 21 120/54 100 Mechanical Ventilator 11/25/16 04:00 99.4 61 21 111/58 100 Mechanical Ventilator 11/25/16 04:00 58 11/25/16 03:13 62 24 100 30 11/25/16 03:00 59 19 101/48 100 Mechanical Ventilator 11/25/16 02:00 59 20 96/50 98 Mechanical Ventilator 11/25/16 01:10 61 21 98 30 11/25/16 01:00 61 20 88/48 97 Mechanical Ventilator 11/25/16 00:00 65 11/25/16 00:00 99.3 63 21 95/48 97 Mechanical Ventilator 11/25/16 00:00 63 21 95/48 97 11/24/16 23:17 64 22 97 30 11/24/16 23:00 66 23 96/49 95 Mechanical Ventilator 11/24/16 22:00 100.9 70 23 110/53 97 Mechanical Ventilator 11/24/16 21:13 69 24 98 30 11/24/16 21:00 101.2 68 24 120/58 99 Mechanical Ventilator 11/24/16 20:00 102.5 68 23 116/52 100 Mechanical Ventilator 11/24/16 20:00 30 11/24/16 20:00 68 11/24/16 19:21 69 23 100 30 11/24/16 18:00 69 23 119/53 100 Mechanical Ventilator 11/24/16 17:20 70 20 100 30 11/24/16 17:00 69 24 119/52 100 Mechanical Ventilator 11/24/16 16:00 100.2 68 25 128/57 100 Mechanical Ventilator 11/24/16 16:00 69 11/24/16 15:10 66 20 100 30 11/24/16 15:00 70 24 112/50 100 Mechanical Ventilator 11/24/16 14:00 66 21 115/50 100 Mechanical Ventilator 11/24/16 13:40 60 20 100 30 11/24/16 13:00 67 23 144/57 100 Mechanical Ventilator 11/24/16 12:00 64 11/24/16 12:00 100.3 65 21 132/64 99 Mechanical Ventilator 11/24/16 11:37 63 20 100 30 11/24/16 11:00 62 21 128/63 100 Mechanical Ventilator 11/24/16 10:00 62 21 127/61 100 Mechanical Ventilator 11/24/16 09:00 61 21 127/61 100 Mechanical Ventilator 11/24/16 09:00 58 20 100 30 11/24/16 08:00 66 11/24/16 08:00 101.0 61 18 119/56 100 Mechanical Ventilator 11/24/16 08:00 30 11/24/16 07:07 60 20 100 30 11/24/16 07:00 60 20 119/53 100 Mechanical Ventilator 11/24/16 06:00 59 20 113/55 100 Mechanical Ventilator 11/24/16 05:00 66 20 129/61 100 Mechanical Ventilator 11/24/16 04:55 58 20 100 30 11/24/16 04:00 59 20 106/45 98 Mechanical Ventilator 11/24/16 04:00 57 11/24/16 03:24 59 20 100 30 11/24/16 03:00 98.8 64 23 133/70 100 Mechanical Ventilator 11/24/16 02:00 61 20 112/52 100 Mechanical Ventilator 11/24/16 01:42 65 20 100 30 11/24/16 01:00 56 20 97/46 100 Mechanical Ventilator 11/24/16 00:00 60 11/24/16 00:00 98.8 58 20 114/58 100 Mechanical Ventilator 11/23/16 23:51 61 20 100 30 11/23/16 23:00 61 20 104/56 96 Mechanical Ventilator 11/23/16 22:00 64 20 98/51 97 Mechanical Ventilator 11/23/16 21:22 64 20 97 30 11/23/16 21:00 64 20 119/58 98 Mechanical Ventilator 11/23/16 20:00 30 11/23/16 20:00 64 11/23/16 20:00 65 21 124/58 100 Mechanical Ventilator 11/23/16 19:19 63 20 100 30 11/23/16 19:00 98.8 64 20 106/52 98 Mechanical Ventilator 11/23/16 18:00 65 20 99/48 97 Mechanical Ventilator 11/23/16 17:25 66 20 98 30 11/23/16 17:00 66 20 100/52 96 Mechanical Ventilator 11/23/16 16:00 66 11/23/16 16:00 99.3 65 20 108/56 94 Mechanical Ventilator 11/23/16 15:55 65 20 96 30 11/23/16 15:00 66 20 117/67 96 Mechanical Ventilator 11/23/16 14:00 63 20 107/54 96 Mechanical Ventilator Vital Signs Date Time Temp Pulse Resp B/P Pulse Ox O2 Delivery O2 Flow Rate FiO2 11/26/16 12:00 59 11/26/16 11:30 20 124/63 100 11/26/16 11:10 30 11/26/16 08:00 99.1 11/25/16 20:00 Mechanical Ventilator Intake and Output 11/25/16 11/25/16 11/26/16 15:00 23:00 07:00 Intake Total 800 ml 1050 ml 820 ml Output Total 963 ml 862 ml 605 ml Balance -163 ml 188 ml 215 ml Exam Constitutional: alert, frail, non-verbal, obese, No oriented Respiratory: clear to auscultation, normal air movement Cardiovascular: nl pulses, regular rate and rhythm, No edema, No murmurs/extra sounds, No rub Gastrointestinal: bowel sounds, nl liver, spleen, non-tender, soft, No mass, No rebound or guarding Musculoskeletal: nl extremities to inspection Extremities: normal pulses, No clubbing, No cyanosis, No edema Neurological: focal weakness (L side but still has strength to follow commands RUE and RLE), lethargic, other (follows commands) Additional Comments Bedside Glucose - 72 Hours Test 11/23/16 13:18 11/23/16 17:43 11/23/16 20:55 11/24/16 01:19 Bedside Glucose 187mg/dL (70-220) 155mg/dL (70-220) 142mg/dL (70-220) 151mg/dL (70-220) Test 11/24/16 05:24 11/24/16 08:50 11/24/16 12:47 11/24/16 16:38 Bedside Glucose 137mg/dL (70-220) 148mg/dL (70-220) 158mg/dL (70-220) 111mg/dL (70-220) Test 11/24/16 21:39 11/25/16 01:14 11/25/16 05:26 11/25/16 09:29 Bedside Glucose 177mg/dL (70-220) 188mg/dL (70-220) 171mg/dL (70-220) 169mg/dL (70-220) Test 11/25/16 13:13 11/25/16 18:49 11/25/16 20:48 11/26/16 01:11 Bedside Glucose 181mg/dL (70-220) 134mg/dL (70-220) 161mg/dL (70-220) 183mg/dL (70-220) Test 11/26/16 05:59 11/26/16 09:46 11/26/16 12:27 Bedside Glucose 155mg/dL (70-220) 150mg/dL (70-220) 137mg/dL (70-220) Results Result Diagram: 11/26/16 1100 11/26/16 0947 Results 24 hrs Laboratory Tests Test 11/25/16 18:49 11/25/16 20:48 11/26/16 01:11 11/26/16 05:59 Bedside Glucose 134 161 183 155 Test 11/26/16 09:46 11/26/16 09:47 11/26/16 11:00 11/26/16 12:27 Bedside Glucose 150 137 Sodium Level 132 L Potassium Level 4.4 Chloride Level 102 Carbon Dioxide Level 23 Anion Gap 11 Blood Urea Nitrogen 29 H Creatinine 1.25 H Glucose Level 168 Calcium Level 7.7 L White Blood Count 8.6 Red Blood Count 4.36 L Hemoglobin 11.3 L Hematocrit 35.9 L Mean Corpuscular Volume 82.3 Mean Corpuscular Hemoglobin 25.9 L Mean Corpuscular Hemoglobin Concent 31.5 L Red Cell Distribution Width 16.8 H Platelet Count 159 Mean Platelet Volume 12.7 H Neutrophils % 70.8 Lymphocytes % 11.7 L Monocytes % 12.3 H Eosinophils % 3.5 Basophils % 0.2 Nucleated Red Blood Cells % 0.0 Neutrophils # 6.1 Lymphocytes # 1.0 Monocytes # 1.1 H Eosinophils # 0.3 Basophils # 0.0 Nucleated Red Blood Cells # 0.0 Medications Medications Current Medications Allopurinol (Zyloprim) 100 mg DAILY PO Last administered on 11/26/16 09:41; Admin Dose 100 MG; Start 11/21/16 at 09:00 Atorvastatin Calcium (Lipitor) 40 mg DAILY@21 PO Last administered on 20:41; Admin Dose 40 MG; Start 11/21/16 at 21:00 Carvedilol (Coreg) 12.5 mg BID PO Last administered on 11/26/16 12:05; Admin Dose 12.5 MG; Start 11/21/16 at 09:00 Docusate Sodium (Colace) 300 mg BID PO Last administered on 11/26/16 12:04; Admin Dose 300 MG; Start 11/21/16 at 09:00 Furosemide (Lasix) 40 mg DAILY@06 PO Last administered on 11/26/16 06:02; Admin Dose 40 MG; Start 11/21/16 at 06:00 Latanoprost (Xalatan) 1 drop DAILY BOTH EYES Last administered on 11/26/16 09: 41; Admin Dose 1 DROP; Start 11/21/16 at 09:00 Linagliptin (Tradjenta) 5 mg DAILY PO Last administered on 11/26/16 09:41; Admin Dose 5 MG; Start 11/21/16 at 09:00 Insulin Aspart NOVOLOG *MILD* ALGORI... Q4 SC Last administered on 11/26/16 09 :56; Admin Dose 1 UNIT; Start 11/21/16 at 05:00 Nicardipine HCl (Cardene Iv) 200 ml @ 50 mls/hr TITRATE IV Last administered on 11/21/16 01:31; Admin Dose 25 MLS/HR; Start 11/21/16 at 01:00 Miscellaneous Information 1 ea NOTE XX ; Start 11/21/16 at 02:45 Glucose (Glutose) 15 gm Q15M PRN PO DECREASED GLUCOSE; Start 11/21/16 at 02:45 Glucose (Glutose) 22.5 gm Q15M PRN PO DECREASED GLUCOSE; Start 11/21/16 at 02: 45 Dextrose (D50w Syringe) 25 ml Q15M PRN IV DECREASED GLUCOSE; Start 11/21/16 at 02:45 Dextrose (D50w Syringe) 50 ml Q15M PRN IV DECREASED GLUCOSE; Start 11/21/16 at 02:45 Glucagon (Glucagen) 1 mg Q15M PRN IM DECREASED GLUCOSE; Start 11/21/16 at 02:45 Glucose 15 gm 15 gm Q15M PRN BUCCAL DECREASED GLUCOSE; Start 11/21/16 at 02:45 Dextrose/Sodium Chloride (D5-1/2ns) 1,000 ml @ 70 mls/hr [id number] IV Last administered on 11/26/16 12:03; Admin Dose 70 MLS/HR; Start 11/21/16 at 14:30 Acetaminophen (Tylenol Liquid) 650 mg PRN PRN NGT PAIN AND OR ELEVATED TEMP Last administered on 3/30/17at 06:02; Admin Dose 650 MG; Start 11/21/16 at 21:00 Acetaminophen 650 mg 650 mg PRN PRN [place] fever; Start 11/21/16 at 21:00 Ciprofloxacin/ Dextrose (Cipro Ivpb) 200 ml @ 200 mls/hr Q24H IVPB Last administered on 11/26/16 12:05; Admin Dose 200 MLS/HR; Start 11/22/16 at 12:30 Lansoprazole 30 mg 30 mg DAILY@06 GTB Last administered on 11/26/16 06:02; Admin Dose 30 MG; Start 11/25/16 at 06:00 Cefepime HCl 50 ml @ 100 mls/hr Q12 IVPB Last administered on 11/26/16 09:41 ; Admin Dose 100 MLS/HR; Start 11/25/16 at 10:30 Levetiracetam (Keppra 500 Mg/ 100ml (Pmx)) 100 ml @ 400 mls/hr Q12 IVPB Last administered on 11/26/16 09:43; Admin Dose 400 MLS/HR; Start 11/25/16 at 21:00 HARISH WALKER MD Nov 26, 2016 13:22
--- NOTE | 2016-11-26 15:53 | PN ---
DATE: 11/26/2016 ADDENDUM I spoke with family members about the code status. They are all in agreement to change to DO NOT RE SUSCITATE. Dictated By: WENCESLAO MULLEN MD LP/LOGAN Conf#: [id number] DID#: [id number]
--- NOTE | 2016-11-26 15:53 | PN ---
DATE: 11/26/2016 PALLIATIVE CARE PROGRESS NOTE: I had a family conference today with patient's , all of the children, his brother and sister-in- law, reviewed his current medical condition and I spoke to them about the different consultants' op inion on his short term prognosis. The family states that he had prior experiences with being offer ed aggressive intervention including PEGs and trachs and they have refused those interventions in th e past and they do not want to pursue that level of care with Mr. Mcgee. I discussed with them ab out a compassionate extubation. They are leaning in that direction. They want to make sure he is c omfortable if we do proceed with a compassionate extubation, but I cannot assure them that would be the case. In the meantime, they are speaking amongst themselves to decide upon when. We will feli nue to support them. I will speak to family members to make sure that we change the code status. Dictated By: WENCESLAO MULLEN MD, LP/LOGAN Conf#: [id number] DID#: [id number]
[2016-11-26] MEDS: FENTAnyl 50 MCG/ML VIAL IV PRN (16:56)
[2016-11-26] MEDS: ATORVASTATIN 40 MG TAB PO SCH (20:40)
[2016-11-27] VITALS (51 sets, daily range): BP systolic 100–161; BP diastolic 47–85; PULSE 53–66; RESP 13–26
[2016-11-27] MEDS: INSULIN ASPART [NOVOLOG] 3 ML PEN SC SCH ×6 (01:25→20:21)
[2016-11-27] MEDS: DEXTROSE 5%-0.45% NACL 1,000 ML IV SCH ×2 (04:06→20:10)
[2016-11-27 05:01] LABS: ADD SCAN DIFF NO
[2016-11-27 05:21] LABS: ALBUMIN 2.7 g/dl (3.3-4.9)
[2016-11-27 05:22] LABS: POTASSIUM 4.1 mmol/L (3.5-5.1)
[2016-11-27 05:24] LABS: ALBUMIN/GLOBULIN RATIO 0.72; BILIRUBIN,INDIRECT 0.8 mg/dl (0-1.1); BILIRUBIN,TOTAL 0.8 mg/dl (0.2-1.3); CREATININE 1.38 mg/dl (0.61-1.24); TOTAL PROTEIN 6.4 g/dl (6.1-8.1)
[2016-11-27 05:25] LABS: CALCIUM 7.8 mg/dl (8.4-10.2)
[2016-11-27] MEDS: LANSOPRAZOLE 30 MG CAP GTB SCH (06:16)
[2016-11-27 06:18] LABS: ABNORMAL IP MESSAGE 1; BASOPHILS % 0.5 % (0.0-2.0); EOSINOPHILS # 0.3 10^3/ul (0.0-0.5); EOSINOPHILS % 3.6 % (0.0-7.0); HEMATOCRIT 39.1 % (42.0-52.0); HEMOGLOBIN 12.4 g/dl (14.0-18.0); LYMPHOCYTES # 1.2 10^3/ul (0.8-2.9); LYMPHOCYTES % 14.5 % (15.0-51.0); MEAN CORPUSCULAR HEMOGLOBIN 26.4 pg (29.0-33.0); MEAN CORPUSCULAR HGB CONC 31.7 g/dl (32.0-37.0); MEAN CORPUSCULAR VOLUME 83.4 fl (82.0-101.0); MEAN PLATELET VOLUME 12.5 fl (7.4-10.4); MONOCYTE # 0.9 10^3/ul (0.3-0.9); MONOCYTES % 10.7 % (0.0-11.0); NEUTROPHIL # 5.9 10^3/ul (1.6-7.5); NEUTROPHILS % 69.3 % (39.0-77.0); PLATELET COUNT 152 10^3/UL (140-415); RED BLOOD COUNT 4.69 10^6/ul (4.70-6.10); RED CELL DISTRIBUTION WIDTH 16.5 % (11.5-14.5); WHITE BLOOD COUNT 8.4 10^3/ul (4.8-10.8)
[2016-11-27] MEDS: FUROSEMIDE 40 MG TAB PO SCH (06:19)
[2016-11-27] MEDS: REPAGLINIDE 2 MG TAB PO SCH ×3 (07:05→17:05)
--- NOTE | 2016-11-27 08:10 | CONS ---
Date/Time of Note Date/Time of Note DATE: 11/27/16 TIME: 08:08 Assessment/Plan Assessment/Plan Additional Assessment/Plan Data settings; AC of 20, tidal volume 500, PEEP of 5, 30% FiO2. Assessment recommendations; 1. Patient admitted for acute intraventricular bleed requiring a ventriculostomy. 2. Respiratory failure. 3. Very poor mental status. 4. Mild renal insufficiency. Continue current supportive care. Patient's family likely will opt for terminal extubation sometime soon. Prognosis is dismal. Consultation Date/Type/Reason Admit Date/Time Nov 20, 2016 at 23:09 Initial Consult Date 11/21/16 Type of Consultation: Pulmonary/critical care 24 HR Interval Summary Free Text/Dictation Patient condition remains critical. Remains unresponsive again. Has remained hemodynamically stable. General exam; elderly male, orally intubated, unresponsive. Exam/Review of Systems Vital Signs Vitals Vital Signs Date Time Temp Pulse Resp B/P Pulse Ox O2 Delivery O2 Flow Rate FiO2 11/27/16 07:30 53 20 106/48 100 Mechanical Ventilator 11/27/16 05:19 30 11/27/16 04:00 100.0 Intake and Output 11/26/16 11/26/16 11/27/16 15:00 23:00 07:00 Intake Total 1005 ml 780 ml 280 ml Output Total 854 ml 667 ml 490 ml Balance 151 ml 113 ml -210 ml Exam HEENT exam is; supple neck, ventriculostomy in place. Pupils are small bilaterally. Bilateral cataracts are present. Patient has fair dentition. No neck masses. No thyromegaly. Orally intubated. Chest examination; diminished but clear breath sounds bilaterally. S1-S2 audible, no murmurs. Regular rhythm. Abdomen examination; soft, no organomegaly. Bowel sounds are audible. Extremity exam is; no peripheral edema. BUNDLE BREAKER examination; patient remains completely unresponsive. Results Result Diagram: 11/27/16 0553 11/27/16 0500 Results 24 hrs Laboratory Tests Test 11/26/16 09:46 11/26/16 09:47 11/26/16 11:00 11/26/16 12:27 Bedside Glucose 150 137 Sodium Level 132 L Potassium Level 4.4 Chloride Level 102 Carbon Dioxide Level 23 Anion Gap 11 Blood Urea Nitrogen 29 H Creatinine 1.25 H Glucose Level 168 Calcium Level 7.7 L White Blood Count 8.6 Red Blood Count 4.36 L Hemoglobin 11.3 L Hematocrit 35.9 L Mean Corpuscular Volume 82.3 Mean Corpuscular Hemoglobin 25.9 L Mean Corpuscular Hemoglobin Concent 31.5 L Red Cell Distribution Width 16.8 H Platelet Count 159 Mean Platelet Volume 12.7 H Neutrophils % 70.8 Lymphocytes % 11.7 L Monocytes % 12.3 H Eosinophils % 3.5 Basophils % 0.2 Nucleated Red Blood Cells % 0.0 Neutrophils # 6.1 Lymphocytes # 1.0 Monocytes # 1.1 H Eosinophils # 0.3 Basophils # 0.0 Nucleated Red Blood Cells # 0.0 Test 11/26/16 17:08 11/26/16 20:48 11/27/16 00:55 11/27/16 04:32 Bedside Glucose 168 139 154 169 Test 11/27/16 05:00 11/27/16 05:53 Sodium Level 133 L Potassium Level 4.1 Chloride Level 103 Carbon Dioxide Level 22 Anion Gap 12 Blood Urea Nitrogen 28 H Creatinine 1.38 H Glucose Level 176 Calcium Level 7.8 L Total Bilirubin 0.8 Direct Bilirubin 0.00 Indirect Bilirubin 0.8 Aspartate Amino Transf (AST/SGOT) 81 H Alanine Aminotransferase (ALT/SGPT) 83 H Alkaline Phosphatase 316 H Total Protein 6.4 Albumin 2.7 L Globulin 3.70 H Albumin/Globulin Ratio 0.72 White Blood Count 8.4 Red Blood Count 4.69 L Hemoglobin 12.4 L Hematocrit 39.1 L Mean Corpuscular Volume 83.4 Mean Corpuscular Hemoglobin 26.4 L Mean Corpuscular Hemoglobin Concent 31.7 L Red Cell Distribution Width 16.5 H Platelet Count 152 Mean Platelet Volume 12.5 H Neutrophils % 69.3 Lymphocytes % 14.5 L Monocytes % 10.7 Eosinophils % 3.6 Basophils % 0.5 Nucleated Red Blood Cells % 0.0 Neutrophils # 5.9 Lymphocytes # 1.2 Monocytes # 0.9 Eosinophils # 0.3 Basophils # 0.0 Nucleated Red Blood Cells # 0.0 Medications Medications Current Medications Allopurinol (Zyloprim) 100 mg DAILY PO Last administered on 11/26/16 09:41; Admin Dose 100 MG; Start 11/21/16 at 09:00 Atorvastatin Calcium (Lipitor) 40 mg DAILY@21 PO Last administered on 20:40; Admin Dose 40 MG; Start 11/21/16 at 21:00 Carvedilol (Coreg) 12.5 mg BID PO Last administered on 11/26/16 20:44; Admin Dose 12.5 MG; Start 11/21/16 at 09:00 Docusate Sodium (Colace) 300 mg BID PO Last administered on 11/26/16 20:40; Admin Dose 300 MG; Start 11/21/16 at 09:00 Furosemide (Lasix) 40 mg DAILY@06 PO Last administered on 11/27/16 06:19; Admin Dose 40 MG; Start 11/21/16 at 06:00 Latanoprost (Xalatan) 1 drop DAILY BOTH EYES Last administered on 11/26/16 09: 41; Admin Dose 1 DROP; Start 11/21/16 at 09:00 Linagliptin (Tradjenta) 5 mg DAILY PO Last administered on 11/26/16 09:41; Admin Dose 5 MG; Start 11/21/16 at 09:00 Insulin Aspart NOVOLOG *MILD* ALGORI... Q4 SC Last administered on 11/27/16 04 :38; Admin Dose 1 UNIT; Start 11/21/16 at 05:00 Nicardipine HCl (Cardene Iv) 200 ml @ 50 mls/hr TITRATE IV Last administered on 11/21/16 01:31; Admin Dose 25 MLS/HR; Start 11/21/16 at 01:00 Miscellaneous Information 1 ea NOTE XX ; Start 11/21/16 at 02:45 Glucose (Glutose) 15 gm Q15M PRN PO DECREASED GLUCOSE; Start 11/21/16 at 02:45 Glucose (Glutose) 22.5 gm Q15M PRN PO DECREASED GLUCOSE; Start 11/21/16 at 02: 45 Dextrose (D50w Syringe) 25 ml Q15M PRN IV DECREASED GLUCOSE; Start 11/21/16 at 02:45 Dextrose (D50w Syringe) 50 ml Q15M PRN IV DECREASED GLUCOSE; Start 11/21/16 at 02:45 Glucagon (Glucagen) 1 mg Q15M PRN IM DECREASED GLUCOSE; Start 11/21/16 at 02:45 Glucose 15 gm 15 gm Q15M PRN BUCCAL DECREASED GLUCOSE; Start 11/21/16 at 02:45 Dextrose/Sodium Chloride (D5-1/2ns) 1,000 ml @ 70 mls/hr [id number] IV Last administered on 11/27/16 04:06; Admin Dose 70 MLS/HR; Start 11/21/16 at 14:30 Acetaminophen (Tylenol Liquid) 650 mg PRN PRN NGT PAIN AND OR ELEVATED TEMP Last administered on 11/26/16 06:02; Admin Dose 650 MG; Start 11/21/16 at 21:00 Acetaminophen 650 mg 650 mg PRN PRN [place] fever; Start 11/21/16 at 21:00 Ciprofloxacin/ Dextrose (Cipro Ivpb) 200 ml @ 200 mls/hr Q24H IVPB Last administered on 11/26/16 12:05; Admin Dose 200 MLS/HR; Start 11/22/16 at 12:30 Lansoprazole 30 mg 30 mg DAILY@06 GTB Last administered on 11/27/16 06:16; Admin Dose 30 MG; Start 11/25/16 at 06:00 Cefepime HCl 50 ml @ 100 mls/hr Q12 IVPB Last administered on 11/26/16 20:41 ; Admin Dose 100 MLS/HR; Start 11/25/16 at 10:30 Levetiracetam (Keppra 500 Mg/ 100ml (Pmx)) 100 ml @ 400 mls/hr Q12 IVPB Last administered on 11/26/16 20:39; Admin Dose 400 MLS/HR; Start 11/25/16 at 21:00 Fentanyl (Sublimaze) 25 mcg Q3H PRN IV PAIN Last administered on 11/26/16 16: 56; Admin Dose 25 MCG; Start 11/26/16 at 16:00 REGINO RESTREPO Nov 27, 2016 08:10
[2016-11-27] MEDS: ALLOPURINOL 100 MG TAB PO SCH (08:51)
[2016-11-27] MEDS: LATANOPROST 0.005% 2.5 ML OPH BOTH EYES SCH (08:51)
[2016-11-27] MEDS: LEVETIRACETAM 500 MG (PMX) 100 ML IVPB SCH ×2 (08:51→20:46)
[2016-11-27] MEDS: DOCUSATE SODIUM 100 MG CAP PO SCH ×2 (08:51→20:45)
[2016-11-27] MEDS: CEFEPIME 1GM/50 ML (PMX) 50 ML IVPB SCH ×2 (08:51→20:46)
[2016-11-27] MEDS: LINAGLIPTIN 5 MG TABLET PO SCH (08:52)
--- NOTE | 2016-11-27 10:00 | PN ---
DATE: 11/27/2016 FAMILY CONFERENCE I had a long conversation with family conference with patient's and all of his children and pat gael's brother and [id number]. We discuss all of his current medical problems and discuss the co nsultant's opinion on this short-term and long-term prognosis and the fact that he will, in all prob ability, have significant cognitive loss and motor dysfunction if he survives this hospitalization. The patient's states that he would never want to be left in this moribund condition and they h ad discussed this prior to the patient having his intracranial hemorrhage. They adamantly are oppos ed to having a PEG and trach and would like to have time with Mr. Mcgee until they make a decision on compassionate extubation; however, they did not commit themselves to a time or a date. I have gi caio them my cell phone number and asked them to call me for further questions, and I will continue t o speak with them and contact Dr. Penaloza. Dictated By: WENCESLAO MULLEN MD, LP/LOGAN Conf#: [id number] DID#: [id number]
[2016-11-27] MEDS: CIPROFLOXACIN 400MG/D5W 200 ML IVPB SCH (13:22)
--- NOTE | 2016-11-27 20:25 | PN ---
Date/Time of Note Date/Time of Note DATE: 11/27/16 TIME: 20:20 Assessment/Plan VTE Prophylaxis VTE Prophylaxis Intervention: contraindicated VTE Contraindication Reason: hemorrhagic cerebral infarction Lines/Catheters IV Catheter Type (from Nrs): Peripheral IV Urinary Cath still in place: Yes Reason Cath still needed: terminal illness/intractable pain Assessment/Plan Problems: (1) Hemorrhagic stroke Status: Acute Comment: Ongoing poor prognosis. Family has decided that after reasonable period of acceptance they will terminally extubate pt. No one in family wants trach/PEG. Family desires comfort measures. This is appropriate. 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 Comment: Controlled on current regimen (5) Essential (primary) hypertension Status: Chronic Comment: Controlled on nicardipine (6) Chronic kidney disease, stage II (mild) Status: Chronic Comment: Stable Subjective 24 Hr Interval Summary Subjective hx not possible: pt non-verbal, pt critical status Exam/Review of Systems Vital Signs Vitals VS - Last 72 Hours, by Label Date Time Temp Pulse Resp B/P Pulse Ox O2 Delivery O2 Flow Rate FiO2 11/27/16 18:59 59 20 99 30 11/27/16 18:30 58 25 103/60 97 11/27/16 18:00 63 20 108/57 97 11/27/16 17:30 66 26 161/85 97 11/27/16 17:00 64 20 100 30 11/27/16 17:00 59 20 117/62 96 11/27/16 16:30 57 20 119/55 99 11/27/16 16:00 99.9 58 20 113/60 100 11/27/16 16:00 57 11/27/16 15:30 55 20 108/52 100 11/27/16 15:00 59 20 121/51 98 11/27/16 15:00 57 20 99 30 11/27/16 14:30 58 20 126/51 100 11/27/16 14:00 61 20 138/66 99 11/27/16 13:30 60 20 138/63 99 11/27/16 13:00 60 20 100 30 11/27/16 13:00 57 20 132/64 99 Mechanical Ventilator 11/27/16 12:30 58 21 129/61 99 11/27/16 12:00 99.9 58 19 122/57 100 Mechanical Ventilator 11/27/16 12:00 58 11/27/16 11:30 56 20 115/52 99 11/27/16 11:20 58 20 99 30 11/27/16 11:00 57 20 110/54 100 Mechanical Ventilator 11/27/16 10:30 61 20 119/60 97 11/27/16 10:00 64 13 120/78 100 Mechanical Ventilator 11/27/16 09:30 60 20 114/58 99 11/27/16 09:20 58 20 99 30 11/27/16 09:00 62 15 126/60 99 Mechanical Ventilator 11/27/16 08:30 61 21 118/61 100 Mechanical Ventilator 11/27/16 08:00 54 11/27/16 08:00 30 11/27/16 08:00 99.8 57 20 113/52 100 Mechanical Ventilator 11/27/16 07:30 53 20 106/48 100 Mechanical Ventilator 11/27/16 07:10 58 20 99 30 11/27/16 07:00 56 20 104/50 100 Mechanical Ventilator 11/27/16 06:30 60 21 115/50 100 Mechanical Ventilator 11/27/16 06:00 62 21 116/59 100 Mechanical Ventilator 11/27/16 05:19 60 20 100 30 11/27/16 05:00 60 20 113/55 99 Mechanical Ventilator 11/27/16 04:00 55 11/27/16 04:00 100.0 59 20 105/56 98 Mechanical Ventilator 11/27/16 03:18 60 20 100 30 11/27/16 03:00 60 20 106/47 99 Mechanical Ventilator 11/27/16 02:00 64 20 118/58 100 Mechanical Ventilator 11/27/16 01:17 60 20 99 30 11/27/16 01:00 59 20 100/54 99 Mechanical Ventilator 11/27/16 00:30 63 21 112/59 100 Mechanical Ventilator 11/27/16 00:00 65 11/27/16 00:00 98.8 62 20 106/54 99 Mechanical Ventilator 11/26/16 23:30 58 20 99/52 98 Mechanical Ventilator 11/26/16 23:10 61 20 100 30 11/26/16 23:00 56 20 93/46 97 Mechanical Ventilator 11/26/16 22:30 61 20 92/47 96 Mechanical Ventilator 11/26/16 22:00 66 20 121/60 98 Mechanical Ventilator 11/26/16 21:30 68 21 131/64 98 Mechanical Ventilator 11/26/16 21:08 60 20 100 30 11/26/16 21:00 64 20 130/66 99 Mechanical Ventilator 11/26/16 20:30 66 20 119/64 99 Mechanical Ventilator 11/26/16 20:15 30 11/26/16 20:00 65 11/26/16 20:00 100.0 65 20 114/61 100 Mechanical Ventilator 11/26/16 19:30 64 22 118/59 100 Mechanical Ventilator 11/26/16 19:15 60 20 100 30 11/26/16 19:00 62 20 111/53 100 11/26/16 18:30 62 20 110/55 99 11/26/16 18:00 61 20 104/52 98 11/26/16 17:30 63 20 99/56 98 11/26/16 17:10 65 20 98 30 11/26/16 17:00 65 20 112/60 100 11/26/16 16:30 64 20 122/64 100 11/26/16 16:00 98.9 64 20 122/63 100 11/26/16 16:00 30 11/26/16 16:00 62 11/26/16 15:30 61 20 123/58 100 11/26/16 15:10 60 20 100 30 11/26/16 15:00 62 20 109/63 100 11/26/16 14:00 59 21 121/60 100 11/26/16 13:30 63 22 125/57 100 11/26/16 13:10 62 21 100 30 11/26/16 13:00 60 20 120/58 99 11/26/16 12:30 75 23 127/61 100 11/26/16 12:00 98.9 60 20 123/64 100 11/26/16 12:00 59 11/26/16 12:00 30 11/26/16 11:30 59 20 124/63 100 11/26/16 11:10 59 20 100 30 11/26/16 11:00 59 20 109/57 100 11/26/16 10:30 60 20 114/53 97 11/26/16 10:00 57 21 113/50 97 11/26/16 09:30 59 23 120/59 99 11/26/16 09:10 61 22 99 30 11/26/16 09:00 57 19 85/51 100 11/26/16 08:30 56 20 94/51 99 11/26/16 08:00 30 11/26/16 08:00 99.1 58 20 95/47 100 11/26/16 08:00 57 11/26/16 07:40 59 22 98 30 11/26/16 07:30 59 20 90/41 98 11/26/16 07:00 59 20 91/48 99 11/26/16 06:00 57 20 114/56 100 11/26/16 05:15 58 20 100 30 11/26/16 05:00 61 20 114/54 100 11/26/16 04:00 61 20 128/54 100 11/26/16 04:00 100.8 11/26/16 04:00 59 11/26/16 03:09 58 20 100 30 11/26/16 03:00 60 20 121/54 100 11/26/16 02:00 63 20 112/55 100 11/26/16 01:12 56 20 100 30 11/26/16 01:00 57 20 108/47 100 11/26/16 00:00 99.8 11/26/16 00:00 59 11/26/16 00:00 59 20 111/54 100 11/25/16 23:30 60 20 109/54 100 11/25/16 23:25 61 20 100 30 11/25/16 23:00 60 20 100/59 99 11/25/16 22:00 62 20 105/53 97 11/25/16 21:15 59 20 100 30 11/25/16 21:00 100.6 11/25/16 21:00 65 21 118/56 98 11/25/16 20:30 65 21 119/57 95 11/25/16 20:00 101.8 66 21 130/55 99 Mechanical Ventilator 11/25/16 20:00 65 11/25/16 19:41 59 20 100 30 11/25/16 19:00 69 24 134/62 98 Mechanical Ventilator 11/25/16 18:45 74 25 161/63 100 11/25/16 18:30 69 26 147/69 98 11/25/16 18:15 67 23 139/58 99 11/25/16 18:00 68 22 133/64 99 Mechanical Ventilator 11/25/16 17:45 68 22 139/63 99 Mechanical Ventilator 11/25/16 17:30 68 24 143/66 99 Mechanical Ventilator 11/25/16 17:15 64 24 140/61 99 Mechanical Ventilator 11/25/16 17:05 66 24 99 30 11/25/16 17:00 67 26 146/75 99 Mechanical Ventilator 11/25/16 16:45 66 23 100 11/25/16 16:30 66 24 138/54 100 Mechanical Ventilator 11/25/16 16:15 66 23 128/59 100 Mechanical Ventilator 11/25/16 16:00 30 11/25/16 16:00 67 11/25/16 16:00 99.9 63 24 134/54 99 Mechanical Ventilator 11/25/16 15:30 65 25 130/53 100 Mechanical Ventilator 11/25/16 15:05 68 25 100 30 11/25/16 15:00 63 21 113/52 100 Mechanical Ventilator 11/25/16 14:30 66 24 127/52 99 Mechanical Ventilator 11/25/16 14:00 69 23 132/63 99 Mechanical Ventilator 11/25/16 13:30 66 24 138/68 99 Mechanical Ventilator 11/25/16 13:05 68 26 100 30 11/25/16 13:00 66 23 134/59 100 Mechanical Ventilator 11/25/16 12:30 63 22 122/49 100 Mechanical Ventilator 11/25/16 12:00 61 11/25/16 12:00 98.9 64 22 118/48 100 Mechanical Ventilator 11/25/16 12:00 30 11/25/16 11:30 62 23 115/47 99 Mechanical Ventilator 11/25/16 11:08 65 24 100 30 11/25/16 11:00 65 24 116/50 99 Mechanical Ventilator 11/25/16 10:30 62 23 113/48 100 Mechanical Ventilator 11/25/16 10:00 66 22 123/57 100 Mechanical Ventilator 11/25/16 09:30 65 24 100 30 11/25/16 09:00 63 21 118/56 100 Mechanical Ventilator 11/25/16 08:00 63 11/25/16 08:00 30 11/25/16 08:00 98.9 63 23 123/56 100 Mechanical Ventilator 11/25/16 08:00 63 23 100 30 11/25/16 07:00 68 20 105/57 99 Mechanical Ventilator 11/25/16 05:13 68 20 100 30 11/25/16 05:00 69 21 120/54 100 Mechanical Ventilator 11/25/16 04:00 99.4 61 21 111/58 100 Mechanical Ventilator 11/25/16 04:00 58 11/25/16 03:13 62 24 100 30 11/25/16 03:00 59 19 101/48 100 Mechanical Ventilator 11/25/16 02:00 59 20 96/50 98 Mechanical Ventilator 11/25/16 01:10 61 21 98 30 11/25/16 01:00 61 20 88/48 97 Mechanical Ventilator 11/25/16 00:00 65 11/25/16 00:00 99.3 63 21 95/48 97 Mechanical Ventilator 11/25/16 00:00 63 21 95/48 97 11/24/16 23:17 64 22 97 30 11/24/16 23:00 66 23 96/49 95 Mechanical Ventilator 11/24/16 22:00 100.9 70 23 110/53 97 Mechanical Ventilator 11/24/16 21:13 69 24 98 30 11/24/16 21:00 101.2 68 24 120/58 99 Mechanical Ventilator Vital Signs Date Time Temp Pulse Resp B/P Pulse Ox O2 Delivery O2 Flow Rate FiO2 11/27/16 18:59 59 20 99 30 11/27/16 18:30 103/60 11/27/16 16:00 99.9 11/27/16 13:00 Mechanical Ventilator Intake and Output 11/26/16 11/26/16 11/27/16 15:00 23:00 07:00 Intake Total 1005 ml 780 ml 280 ml Output Total 854 ml 667 ml 565 ml Balance 151 ml 113 ml -285 ml Exam Constitutional: non-verbal, obese, No alert ENMT: intubated Respiratory: clear to auscultation, normal air movement Cardiovascular: nl pulses, regular rate and rhythm, No edema, No murmurs/extra sounds, No rub Gastrointestinal: bowel sounds, nl liver, spleen, non-tender, soft, No mass, No rebound or guarding Musculoskeletal: nl extremities to inspection Extremities: normal pulses, No clubbing, No cyanosis, No edema Neurological: unresponsive Additional Comments Bedside Glucose - 72 Hours Test 11/24/16 21:39 11/25/16 01:14 11/25/16 05:26 11/25/16 09:29 Bedside Glucose 177mg/dL (70-220) 188mg/dL (70-220) 171mg/dL (70-220) 169mg/dL (70-220) Test 11/25/16 13:13 11/25/16 18:49 11/25/16 20:48 11/26/16 01:11 Bedside Glucose 181mg/dL (70-220) 134mg/dL (70-220) 161mg/dL (70-220) 183mg/dL (70-220) Test 11/26/16 05:59 11/26/16 09:46 11/26/16 12:27 11/26/16 17:08 Bedside Glucose 155mg/dL (70-220) 150mg/dL (70-220) 137mg/dL (70-220) 168mg/dL (70-220) Test 11/26/16 20:48 11/27/16 00:55 11/27/16 04:32 11/27/16 08:54 Bedside Glucose 139mg/dL (70-220) 154mg/dL (70-220) 169mg/dL (70-220) 155mg/dL (70-220) Test 11/27/16 12:36 11/27/16 17:20 11/27/16 20:19 Bedside Glucose 155mg/dL (70-220) 169mg/dL (70-220) 146mg/dL (70-220) Results Result Diagram: 11/27/16 0553 11/27/16 0500 Results 24 hrs Laboratory Tests Test 11/26/16 20:48 11/27/16 00:55 11/27/16 04:32 11/27/16 05:00 Bedside Glucose 139 154 169 Sodium Level 133 L Potassium Level 4.1 Chloride Level 103 Carbon Dioxide Level 22 Anion Gap 12 Blood Urea Nitrogen 28 H Creatinine 1.38 H Glucose Level 176 Calcium Level 7.8 L Total Bilirubin 0.8 Direct Bilirubin 0.00 Indirect Bilirubin 0.8 Aspartate Amino Transf (AST/SGOT) 81 H Alanine Aminotransferase (ALT/SGPT) 83 H Alkaline Phosphatase 316 H Total Protein 6.4 Albumin 2.7 L Globulin 3.70 H Albumin/Globulin Ratio 0.72 Test 11/27/16 05:53 11/27/16 08:54 11/27/16 12:36 11/27/16 17:20 White Blood Count 8.4 Red Blood Count 4.69 L Hemoglobin 12.4 L Hematocrit 39.1 L Mean Corpuscular Volume 83.4 Mean Corpuscular Hemoglobin 26.4 L Mean Corpuscular Hemoglobin Concent 31.7 L Red Cell Distribution Width 16.5 H Platelet Count 152 Mean Platelet Volume 12.5 H Neutrophils % 69.3 Lymphocytes % 14.5 L Monocytes % 10.7 Eosinophils % 3.6 Basophils % 0.5 Nucleated Red Blood Cells % 0.0 Neutrophils # 5.9 Lymphocytes # 1.2 Monocytes # 0.9 Eosinophils # 0.3 Basophils # 0.0 Nucleated Red Blood Cells # 0.0 Bedside Glucose 155 155 169 Medications Medications Current Medications Allopurinol (Zyloprim) 100 mg DAILY PO Last administered on 11/27/16 08:51; Admin Dose 100 MG; Start 11/21/16 at 09:00 Atorvastatin Calcium (Lipitor) 40 mg DAILY@21 PO Last administered on 20:40; Admin Dose 40 MG; Start 11/21/16 at 21:00 Carvedilol (Coreg) 12.5 mg BID PO Last administered on 11/27/16 08:52; Admin Dose 12.5 MG; Start 11/21/16 at 09:00 Docusate Sodium (Colace) 300 mg BID PO Last administered on 11/27/16 08:51; Admin Dose 300 MG; Start 11/21/16 at 09:00 Furosemide (Lasix) 40 mg DAILY@06 PO Last administered on 11/27/16 06:19; Admin Dose 40 MG; Start 11/21/16 at 06:00 Latanoprost (Xalatan) 1 drop DAILY BOTH EYES Last administered on 11/27/16 08: 51; Admin Dose 1 DROP; Start 11/21/16 at 09:00 Linagliptin (Tradjenta) 5 mg DAILY PO Last administered on 11/27/16 08:52; Admin Dose 5 MG; Start 11/21/16 at 09:00 Insulin Aspart NOVOLOG *MILD* ALGORI... Q4 SC Last administered on 11/27/16 17 :23; Admin Dose 1 UNIT; Start 11/21/16 at 05:00 Nicardipine HCl (Cardene Iv) 200 ml @ 50 mls/hr TITRATE IV Last administered on 11/21/16 01:31; Admin Dose 25 MLS/HR; Start 11/21/16 at 01:00 Miscellaneous Information 1 ea NOTE XX ; Start 11/21/16 at 02:45 Glucose (Glutose) 15 gm Q15M PRN PO DECREASED GLUCOSE; Start 11/21/16 at 02:45 Glucose (Glutose) 22.5 gm Q15M PRN PO DECREASED GLUCOSE; Start 11/21/16 at 02: 45 Dextrose (D50w Syringe) 25 ml Q15M PRN IV DECREASED GLUCOSE; Start 11/21/16 at 02:45 Dextrose (D50w Syringe) 50 ml Q15M PRN IV DECREASED GLUCOSE; Start 11/21/16 at 02:45 Glucagon (Glucagen) 1 mg Q15M PRN IM DECREASED GLUCOSE; Start 11/21/16 at 02:45 Glucose 15 gm 15 gm Q15M PRN BUCCAL DECREASED GLUCOSE; Start 11/21/16 at 02:45 Dextrose/Sodium Chloride (D5-1/2ns) 1,000 ml @ 70 mls/hr [id number] IV Last administered on 11/27/16 20:10; Admin Dose 70 MLS/HR; Start 11/21/16 at 14:30 Acetaminophen (Tylenol Liquid) 650 mg PRN PRN NGT PAIN AND OR ELEVATED TEMP Last administered on 11/26/16 06:02; Admin Dose 650 MG; Start 11/21/16 at 21:00 Acetaminophen 650 mg 650 mg PRN PRN [place] fever Last administered on 11/27/16 17: 29; Admin Dose 650 MG; Start 11/21/16 at 21:00 Ciprofloxacin/ Dextrose (Cipro Ivpb) 200 ml @ 200 mls/hr Q24H IVPB Last administered on 11/27/16 13:22; Admin Dose 200 MLS/HR; Start 11/22/16 at 12:30 Lansoprazole 30 mg 30 mg DAILY@06 GTB Last administered on 11/27/16 06:16; Admin Dose 30 MG; Start 11/25/16 at 06:00 Cefepime HCl 50 ml @ 100 mls/hr Q12 IVPB Last administered on 11/27/16 08:51 ; Admin Dose 100 MLS/HR; Start 11/25/16 at 10:30 Levetiracetam (Keppra 500 Mg/ 100ml (Pmx)) 100 ml @ 400 mls/hr Q12 IVPB Last administered on 11/27/16 08:51; Admin Dose 400 MLS/HR; Start 11/25/16 at 21:00 Fentanyl (Sublimaze) 25 mcg Q3H PRN IV PAIN Last administered on 11/26/16 16: 56; Admin Dose 25 MCG; Start 11/26/16 at 16:00 HARISH WALKER MD Nov 27, 2016 20:25
[2016-11-27] MEDS: ATORVASTATIN 40 MG TAB PO SCH (20:45)
[2016-11-27] MEDS: FENTAnyl 50 MCG/ML VIAL IV PRN (22:07)
[2016-11-28] VITALS (44 sets, daily range): BP systolic 83–144; BP diastolic 40–97; PULSE 53–75; RESP 16–23
[2016-11-28] MEDS: INSULIN ASPART [NOVOLOG] 3 ML PEN SC SCH ×6 (01:18→20:40)
[2016-11-28] MEDS: FUROSEMIDE 40 MG TAB PO SCH (06:08)
[2016-11-28] MEDS: LANSOPRAZOLE 30 MG CAP GTB SCH (06:09)
--- NOTE | 2016-11-28 07:02 | PN ---
Date/Time of Note Date/Time of Note DATE: 11/28/16 TIME: 06:58 Assessment/Plan VTE Prophylaxis VTE Prophylaxis Intervention: contraindicated (Intracranial hemorrhage) Lines/Catheters IV Catheter Type (from [facility]): Peripheral IV Urinary Cath still in place: Yes Reason Cath still needed: urinary retention Assessment/Plan Problems: (1) Intraventricular hemorrhage Status: Acute Comment: He has minimal responsiveness to outside stimuli which is more reflexive than cognitive. His overall prognosis at this point time is extremely poor. Please see the notes from my colleagues. I am in concurrence with a DNR status and believe that comfort measures are legitimate consideration. While the family is considering will continue supporting care (2) Elevated liver enzymes Status: Acute Comment: As above this is most likely due to some of the new medications are being given to this patient. Attempt aggressive workup and evaluation is not appropriate (3) Chronic kidney disease, stage II (mild) Status: Chronic Comment: Noted and stable (4) Chronic diastolic congestive heart failure, NYHA class 1 Status: Chronic Comment: Adequately compensated (5) Essential (primary) hypertension Status: Chronic Comment: Controlled (6) Type 2 diabetes mellitus with diabetic chronic kidney disease Status: Chronic Comment: Adequately controlled. 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 He responds to very simple commands such as blinking eyes but can only blink once when asked to do it twice. No other meaningful reaction to requests Subjective hx not possible: pt non-verbal, pt critical status Exam/Review of Systems Vital Signs Vitals Vital Signs Date Time Temp Pulse Resp B/P Pulse Ox O2 Delivery O2 Flow Rate FiO2 11/28/16 06:00 57 22 140/71 100 Mechanical Ventilator 11/28/16 05:00 30 11/28/16 04:00 100.1 Intake and Output 11/27/16 11/27/16 11/28/16 15:00 23:00 07:00 Intake Total 810 ml 657.5 ml 490 ml Output Total 749 ml 493 ml 72 ml Balance 61 ml 164.5 ml 418 ml Exam Constitutional: alert, oriented Head: other (Ventriculostomy present) Eyes: nl conjunctiva, nl lids, nl sclera, other (Eyes deviated to left does not cross midline pupils do not react to light) Respiratory: clear to auscultation, normal air movement (On ventilator) Cardiovascular: nl pulses, regular rate and rhythm Results Result Diagram: 11/27/16 0553 11/27/16 0500 Results 24 hrs Laboratory Tests Test 11/27/16 08:54 11/27/16 12:36 11/27/16 17:20 11/27/16 20:19 Bedside Glucose 155 155 169 146 Test 11/28/16 01:16 11/28/16 05:18 Bedside Glucose 141 166 Medications Medications Current Medications Allopurinol (Zyloprim) 100 mg DAILY PO Last administered on 11/27/16 08:51; Admin Dose 100 MG; Start 11/21/16 at 09:00 Atorvastatin Calcium (Lipitor) 40 mg DAILY@21 PO Last administered on 20:45; Admin Dose 40 MG; Start 11/21/16 at 21:00 Carvedilol (Coreg) 12.5 mg BID PO Last administered on 11/27/16 08:52; Admin Dose 12.5 MG; Start 11/21/16 at 09:00 Docusate Sodium (Colace) 300 mg BID PO Last administered on 11/27/16 20:45; Admin Dose 300 MG; Start 11/21/16 at 09:00 Furosemide (Lasix) 40 mg DAILY@06 PO Last administered on 11/28/16 06:08; Admin Dose 40 MG; Start 11/21/16 at 06:00 Latanoprost (Xalatan) 1 drop DAILY BOTH EYES Last administered on 11/27/16 08: 51; Admin Dose 1 DROP; Start 11/21/16 at 09:00 Linagliptin (Tradjenta) 5 mg DAILY PO Last administered on 11/27/16 08:52; Admin Dose 5 MG; Start 11/21/16 at 09:00 Insulin Aspart NOVOLOG *MILD* ALGORI... Q4 SC Last administered on 11/28/16 05: 20; Admin Dose 1 UNIT; Start 11/21/16 at 05:00 Nicardipine HCl (Cardene Iv) 200 ml @ 50 mls/hr TITRATE IV Last administered on 11/21/16 01:31; Admin Dose 25 MLS/HR; Start 11/21/16 at 01:00 Miscellaneous Information 1 ea NOTE XX ; Start 11/21/16 at 02:45 Glucose (Glutose) 15 gm Q15M PRN PO DECREASED GLUCOSE; Start 11/21/16 at 02:45 Glucose (Glutose) 22.5 gm Q15M PRN PO DECREASED GLUCOSE; Start 11/21/16 at 02: 45 Dextrose (D50w Syringe) 25 ml Q15M PRN IV DECREASED GLUCOSE; Start 11/21/16 at 02:45 Dextrose (D50w Syringe) 50 ml Q15M PRN IV DECREASED GLUCOSE; Start 11/21/16 at 02:45 Glucagon (Glucagen) 1 mg Q15M PRN IM DECREASED GLUCOSE; Start 11/21/16 at 02:45 Glucose 15 gm 15 gm Q15M PRN BUCCAL DECREASED GLUCOSE; Start 11/21/16 at 02:45 Dextrose/Sodium Chloride (D5-1/2ns) 1,000 ml @ 70 mls/hr [id number] IV Last administered on 11/27/16 20:10; Admin Dose 70 MLS/HR; Start 11/21/16 at 14:30 Acetaminophen (Tylenol Liquid) 650 mg PRN PRN NGT PAIN AND OR ELEVATED TEMP Last administered on 11/26/16 06:02; Admin Dose 650 MG; Start 11/21/16 at 21:00 Acetaminophen 650 mg 650 mg PRN PRN [place] fever Last administered on 11/27/16 17: 29; Admin Dose 650 MG; Start 11/21/16 at 21:00 Ciprofloxacin/ Dextrose (Cipro Ivpb) 200 ml @ 200 mls/hr Q24H IVPB Last administered on 11/27/16 13:22; Admin Dose 200 MLS/HR; Start 11/22/16 at 12:30 Lansoprazole 30 mg 30 mg DAILY@06 GTB Last administered on 11/28/16 06:09; Admin Dose 30 MG; Start 11/25/16 at 06:00 Cefepime HCl 50 ml @ 100 mls/hr Q12 IVPB Last administered on 11/27/16 20:46 ; Admin Dose 100 MLS/HR; Start 11/25/16 at 10:30 Levetiracetam (Keppra 500 Mg/ 100ml (Pmx)) 100 ml @ 400 mls/hr Q12 IVPB Last administered on 11/27/16 20:46; Admin Dose 400 MLS/HR; Start 11/25/16 at 21:00 Fentanyl (Sublimaze) 25 mcg Q3H PRN IV PAIN Last administered on 11/27/16 22: 07; Admin Dose 25 MCG; Start 11/26/16 at 16:00 ALEX FELDMAN MD Nov 28, 2016 07:02
[2016-11-28] MEDS: REPAGLINIDE 2 MG TAB PO SCH ×3 (07:05→17:05)
[2016-11-28 08:18] LABS: ADD SCAN DIFF NO
[2016-11-28] MEDS: LATANOPROST 0.005% 2.5 ML OPH BOTH EYES SCH (08:32)
[2016-11-28] MEDS: LEVETIRACETAM 500 MG (PMX) 100 ML IVPB SCH ×2 (08:32→20:30)
[2016-11-28] MEDS: DOCUSATE SODIUM 100 MG CAP PO SCH ×2 (08:33→20:31)
[2016-11-28] MEDS: ALLOPURINOL 100 MG TAB PO SCH (08:33)
[2016-11-28] MEDS: CEFEPIME 1GM/50 ML (PMX) 50 ML IVPB SCH ×2 (08:33→20:30)
[2016-11-28 08:37] LABS: POTASSIUM 3.7 mmol/L (3.5-5.1)
[2016-11-28 08:39] LABS: CREATININE 1.24 mg/dl (0.61-1.24)
[2016-11-28 08:40] LABS: CALCIUM 7.4 mg/dl (8.4-10.2)
[2016-11-28 08:49] LABS: BASOPHILS % 0.5 % (0.0-2.0); EOSINOPHILS # 0.3 10^3/ul (0.0-0.5); EOSINOPHILS % 4.1 % (0.0-7.0); HEMATOCRIT 36.1 % (42.0-52.0); HEMOGLOBIN 11.7 g/dl (14.0-18.0); LYMPHOCYTES # 1.3 10^3/ul (0.8-2.9); LYMPHOCYTES % 15.1 % (15.0-51.0); MEAN CORPUSCULAR HEMOGLOBIN 27.1 pg (29.0-33.0); MEAN CORPUSCULAR HGB CONC 32.4 g/dl (32.0-37.0); MEAN CORPUSCULAR VOLUME 83.6 fl (82.0-101.0); MEAN PLATELET VOLUME 13.3 fl (7.4-10.4); MONOCYTE # 0.8 10^3/ul (0.3-0.9); NEUTROPHIL # 5.7 10^3/ul (1.6-7.5); NEUTROPHILS % 68.7 % (39.0-77.0); PLATELET COUNT 177 10^3/UL (140-415); RED BLOOD COUNT 4.32 10^6/ul (4.70-6.10); RED CELL DISTRIBUTION WIDTH 16.4 % (11.5-14.5); WHITE BLOOD COUNT 8.3 10^3/ul (4.8-10.8)
--- NOTE | 2016-11-28 11:28 | CONS ---
Date/Time of Note Date/Time of Note DATE: 11/28/16 TIME: 11:23 Consult Date/Type/Reason Admit Date/Time Nov 20, 2016 at 23:09 Initial Consult Date 11/21/16 Type of Consultation: Pulmonary/critical care Subjective Minimally responsive. +GAG and corneal reflexes present. Objective Vital Signs Date Time Temp Pulse Resp B/P Pulse Ox O2 Delivery O2 Flow Rate FiO2 11/28/16 08:00 55 11/28/16 06:00 22 140/71 100 Mechanical Ventilator 11/28/16 05:00 30 11/28/16 04:00 100.1 Intake and Output 11/27/16 11/27/16 11/28/16 15:00 23:00 07:00 Intake Total 810 ml 657.5 ml 550 ml Output Total 749 ml 493 ml 426 ml Balance 61 ml 164.5 ml 124 ml Exam HEENT: Neck supple; no JVD; no LAD; ET tube in place CVS: RRR, S1 and S2 CHEST: Clear ABD: Soft, NT, + BS EXT: No c/c/e NEURO: Flaccid; +GAG and corneal Results/Medications Result Diagram: 11/28/1615 11/28/16 0815 Results 24 hrs Laboratory Tests Test 11/27/16 12:36 11/27/16 17:20 11/27/16 20:19 11/28/16 01:16 Bedside Glucose 155 169 146 141 Test 11/28/16 05:18 11/28/16 08:15 11/28/16 08:27 Bedside Glucose 166 177 White Blood Count 8.3 Red Blood Count 4.32 L Hemoglobin 11.7 L Hematocrit 36.1 L Mean Corpuscular Volume 83.6 Mean Corpuscular Hemoglobin 27.1 L Mean Corpuscular Hemoglobin Concent 32.4 Red Cell Distribution Width 16.4 H Platelet Count 177 Mean Platelet Volume 13.3 H Neutrophils % 68.7 Lymphocytes % 15.1 Monocytes % 10.0 Eosinophils % 4.1 Basophils % 0.5 Nucleated Red Blood Cells % 0.0 Neutrophils # 5.7 Lymphocytes # 1.3 Monocytes # 0.8 Eosinophils # 0.3 Basophils # 0.0 Nucleated Red Blood Cells # 0.0 Sodium Level 131 L Potassium Level 3.7 Chloride Level 99 Carbon Dioxide Level 24 Anion Gap 12 Blood Urea Nitrogen 26 H Creatinine 1.24 Glucose Level 277 #H Calcium Level 7.4 L Medications Current Medications Allopurinol (Zyloprim) 100 mg DAILY PO Last administered on 11/28/16 08:33; Admin Dose 100 MG; Start 11/21/16 at 09:00 Atorvastatin Calcium (Lipitor) 40 mg DAILY@21 PO Last administered on 20:45; Admin Dose 40 MG; Start 11/21/16 at 21:00 Carvedilol (Coreg) 12.5 mg BID PO Last administered on 11/27/16 08:52; Admin Dose 12.5 MG; Start 11/21/16 at 09:00 Docusate Sodium (Colace) 300 mg BID PO Last administered on 11/28/16 08:33; Admin Dose 300 MG; Start 11/21/16 at 09:00 Furosemide (Lasix) 40 mg DAILY@06 PO Last administered on 11/28/16 06:08; Admin Dose 40 MG; Start 11/21/16 at 06:00 Latanoprost (Xalatan) 1 drop DAILY BOTH EYES Last administered on 11/28/16 08: 32; Admin Dose 1 DROP; Start 11/21/16 at 09:00 Linagliptin (Tradjenta) 5 mg DAILY PO Last administered on 11/27/16 08:52; Admin Dose 5 MG; Start 11/21/16 at 09:00 Insulin Aspart NOVOLOG *MILD* ALGORI... Q4 SC Last administered on 11/28/16 05: 20; Admin Dose 1 UNIT; Start 11/21/16 at 05:00 Nicardipine HCl (Cardene Iv) 200 ml @ 50 mls/hr TITRATE IV Last administered on 11/21/16 01:31; Admin Dose 25 MLS/HR; Start 11/21/16 at 01:00 Miscellaneous Information 1 ea NOTE XX ; Start 11/21/16 at 02:45 Glucose (Glutose) 15 gm Q15M PRN PO DECREASED GLUCOSE; Start 11/21/16 at 02:45 Glucose (Glutose) 22.5 gm Q15M PRN PO DECREASED GLUCOSE; Start 11/21/16 at 02: 45 Dextrose (D50w Syringe) 25 ml Q15M PRN IV DECREASED GLUCOSE; Start 11/21/16 at 02:45 Dextrose (D50w Syringe) 50 ml Q15M PRN IV DECREASED GLUCOSE; Start 11/21/16 at 02:45 Glucagon (Glucagen) 1 mg Q15M PRN IM DECREASED GLUCOSE; Start 11/21/16 at 02:45 Glucose 15 gm 15 gm Q15M PRN BUCCAL DECREASED GLUCOSE; Start 11/21/16 at 02:45 Dextrose/Sodium Chloride (D5-1/2ns) 1,000 ml @ 70 mls/hr [id number] IV Last administered on 11/27/16 20:10; Admin Dose 70 MLS/HR; Start 11/21/16 at 14:30 Acetaminophen (Tylenol Liquid) 650 mg PRN PRN NGT PAIN AND OR ELEVATED TEMP Last administered on 11/26/16 06:02; Admin Dose 650 MG; Start 11/21/16 at 21:00 Acetaminophen 650 mg 650 mg PRN PRN [place] fever Last administered on 11/27/16 17: 29; Admin Dose 650 MG; Start 11/21/16 at 21:00 Ciprofloxacin/ Dextrose (Cipro Ivpb) 200 ml @ 200 mls/hr Q24H IVPB Last administered on 11/27/16 13:22; Admin Dose 200 MLS/HR; Start 11/22/16 at 12:30 Lansoprazole 30 mg 30 mg DAILY@06 GTB Last administered on 11/28/16 06:09; Admin Dose 30 MG; Start 11/25/16 at 06:00 Cefepime HCl 50 ml @ 100 mls/hr Q12 IVPB Last administered on 11/28/16 08:33; Admin Dose 100 MLS/HR; Start 11/25/16 at 10:30 Levetiracetam (Keppra 500 Mg/ 100ml (Pmx)) 100 ml @ 400 mls/hr Q12 IVPB Last administered on 11/28/16 08:32; Admin Dose 400 MLS/HR; Start 11/25/16 at 21:00 Fentanyl (Sublimaze) 25 mcg Q3H PRN IV PAIN Last administered on 11/27/16 22: 07; Admin Dose 25 MCG; Start 11/26/16 at 16:00 Chlorpromazine (Thorazine) 25 mg Q8 PO ; Start 11/28/16 at 14:00; Stop 11/29/16 at 13:59 Metoclopramide HCl (Reglan Liq) 5 mg Q6H PRN PO NAUSEA AND/OR VOMITING; Start 11/28/16 at 11:30 Assessment/Plan Additional Assessment/Plan IMP: 1. 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 ICH 3. 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 ARF: Improved 5. CAD 6. Anemia RECS: 1. Spoke with family about goals of care--they need a bit more time prior to transition to comfort measures 2. Vent support 3. ISS for glucose control 4. Minimize all sedatives 5. Am labs 35 min cc time POOJA EATON MD Nov 28, 2016 11:28
[2016-11-28] MEDS ORDERED: METOCLOPRAMIDE (1 MG/ML) 10 ML CUP PO PRN (11:30)
[2016-11-28] MEDS: LINAGLIPTIN 5 MG TABLET PO SCH (12:48)
[2016-11-28] MEDS: CIPROFLOXACIN 400MG/D5W 200 ML IVPB SCH (12:49)
[2016-11-28] MEDS: DEXTROSE 5%-0.45% NACL 1,000 ML IV SCH (12:51)
[2016-11-28] MEDS: CHLORPROMAZINE 25 MG TAB PO SCH ×2 (14:06→20:58)
[2016-11-28] MEDS: ACETAMINOPHEN 650MG/20.3ML CUP NGT PRN (17:09)
[2016-11-28] MEDS: ATORVASTATIN 40 MG TAB PO SCH (20:32)
[2016-11-29] VITALS (36 sets, daily range): BP systolic 93–115; BP diastolic 38–58; PULSE 55–64; RESP 18–22
[2016-11-29] MEDS: INSULIN ASPART [NOVOLOG] 3 ML PEN SC SCH ×6 (01:13→21:34)
[2016-11-29 05:40] LABS: ADD SCAN DIFF NO
[2016-11-29 06:04] LABS: BASOPHILS % 0.4 % (0.0-2.0); EOSINOPHILS # 0.3 10^3/ul (0.0-0.5); EOSINOPHILS % 3.9 % (0.0-7.0); HEMATOCRIT 38.6 % (42.0-52.0); LYMPHOCYTES # 1.2 10^3/ul (0.8-2.9); LYMPHOCYTES % 14.4 % (15.0-51.0); MEAN CORPUSCULAR HEMOGLOBIN 25.7 pg (29.0-33.0); MEAN CORPUSCULAR HGB CONC 31.1 g/dl (32.0-37.0); MEAN CORPUSCULAR VOLUME 82.7 fl (82.0-101.0); MEAN PLATELET VOLUME 12.5 fl (7.4-10.4); MONOCYTE # 0.8 10^3/ul (0.3-0.9); MONOCYTES % 9.6 % (0.0-11.0); NEUTROPHIL # 5.7 10^3/ul (1.6-7.5); NEUTROPHILS % 70.2 % (39.0-77.0); PLATELET COUNT 159 10^3/UL (140-415); RED BLOOD COUNT 4.67 10^6/ul (4.70-6.10); RED CELL DISTRIBUTION WIDTH 16.5 % (11.5-14.5); WHITE BLOOD COUNT 8.1 10^3/ul (4.8-10.8)
[2016-11-29] MEDS: CHLORPROMAZINE 25 MG TAB PO SCH (06:05)
[2016-11-29] MEDS: REPAGLINIDE 2 MG TAB PO SCH ×3 (06:05→17:35)
[2016-11-29] MEDS: FUROSEMIDE 40 MG TAB PO SCH (06:05)
[2016-11-29] MEDS: LANSOPRAZOLE 30 MG CAP GTB SCH (06:05)
[2016-11-29 06:12] LABS: POTASSIUM 4.1 mmol/L (3.5-5.1)
[2016-11-29 06:15] LABS: CALCIUM 7.3 mg/dl (8.4-10.2); CREATININE 1.25 mg/dl (0.61-1.24)
[2016-11-29] MEDS: DEXTROSE 5%-0.45% NACL 1,000 ML IV SCH (07:59)
[2016-11-29] MEDS: LEVETIRACETAM 500 MG (PMX) 100 ML IVPB SCH ×2 (08:45→20:36)
[2016-11-29] MEDS: CEFEPIME 1GM/50 ML (PMX) 50 ML IVPB SCH ×2 (08:45→20:36)
[2016-11-29] MEDS: LINAGLIPTIN 5 MG TABLET PO SCH (08:46)
[2016-11-29] MEDS: DOCUSATE SODIUM 100 MG CAP PO SCH ×2 (08:46→20:36)
[2016-11-29] MEDS: ALLOPURINOL 100 MG TAB PO SCH (08:46)
[2016-11-29] MEDS: LATANOPROST 0.005% 2.5 ML OPH BOTH EYES SCH (08:57)
--- NOTE | 2016-11-29 08:57 | PN ---
Date/Time of Note Date/Time of Note DATE: 11/29/16 TIME: 08:53 Assessment/Plan VTE Prophylaxis VTE Prophylaxis Intervention: contraindicated (Intracranial hemorrhage) Lines/Catheters IV [facility]from [facility] Peripheral IV Urinary Cath still in place: Yes Reason Cath still needed: urinary retention Assessment/Plan Problems: (1) Intracranial shunt Status: Acute Comment: The shunt appears to be functioning adequately at this time. Unfortunately the patient's status has not improved and in fact it appears by clinical measures he is less well off today. The family is working on getting to the point of going for comfort measures (2) Elevated liver enzymes Status: Acute Comment: Noted and discussed yesterday no evaluation is indicated under the circumstances (3) Hemorrhagic stroke Status: Acute Comment: Unfortunate catastrophic event in this gentleman with poor hope of meaningful recovery (4) On mechanically assisted ventilation Status: Acute Comment: Being managed with a careful guidance of pulmonology (5) Chronic diastolic congestive heart failure, NYHA class 1 Status: Chronic Comment: Noted on on treatment (6) Chronic kidney disease, stage II (mild) Status: Chronic Comment: Noted and stable (7) Type 2 diabetes mellitus with diabetic chronic kidney disease Status: Chronic Comment: His sugars have been low but higher than I want given that he is not eating rather than using there are [place] night that is in the order set to give him some long-acting basal insulin to cover Qualifiers: Diabetes mellitus termite exterminator insulin use: without termite exterminator use Chronic kidney disease stage: stage 2 (mild) Qualified Code: E11.22 - Type 2 diabetes mellitus with stage 2 chronic kidney disease, without long-term current use of insulin Subjective 24 Hr Interval Summary Free Text/Dictation Patient remains intubated and extremely critically ill less responsive than yesterday Subjective hx not possible: pt non-verbal, pt critical status Exam/Review of Systems Vital Signs Vitals Vital Signs Date Time Temp Pulse Resp B/P Pulse Ox O2 Delivery O2 Flow Rate FiO2 11/29/16 06:00 58 20 112/57 100 Mechanical Ventilator 11/29/16 05:19 30 11/29/16 04:00 99.1 Intake and Output 11/28/16 11/28/16 11/29/16 15:00 23:00 07:00 Intake Total 1000 ml 1090 ml 880 ml Output Total 1001 ml 581 ml 884 ml Balance -1 ml 509 ml -4 ml Exam Constitutional: non-verbal (Nonresponsive does not have corneal reflex today) Head: other (Ventriculostomy present in the left upper crown area) Neck: non-tender, supple Respiratory: clear to auscultation, normal air movement (On ventilator) Cardiovascular: nl pulses, regular rate and rhythm Results Result Diagram: 11/29/16 0457 11/29/16 0457 Results 24 hrs Laboratory Tests Test 11/28/16 12:39 11/28/16 17:12 11/28/16 20:29 11/29/16 01:11 Bedside Glucose 160 168 200 187 Test 11/29/16 04:57 11/29/16 06:02 White Blood Count 8.1 Red Blood Count 4.67 L Hemoglobin 12.0 L Hematocrit 38.6 L Mean Corpuscular Volume 82.7 Mean Corpuscular Hemoglobin 25.7 L Mean Corpuscular Hemoglobin Concent 31.1 L Red Cell Distribution Width 16.5 H Platelet Count 159 Mean Platelet Volume 12.5 H Neutrophils % 70.2 Lymphocytes % 14.4 L Monocytes % 9.6 Eosinophils % 3.9 Basophils % 0.4 Nucleated Red Blood Cells % 0.0 Neutrophils # 5.7 Lymphocytes # 1.2 Monocytes # 0.8 Eosinophils # 0.3 Basophils # 0.0 Nucleated Red Blood Cells # 0.0 Sodium Level 128 L Potassium Level 4.1 Chloride Level 100 Carbon Dioxide Level 22 Anion Gap 10 Blood Urea Nitrogen 30 H Creatinine 1.25 H Glucose Level 210 Calcium Level 7.3 L Bedside Glucose 223 H Medications Medications Current Medications Allopurinol (Zyloprim) 100 mg DAILY PO Last administered on 11/29/16 08:46; Admin Dose 100 MG; Start 11/21/16 at 09:00 Atorvastatin Calcium (Lipitor) 40 mg DAILY@21 PO Last administered on 11/28/16 20:32; Admin Dose 40 MG; Start 11/21/16 at 21:00 Carvedilol (Coreg) 12.5 mg BID PO Last administered on 11/28/16 12:49; Admin Dose 12.5 MG; Start 11/21/16 at 09:00 Docusate Sodium (Colace) 300 mg BID PO Last administered on 11/29/16 08:46; Admin Dose 300 MG; Start 11/21/16 at 09:00 Furosemide (Lasix) 40 mg DAILY@06 PO Last administered on 11/29/16 06:05; Admin Dose 40 MG; Start 11/21/16 at 06:00 Latanoprost (Xalatan) 1 drop DAILY BOTH EYES Last administered on 11/28/16 08: 32; Admin Dose 1 DROP; Start 11/21/16 at 09:00 Linagliptin (Tradjenta) 5 mg DAILY PO Last administered on 11/29/16 08:46; Admin Dose 5 MG; Start 11/21/16 at 09:00 Insulin Aspart NOVOLOG *MILD* ALGORI... Q4 SC Last administered on 11/29/16 06: 05; Admin Dose 3 UNIT; Start 11/21/16 at 05:00 Nicardipine HCl (Cardene Iv) 200 ml @ 50 mls/hr TITRATE IV Last administered on 11/21/16 01:31; Admin Dose 25 MLS/HR; Start 11/21/16 at 01:00 Miscellaneous Information 1 ea NOTE XX ; Start 11/21/16 at 02:45 Glucose (Glutose) 15 gm Q15M PRN PO DECREASED GLUCOSE; Start 11/21/16 at 02:45 Glucose (Glutose) 22.5 gm Q15M PRN PO DECREASED GLUCOSE; Start 11/21/16 at 02: 45 Dextrose (D50w Syringe) 25 ml Q15M PRN IV DECREASED GLUCOSE; Start 11/21/16 at 02:45 Dextrose (D50w Syringe) 50 ml Q15M PRN IV DECREASED GLUCOSE; Start 11/21/16 at 02:45 Glucagon (Glucagen) 1 mg Q15M PRN IM DECREASED GLUCOSE; Start 11/21/16 at 02:45 Glucose 15 gm 15 gm Q15M PRN BUCCAL DECREASED GLUCOSE; Start 11/21/16 at 02:45 Dextrose/Sodium Chloride (D5-1/2ns) 1,000 ml @ 70 mls/hr [id number] IV Last administered on 11/29/16 07:59; Admin Dose 70 MLS/HR; Start 11/21/16 at 14:30 Acetaminophen (Tylenol Liquid) 650 mg PRN PRN NGT PAIN AND OR ELEVATED TEMP Last administered on 11/28/16 17:09; Admin Dose 650 MG; Start 11/21/16 at 21:00 Acetaminophen 650 mg 650 mg PRN PRN [place] fever Last administered on 11/27/16 17: 29; Admin Dose 650 MG; Start 11/21/16 at 21:00 Ciprofloxacin/ Dextrose (Cipro Ivpb) 200 ml @ 200 mls/hr Q24H IVPB Last administered on 11/28/16 12:49; Admin Dose 200 MLS/HR; Start 11/22/16 at 12:30 Lansoprazole 30 mg 30 mg DAILY@06 GTB Last administered on 11/29/16 06:05; Admin Dose 30 MG; Start 11/25/16 at 06:00 Cefepime HCl 50 ml @ 100 mls/hr Q12 IVPB Last administered on 11/29/16 08:45; Admin Dose 100 MLS/HR; Start 11/25/16 at 10:30 Levetiracetam (Keppra 500 Mg/ 100ml (Pmx)) 100 ml @ 400 mls/hr Q12 IVPB Last administered on 11/29/16 08:45; Admin Dose 400 MLS/HR; Start 11/25/16 at 21:00 Fentanyl (Sublimaze) 25 mcg Q3H PRN IV PAIN Last administered on 11/27/16 22: 07; Admin Dose 25 MCG; Start 11/26/16 at 16:00 Chlorpromazine (Thorazine) 25 mg Q8 PO Last administered on 11/29/16 06:05; Admin Dose 25 MG; Start 11/28/16 at 14:00; Stop 11/29/16 at 13:59 Metoclopramide HCl (Reglan Liq) 5 mg Q6H PRN PO NAUSEA AND/OR VOMITING Last administered on 11/28/16 14:06; Admin Dose 5 MG; Start 11/28/16 at 11:30 Insulin Glargine (Lantus) 8 unit DAILY@08 SC ; Start 11/30/16 at 08:00; Status UNV Insulin Glargine (Lantus) 8 unit ONCE ONCE SC ; Start 11/29/16 at 09:00; Stop at 09:01; Status MERLEV ALEX FELDMAN MD Nov 29, 2016 08:57
[2016-11-29] MEDS ORDERED: INSULIN GLARGINE [LANtus] 3 ML PEN SC ONE (09:00)
[2016-11-29] MEDS: POTASSIUM CHLORIDE 10 MEQ in DEXTROSE 5%-0.9% NACL 1,000 ML IV SCH (10:38)
--- NOTE | 2016-11-29 11:43 | CONS ---
Date/Time of Note Date/Time of Note DATE: 11/29/16 TIME: 11:38 Consult Date/Type/Reason Admit Date/Time Nov 20, 2016 at 23:09 Initial Consult Date 11/21/16 Type of Consultation: Pulmonary/critical care Subjective No events. Remans minimally responsive. Objective Vital Signs Date Time Temp Pulse Resp B/P Pulse Ox O2 Delivery O2 Flow Rate FiO2 11/29/16 09:00 59 20 101/50 100 Mechanical Ventilator 11/29/16 08:00 30 11/29/16 08:00 99.3 Intake and Output 11/28/16 11/28/16 11/29/16 14:59 22:59 06:59 Intake Total 970 ml 1140 ml 930 ml Output Total 1000 ml 643 ml 919 ml Balance -30 ml 497 ml 11 ml Exam HEENT: Neck supple; no JVD; no LAD; ET tube in place CVS: RRR, S1 and S2 CHEST: Clear ABD: Soft, NT, + BS EXT: No c/c/e NEURO: Flaccid; +GAG and corneal Results/Medications Result Diagram: 11/29/16 0457 11/29/16 0457 Results 24 hrs Laboratory Tests Test 11/28/16 12:39 11/28/16 17:12 11/28/16 20:29 11/29/16 01:11 Bedside Glucose 160 168 200 187 Test 11/29/16 04:57 11/29/16 06:02 11/29/16 08:53 White Blood Count 8.1 Red Blood Count 4.67 L Hemoglobin 12.0 L Hematocrit 38.6 L Mean Corpuscular Volume 82.7 Mean Corpuscular Hemoglobin 25.7 L Mean Corpuscular Hemoglobin Concent 31.1 L Red Cell Distribution Width 16.5 H Platelet Count 159 Mean Platelet Volume 12.5 H Neutrophils % 70.2 Lymphocytes % 14.4 L Monocytes % 9.6 Eosinophils % 3.9 Basophils % 0.4 Nucleated Red Blood Cells % 0.0 Neutrophils # 5.7 Lymphocytes # 1.2 Monocytes # 0.8 Eosinophils # 0.3 Basophils # 0.0 Nucleated Red Blood Cells # 0.0 Sodium Level 128 L Potassium Level 4.1 Chloride Level 100 Carbon Dioxide Level 22 Anion Gap 10 Blood Urea Nitrogen 30 H Creatinine 1.25 H Glucose Level 210 Calcium Level 7.3 L Bedside Glucose 223 H 154 Medications Current Medications Allopurinol (Zyloprim) 100 mg DAILY PO Last administered on 11/29/16 08:46; Admin Dose 100 MG; Start 11/21/16 at 09:00 Atorvastatin Calcium (Lipitor) 40 mg DAILY@21 PO Last administered on 11/28/16 20:32; Admin Dose 40 MG; Start 11/21/16 at 21:00 Carvedilol (Coreg) 12.5 mg BID PO Last administered on 11/28/16 12:49; Admin Dose 12.5 MG; Start 11/21/16 at 09:00 Docusate Sodium (Colace) 300 mg BID PO Last administered on 11/29/16 08:46; Admin Dose 300 MG; Start 11/21/16 at 09:00 Furosemide (Lasix) 40 mg DAILY@06 PO Last administered on 11/29/16 06:05; Admin Dose 40 MG; Start 11/21/16 at 06:00 Latanoprost (Xalatan) 1 drop DAILY BOTH EYES Last administered on 11/29/16 08: 57; Admin Dose 1 DROP; Start 11/21/16 at 09:00 Linagliptin (Tradjenta) 5 mg DAILY PO Last administered on 11/29/16 08:46; Admin Dose 5 MG; Start 11/21/16 at 09:00 Insulin Aspart NOVOLOG *MILD* ALGORI... Q4 SC Last administered on 11/29/16 08: 56; Admin Dose 1 UNIT; Start 11/21/16 at 05:00 Nicardipine HCl (Cardene Iv) 200 ml @ 50 mls/hr TITRATE IV Last administered on 11/21/16 01:31; Admin Dose 25 MLS/HR; Start 11/21/16 at 01:00 Miscellaneous Information 1 ea NOTE XX ; Start 11/21/16 at 02:45 Glucose (Glutose) 15 gm Q15M PRN PO DECREASED GLUCOSE; Start 11/21/16 at 02:45 Glucose (Glutose) 22.5 gm Q15M PRN PO DECREASED GLUCOSE; Start 11/21/16 at 02: 45 Dextrose (D50w Syringe) 25 ml Q15M PRN IV DECREASED GLUCOSE; Start 11/21/16 at 02:45 Dextrose (D50w Syringe) 50 ml Q15M PRN IV DECREASED GLUCOSE; Start 11/21/16 at 02:45 Glucagon (Glucagen) 1 mg Q15M PRN IM DECREASED GLUCOSE; Start 11/21/16 at 02:45 Glucose (Glutose) 15 gm Q15M PRN BUCCAL DECREASED GLUCOSE; Start 11/21/16 at 02 :45 Acetaminophen (Tylenol Liquid) 650 mg PRN PRN NGT PAIN AND OR ELEVATED TEMP Last administered on 11/28/16 17:09; Admin Dose 650 MG; Start 11/21/16 at 21:00 Acetaminophen 650 mg 650 mg PRN PRN [place] fever Last administered on 11/27/16 17: 29; Admin Dose 650 MG; Start 11/21/16 at 21:00 Ciprofloxacin/ Dextrose (Cipro Ivpb) 200 ml @ 200 mls/hr Q24H IVPB Last administered on 11/28/16 12:49; Admin Dose 200 MLS/HR; Start 11/22/16 at 12:30 Lansoprazole 30 mg 30 mg DAILY@06 GTB Last administered on 11/29/16 06:05; Admin Dose 30 MG; Start 11/25/16 at 06:00 Cefepime HCl 50 ml @ 100 mls/hr Q12 IVPB Last administered on 11/29/16 08:45; Admin Dose 100 MLS/HR; Start 11/25/16 at 10:30 Levetiracetam (Keppra 500 Mg/ 100ml (Pmx)) 100 ml @ 400 mls/hr Q12 IVPB Last administered on 11/29/16 08:45; Admin Dose 400 MLS/HR; Start 11/25/16 at 21:00 Fentanyl (Sublimaze) 25 mcg Q3H PRN IV PAIN Last administered on 11/27/16 22: 07; Admin Dose 25 MCG; Start 11/26/16 at 16:00 Chlorpromazine (Thorazine) 25 mg Q8 PO Last administered on 11/29/16 06:05; Admin Dose 25 MG; Start 11/28/16 at 14:00; Stop 11/29/16 at 13:59 Metoclopramide HCl (Reglan Liq) 5 mg Q6H PRN PO NAUSEA AND/OR VOMITING Last administered on 11/28/16 14:06; Admin Dose 5 MG; Start 11/28/16 at 11:30 Insulin Glargine 8 unit 8 unit DAILY@08 SC ; Start 11/30/16 at 08:00 Potassium Chloride/Dextrose/ Sodium Chloride (KCl/D5-NS) 1,005 ml @ 70 mls/hr [id number] IV Last administered on 11/29/16t 10:38; Admin Dose 70 MLS/HR; Start 11/29/16 at 09:00 Assessment/Plan Additional Assessment/Plan IMP: 1. 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 ICH 3. 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 ARF: Improved 5. CAD 6. Anemia RECS: 1. Await family decision regarding goals of care and ultimate transition to comfort measures 2. Vent support 3. ISS for glucose control 4. Minimize all sedatives 5. Continue to reassess mental status 35 min cc time POOJA EATON MD Nov 29, 2016 11:43
[2016-11-29] MEDS: CIPROFLOXACIN 400MG/D5W 200 ML IVPB SCH (13:22)
[2016-11-29] MEDS: ATORVASTATIN 40 MG TAB PO SCH (20:37)
[2016-11-30] VITALS (34 sets, daily range): BP systolic 79–112; BP diastolic 45–59; PULSE 57–103; RESP 15–24
[2016-11-30] MEDS: FENTAnyl 50 MCG/ML VIAL IV PRN (00:36)
[2016-11-30] MEDS: INSULIN ASPART [NOVOLOG] 3 ML PEN SC SCH ×6 (01:18→21:00)
[2016-11-30] MEDS: POTASSIUM CHLORIDE 10 MEQ in DEXTROSE 5%-0.9% NACL 1,000 ML IV SCH ×3 (03:45→17:00)
[2016-11-30 05:53] LABS: AADO2 Arterial 86.4 mmHg (7.0-24.0); Allen Test ACCEPTAB; Arterial Base Excess 1.9 mmol/L (-3.0-3); Arterial COHb 0.3 % (0.0-3.0); Arterial Fraction of Oxyhgb 96.1 % (93.0-99.0); Arterial HCO3 24.9 mmol/L (22.0-26.0); Arterial MetHb 0.2 % (0.0-1.5); Arterial Total Hemglobin 12.1 g/dl (12.0-18.0); MODE VENT - AC
[2016-11-30] MEDS: LANSOPRAZOLE 30 MG CAP GTB SCH (05:55)
[2016-11-30] MEDS: FUROSEMIDE 40 MG TAB PO SCH (05:56)
[2016-11-30 06:34] LABS: ADD SCAN DIFF NO
[2016-11-30 06:42] LABS: BASOPHIL # 0.1 10^3/ul (0.0-0.1); BASOPHILS % 0.6 % (0.0-2.0); EOSINOPHILS # 0.3 10^3/ul (0.0-0.5); EOSINOPHILS % 4.1 % (0.0-7.0); HEMATOCRIT 36.8 % (42.0-52.0); HEMOGLOBIN 11.5 g/dl (14.0-18.0); LYMPHOCYTES # 0.9 10^3/ul (0.8-2.9); LYMPHOCYTES % 10.4 % (15.0-51.0); MEAN CORPUSCULAR HEMOGLOBIN 26.1 pg (29.0-33.0); MEAN CORPUSCULAR HGB CONC 31.3 g/dl (32.0-37.0); MEAN CORPUSCULAR VOLUME 83.4 fl (82.0-101.0); MONOCYTE # 0.7 10^3/ul (0.3-0.9); MONOCYTES % 8.3 % (0.0-11.0); NEUTROPHIL # 6.2 10^3/ul (1.6-7.5); PLATELET COUNT 129 10^3/UL (140-415); RED BLOOD COUNT 4.41 10^6/ul (4.70-6.10); RED CELL DISTRIBUTION WIDTH 16.2 % (11.5-14.5); WHITE BLOOD COUNT 8.3 10^3/ul (4.8-10.8)
[2016-11-30 06:54] LABS: POTASSIUM 4.5 mmol/L (3.5-5.1)
[2016-11-30 06:56] LABS: CREATININE 1.14 mg/dl (0.61-1.24)
[2016-11-30 06:57] LABS: CALCIUM 7.5 mg/dl (8.4-10.2)
[2016-11-30] MEDS: REPAGLINIDE 2 MG TAB PO SCH ×3 (07:52→17:41)
[2016-11-30] MEDS: INSULIN GLARGINE [LANtus] 3 ML PEN SC SCH (07:55)
[2016-11-30] MEDS: LATANOPROST 0.005% 2.5 ML OPH BOTH EYES SCH (08:17)
[2016-11-30] MEDS: LEVETIRACETAM 500 MG (PMX) 100 ML IVPB SCH ×2 (08:17→20:58)
[2016-11-30] MEDS: CEFEPIME 1GM/50 ML (PMX) 50 ML IVPB SCH ×2 (08:18→20:57)
[2016-11-30] MEDS: ALLOPURINOL 100 MG TAB PO SCH (08:18)
--- NOTE | 2016-11-30 08:18 | RADRPT ---
PROCEDURE: XR Chest. CLINICAL INDICATION: Shortness of breath. TECHNIQUE: Single frontal view. COMPARISON: 11/25/2016. FINDINGS: The endotracheal tube and nasogastric tube are in satisfactory position. Mild pulmonary edema and l eft basilar atelectasis are unchanged. The lungs are otherwise clear. The heart is enlarged. There is calcification in the aorta consistent with atherosclerosis. There are sternal wires. There is no pleural effusion. There is no pneumothorax. IMPRESSION: 1. No change from 11/25/2016. RPTAT: QQ .Shad Solorzano MD, MD Date Time Electronically viewed and signed by .Shad Solorzano MD, MD on 11/30/2016 08:18 .R/
[2016-11-30] MEDS: LINAGLIPTIN 5 MG TABLET PO SCH (08:29)
[2016-11-30] MEDS: DOCUSATE SODIUM 10 MG/ML (10ML CUP) NGT SCH ×2 (09:06→20:58)
--- NOTE | 2016-11-30 11:23 | CONS ---
Date/Time of Note Date/Time of Note DATE: 11/30/16 TIME: 11:21 Assessment/Plan Assessment/Plan Additional Assessment/Plan Chest x-ray was reviewed from today which is essentially unremarkable. Ventilator settings; AC of 20, tidal volume 500, PEEP of 5, 30% FiO2. Assessment recommendations; 1. Patient admitted for intraventricular hemorrhage leading to respiratory failure. 2. History of prior coronary artery disease status post bypass surgery. 3. Status post ventriculostomy. 4. Very poor mental status. Continue current supportive care. The patient's family still has not decided about CODE STATUS. Prognosis is extremely poor. Consultation Date/Type/Reason Admit Date/Time Nov 20, 2016 at 23:09 Initial Consult Date 11/21/16 Type of Consultation: Pulmonary/critical care 24 HR Interval Summary Free Text/Dictation Patient condition remains critical but stable. Still requiring full ventilator support. Remains minimally responsive. General exam; elderly male, on ventilator via endotracheal tube. Currently unresponsive. Exam/Review of Systems Vital Signs Vitals Vital Signs Date Time Temp Pulse Resp B/P Pulse Ox O2 Delivery O2 Flow Rate FiO2 11/30/16 11:00 62 20 83/49 98 Mechanical Ventilator 11/30/16 08:00 98.5 11/30/16 06:00 30 Intake and Output 11/29/16 11/29/16 11/30/16 15:00 23:00 07:00 Intake Total 1225 ml 1340 ml 930 ml Output Total 1418 ml 611 ml 446 ml Balance -193 ml 729 ml 484 ml Exam HEENT exam; supple neck, positive JVD. No lymphadenopathy. Midline trachea. No thyromegaly. There is a ventriculostomy in place. Bilateral cataracts are present. Has multiple carious teeth. No neck masses. No thyromegaly. Chest examination; diminished but clear breath sounds bilaterally. S1-S2 audible, no murmurs. Regular rhythm. There is a well-healed sternal scar. Abdomen examination; soft, nondistended. No organomegaly. Bowel sounds audible. Extremity exam; no peripheral edema. FINGERNAIL FORMER examination; patient remains unresponsive. There is minimal if any eye opening on deep sternal rubbing. Results Result Diagram: 11/30/16 0607 11/30/16 0607 Results 24 hrs Laboratory Tests Test 11/29/16 13:21 11/29/16 17:35 11/29/16 21:27 11/30/16 01:13 Bedside Glucose 143 178 196 200 Test 11/30/16 05:00 11/30/16 05:13 11/30/16 06:07 11/30/16 09:08 Blood Gas Specimen Source Blood arterial Arterial Blood Date Drawn 11/30/2016 5:40:50 AM Arterial Blood pH (Temp corrected) 7.486 H Arterial Blood pCO2 (Temp correct) 33.8 L Arterial Blood pO2 (Temp corrected) 87.8 Arterial Blood HCO3 24.9 Arterial Blood Base Excess 1.9 Arterial Blood Oxygen Saturation 96.6 Ashish Test ACCEPTAB Arterial Blood Gas Puncture Site Right Radial Arterial Blood Carboxyhemoglobin 0.3 Arterial Blood Methemoglobin 0.2 Blood Gas A-a O2 Differential 86.4 H Oxyhemoglobin Percent 96.1 Total Hemoglobin 12.1 Blood Gas Temperature 37.0 Blood Gas Respiration Rate 20.0 Blood Gas Actual Respiration Rate 20 Blood Gas Modality VENT - AC FiO2 30.0 Blood Gas Tidal Volume 500.0 Blood Gas Low PEEP Setting 5.0 Blood Gas Inspiratory Pressure 28.0 Blood Gas Notified Nata KOO RCP Blood Gas Notified Time 11/30/2016 5:52:49 AM Bedside Glucose 172 235 H White Blood Count 8.3 Red Blood Count 4.41 L Hemoglobin 11.5 L Hematocrit 36.8 L Mean Corpuscular Volume 83.4 Mean Corpuscular Hemoglobin 26.1 L Mean Corpuscular Hemoglobin Concent 31.3 L Red Cell Distribution Width 16.2 H Platelet Count 129 L Mean Platelet Volume Neutrophils % 75.0 Lymphocytes % 10.4 L Monocytes % 8.3 Eosinophils % 4.1 Basophils % 0.6 Nucleated Red Blood Cells % 0.0 Neutrophils # 6.2 Lymphocytes # 0.9 Monocytes # 0.7 Eosinophils # 0.3 Basophils # 0.1 Nucleated Red Blood Cells # 0.0 Sodium Level 130 L Potassium Level 4.5 Chloride Level 103 Carbon Dioxide Level 23 Anion Gap 9 Blood Urea Nitrogen 31 H Creatinine 1.14 Glucose Level 206 Calcium Level 7.5 L Medications Medications Current Medications Allopurinol (Zyloprim) 100 mg DAILY PO Last administered on 11/30/16 08:18; Admin Dose 100 MG; Start 11/21/16 at 09:00 Atorvastatin Calcium (Lipitor) 40 mg DAILY@21 PO Last administered on 11/29/16 20:37; Admin Dose 40 MG; Start 11/21/16 at 21:00 Carvedilol (Coreg) 12.5 mg BID PO Last administered on 11/30/16 08:19; Admin Dose 12.5 MG; Start 11/21/16 at 09:00 Furosemide (Lasix) 40 mg DAILY@06 PO Last administered on 11/30/16 05:56; Admin Dose 40 MG; Start 11/21/16 at 06:00 Latanoprost (Xalatan) 1 drop DAILY BOTH EYES Last administered on 11/30/16 08: 17; Admin Dose 1 DROP; Start 11/21/16 at 09:00 Linagliptin (Tradjenta) 5 mg DAILY PO Last administered on 11/30/16 08:29; Admin Dose 5 MG; Start 11/21/16 at 09:00 Insulin Aspart NOVOLOG *MILD* ALGORI... Q4 SC Last administered on 11/30/16 09: 11; Admin Dose 3 UNIT; Start 11/21/16 at 05:00 Nicardipine HCl (Cardene Iv) 200 ml @ 50 mls/hr TITRATE IV Last administered on 11/21/16 01:31; Admin Dose 25 MLS/HR; Start 11/21/16 at 01:00 Miscellaneous Information 1 ea NOTE XX ; Start 11/21/16 at 02:45 Glucose (Glutose) 15 gm Q15M PRN PO DECREASED GLUCOSE; Start 11/21/16 at 02:45 Glucose (Glutose) 22.5 gm Q15M PRN PO DECREASED GLUCOSE; Start 11/21/16 at 02: 45 Dextrose (D50w Syringe) 25 ml Q15M PRN IV DECREASED GLUCOSE; Start 11/21/16 at 02:45 Dextrose (D50w Syringe) 50 ml Q15M PRN IV DECREASED GLUCOSE; Start 11/21/16 at 02:45 Glucagon (Glucagen) 1 mg Q15M PRN IM DECREASED GLUCOSE; Start 11/21/16 at 02:45 Glucose (Glutose) 15 gm Q15M PRN BUCCAL DECREASED GLUCOSE; Start 11/21/16 at 02 :45 Acetaminophen (Tylenol Liquid) 650 mg PRN PRN NGT PAIN AND OR ELEVATED TEMP Last administered on 11/28/16 17:09; Admin Dose 650 MG; Start 11/21/16 at 21:00 Acetaminophen 650 mg 650 mg PRN PRN SC fever Last administered on 11/27/16 17: 29; Admin Dose 650 MG; Start 11/21/16 at 21:00 Ciprofloxacin/ Dextrose (Cipro Ivpb) 200 ml @ 200 mls/hr Q24H IVPB Last administered on 11/29/16 13:22; Admin Dose 200 MLS/HR; Start 11/22/16 at 12:30 Lansoprazole 30 mg 30 mg DAILY@06 GTB Last administered on 11/30/16 05:55; Admin Dose 30 MG; Start 11/25/16 at 06:00 Cefepime HCl 50 ml @ 100 mls/hr Q12 IVPB Last administered on 11/30/16 08:18; Admin Dose 100 MLS/HR; Start 11/25/16 at 10:30 Levetiracetam (Keppra 500 Mg/ 100ml (Pmx)) 100 ml @ 400 mls/hr Q12 IVPB Last administered on 11/30/16 08:17; Admin Dose 400 MLS/HR; Start 11/25/16 at 21:00 Fentanyl (Sublimaze) 25 mcg Q3H PRN IV PAIN Last administered on 11/30/16 00:36 ; Admin Dose 25 MCG; Start 11/26/16 at 16:00 Metoclopramide HCl (Reglan Liq) 5 mg Q6H PRN PO NAUSEA AND/OR VOMITING Last administered on 11/28/16 14:06; Admin Dose 5 MG; Start 11/28/16 at 11:30 Insulin Glargine 8 unit 8 unit DAILY@08 SC Last administered on 11/30/16 07:55 ; Admin Dose 8 UNIT; Start 11/30/16 at 08:00 Potassium Chloride/Dextrose/ Sodium Chloride (KCl/D5-NS) 1,005 ml @ 70 mls/hr [id number] IV Last administered on 11/30/16 03:45; Admin Dose 70 MLS/HR; Start 11/29/16 at 09:00 Docusate Sodium (Colace Liquid Cup) 100 mg BID NGT Last administered on 09:06; Admin Dose 100 MG; Start 11/30/16 at 09:00 REGINO RESTREPO Nov 30, 2016 11:23
[2016-11-30] MEDS: CIPROFLOXACIN 400MG/D5W 200 ML IVPB SCH (13:03)
--- NOTE | 2016-11-30 14:57 | PN ---
Date/Time of Note Date/Time of Note DATE: 11/30/16 TIME: 14:40 Assessment/Plan VTE Prophylaxis VTE Prophylaxis Intervention: contraindicated VTE Contraindication Reason: hemorrhagic cerebral infarction Lines/Catheters IV Catheter Type (from Nrs): Peripheral IV Urinary Cath still in place: Yes Reason Cath still needed: terminal illness/intractable pain Assessment/Plan Problems: (1) Hemorrhagic stroke Status: Acute Comment: Pt. w/ ongoing poor neurologic recovery. Family planning terminal extubation in 72 hours. Will get better evaluation of neurological status at the time. (2) On mechanically assisted ventilation Status: Acute Comment: D/w pulmonary re: reducing back-up rate on the vent to evaluate if pt. breathes over vent to decide if pt. will breathe after terminal extubation. O/w defer to pulmonary for vent management. 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 However, given prognosis, don't need to be more aggressive at this time. If glucose levels get to be higher than this, will have to be more aggressive with therapy. Qualifiers: Diabetes mellitus termite exterminator insulin use: without termite exterminator use Chronic kidney disease stage: stage 2 (mild) Qualified Code: E11.22 - Type 2 diabetes mellitus with stage 2 chronic kidney disease, without long-term current use of insulin (4) Essential (primary) hypertension Status: Chronic Comment: Controlled w/ nicardipine. Now below goal. Will have to monitor b/c BP now lower. Reeval daily (5) Chronic kidney disease, stage II (mild) Status: Chronic Comment: Stable Subjective 24 Hr Interval Summary Subjective hx not possible: pt non-verbal, pt critical status Exam/Review of Systems Vital Signs Vitals VS - Last 72 Hours, by Label Date Time Temp Pulse Resp B/P Pulse Ox O2 Delivery O2 Flow Rate FiO2 11/30/16 12:00 103 11/30/16 11:00 62 20 83/49 98 Mechanical Ventilator 11/30/16 10:00 63 20 94/56 98 Mechanical Ventilator 11/30/16 09:00 66 20 105/53 98 Mechanical Ventilator 11/30/16 08:00 98.5 69 20 104/55 98 Mechanical Ventilator 11/30/16 08:00 69 11/30/16 06:56 62 20 105/55 99 Mechanical Ventilator 11/30/16 06:00 30 11/30/16 06:00 64 20 109/55 99 Mechanical Ventilator 11/30/16 05:34 61 20 100 30 11/30/16 04:00 61 11/30/16 04:00 99.1 60 20 112/56 100 Mechanical Ventilator 11/30/16 03:25 62 20 100 30 11/30/16 03:00 59 20 96/49 97 Mechanical Ventilator 11/30/16 02:00 57 20 95/46 98 Mechanical Ventilator 11/30/16 01:23 62 20 100 30 11/30/16 01:00 59 20 90/46 97 Mechanical Ventilator 11/30/16 00:00 30 11/30/16 00:00 98.6 59 24 112/50 99 Mechanical Ventilator 11/30/16 00:00 59 11/29/16 23:25 60 20 98 30 11/29/16 23:00 61 20 99/47 99 Mechanical Ventilator 11/29/16 22:00 58 20 95/44 98 Mechanical Ventilator 11/29/16 21:15 59 20 98 30 11/29/16 21:00 59 20 93/44 98 Mechanical Ventilator 11/29/16 20:00 99.1 62 19 110/48 99 Mechanical Ventilator 11/29/16 20:00 30 11/29/16 20:00 61 11/29/16 19:27 59 20 98 30 11/29/16 19:00 60 20 94/44 98 Mechanical Ventilator 11/29/16 18:00 61 20 97/43 99 Mechanical Ventilator 11/29/16 17:40 65 22 98 30 11/29/16 17:00 58 20 100/44 97 Mechanical Ventilator 11/29/16 16:00 60 11/29/16 16:00 99.3 61 20 108/55 100 Mechanical Ventilator 11/29/16 15:20 60 20 99 30 11/29/16 15:00 63 21 111/52 98 Mechanical Ventilator 11/29/16 14:00 59 20 103/43 100 Mechanical Ventilator 11/29/16 13:55 63 20 99 30 11/29/16 13:00 63 21 98/42 99 Mechanical Ventilator 11/29/16 12:00 99.0 62 20 102/50 100 Mechanical Ventilator 11/29/16 12:00 64 11/29/16 11:05 59 20 99 30 11/29/16 11:00 59 20 103/58 100 Mechanical Ventilator 11/29/16 10:00 60 20 103/54 100 Mechanical Ventilator 11/29/16 09:30 61 20 100 30 11/29/16 09:00 59 20 101/50 100 Mechanical Ventilator 11/29/16 08:00 30 11/29/16 08:00 99.3 59 21 96/53 98 Mechanical Ventilator 11/29/16 08:00 61 11/29/16 07:50 60 20 100 30 11/29/16 07:00 61 20 95/48 99 Mechanical Ventilator 11/29/16 06:00 58 20 112/57 100 Mechanical Ventilator 11/29/16 05:19 60 20 100 30 11/29/16 05:00 59 21 115/56 100 Mechanical Ventilator 11/29/16 04:00 58 11/29/16 04:00 99.1 59 21 109/45 100 Mechanical Ventilator 11/29/16 03:43 56 20 100 30 11/29/16 03:00 56 19 109/43 100 Mechanical Ventilator 11/29/16 02:00 57 20 109/49 100 Mechanical Ventilator 11/29/16 01:19 59 20 100 30 11/29/16 01:00 59 18 108/49 100 Mechanical Ventilator 11/29/16 00:00 99.4 55 20 96/38 100 Mechanical Ventilator 11/29/16 00:00 56 11/28/16 23:43 56 20 100 30 11/28/16 23:00 56 20 96/40 100 Mechanical Ventilator 11/28/16 22:00 57 20 90/50 100 Mechanical Ventilator 11/28/16 21:27 56 20 100 30 11/28/16 21:00 56 20 94/47 100 Mechanical Ventilator 11/28/16 20:04 54 20 99 30 11/28/16 20:00 100.1 55 20 83/44 99 Mechanical Ventilator 11/28/16 20:00 30 11/28/16 20:00 55 11/28/16 19:00 57 20 87/48 98 Mechanical Ventilator 11/28/16 18:30 57 20 90/50 98 11/28/16 18:00 58 20 94/53 97 Mechanical Ventilator 11/28/16 17:30 57 21 118/53 97 11/28/16 17:00 65 23 99 30 11/28/16 16:30 58 20 123/57 100 11/28/16 16:00 59 11/28/16 16:00 99.9 60 19 121/58 100 Mechanical Ventilator 11/28/16 16:00 30 11/28/16 15:30 57 21 101/49 100 11/28/16 15:29 62 22 100 30 11/28/16 15:00 56 20 134/58 100 11/28/16 14:30 59 17 126/97 100 Mechanical Ventilator 11/28/16 14:00 59 17 130/72 100 Mechanical Ventilator 11/28/16 14:00 59 17 130/72 100 11/28/16 13:30 61 21 140/69 100 Mechanical Ventilator 11/28/16 13:20 68 20 100 30 11/28/16 13:00 59 20 134/61 99 Mechanical Ventilator 11/28/16 12:30 62 17 138/71 100 Mechanical Ventilator 11/28/16 12:00 57 11/28/16 12:00 30 11/28/16 12:00 98.5 58 19 129/59 100 Mechanical Ventilator 11/28/16 12:00 75 11/28/16 11:30 58 20 100 30 11/28/16 11:00 58 20 139/53 98 Mechanical Ventilator 11/28/16 10:30 61 16 139/67 100 Mechanical Ventilator 11/28/16 10:00 58 20 144/67 99 Mechanical Ventilator 11/28/16 09:25 64 20 100 30 11/28/16 09:00 57 21 137/67 100 Mechanical Ventilator 11/28/16 08:30 56 20 124/57 100 Mechanical Ventilator 11/28/16 08:00 55 11/28/16 08:00 30 11/28/16 08:00 99.8 54 20 135/57 100 Mechanical Ventilator 11/28/16 07:50 63 20 100 30 11/28/16 07:30 53 21 135/65 100 Mechanical Ventilator 11/28/16 07:00 55 22 126/60 100 Mechanical Ventilator 11/28/16 06:00 57 22 140/71 100 Mechanical Ventilator 11/28/16 05:00 55 20 140/63 100 Mechanical Ventilator 11/28/16 05:00 55 20 100 30 11/28/16 04:00 100.1 55 20 129/63 100 Mechanical Ventilator 11/28/16 04:00 55 11/28/16 03:14 55 20 100 30 11/28/16 03:00 53 20 116/59 100 Mechanical Ventilator 11/28/16 02:00 53 20 116/47 100 Mechanical Ventilator 11/28/16 01:39 52 20 100 30 11/28/16 01:00 53 20 106/46 100 Mechanical Ventilator 11/28/16 00:00 100.0 56 20 127/64 100 Mechanical Ventilator 11/28/16 00:00 57 11/27/16 23:21 55 21 100 30 11/27/16 23:00 56 18 121/62 99 Mechanical Ventilator 11/27/16 22:30 57 20 100/52 98 Mechanical Ventilator 11/27/16 22:05 57 20 99 30 11/27/16 22:00 56 20 100 Mechanical Ventilator 11/27/16 21:30 58 20 125/64 100 Mechanical Ventilator 11/27/16 21:00 57 20 117/58 100 Mechanical Ventilator 11/27/16 20:30 56 20 112/54 100 Mechanical Ventilator 11/27/16 20:00 30 11/27/16 20:00 58 11/27/16 20:00 100.7 57 20 117/60 100 Mechanical Ventilator 11/27/16 19:30 57 20 121/58 100 Mechanical Ventilator 11/27/16 19:00 59 20 115/55 98 Mechanical Ventilator 11/27/16 18:59 59 20 99 30 11/27/16 18:30 58 25 103/60 97 11/27/16 18:00 63 20 108/57 97 11/27/16 17:30 66 26 161/85 97 11/27/16 17:00 64 20 100 30 11/27/16 17:00 59 20 117/62 96 11/27/16 16:30 57 20 119/55 99 11/27/16 16:00 99.9 58 20 113/60 100 11/27/16 16:00 57 11/27/16 15:30 55 20 108/52 100 11/27/16 15:00 59 20 121/51 98 11/27/16 15:00 57 20 99 30 Vital Signs Date Time Temp Pulse Resp B/P Pulse Ox O2 Delivery O2 Flow Rate FiO2 11/30/16 12:00 103 11/30/16 11:00 20 83/49 98 Mechanical Ventilator 11/30/16 08:00 98.5 11/30/16 06:00 30 Intake and Output 11/29/16 11/29/16 11/30/16 15:00 23:00 07:00 Intake Total 1225 ml 1340 ml 930 ml Output Total 1418 ml 611 ml 446 ml Balance -193 ml 729 ml 484 ml Exam Constitutional: frail, non-verbal, obese, No alert ENMT: intubated Respiratory: clear to auscultation, normal air movement Cardiovascular: nl pulses, regular rate and rhythm, No edema, No murmurs/extra sounds, No rub Gastrointestinal: bowel sounds, nl liver, spleen, non-tender, soft, No mass, No rebound or guarding Musculoskeletal: nl extremities to inspection Extremities: normal pulses, No clubbing, No cyanosis, No edema Neurological: unresponsive Additional Comments Bedside Glucose - 72 Hours Test 11/27/16 17:20 11/27/16 20:19 11/28/16 01:16 11/28/16 05:18 Bedside Glucose 169mg/dL (70-220) 146mg/dL (70-220) 141mg/dL (70-220) 166mg/dL (70-220) Test 11/28/16 08:27 11/28/16 12:39 11/28/16 17:12 11/28/16 20:29 Bedside Glucose 177mg/dL (70-220) 160mg/dL (70-220) 168mg/dL (70-220) 200mg/dL (70-220) Test 11/29/16 01:11 11/29/16 06:02 11/29/16 08:53 11/29/16 13:21 Bedside Glucose 187mg/dL (70-220) 223mg/dL (70-220) H 154mg/dL (70-220) 143mg/dL (70-220) Test 11/29/16 17:35 11/29/16 21:27 11/30/16 01:13 11/30/16 05:13 Bedside Glucose 178mg/dL (70-220) 196mg/dL (70-220) 200mg/dL (70-220) 172mg/dL (70-220) Test 11/30/16 09:08 11/30/16 13:27 Bedside Glucose 235mg/dL (70-220) H 218mg/dL (70-220) Results Result Diagram: 11/30/16 0607 11/30/16 0607 Results 24 hrs Laboratory Tests Test 11/29/16 17:35 11/29/16 21:27 11/30/16 01:13 11/30/16 05:00 Bedside Glucose 178 196 200 Blood Gas Specimen Source Blood arterial Arterial Blood Date Drawn 11/30/2016 5:40:50 AM Arterial Blood pH (Temp corrected) 7.486 H Arterial Blood pCO2 (Temp correct) 33.8 L Arterial Blood pO2 (Temp corrected) 87.8 Arterial Blood HCO3 24.9 Arterial Blood Base Excess 1.9 Arterial Blood Oxygen Saturation 96.6 Ashish Test ACCEPTAB Arterial Blood Gas Puncture Site Right Radial Arterial Blood Carboxyhemoglobin 0.3 Arterial Blood Methemoglobin 0.2 Blood Gas A-a O2 Differential 86.4 H Oxyhemoglobin Percent 96.1 Total Hemoglobin 12.1 Blood Gas Temperature 37.0 Blood Gas Respiration Rate 20.0 Blood Gas Actual Respiration Rate 20 Blood Gas Modality VENT - AC FiO2 30.0 Blood Gas Tidal Volume 500.0 Blood Gas Low PEEP Setting 5.0 Blood Gas Inspiratory Pressure 28.0 Blood Gas Notified Whom HAYES KEENAN Blood Gas Notified Time 11/30/2016 5:52:49 AM Test 11/30/16 05:13 11/30/16 06:07 11/30/16 09:08 11/30/16 13:27 Bedside Glucose 172 235 H 218 White Blood Count 8.3 Red Blood Count 4.41 L Hemoglobin 11.5 L Hematocrit 36.8 L Mean Corpuscular Volume 83.4 Mean Corpuscular Hemoglobin 26.1 L Mean Corpuscular Hemoglobin Concent 31.3 L Red Cell Distribution Width 16.2 H Platelet Count 129 L Mean Platelet Volume Neutrophils % 75.0 Lymphocytes % 10.4 L Monocytes % 8.3 Eosinophils % 4.1 Basophils % 0.6 Nucleated Red Blood Cells % 0.0 Neutrophils # 6.2 Lymphocytes # 0.9 Monocytes # 0.7 Eosinophils # 0.3 Basophils # 0.1 Nucleated Red Blood Cells # 0.0 Sodium Level 130 L Potassium Level 4.5 Chloride Level 103 Carbon Dioxide Level 23 Anion Gap 9 Blood Urea Nitrogen 31 H Creatinine 1.14 Glucose Level 206 Calcium Level 7.5 L Medications Medications Current Medications Allopurinol (Zyloprim) 100 mg DAILY PO Last administered on 11/30/16t 08:18; Admin Dose 100 MG; Start 11/21/16 at 09:00 Atorvastatin Calcium (Lipitor) 40 mg DAILY@21 PO Last administered on 11/29/16 20:37; Admin Dose 40 MG; Start 11/21/16 at 21:00 Carvedilol (Coreg) 12.5 mg BID PO Last administered on 11/30/16 08:19; Admin Dose 12.5 MG; Start 11/21/16 at 09:00 Furosemide (Lasix) 40 mg DAILY@06 PO Last administered on 11/30/16 05:56; Admin Dose 40 MG; Start 11/21/16 at 06:00 Latanoprost (Xalatan) 1 drop DAILY BOTH EYES Last administered on 11/30/16 08: 17; Admin Dose 1 DROP; Start 11/21/16 at 09:00 Linagliptin (Tradjenta) 5 mg DAILY PO Last administered on 11/30/16 08:29; Admin Dose 5 MG; Start 11/21/16 at 09:00 Insulin Aspart NOVOLOG *MILD* ALGORI... Q4 SC Last administered on 11/30/16 13: 31; Admin Dose 2 UNIT; Start 11/21/16 at 05:00 Nicardipine HCl (Cardene Iv) 200 ml @ 50 mls/hr TITRATE IV Last administered on 11/21/16 01:31; Admin Dose 25 MLS/HR; Start 11/21/16 at 01:00 Miscellaneous Information 1 ea NOTE XX ; Start 11/21/16 at 02:45 Glucose (Glutose) 15 gm Q15M PRN PO DECREASED GLUCOSE; Start 11/21/16 at 02:45 Glucose (Glutose) 22.5 gm Q15M PRN PO DECREASED GLUCOSE; Start 11/21/16 at 02: 45 Dextrose (D50w Syringe) 25 ml Q15M PRN IV DECREASED GLUCOSE; Start 11/21/16 at 02:45 Dextrose (D50w Syringe) 50 ml Q15M PRN IV DECREASED GLUCOSE; Start 11/21/16 at 02:45 Glucagon (Glucagen) 1 mg Q15M PRN IM DECREASED GLUCOSE; Start 11/21/16 at 02:45 Glucose (Glutose) 15 gm Q15M PRN BUCCAL DECREASED GLUCOSE; Start 11/21/16 at 02 :45 Acetaminophen (Tylenol Liquid) 650 mg PRN PRN NGT PAIN AND OR ELEVATED TEMP Last administered on 11/28/16 17:09; Admin Dose 650 MG; Start 11/21/16 at 21:00 Acetaminophen 650 mg 650 mg PRN PRN NC fever Last administered on 11/27/16 17: 29; Admin Dose 650 MG; Start 11/21/16 at 21:00 Ciprofloxacin/ Dextrose (Cipro Ivpb) 200 ml @ 200 mls/hr Q24H IVPB Last administered on 11/30/16 13:03; Admin Dose 200 MLS/HR; Start 11/22/16 at 12:30 Lansoprazole 30 mg 30 mg DAILY@06 GTB Last administered on 11/30/16 05:55; Admin Dose 30 MG; Start 11/25/16 at 06:00 Cefepime HCl 50 ml @ 100 mls/hr Q12 IVPB Last administered on 11/30/16 08:18; Admin Dose 100 MLS/HR; Start 11/25/16 at 10:30 Levetiracetam (Keppra 500 Mg/ 100ml (Pmx)) 100 ml @ 400 mls/hr Q12 IVPB Last administered on 11/30/16 08:17; Admin Dose 400 MLS/HR; Start 11/25/16 at 21:00 Fentanyl (Sublimaze) 25 mcg Q3H PRN IV PAIN Last administered on 11/30/16 00:36 ; Admin Dose 25 MCG; Start 11/26/16 at 16:00 Metoclopramide HCl (Reglan Liq) 5 mg Q6H PRN PO NAUSEA AND/OR VOMITING Last administered on 11/28/16 14:06; Admin Dose 5 MG; Start 11/28/16 at 11:30 Insulin Glargine 8 unit 8 unit DAILY@08 SC Last administered on 11/30/16 07:55 ; Admin Dose 8 UNIT; Start 11/30/16 at 08:00 Potassium Chloride/Dextrose/ Sodium Chloride (KCl/D5-NS) 1,005 ml @ 70 mls/hr [id number] IV Last administered on 11/30/16 03:45; Admin Dose 70 MLS/HR; Start 11/29/16 at 09:00 Docusate Sodium (Colace Liquid Cup) 100 mg BID NGT Last administered on 09:06; Admin Dose 100 MG; Start 4/3/17 at 09:00 HARISH WALKER MD Nov 30, 2016 14:51
--- NOTE | 2016-11-30 15:59 | PN ---
DATE: 11/30/2016 PALLIATIVE CARE PROGRESS NOTE I have had an extensive conversation today with patient's . Family members have decided to do a compassionate extubation this week, , which will be 12/03/2016 at 1500 hours. I have assur ed them that patient will be comfortable undergoing the extubation and especially throughout the dyi ng process. Dictated By: WENCESLAO MULLEN MD LP/NTS Conf#: [id number] DID#: [id number]
[2016-11-30] MEDS: ATORVASTATIN 40 MG TAB PO SCH (20:58)
[2016-12-01] VITALS (35 sets, daily range): BP systolic 97–143; BP diastolic 49–67; PULSE 50–72; RESP 16–22
[2016-12-01] MEDS: INSULIN ASPART [NOVOLOG] 3 ML PEN SC SCH ×6 (01:58→20:45)
[2016-12-01] MEDS: POTASSIUM CHLORIDE 10 MEQ in DEXTROSE 5%-0.9% NACL 1,000 ML IV SCH ×3 (04:00→22:33)
[2016-12-01] MEDS: LANSOPRAZOLE 30 MG CAP GTB SCH (06:01)
[2016-12-01] MEDS: FUROSEMIDE 40 MG TAB PO SCH (06:01)
[2016-12-01] MEDS: REPAGLINIDE 2 MG TAB PO SCH ×3 (07:38→18:00)
[2016-12-01] MEDS: INSULIN GLARGINE [LANtus] 3 ML PEN SC SCH (07:40)
[2016-12-01] MEDS: DOCUSATE SODIUM 10 MG/ML (10ML CUP) NGT SCH ×2 (08:05→20:40)
[2016-12-01] MEDS: LATANOPROST 0.005% 2.5 ML OPH BOTH EYES SCH (08:05)
[2016-12-01] MEDS: CEFEPIME 1GM/50 ML (PMX) 50 ML IVPB SCH ×2 (08:06→20:50)
[2016-12-01] MEDS: LEVETIRACETAM 500 MG (PMX) 100 ML IVPB SCH ×2 (08:06→20:35)
[2016-12-01] MEDS: ALLOPURINOL 100 MG TAB PO SCH (08:06)
[2016-12-01] MEDS: LINAGLIPTIN 5 MG TABLET PO SCH (08:06)
--- NOTE | 2016-12-01 08:24 | CONS ---
Date/Time of Note Date/Time of Note DATE: 12/01/16 TIME: 08:22 Assessment/Plan Assessment/Plan Additional Assessment/Plan Ventilator settings are AC of 14, tidal volume 500, PEEP of 5, 30% FiO2. Assessment and recommendations; 1. Patient admitted for acute CVA with intraventricular hemorrhage. 2. Extremely poor mental status. 3. Respiratory failure. 4. History of coronary artery disease status post bypass surgery in the remote past. Continue current treatment. The family likely has decided for terminal extubation which will be performed on this coming . Prognosis is dismal. Consultation Date/Type/Reason Admit Date/Time Nov 20, 2016 at 23:09 Initial Consult Date 11/21/16 Type of Consultation: Pulmonary/critical care 24 HR Interval Summary Free Text/Dictation Patient condition remains critical. Remains essentially unresponsive. Except for perhaps minimal occasional eye opening on deep sternal rubbing. Has remained hemodynamically stable. General exam; elderly male, orally intubated, essentially unresponsive. Currently in no distress. Exam/Review of Systems Vital Signs Vitals Vital Signs Date Time Temp Pulse Resp B/P Pulse Ox O2 Delivery O2 Flow Rate FiO2 12/01/16 08:00 99.0 61 20 113/50 100 Mechanical Ventilator 12/01/16 05:07 30 Intake and Output 11/30/16 11/30/16 12/01/16 15:00 23:00 07:00 Intake Total 1430 ml 870 ml 979 ml Output Total 1187 ml 645 ml 540 ml Balance 243 ml 225 ml 439 ml Exam HEENT exam is; supple neck, no JVD. No lymphadenopathy. Midline trachea. No thyromegaly. Orally intubated. No neck masses. Bilateral cataracts are present. Patient has fair dentition. Chest examination NM: Diminished but clear breath sounds bilaterally. S1-S2 audible, no murmurs. Regular rhythm. There is a well-healed sternal scar. Abdomen examination; soft, nondistended. No organomegaly. Bowel sounds audible. Extremity exam; no peripheral edema. CANVAS MARKER examination; patient is unresponsive. Results Result Diagram: 11/30/16 0607 11/30/16 0607 Results 24 hrs Laboratory Tests Test 11/30/16 09:08 11/30/16 13:27 11/30/16 17:38 11/30/16 20:53 Bedside Glucose 235 H 218 170 193 Test 12/01/16 01:40 12/01/16 06:00 Bedside Glucose 195 174 Medications Medications Current Medications Allopurinol (Zyloprim) 100 mg DAILY PO Last administered on 12/01/16 08:06; Admin Dose 100 MG; Start 11/21/16 at 09:00 Atorvastatin Calcium (Lipitor) 40 mg DAILY@21 PO Last administered on 11/30/16 20:58; Admin Dose 40 MG; Start 11/21/16 at 21:00 Carvedilol (Coreg) 12.5 mg BID PO Last administered on 11/30/16 08:19; Admin Dose 12.5 MG; Start 11/21/16 at 09:00 Furosemide (Lasix) 40 mg DAILY@06 PO Last administered on 12/01/16 06:01; Admin Dose 40 MG; Start 11/21/16 at 06:00 Latanoprost (Xalatan) 1 drop DAILY BOTH EYES Last administered on 12/01/16 08: 05; Admin Dose 1 DROP; Start 11/21/16 at 09:00 Linagliptin (Tradjenta) 5 mg DAILY PO Last administered on 12/01/16 08:06; Admin Dose 5 MG; Start 11/21/16 at 09:00 Insulin Aspart NOVOLOG *MILD* ALGORI... Q4 SC Last administered on 12/01/16 06: 04; Admin Dose 1 UNIT; Start 11/21/16 at 05:00 Nicardipine HCl (Cardene Iv) 200 ml @ 50 mls/hr TITRATE IV Last administered on 11/21/16 01:31; Admin Dose 25 MLS/HR; Start 11/21/16 at 01:00 Miscellaneous Information 1 ea NOTE XX ; Start 11/21/16 at 02:45 Glucose (Glutose) 15 gm Q15M PRN PO DECREASED GLUCOSE; Start 11/21/16 at 02:45 Glucose (Glutose) 22.5 gm Q15M PRN PO DECREASED GLUCOSE; Start 11/21/16 at 02: 45 Dextrose (D50w Syringe) 25 ml Q15M PRN IV DECREASED GLUCOSE; Start 11/21/16 at 02:45 Dextrose (D50w Syringe) 50 ml Q15M PRN IV DECREASED GLUCOSE; Start 11/21/16 at 02:45 Glucagon (Glucagen) 1 mg Q15M PRN IM DECREASED GLUCOSE; Start 11/21/16 at 02:45 Glucose (Glutose) 15 gm Q15M PRN BUCCAL DECREASED GLUCOSE; Start 11/21/16 at 02 :45 Acetaminophen (Tylenol Liquid) 650 mg PRN PRN NGT PAIN AND OR ELEVATED TEMP Last administered on 11/28/16 17:09; Admin Dose 650 MG; Start 11/21/16 at 21:00 Acetaminophen 650 mg 650 mg PRN PRN [place] fever Last administered on 11/27/16 17: 29; Admin Dose 650 MG; Start 11/21/16 at 21:00 Ciprofloxacin/ Dextrose (Cipro Ivpb) 200 ml @ 200 mls/hr Q24H IVPB Last administered on 11/30/16 13:03; Admin Dose 200 MLS/HR; Start 11/22/16 at 12:30 Lansoprazole 30 mg 30 mg DAILY@06 GTB Last administered on 12/01/16 06:01; Admin Dose 30 MG; Start 11/25/16 at 06:00 Cefepime HCl 50 ml @ 100 mls/hr Q12 IVPB Last administered on 12/01/16 08:06; Admin Dose 100 MLS/HR; Start 11/25/16 at 10:30 Levetiracetam (Keppra 500 Mg/ 100ml (Pmx)) 100 ml @ 400 mls/hr Q12 IVPB Last administered on 12/01/16 08:06; Admin Dose 400 MLS/HR; Start 11/25/16 at 21:00 Fentanyl (Sublimaze) 25 mcg Q3H PRN IV PAIN Last administered on 11/30/16 00:36 ; Admin Dose 25 MCG; Start 11/26/16 at 16:00 Metoclopramide HCl (Reglan Liq) 5 mg Q6H PRN PO NAUSEA AND/OR VOMITING Last administered on 11/28/16 14:06; Admin Dose 5 MG; Start 11/28/16 at 11:30 Insulin Glargine 8 unit 8 unit DAILY@08 SC Last administered on 12/01/16 07:40 ; Admin Dose 8 UNIT; Start 11/30/16 at 08:00 Potassium Chloride/Dextrose/ Sodium Chloride (KCl/D5-NS) 1,005 ml @ 70 mls/hr [id number] IV Last administered on 12/01/16 04:00; Admin Dose 70 MLS/HR; Start 11/29/16 at 09:00 Docusate Sodium (Colace Liquid Cup) 100 mg BID NGT Last administered on 08:05; Admin Dose 100 MG; Start 11/30/16 at 09:00 REGINO RESTREPO Dec 01, 2016 08:24
--- NOTE | 2016-12-01 10:33 | PN ---
DATE: 12/01/2016 PALLIATIVE CARE I spoke to Mr. Mcgee's over the phone last evening, who states that she has spoken to all her family members and they have decided to withdraw care on this week 12/03/2016. In the inte rim, I have spoken to the patient's son. I assured him that we will keep his father comfortable wit h whatever means necessary. I have explained the extubation procedure with the patient's son in gen eral detail with the understanding that I will have a family conference prior to the time that mady horton's level of care will be withdrawn including extubation. The patient's is understandably dev astated but she is leading the family through this difficult process. Dictated By: WENCESLAO MULLEN MD, LP/LOGAN Conf#: [id number] DID#: [id number]
[2016-12-01] MEDS: CIPROFLOXACIN 400MG/D5W 200 ML IVPB SCH (12:30)
[2016-12-01] MEDS: FENTAnyl 50 MCG/ML VIAL IV PRN ×2 (13:48→23:08)
--- NOTE | 2016-12-01 19:18 | PN ---
Date/Time of Note Date/Time of Note DATE: 12/01/16 TIME: 19:11 Assessment/Plan VTE Prophylaxis VTE Prophylaxis Intervention: contraindicated VTE Contraindication Reason: hemorrhagic cerebral infarction Lines/Catheters IV Catheter Type (from Nrsg): Peripheral IV Urinary Cath still in place: Yes Reason Cath still needed: terminal illness/intractable pain Assessment/Plan Problems: (1) Hemorrhagic stroke Status: Acute Comment: Pt. w/ ongoing poor prognosis. Family agreeing to terminal extubation in 2 days. Defer to palliative care and appreciate their intervention. (2) On mechanically assisted ventilation Status: Acute Comment: Pulmonary managing. AC rate reduced and pt. w/ minimal breathing over ventilator rate. 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 Given prognosis, doubt benefit of intervening. Will allow for permissive hyperglycemia. Qualifiers: Diabetes mellitus intermission coordinator insulin use: without halfway use Chronic kidney disease stage: stage 2 (mild) Qualified Code: E11.22 - Type 2 diabetes mellitus with stage 2 chronic kidney disease, without long-term current use of insulin (4) Essential (primary) hypertension Status: Chronic Comment: BP's mostly low. BP meds on hold. (5) Chronic kidney disease, stage II (mild) Status: Chronic Comment: Recheck renal function tomorrow. Subjective 24 Hr Interval Summary Subjective hx not possible: pt non-verbal, pt critical status Exam/Review of Systems Vital Signs Vitals VS - Last 72 Hours, by Label Date Time Temp Pulse Resp B/P Pulse Ox O2 Delivery O2 Flow Rate FiO2 12/01/16 18:00 66 19 106/52 100 Mechanical Ventilator 12/01/16 17:30 59 16 100 30 12/01/16 17:00 64 19 97/56 100 Mechanical Ventilator 12/01/16 16:00 59 12/01/16 16:00 99.0 59 19 107/56 100 Mechanical Ventilator 12/01/16 15:17 60 18 100 30 12/01/16 15:00 57 17 112/56 100 Mechanical Ventilator 12/01/16 14:00 59 18 115/55 100 Mechanical Ventilator 12/01/16 13:09 61 20 100 30 12/01/16 13:00 61 19 124/55 100 Mechanical Ventilator 12/01/16 12:00 58 12/01/16 12:00 98.7 58 17 128/59 100 Mechanical Ventilator 12/01/16 12:00 30 12/01/16 11:33 61 19 100 30 12/01/16 11:00 61 22 122/62 Mechanical Ventilator 12/01/16 10:00 58 22 122/58 Mechanical Ventilator 12/01/16 09:45 59 19 100 30 12/01/16 09:00 57 16 101/51 100 Mechanical Ventilator 12/01/16 08:00 30 12/01/16 08:00 61 20 100 30 12/01/16 08:00 99.0 61 20 113/50 100 Mechanical Ventilator 12/01/16 08:00 60 12/01/16 07:00 59 19 119/52 100 Mechanical Ventilator 12/01/16 06:00 58 18 119/52 100 Mechanical Ventilator 12/01/16 05:07 60 18 100 30 12/01/16 05:00 62 20 115/53 100 Mechanical Ventilator 12/01/16 04:00 98.0 63 19 108/49 99 Mechanical Ventilator 12/01/16 04:00 55 12/01/16 03:11 62 19 100 30 12/01/16 03:00 61 19 108/52 99 Mechanical Ventilator 12/01/16 02:00 60 17 119/53 100 Mechanical Ventilator 12/01/16 01:10 58 18 100 30 12/01/16 01:00 59 19 110/51 100 Mechanical Ventilator 12/01/16 00:01 30 12/01/16 00:00 97.7 55 19 99/50 99 Mechanical Ventilator 12/01/16 00:00 50 11/30/16 23:00 58 15 93/45 98 Mechanical Ventilator 11/30/16 22:59 55 19 100 30 11/30/16 22:00 57 18 101/59 100 Mechanical Ventilator 11/30/16 21:17 63 19 98 30 11/30/16 21:00 63 19 111/53 100 Mechanical Ventilator 11/30/16 20:00 30 11/30/16 20:00 65 11/30/16 20:00 98.0 68 19 102/54 99 Mechanical Ventilator 11/30/16 19:35 67 21 100 30 11/30/16 19:00 64 19 79/54 99 Mechanical Ventilator 11/30/16 18:00 61 18 82/50 99 Mechanical Ventilator 11/30/16 17:00 69 19 107/53 100 Mechanical Ventilator 11/30/16 16:00 30 11/30/16 16:00 60 11/30/16 16:00 99.1 59 19 105/54 100 Mechanical Ventilator 11/30/16 15:25 60 18 100 30 11/30/16 15:00 59 19 84/55 100 Mechanical Ventilator 11/30/16 14:00 66 18 96/58 100 Mechanical Ventilator 11/30/16 13:12 67 22 99 30 11/30/16 13:00 71 20 85/52 97 Mechanical Ventilator 11/30/16 12:00 98.1 74 21 82/51 97 Mechanical Ventilator 11/30/16 12:00 103 11/30/16 12:00 30 11/30/16 11:13 69 20 98 30 11/30/16 11:00 62 20 83/49 98 Mechanical Ventilator 11/30/16 10:00 63 20 94/56 98 Mechanical Ventilator 11/30/16 09:12 68 20 98 30 11/30/16 09:00 66 20 105/53 98 Mechanical Ventilator 11/30/16 08:00 98.5 69 20 104/55 98 Mechanical Ventilator 11/30/16 08:00 69 11/30/16 07:35 66 20 98 30 11/30/16 06:56 62 20 105/55 99 Mechanical Ventilator 11/30/16 06:00 30 11/30/16 06:00 64 20 109/55 99 Mechanical Ventilator 11/30/16 05:34 61 20 100 30 11/30/16 04:00 61 11/30/16 04:00 99.1 60 20 112/56 100 Mechanical Ventilator 11/30/16 03:25 62 20 100 30 11/30/16 03:00 59 20 96/49 97 Mechanical Ventilator 11/30/16 02:00 57 20 95/46 98 Mechanical Ventilator 11/30/16 01:23 62 20 100 30 11/30/16 01:00 59 20 90/46 97 Mechanical Ventilator 11/30/16 00:00 30 11/30/16 00:00 98.6 59 24 112/50 99 Mechanical Ventilator 11/30/16 00:00 59 11/29/16 23:25 60 20 98 30 11/29/16 23:00 61 20 99/47 99 Mechanical Ventilator 11/29/16 22:00 58 20 95/44 98 Mechanical Ventilator 11/29/16 21:15 59 20 98 30 11/29/16 21:00 59 20 93/44 98 Mechanical Ventilator 11/29/16 20:00 99.1 62 19 110/48 99 Mechanical Ventilator 11/29/16 20:00 30 11/29/16 20:00 61 11/29/16 19:27 59 20 98 30 11/29/16 19:00 60 20 94/44 98 Mechanical Ventilator 11/29/16 18:00 61 20 97/43 99 Mechanical Ventilator 11/29/16 17:40 65 22 98 30 11/29/16 17:00 58 20 100/44 97 Mechanical Ventilator 11/29/16 16:00 60 11/29/16 16:00 99.3 61 20 108/55 100 Mechanical Ventilator 11/29/16 15:20 60 20 99 30 11/29/16 15:00 63 21 111/52 98 Mechanical Ventilator 11/29/16 14:00 59 20 103/43 100 Mechanical Ventilator 11/29/16 13:55 63 20 99 30 11/29/16 13:00 63 21 98/42 99 Mechanical Ventilator 11/29/16 12:00 99.0 62 20 102/50 100 Mechanical Ventilator 11/29/16 12:00 64 11/29/16 11:05 59 20 99 30 11/29/16 11:00 59 20 103/58 100 Mechanical Ventilator 11/29/16 10:00 60 20 103/54 100 Mechanical Ventilator 11/29/16 09:30 61 20 100 30 11/29/16 09:00 59 20 101/50 100 Mechanical Ventilator 11/29/16 08:00 30 11/29/16 08:00 99.3 59 21 96/53 98 Mechanical Ventilator 11/29/16 08:00 61 11/29/16 07:50 60 20 100 30 11/29/16 07:00 61 20 95/48 99 Mechanical Ventilator 11/29/16 06:00 58 20 112/57 100 Mechanical Ventilator 11/29/16 05:19 60 20 100 30 11/29/16 05:00 59 21 115/56 100 Mechanical Ventilator 11/29/16 04:00 58 11/29/16 04:00 99.1 59 21 109/45 100 Mechanical Ventilator 11/29/16 03:43 56 20 100 30 11/29/16 03:00 56 19 109/43 100 Mechanical Ventilator 11/29/16 02:00 57 20 109/49 100 Mechanical Ventilator 11/29/16 01:19 59 20 100 30 11/29/16 01:00 59 18 108/49 100 Mechanical Ventilator 11/29/16 00:00 99.4 55 20 96/38 100 Mechanical Ventilator 11/29/16 00:00 56 11/28/16 23:43 56 20 100 30 11/28/16 23:00 56 20 96/40 100 Mechanical Ventilator 11/28/16 22:00 57 20 90/50 100 Mechanical Ventilator 11/28/16 21:27 56 20 100 30 11/28/16 21:00 56 20 94/47 100 Mechanical Ventilator 11/28/16 20:04 54 20 99 30 11/28/16 20:00 100.1 55 20 83/44 99 Mechanical Ventilator 11/28/16 20:00 30 11/28/16 20:00 55 Vital Signs Date Time Temp Pulse Resp B/P Pulse Ox O2 Delivery O2 Flow Rate FiO2 12/01/16 18:00 66 19 106/52 100 Mechanical Ventilator 12/01/16 17:30 30 12/01/16 16:00 99.0 Intake and Output 11/30/16 11/30/16 12/01/16 15:00 23:00 07:00 Intake Total 1430 ml 870 ml 1029 ml Output Total 1187 ml 645 ml 840 ml Balance 243 ml 225 ml 189 ml Exam Constitutional: frail, non-verbal, obese, No alert (eyes open but minimally responsive) ENMT: intubated Respiratory: clear to auscultation, normal air movement Cardiovascular: nl pulses, regular rate and rhythm, No edema, No murmurs/extra sounds, No rub Gastrointestinal: bowel sounds, nl liver, spleen, non-tender, soft, No mass, No rebound or guarding Musculoskeletal: nl extremities to inspection Extremities: normal pulses, No clubbing, No cyanosis, No edema Neurological: unresponsive Additional Comments Bedside Glucose - 72 Hours Test 11/28/16 20:29 11/29/16 01:11 11/29/16 06:02 11/29/16 08:53 Bedside Glucose 200mg/dL (70-220) 187mg/dL (70-220) 223mg/dL (70-220) H 154mg/dL (70-220) Test 11/29/16 13:21 11/29/16 17:35 11/29/16 21:27 11/30/16 01:13 Bedside Glucose 143mg/dL (70-220) 178mg/dL (70-220) 196mg/dL (70-220) 200mg/dL (70-220) Test 11/30/16 05:13 11/30/16 09:08 11/30/16 13:27 11/30/16 17:38 Bedside Glucose 172mg/dL (70-220) 235mg/dL (70-220) H 218mg/dL (70-220) 170mg/dL (70-220) Test 11/30/16 20:53 12/01/16 01:40 12/01/16 06:00 12/01/16 10:20 Bedside Glucose 193mg/dL (70-220) 195mg/dL (70-220) 174mg/dL (70-220) 204mg/dL (70-220) Test 12/01/16 13:17 12/01/16 17:26 Bedside Glucose 169mg/dL (70-220) 250mg/dL (70-220) H Results Result Diagram: 11/30/16 0607 11/30/16 0607 Results 24 hrs Laboratory Tests Test 11/30/16 20:53 12/01/16 01:40 12/01/16 06:00 12/01/16 10:20 Bedside Glucose 193 195 174 204 Test 12/01/16 13:17 12/01/16 17:26 Bedside Glucose 169 250 H Medications Medications Current Medications Allopurinol (Zyloprim) 100 mg DAILY PO Last administered on 12/01/16 08:06; Admin Dose 100 MG; Start 11/21/16 at 09:00 Atorvastatin Calcium (Lipitor) 40 mg DAILY@21 PO Last administered on 11/30/16 20:58; Admin Dose 40 MG; Start 11/21/16 at 21:00 Carvedilol (Coreg) 12.5 mg BID PO Last administered on 11/30/16 08:19; Admin Dose 12.5 MG; Start 11/21/16 at 09:00 Furosemide (Lasix) 40 mg DAILY@06 PO Last administered on 12/01/16 06:01; Admin Dose 40 MG; Start 11/21/16 at 06:00 Latanoprost (Xalatan) 1 drop DAILY BOTH EYES Last administered on 12/01/16 08: 05; Admin Dose 1 DROP; Start 11/21/16 at 09:00 Linagliptin (Tradjenta) 5 mg DAILY PO Last administered on 12/01/16 08:06; Admin Dose 5 MG; Start 11/21/16 at 09:00 Insulin Aspart NOVOLOG *MILD* ALGORI... Q4 SC Last administered on 12/01/16 17: 30; Admin Dose 3 UNIT; Start 11/21/16 at 05:00 Nicardipine HCl (Cardene Iv) 200 ml @ 50 mls/hr TITRATE IV Last administered on 11/21/16 01:31; Admin Dose 25 MLS/HR; Start 11/21/16 at 01:00 Miscellaneous Information 1 ea NOTE XX ; Start 11/21/16 at 02:45 Glucose (Glutose) 15 gm Q15M PRN PO DECREASED GLUCOSE; Start 11/21/16 at 02:45 Glucose (Glutose) 22.5 gm Q15M PRN PO DECREASED GLUCOSE; Start 11/21/16 at 02: 45 Dextrose (D50w Syringe) 25 ml Q15M PRN IV DECREASED GLUCOSE; Start 11/21/16 at 02:45 Dextrose (D50w Syringe) 50 ml Q15M PRN IV DECREASED GLUCOSE; Start 11/21/16 at 02:45 Glucagon (Glucagen) 1 mg Q15M PRN IM DECREASED GLUCOSE; Start 11/21/16 at 02:45 Glucose (Glutose) 15 gm Q15M PRN BUCCAL DECREASED GLUCOSE; Start 11/21/16 at 02 :45 Acetaminophen (Tylenol Liquid) 650 mg PRN PRN NGT PAIN AND OR ELEVATED TEMP Last administered on 11/28/16 17:09; Admin Dose 650 MG; Start 11/21/16 at 21:00 Acetaminophen 650 mg 650 mg PRN PRN [place] fever Last administered on 11/27/16 17: 29; Admin Dose 650 MG; Start 11/21/16 at 21:00 Ciprofloxacin/ Dextrose (Cipro Ivpb) 200 ml @ 200 mls/hr Q24H IVPB Last administered on 12/01/16 12:30; Admin Dose 200 MLS/HR; Start 11/22/16 at 12:30 Lansoprazole 30 mg 30 mg DAILY@06 GTB Last administered on 12/01/16 06:01; Admin Dose 30 MG; Start 11/25/16 at 06:00 Cefepime HCl 50 ml @ 100 mls/hr Q12 IVPB Last administered on 12/01/16 08:06; Admin Dose 100 MLS/HR; Start 11/25/16 at 10:30 Levetiracetam (Keppra 500 Mg/ 100ml (Pmx)) 100 ml @ 400 mls/hr Q12 IVPB Last administered on 12/01/16 08:06; Admin Dose 400 MLS/HR; Start 11/25/16 at 21:00 Fentanyl (Sublimaze) 25 mcg Q3H PRN IV PAIN Last administered on 12/01/16 13:48 ; Admin Dose 25 MCG; Start 11/26/16 at 16:00 Metoclopramide HCl (Reglan Liq) 5 mg Q6H PRN PO NAUSEA AND/OR VOMITING Last administered on 11/28/16 14:06; Admin Dose 5 MG; Start 11/28/16 at 11:30 Insulin Glargine 8 unit 8 unit DAILY@08 SC Last administered on 12/01/16 07:40 ; Admin Dose 8 UNIT; Start 11/30/16 at 08:00 Potassium Chloride/Dextrose/ Sodium Chloride (KCl/D5-NS) 1,005 ml @ 70 mls/hr [id number] IV Last administered on 12/01/16 04:00; Admin Dose 70 MLS/HR; Start 11/29/16 at 09:00 Docusate Sodium (Colace Liquid Cup) 100 mg BID NGT Last administered on 08:05; Admin Dose 100 MG; Start 11/30/16 at 09:00 HARISH WALKER MD Dec 01, 2016 19:18
[2016-12-01] MEDS: ATORVASTATIN 40 MG TAB PO SCH (20:40)
[2016-12-02] VITALS (37 sets, daily range): BP systolic 84–136; BP diastolic 49–68; PULSE 46–72; RESP 12–22
[2016-12-02] MEDS: INSULIN ASPART [NOVOLOG] 3 ML PEN SC SCH ×6 (01:06→20:50)
[2016-12-02] MEDS: FUROSEMIDE 40 MG TAB PO SCH (05:29)
[2016-12-02] MEDS: LANSOPRAZOLE 30 MG CAP GTB SCH (05:30)
[2016-12-02 06:08] LABS: ADD SCAN DIFF NO
[2016-12-02 06:19] LABS: BASOPHILS % 0.4 % (0.0-2.0); EOSINOPHILS # 0.4 10^3/ul (0.0-0.5); EOSINOPHILS % 3.8 % (0.0-7.0); HEMATOCRIT 37.3 % (42.0-52.0); HEMOGLOBIN 11.5 g/dl (14.0-18.0); LYMPHOCYTES % 9.9 % (15.0-51.0); MEAN CORPUSCULAR HEMOGLOBIN 26.2 pg (29.0-33.0); MEAN CORPUSCULAR HGB CONC 30.8 g/dl (32.0-37.0); MEAN PLATELET VOLUME 13.1 fl (7.4-10.4); MONOCYTE # 0.8 10^3/ul (0.3-0.9); MONOCYTES % 7.3 % (0.0-11.0); NEUTROPHILS % 77.6 % (39.0-77.0); PLATELET COUNT 224 10^3/UL (140-415); RED BLOOD COUNT 4.39 10^6/ul (4.70-6.10); RED CELL DISTRIBUTION WIDTH 16.5 % (11.5-14.5); WHITE BLOOD COUNT 10.3 10^3/ul (4.8-10.8)
[2016-12-02 06:28] LABS: CREATININE 0.96 mg/dl (0.61-1.24)
[2016-12-02 06:29] LABS: CALCIUM 7.6 mg/dl (8.4-10.2)
[2016-12-02] MEDS: REPAGLINIDE 2 MG TAB PO SCH ×3 (09:09→17:13)
[2016-12-02] MEDS: DOCUSATE SODIUM 10 MG/ML (10ML CUP) NGT SCH ×2 (09:09→20:50)
[2016-12-02] MEDS: ALLOPURINOL 100 MG TAB PO SCH (09:09)
[2016-12-02] MEDS: LATANOPROST 0.005% 2.5 ML OPH BOTH EYES SCH (09:11)
[2016-12-02] MEDS: INSULIN GLARGINE [LANtus] 3 ML PEN SC SCH (09:13)
[2016-12-02] MEDS: CEFEPIME 1GM/50 ML (PMX) 50 ML IVPB SCH ×2 (09:43→20:49)
[2016-12-02] MEDS: LINAGLIPTIN 5 MG TABLET PO SCH (09:44)
--- NOTE | 2016-12-02 10:17 | CONS ---
Date/Time of Note Date/Time of Note DATE: 12/02/16 TIME: 10:16 Consult Date/Type/Reason Admit Date/Time Nov 20, 2016 at 23:09 Initial Consult Date 11/21/16 Type of Consultation: Pulmonary/critical care Subjective Remains intubated sedated on mechanical ventilation Objective Vital Signs Date Time Temp Pulse Resp B/P Pulse Ox O2 Delivery O2 Flow Rate FiO2 12/02/16 08:00 66 19 120/59 100 Mechanical Ventilator 12/02/16 07:30 99.6 12/02/16 05:16 30 Intake and Output 12/01/16 12/01/16 12/02/16 15:00 23:00 07:00 Intake Total 1950 ml 990 ml 990 ml Output Total 1020 ml 778 ml 1195 ml Balance 930 ml 212 ml -205 ml Exam PHYSICAL EXAMINATION GENERAL: Elderly gentleman, intubated on mechanical ventilation, opens eyes and appears somewhat agitated. Orally intubated. VITAL SIGNS: see below. HEENT: Pupils equal, round, and reactive to light. CARDIAC: S1, S2, tachycardia. CHEST: Diminished air entry bilaterally. ABDOMEN: Mildly distended. Bowel sounds present no guarding or rebound EXTREMITIES: No cyanosis, clubbing or edema. NEUROLOGIC: Unable to assess Results/Medications Result Diagram: 12/02/16 0600 12/02/16 0600 Results 24 hrs Laboratory Tests Test 12/01/16 10:20 12/01/16 13:17 12/01/16 17:26 12/01/16 20:39 Bedside Glucose 204 169 250 H 192 Test 12/02/16 01:04 12/02/16 04:31 12/02/16 06:00 12/02/16 09:20 Bedside Glucose 186 180 223 H White Blood Count 10.3 # Red Blood Count 4.39 L Hemoglobin 11.5 L Hematocrit 37.3 L Mean Corpuscular Volume 85.0 Mean Corpuscular Hemoglobin 26.2 L Mean Corpuscular Hemoglobin Concent 30.8 L Red Cell Distribution Width 16.5 H Platelet Count 224 # Mean Platelet Volume 13.1 H Neutrophils % 77.6 H Lymphocytes % 9.9 L Monocytes % 7.3 Eosinophils % 3.8 Basophils % 0.4 Nucleated Red Blood Cells % 0.0 Neutrophils # 8.0 H Lymphocytes # 1.0 Monocytes # 0.8 Eosinophils # 0.4 Basophils # 0.0 Nucleated Red Blood Cells # 0.0 Sodium Level 130 L Potassium Level 5.0 Chloride Level 102 Carbon Dioxide Level 25 Anion Gap 8 Blood Urea Nitrogen 24 H Creatinine 0.96 Glucose Level 244 H Calcium Level 7.6 L Medications Current Medications Allopurinol (Zyloprim) 100 mg DAILY PO Last administered on 12/02/16 09:09; Admin Dose 100 MG; Start 11/21/16 at 09:00 Atorvastatin Calcium (Lipitor) 40 mg DAILY@21 PO Last administered on 12/01/16 20:40; Admin Dose 40 MG; Start 11/21/16 at 21:00 Carvedilol (Coreg) 12.5 mg BID PO Last administered on 12/02/16 09:09; Admin Dose 12.5 MG; Start 11/21/16 at 09:00 Furosemide (Lasix) 40 mg DAILY@06 PO Last administered on 12/02/16 05:29; Admin Dose 40 MG; Start 11/21/16 at 06:00 Latanoprost (Xalatan) 1 drop DAILY BOTH EYES Last administered on 12/02/16 09: 11; Admin Dose 1 DROP; Start 11/21/16 at 09:00 Linagliptin (Tradjenta) 5 mg DAILY PO Last administered on 12/02/16 09:44; Admin Dose 5 MG; Start 11/21/16 at 09:00 Insulin Aspart NOVOLOG *MILD* ALGORI... Q4 SC Last administered on 12/02/16 09: 23; Admin Dose 3 UNIT; Start 11/21/16 at 05:00 Nicardipine HCl (Cardene Iv) 200 ml @ 50 mls/hr TITRATE IV Last administered on 11/21/16 01:31; Admin Dose 25 MLS/HR; Start 11/21/16 at 01:00 Miscellaneous Information 1 ea NOTE XX ; Start 11/21/16 at 02:45 Glucose (Glutose) 15 gm Q15M PRN PO DECREASED GLUCOSE; Start 11/21/16 at 02:45 Glucose (Glutose) 22.5 gm Q15M PRN PO DECREASED GLUCOSE; Start 11/21/16 at 02: 45 Dextrose (D50w Syringe) 25 ml Q15M PRN IV DECREASED GLUCOSE; Start 11/21/16 at 02:45 Dextrose (D50w Syringe) 50 ml Q15M PRN IV DECREASED GLUCOSE; Start 11/21/16 at 02:45 Glucagon (Glucagen) 1 mg Q15M PRN IM DECREASED GLUCOSE; Start 11/21/16 at 02:45 Glucose (Glutose) 15 gm Q15M PRN BUCCAL DECREASED GLUCOSE; Start 11/21/16 at 02 :45 Acetaminophen (Tylenol Liquid) 650 mg PRN PRN NGT PAIN AND OR ELEVATED TEMP Last administered on 11/28/16 17:09; Admin Dose 650 MG; Start 11/21/16 at 21:00 Acetaminophen 650 mg 650 mg PRN PRN [place] fever Last administered on 11/27/16 17: 29; Admin Dose 650 MG; Start 11/21/16 at 21:00 Ciprofloxacin/ Dextrose (Cipro Ivpb) 200 ml @ 200 mls/hr Q24H IVPB Last administered on 12/01/16 12:30; Admin Dose 200 MLS/HR; Start 11/22/16 at 12:30 Lansoprazole 30 mg 30 mg DAILY@06 GTB Last administered on 12/02/16 05:30; Admin Dose 30 MG; Start 11/25/16 at 06:00 Cefepime HCl (Maxipime 1gm/50 ml (Pmx)) 50 ml @ 100 mls/hr Q12 IVPB Last administered on 12/02/16 09:43; Admin Dose 100 MLS/HR; Start 11/25/16 at 10:30 Fentanyl (Sublimaze) 25 mcg Q3H PRN IV PAIN Last administered on 12/01/16 23:08 ; Admin Dose 25 MCG; Start 11/26/16 at 16:00 Metoclopramide HCl (Reglan Liq) 5 mg Q6H PRN PO NAUSEA AND/OR VOMITING Last administered on 11/28/16 14:06; Admin Dose 5 MG; Start 11/28/16 at 11:30 Insulin Glargine 8 unit 8 unit DAILY@08 SC Last administered on 12/02/16 09:13 ; Admin Dose 8 UNIT; Start 11/30/16 at 08:00 Potassium Chloride/Dextrose/ Sodium Chloride (KCl/D5-NS) 1,005 ml @ 70 mls/hr [id number] IV Last administered on 12/01/16 22:33; Admin Dose 70 MLS/HR; Start 11/29/16 at 09:00 Docusate Sodium 100 mg 100 mg BID NGT Last administered on 12/02/16t 09:09; Admin Dose 100 MG; Start 11/30/16 at 09:00 Levetiracetam (Keppra 500 Mg/ 100ml (Pmx)) 100 ml @ 400 mls/hr Q12 IVPB ; Start 12/02/16 at 10:30 Assessment/Plan Chief Complaint/Hosp Course Assessment 1. Acute intracerebral bleed thalamic and intraventricular status post ventriculostomy, significant neurological deficits 2. History of hypertension 3. Possible aspiration pneumonia 4. Respiratory failure secondary to above 5. History of chronic renal insufficiency 6. History of thyroid cancer Plan 1. Continue mechanical ventilation not amenable secondary to mental status 2. Continue ventriculostomy drainage 3. Continue current antibiotics 4. Start tube feeding 5. DVT and GI prophylaxis Disposition Terminal extubation tomorrow with complicated comfort care Problems: LELIA ENGEL MD, [facility] Dec 02, 2016 10:17
[2016-12-02] MEDS: ACETAMINOPHEN 650MG/20.3ML CUP NGT PRN (10:49)
[2016-12-02] MEDS: CIPROFLOXACIN 400MG/D5W 200 ML IVPB SCH (12:04)
--- NOTE | 2016-12-02 14:56 | PN ---
Date/Time of Note Date/Time of Note DATE: 12/02/16 TIME: 14:51 Assessment/Plan VTE Prophylaxis VTE Prophylaxis Intervention: contraindicated VTE Contraindication Reason: hemorrhagic cerebral infarction Lines/Catheters IV Catheter Type (from Nrs): Peripheral IV Urinary Cath still in place: Yes Reason Cath still needed: terminal illness/intractable pain Assessment/Plan Problems: (1) Hemorrhagic stroke Status: Acute Comment: Prognosis remains poor. Family understanding of this and planning terminal extubation of pt. tomorrow @ 1500. If pt. survives terminal extubation , will initiate comfort measures at that time. (2) On mechanically assisted ventilation Status: Acute Comment: Pulmonary managing vent. Pt. stable. 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 Chronic kidney disease stage: stage 2 (mild) Qualified Code: E11.22 - Type 2 diabetes mellitus with stage 2 chronic kidney disease, without long-term current use of insulin (4) Essential (primary) hypertension Status: Chronic Comment: Not requiring antihypertensive meds (5) Chronic kidney disease, stage II (mild) Status: Chronic Comment: Stable Subjective 24 Hr Interval Summary Subjective hx not possible: pt non-verbal, pt critical status Exam/Review of Systems Vital Signs Vitals VS - Last 72 Hours, by Label Date Time Temp Pulse Resp B/P Pulse Ox O2 Delivery O2 Flow Rate FiO2 12/02/16 13:20 51 18 99 30 12/02/16 12:00 57 12/02/16 11:13 58 19 100 30 12/02/16 09:17 62 16 100 30 12/02/16 08:00 66 12/02/16 08:00 66 19 120/59 100 Mechanical Ventilator 12/02/16 07:35 63 19 100 30 12/02/16 07:30 99.6 65 18 100 Mechanical Ventilator 12/02/16 07:00 63 14 118/62 100 Mechanical Ventilator 12/02/16 06:00 55 17 130/56 99 Mechanical Ventilator 12/02/16 05:16 63 18 100 30 12/02/16 05:00 63 16 118/55 100 Mechanical Ventilator 12/02/16 04:00 64 12/02/16 04:00 100.2 64 18 126/64 100 Mechanical Ventilator 12/02/16 03:25 65 18 98 30 12/02/16 03:00 67 18 136/67 99 Mechanical Ventilator 12/02/16 02:00 65 18 132/68 100 Mechanical Ventilator 12/02/16 01:19 64 19 99 30 12/02/16 01:00 66 18 116/62 99 Mechanical Ventilator 12/02/16 00:00 71 12/02/16 00:00 99.0 72 18 102/54 99 Mechanical Ventilator 12/01/16 23:30 70 17 100 30 12/01/16 23:00 66 19 116/57 99 Mechanical Ventilator 12/01/16 22:00 62 17 124/59 100 Mechanical Ventilator 12/01/16 21:13 63 21 100 30 12/01/16 21:00 72 20 143/67 100 Mechanical Ventilator 12/01/16 20:00 99.5 63 19 132/65 100 Mechanical Ventilator 12/01/16 20:00 30 12/01/16 20:00 64 12/01/16 19:43 63 19 100 30 12/01/16 19:00 66 17 108/56 100 Mechanical Ventilator 12/01/16 18:00 66 19 106/52 100 Mechanical Ventilator 12/01/16 17:30 59 16 100 30 12/01/16 17:00 64 19 97/56 100 Mechanical Ventilator 12/01/16 16:00 59 12/01/16 16:00 99.0 59 19 107/56 100 Mechanical Ventilator 12/01/16 15:17 60 18 100 30 12/01/16 15:00 57 17 112/56 100 Mechanical Ventilator 12/01/16 14:00 59 18 115/55 100 Mechanical Ventilator 12/01/16 13:09 61 20 100 30 12/01/16 13:00 61 19 124/55 100 Mechanical Ventilator 12/01/16 12:00 58 12/01/16 12:00 98.7 58 17 128/59 100 Mechanical Ventilator 12/01/16 12:00 30 12/01/16 11:33 61 19 100 30 12/01/16 11:00 61 22 122/62 Mechanical Ventilator 12/01/16 10:00 58 22 122/58 Mechanical Ventilator 12/01/16 09:45 59 19 100 30 12/01/16 09:00 57 16 101/51 100 Mechanical Ventilator 12/01/16 08:00 30 12/01/16 08:00 61 20 100 30 12/01/16 08:00 99.0 61 20 113/50 100 Mechanical Ventilator 12/01/16 08:00 60 12/01/16 07:00 59 19 119/52 100 Mechanical Ventilator 12/01/16 06:00 58 18 119/52 100 Mechanical Ventilator 12/01/16 05:07 60 18 100 30 12/01/16 05:00 62 20 115/53 100 Mechanical Ventilator 12/01/16 04:00 98.0 63 19 108/49 99 Mechanical Ventilator 12/01/16 04:00 55 12/01/16 03:11 62 19 100 30 12/01/16 03:00 61 19 108/52 99 Mechanical Ventilator 12/01/16 02:00 60 17 119/53 100 Mechanical Ventilator 12/01/16 01:10 58 18 100 30 12/01/16 01:00 59 19 110/51 100 Mechanical Ventilator 12/01/16 00:01 30 12/01/16 00:00 97.7 55 19 99/50 99 Mechanical Ventilator 12/01/16 00:00 50 11/30/16 23:00 58 15 93/45 98 Mechanical Ventilator 11/30/16 22:59 55 19 100 30 11/30/16 22:00 57 18 101/59 100 Mechanical Ventilator 11/30/16 21:17 63 19 98 30 11/30/16 21:00 63 19 111/53 100 Mechanical Ventilator 11/30/16 20:00 30 11/30/16 20:00 65 11/30/16 20:00 98.0 68 19 102/54 99 Mechanical Ventilator 11/30/16 19:35 67 21 100 30 11/30/16 19:00 64 19 79/54 99 Mechanical Ventilator 11/30/16 18:00 61 18 82/50 99 Mechanical Ventilator 11/30/16 17:00 69 19 107/53 100 Mechanical Ventilator 11/30/16 16:00 30 11/30/16 16:00 60 11/30/16 16:00 99.1 59 19 105/54 100 Mechanical Ventilator 11/30/16 15:25 60 18 100 30 11/30/16 15:00 59 19 84/55 100 Mechanical Ventilator 11/30/16 14:00 66 18 96/58 100 Mechanical Ventilator 11/30/16 13:12 67 22 99 30 11/30/16 13:00 71 20 85/52 97 Mechanical Ventilator 11/30/16 12:00 98.1 74 21 82/51 97 Mechanical Ventilator 11/30/16 12:00 103 11/30/16 12:00 30 11/30/16 11:13 69 20 98 30 11/30/16 11:00 62 20 83/49 98 Mechanical Ventilator 11/30/16 10:00 63 20 94/56 98 Mechanical Ventilator 11/30/16 09:12 68 20 98 30 11/30/16 09:00 66 20 105/53 98 Mechanical Ventilator 11/30/16 08:00 98.5 69 20 104/55 98 Mechanical Ventilator 11/30/16 08:00 69 11/30/16 07:35 66 20 98 30 11/30/16 06:56 62 20 105/55 99 Mechanical Ventilator 11/30/16 06:00 30 11/30/16 06:00 64 20 109/55 99 Mechanical Ventilator 11/30/16 05:34 61 20 100 30 11/30/16 04:00 61 11/30/16 04:00 99.1 60 20 112/56 100 Mechanical Ventilator 11/30/16 03:25 62 20 100 30 11/30/16 03:00 59 20 96/49 97 Mechanical Ventilator 11/30/16 02:00 57 20 95/46 98 Mechanical Ventilator 11/30/16 01:23 62 20 100 30 11/30/16 01:00 59 20 90/46 97 Mechanical Ventilator 11/30/16 00:00 30 11/30/16 00:00 98.6 59 24 112/50 99 Mechanical Ventilator 11/30/16 00:00 59 11/29/16 23:25 60 20 98 30 11/29/16 23:00 61 20 99/47 99 Mechanical Ventilator 11/29/16 22:00 58 20 95/44 98 Mechanical Ventilator 11/29/16 21:15 59 20 98 30 11/29/16 21:00 59 20 93/44 98 Mechanical Ventilator 11/29/16 20:00 99.1 62 19 110/48 99 Mechanical Ventilator 11/29/16 20:00 30 11/29/16 20:00 61 11/29/16 19:27 59 20 98 30 11/29/16 19:00 60 20 94/44 98 Mechanical Ventilator 11/29/16 18:00 61 20 97/43 99 Mechanical Ventilator 11/29/16 17:40 65 22 98 30 11/29/16 17:00 58 20 100/44 97 Mechanical Ventilator 11/29/16 16:00 60 11/29/16 16:00 99.3 61 20 108/55 100 Mechanical Ventilator 11/29/16 15:20 60 20 99 30 11/29/16 15:00 63 21 111/52 98 Mechanical Ventilator Vital Signs Date Time Temp Pulse Resp B/P Pulse Ox O2 Delivery O2 Flow Rate FiO2 12/02/16 13:20 51 18 99 30 12/02/16 08:00 120/59 Mechanical Ventilator 12/02/16 07:30 99.6 Intake and Output 12/01/16 12/01/16 12/02/16 15:00 23:00 07:00 Intake Total 1950 ml 990 ml 990 ml Output Total 1020 ml 778 ml 1195 ml Balance 930 ml 212 ml -205 ml Exam Constitutional: frail, non-verbal, obese ENMT: intubated Respiratory: clear to auscultation, normal air movement Cardiovascular: nl pulses, regular rate and rhythm, No edema, No murmurs/extra sounds, No rub Gastrointestinal: bowel sounds, nl liver, spleen, non-tender, soft, No mass, No rebound or guarding Musculoskeletal: nl extremities to inspection Extremities: normal pulses, No clubbing, No cyanosis, No edema Neurological: unresponsive (eyes open, unfocused, disconjugate gaze, not following directions to squeeze hand) Additional Comments Bedside Glucose - 72 Hours Test 11/29/16 17:35 11/29/16 21:27 11/30/16 01:13 11/30/16 05:13 Bedside Glucose 178mg/dL (70-220) 196mg/dL (70-220) 200mg/dL (70-220) 172mg/dL (70-220) Test 11/30/16 09:08 11/30/16 13:27 11/30/16 17:38 11/30/16 20:53 Bedside Glucose 235mg/dL (70-220) H 218mg/dL (70-220) 170mg/dL (70-220) 193mg/dL (70-220) Test 12/01/16 01:40 12/01/16 06:00 12/01/16 10:20 12/01/16 13:17 Bedside Glucose 195mg/dL (70-220) 174mg/dL (70-220) 204mg/dL (70-220) 169mg/dL (70-220) Test 12/01/16 17:26 12/01/16 20:39 12/02/16 01:04 12/02/16 04:31 Bedside Glucose 250mg/dL (70-220) H 192mg/dL (70-220) 186mg/dL (70-220) 180mg/dL (70-220) Test 12/02/16 09:20 12/02/16 12:41 Bedside Glucose 223mg/dL (70-220) H 256mg/dL (70-220) H Results Result Diagram: 12/02/16 0600 12/02/16 0600 Results 24 hrs Laboratory Tests Test 12/01/16 17:26 12/01/16 20:39 12/02/16 01:04 12/02/16 04:31 Bedside Glucose 250 H 192 186 180 Test 12/02/16 06:00 12/02/16 09:20 12/02/16 12:41 White Blood Count 10.3 # Red Blood Count 4.39 L Hemoglobin 11.5 L Hematocrit 37.3 L Mean Corpuscular Volume 85.0 Mean Corpuscular Hemoglobin 26.2 L Mean Corpuscular Hemoglobin Concent 30.8 L Red Cell Distribution Width 16.5 H Platelet Count 224 # Mean Platelet Volume 13.1 H Neutrophils % 77.6 H Lymphocytes % 9.9 L Monocytes % 7.3 Eosinophils % 3.8 Basophils % 0.4 Nucleated Red Blood Cells % 0.0 Neutrophils # 8.0 H Lymphocytes # 1.0 Monocytes # 0.8 Eosinophils # 0.4 Basophils # 0.0 Nucleated Red Blood Cells # 0.0 Sodium Level 130 L Potassium Level 5.0 Chloride Level 102 Carbon Dioxide Level 25 Anion Gap 8 Blood Urea Nitrogen 24 H Creatinine 0.96 Glucose Level 244 H Calcium Level 7.6 L Bedside Glucose 223 H 256 H Medications Medications Current Medications Allopurinol (Zyloprim) 100 mg DAILY PO Last administered on 12/02/16 09:09; Admin Dose 100 MG; Start 11/21/16 at 09:00 Atorvastatin Calcium (Lipitor) 40 mg DAILY@21 PO Last administered on 12/01/16 20:40; Admin Dose 40 MG; Start 11/21/16 at 21:00 Carvedilol (Coreg) 12.5 mg BID PO Last administered on 12/02/16 09:09; Admin Dose 12.5 MG; Start 11/21/16 at 09:00 Furosemide (Lasix) 40 mg DAILY@06 PO Last administered on 12/02/16 05:29; Admin Dose 40 MG; Start 11/21/16 at 06:00 Latanoprost (Xalatan) 1 drop DAILY BOTH EYES Last administered on 12/02/16 09: 11; Admin Dose 1 DROP; Start 11/21/16 at 09:00 Linagliptin (Tradjenta) 5 mg DAILY PO Last administered on 12/02/16 09:44; Admin Dose 5 MG; Start 11/21/16 at 09:00 Insulin Aspart NOVOLOG *MILD* ALGORI... Q4 SC Last administered on 12/02/16 12: 45; Admin Dose 3 UNIT; Start 11/21/16 at 05:00 Nicardipine HCl (Cardene Iv) 200 ml @ 50 mls/hr TITRATE IV Last administered on 11/21/16 01:31; Admin Dose 25 MLS/HR; Start 11/21/16 at 01:00 Miscellaneous Information 1 ea NOTE XX ; Start 11/21/16 at 02:45 Glucose (Glutose) 15 gm Q15M PRN PO DECREASED GLUCOSE; Start 11/21/16 at 02:45 Glucose (Glutose) 22.5 gm Q15M PRN PO DECREASED GLUCOSE; Start 11/21/16 at 02: 45 Dextrose (D50w Syringe) 25 ml Q15M PRN IV DECREASED GLUCOSE; Start 11/21/16 at 02:45 Dextrose (D50w Syringe) 50 ml Q15M PRN IV DECREASED GLUCOSE; Start 11/21/16 at 02:45 Glucagon (Glucagen) 1 mg Q15M PRN IM DECREASED GLUCOSE; Start 11/21/16 at 02:45 Glucose (Glutose) 15 gm Q15M PRN BUCCAL DECREASED GLUCOSE; Start 11/21/16 at 02 :45 Acetaminophen (Tylenol Liquid) 650 mg PRN PRN NGT PAIN AND OR ELEVATED TEMP Last administered on 12/02/16 10:49; Admin Dose 650 MG; Start 11/21/16 at 21:00 Acetaminophen 650 mg 650 mg PRN PRN [place] fever Last administered on 11/27/16 17: 29; Admin Dose 650 MG; Start 11/21/16 at 21:00 Ciprofloxacin/ Dextrose (Cipro Ivpb) 200 ml @ 200 mls/hr Q24H IVPB Last administered on 12/02/16 12:04; Admin Dose 200 MLS/HR; Start 11/22/16 at 12:30 Lansoprazole 30 mg 30 mg DAILY@06 GTB Last administered on 12/02/16 05:30; Admin Dose 30 MG; Start 11/25/16 at 06:00 Cefepime HCl (Maxipime 1gm/50 ml (Pmx)) 50 ml @ 100 mls/hr Q12 IVPB Last administered on 12/02/16 09:43; Admin Dose 100 MLS/HR; Start 11/25/16 at 10:30 Fentanyl (Sublimaze) 25 mcg Q3H PRN IV PAIN Last administered on 12/01/16 23:08 ; Admin Dose 25 MCG; Start 11/26/16 at 16:00 Metoclopramide HCl (Reglan Liq) 5 mg Q6H PRN PO NAUSEA AND/OR VOMITING Last administered on 11/28/16 14:06; Admin Dose 5 MG; Start 11/28/16 at 11:30 Insulin Glargine 8 unit 8 unit DAILY@08 SC Last administered on 12/02/16 09:13 ; Admin Dose 8 UNIT; Start 11/30/16 at 08:00 Potassium Chloride/Dextrose/ Sodium Chloride (KCl/D5-NS) 1,005 ml @ 70 mls/hr [id number] IV Last administered on 12/01/16 22:33; Admin Dose 70 MLS/HR; Start 11/29/16 at 09:00 Docusate Sodium 100 mg 100 mg BID NGT Last administered on 12/02/16 09:09; Admin Dose 100 MG; Start 11/30/16 at 09:00 Levetiracetam (Keppra 500 Mg/ 100ml (Pmx)) 100 ml @ 400 mls/hr Q12 IVPB ; Start 12/02/16 at 10:30 HARISH WALKER MD Dec 02, 2016 14:56
[2016-12-02] MEDS: POTASSIUM CHLORIDE 10 MEQ in DEXTROSE 5%-0.9% NACL 1,000 ML IV SCH (17:02)
[2016-12-02] MEDS: LEVETIRACETAM 500 MG (PMX) 100 ML IVPB SCH (20:39)
[2016-12-02] MEDS: ATORVASTATIN 40 MG TAB PO SCH (20:50)
[2016-12-03] VITALS (28 sets, daily range): BP systolic 83–129; BP diastolic 50–108; PULSE 54–64; RESP 13–20
[2016-12-03] MEDS: INSULIN ASPART [NOVOLOG] 3 ML PEN SC SCH ×4 (01:48→13:57)
[2016-12-03] MEDS: LANSOPRAZOLE 30 MG CAP GTB SCH (05:13)
[2016-12-03] MEDS: FUROSEMIDE 40 MG TAB PO SCH (05:13)
[2016-12-03] MEDS: LINAGLIPTIN 5 MG TABLET PO SCH (08:42)
[2016-12-03] MEDS: REPAGLINIDE 2 MG TAB PO SCH ×2 (08:47→12:07)
[2016-12-03] MEDS: INSULIN GLARGINE [LANtus] 3 ML PEN SC SCH (08:48)
[2016-12-03] MEDS: POTASSIUM CHLORIDE 10 MEQ in DEXTROSE 5%-0.9% NACL 1,000 ML IV SCH (08:49)
[2016-12-03] MEDS: DOCUSATE SODIUM 10 MG/ML (10ML CUP) NGT SCH (08:57)
[2016-12-03] MEDS: ALLOPURINOL 100 MG TAB PO SCH (08:57)
[2016-12-03] MEDS: LEVETIRACETAM 500 MG (PMX) 100 ML IVPB SCH ×2 (08:59→20:27)
[2016-12-03] MEDS: CEFEPIME 1GM/50 ML (PMX) 50 ML IVPB SCH (09:00)
[2016-12-03] MEDS: LATANOPROST 0.005% 2.5 ML OPH BOTH EYES SCH (09:13)
--- NOTE | 2016-12-03 09:40 | CONS ---
Date/Time of Note Date/Time of Note DATE: 12/03/16 TIME: 09:39 Consult Date/Type/Reason Admit Date/Time Nov 20, 2016 at 23:09 Initial Consult Date 11/21/16 Type of Consultation: Pulmonary/critical care Subjective Patient remains somnolent on mechanical ventilation Objective Vital Signs Date Time Temp Pulse Resp B/P Pulse Ox O2 Delivery O2 Flow Rate FiO2 12/03/16 09:07 56 18 100 30 12/03/16 06:00 113/56 Mechanical Ventilator 12/03/16 04:00 99.9 Intake and Output 12/02/16 12/02/16 12/03/16 15:00 23:00 07:00 Intake Total 1464 ml 985 ml 1070 ml Output Total 1830 ml 477 ml 655 ml Balance -366 ml 508 ml 415 ml Exam PHYSICAL EXAMINATION GENERAL: Elderly gentleman, intubated on mechanical ventilation. Orally intubated. VITAL SIGNS: see below. HEENT: Pupils equal, round, and reactive to light. CARDIAC: S1, S2, tachycardia. CHEST: Diminished air entry bilaterally. ABDOMEN: Mildly distended. Bowel sounds present no guarding or rebound EXTREMITIES: No cyanosis, clubbing or edema. NEUROLOGIC: Unable to assess Results/Medications Result Diagram: 12/02/16 0600 12/02/16 0600 Results 24 hrs Laboratory Tests Test 12/02/16 12:41 12/02/16 17:08 12/02/16 20:48 12/03/16 01:46 Bedside Glucose 256 H 207 182 214 Test 12/03/16 04:51 12/03/16 09:11 Bedside Glucose 201 234 H Medications Current Medications Allopurinol (Zyloprim) 100 mg DAILY PO Last administered on 12/03/16 08:57; Admin Dose 100 MG; Start 11/21/16 at 09:00 Atorvastatin Calcium (Lipitor) 40 mg DAILY@21 PO Last administered on 12/02/16 20:50; Admin Dose 40 MG; Start 11/21/16 at 21:00 Carvedilol (Coreg) 12.5 mg BID PO Last administered on 12/02/16 09:09; Admin Dose 12.5 MG; Start 11/21/16 at 09:00 Furosemide (Lasix) 40 mg DAILY@06 PO Last administered on 12/03/16 05:13; Admin Dose 40 MG; Start 11/21/16 at 06:00 Latanoprost (Xalatan) 1 drop DAILY BOTH EYES Last administered on 12/03/16 09: 13; Admin Dose 1 DROP; Start 11/21/16 at 09:00 Linagliptin (Tradjenta) 5 mg DAILY PO Last administered on 12/03/16 08:42; Admin Dose 5 MG; Start 11/21/16 at 09:00 Insulin Aspart NOVOLOG *MILD* ALGORI... Q4 SC Last administered on 12/03/16 09: 15; Admin Dose 3 UNIT; Start 11/21/16 at 05:00 Nicardipine HCl (Cardene Iv) 200 ml @ 50 mls/hr TITRATE IV Last administered on 11/21/16 01:31; Admin Dose 25 MLS/HR; Start 11/21/16 at 01:00 Miscellaneous Information 1 ea NOTE XX ; Start 11/21/16 at 02:45 Glucose (Glutose) 15 gm Q15M PRN PO DECREASED GLUCOSE; Start 11/21/16 at 02:45 Glucose (Glutose) 22.5 gm Q15M PRN PO DECREASED GLUCOSE; Start 11/21/16 at 02: 45 Dextrose (D50w Syringe) 25 ml Q15M PRN IV DECREASED GLUCOSE; Start 11/21/16 at 02:45 Dextrose (D50w Syringe) 50 ml Q15M PRN IV DECREASED GLUCOSE; Start 11/21/16 at 02:45 Glucagon (Glucagen) 1 mg Q15M PRN IM DECREASED GLUCOSE; Start 11/21/16 at 02:45 Glucose (Glutose) 15 gm Q15M PRN BUCCAL DECREASED GLUCOSE; Start 11/21/16 at 02 :45 Acetaminophen (Tylenol Liquid) 650 mg PRN PRN NGT PAIN AND OR ELEVATED TEMP Last administered on 12/02/16 10:49; Admin Dose 650 MG; Start 11/21/16 at 21:00 Acetaminophen 650 mg 650 mg PRN PRN [place] fever Last administered on 11/27/16 17: 29; Admin Dose 650 MG; Start 11/21/16 at 21:00 Ciprofloxacin/ Dextrose (Cipro Ivpb) 200 ml @ 200 mls/hr Q24H IVPB Last administered on 12/02/16 12:04; Admin Dose 200 MLS/HR; Start 11/22/16 at 12:30 Lansoprazole 30 mg 30 mg DAILY@06 GTB Last administered on 12/03/16 05:13; Admin Dose 30 MG; Start 11/25/16 at 06:00 Cefepime HCl (Maxipime 1gm/50 ml (Pmx)) 50 ml @ 100 mls/hr Q12 IVPB Last administered on 12/03/16 09:00; Admin Dose 100 MLS/HR; Start 11/25/16 at 10:30 Fentanyl (Sublimaze) 25 mcg Q3H PRN IV PAIN Last administered on 12/01/16 23:08 ; Admin Dose 25 MCG; Start 11/26/16 at 16:00 Metoclopramide HCl (Reglan Liq) 5 mg Q6H PRN PO NAUSEA AND/OR VOMITING Last administered on 11/28/16 14:06; Admin Dose 5 MG; Start 11/28/16 at 11:30 Insulin Glargine 8 unit 8 unit DAILY@08 SC Last administered on 12/03/16 08:48 ; Admin Dose 8 UNIT; Start 11/30/16 at 08:00 Potassium Chloride/Dextrose/ Sodium Chloride (KCl/D5-NS) 1,005 ml @ 70 mls/hr [id number] IV Last administered on 12/03/16 08:49; Admin Dose 70 MLS/HR; Start 11/29/16 at 09:00 Docusate Sodium 100 mg 100 mg BID NGT Last administered on 12/03/16 08:57; Admin Dose 100 MG; Start 11/30/16 at 09:00 Levetiracetam (Keppra 500 Mg/ 100ml (Pmx)) 100 ml @ 400 mls/hr Q12 IVPB Last administered on 12/03/16 08:59; Admin Dose 400 MLS/HR; Start 12/02/16 at 10:30 Assessment/Plan Chief Complaint/Hosp Course Assessment 1. Acute intracerebral bleed thalamic and intraventricular status post ventriculostomy, significant neurological deficits 2. History of hypertension 3. Possible aspiration pneumonia 4. Respiratory failure secondary to above 5. History of chronic renal insufficiency 6. History of thyroid cancer Plan 1. Continue mechanical ventilation not amenable secondary to mental status 2. Continue ventriculostomy drainage 3. Continue current antibiotics 4. Start tube feeding 5. DVT and GI prophylaxis Disposition Terminal extubation scheduled for this afternoon Problems: LEL[facility] ENGEL [facility], [facility] Dec 03, 2016 09:40
--- NOTE | 2016-12-03 11:45 | PN ---
DATE: 12/03/2016 PALLIATIVE CARE PROGRESS NOTE REASON FOR FOLLOWUP: The patient is to have compassionate extubation today, per family members' dec ision. The patient remains encephalopathic and unable to make any decisions on his own. He has not had any significant improvement in his overall neurological condition. Hopes of the family members are to make sure he has a compassionate and dignified end of life. Fears and understanding of end of life care and compassionate extubation have been explained to family members and will be reiterat ed today at 1500 hours with the entire family available. Decision making is primarily the patient's . PHYSICAL EXAMINATION: VITAL SIGNS: Today blood pressure is 113/56, pulse of 60 and regular, respirations of 17, temperatu re pending, 100% saturation on 30% FIO2. NEUROLOGICAL EXAMINATION: He does not respond to any simple verbal or tactile stimulations. He has roving bilateral eyes. His oculocephalics are sluggish, but are intact. ASSESSMENT, PLAN AND GOALS OF CARE: For compassionate extubation to be done today, when family membe rs arrive. Thereafter, I suspect he will continue to breathe for some period of time. He will be s upported throughout the dying process. There is no evidence of pain management at this time. Psychosocial support has been given to family members. The patient is DO NOT RESUSCITATE. Dictated By: WENCESLAO MULLEN MD, LP/LOGAN Conf#: [id number] DID#: [id number]
[2016-12-03] MEDS: CIPROFLOXACIN 400MG/D5W 200 ML IVPB SCH (13:23)
[2016-12-03] MEDS ORDERED: LORAZEPAM (MDV) 60 MG in DEXTROSE 5% 30 ML IV SCH (14:30)
[2016-12-03] MEDS: morphine (DRIP) 100 MG/100 ML 100 ML IV SCH (15:18)
--- NOTE | 2016-12-03 17:30 | PN ---
Date/Time of Note Date/Time of Note DATE: 12/03/16 TIME: 17:23 Assessment/Plan VTE Prophylaxis VTE Prophylaxis Intervention: contraindicated VTE Contraindication Reason: hemorrhagic cerebral infarction Lines/Catheters IV Catheter Type (from Nrs): Peripheral IV Urinary Cath still in place: Yes Reason Cath still needed: terminal illness/intractable pain Assessment/Plan Problems: (1) Comfort measures only status Status: Acute Comment: Pt. now s/p terminal extubation. Breathing on own. On morphine and ativan drip. After respectful period of time, will transfer to med-surg. (2) On mechanically assisted ventilation Status: Resolved (3) Hemorrhagic stroke Status: Acute Comment: Poor prognosis. Comfort measures for this patient. (4) Intraventricular hemorrhage Status: Acute Comment: Poor prognosis. Comfort measures for this patient. (5) Left hemiparesis Status: Acute Comment: Poor prognosis. 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 Qualifiers: Diabetes mellitus [facility] insulin use: without termite technician use Chronic kidney disease stage: stage 2 (mild) Qualified Code: E11.22 - Type 2 diabetes mellitus with stage 2 chronic kidney disease, without long-term current use of insulin Subjective 24 Hr Interval Summary Subjective hx not possible: pt non-verbal Exam/Review of Systems Vital Signs Vitals VS - Last 72 Hours, by Label Date Time Temp Pulse Resp B/P Pulse Ox O2 Delivery O2 Flow Rate FiO2 12/03/16 17:15 99 2.0 12/03/16 16:00 55 12/03/16 14:57 55 19 100 30 12/03/16 14:00 58 15 118/59 100 Mechanical Ventilator 12/03/16 13:12 60 17 100 30 12/03/16 13:00 62 14 101/50 100 Mechanical Ventilator 12/03/16 12:00 60 12/03/16 12:00 99.3 60 15 100/50 100 Mechanical Ventilator 12/03/16 11:00 56 16 109/52 99 Mechanical Ventilator 12/03/16 10:00 58 17 126/62 99 Mechanical Ventilator 12/03/16 09:27 60 16 100 30 12/03/16 09:07 56 18 100 30 12/03/16 09:00 58 13 118/54 97 Mechanical Ventilator 12/03/16 08:00 60 12/03/16 08:00 30 12/03/16 08:00 99.1 59 17 127/61 98 Mechanical Ventilator 12/03/16 07:10 60 14 100 30 12/03/16 07:00 60 13 112/55 100 Mechanical Ventilator 12/03/16 06:00 59 17 113/56 100 Mechanical Ventilator 12/03/16 05:03 59 18 100 30 12/03/16 05:00 64 15 129/108 100 Mechanical Ventilator 12/03/16 04:00 56 12/03/16 04:00 99.9 56 16 111/53 100 Mechanical Ventilator 12/03/16 03:25 64 20 100 30 12/03/16 03:00 61 14 114/56 100 Mechanical Ventilator 12/03/16 02:00 58 17 116/57 100 Mechanical Ventilator 12/03/16 01:42 63 19 100 30 12/03/16 01:00 57 15 120/59 100 Mechanical Ventilator 12/03/16 00:00 99.0 62 18 116/51 100 Mechanical Ventilator 12/03/16 00:00 61 12/03/16 00:00 61 12/02/16 23:54 60 19 100 30 12/02/16 23:00 61 20 119/66 100 Mechanical Ventilator 12/02/16 22:00 57 18 117/56 100 Mechanical Ventilator 12/02/16 21:40 61 22 100 30 12/02/16 21:00 54 15 121/59 100 Mechanical Ventilator 12/02/16 20:00 30 12/02/16 20:00 53 12/02/16 20:00 97.6 54 18 120/59 100 Mechanical Ventilator 12/02/16 19:44 55 19 98 30 12/02/16 19:00 53 12 116/53 100 Mechanical Ventilator 12/02/16 18:00 51 17 118/57 100 Mechanical Ventilator 12/02/16 17:07 54 17 100 30 12/02/16 17:00 98.9 51 16 110/52 100 Mechanical Ventilator 12/02/16 16:00 54 12/02/16 16:00 60 21 109/52 100 Mechanical Ventilator 12/02/16 15:19 53 16 100 30 12/02/16 15:00 56 17 100/49 100 Mechanical Ventilator 12/02/16 14:00 46 17 103/51 98 Mechanical Ventilator 12/02/16 13:20 51 18 99 30 12/02/16 13:00 60 15 103/55 99 Mechanical Ventilator 12/02/16 12:00 57 12/02/16 12:00 99.0 58 17 84/50 99 Mechanical Ventilator 12/02/16 11:13 58 19 100 30 12/02/16 11:00 60 14 127/58 99 Mechanical Ventilator 12/02/16 10:00 62 18 130/60 99 Mechanical Ventilator 12/02/16 09:17 62 16 100 30 12/02/16 09:00 63 13 125/59 100 Mechanical Ventilator 12/02/16 08:00 30 12/02/16 08:00 66 12/02/16 08:00 66 19 120/59 100 Mechanical Ventilator 12/02/16 07:35 63 19 100 30 12/02/16 07:30 99.6 65 18 100 Mechanical Ventilator 12/02/16 07:00 63 14 118/62 100 Mechanical Ventilator 12/02/16 06:00 55 17 130/56 99 Mechanical Ventilator 12/02/16 05:16 63 18 100 30 12/02/16 05:00 63 16 118/55 100 Mechanical Ventilator 12/02/16 04:00 64 12/02/16 04:00 100.2 64 18 126/64 100 Mechanical Ventilator 12/02/16 03:25 65 18 98 30 12/02/16 03:00 67 18 136/67 99 Mechanical Ventilator 12/02/16 02:00 65 18 132/68 100 Mechanical Ventilator 12/02/16 01:19 64 19 99 30 12/02/16 01:00 66 18 116/62 99 Mechanical Ventilator 12/02/16 00:00 71 12/02/16 00:00 99.0 72 18 102/54 99 Mechanical Ventilator 12/01/16 23:30 70 17 100 30 12/01/16 23:00 66 19 116/57 99 Mechanical Ventilator 12/01/16 22:00 62 17 124/59 100 Mechanical Ventilator 12/01/16 21:13 63 21 100 30 12/01/16 21:00 72 20 143/67 100 Mechanical Ventilator 12/01/16 20:00 99.5 63 19 132/65 100 Mechanical Ventilator 12/01/16 20:00 30 12/01/16 20:00 64 12/01/16 19:43 63 19 100 30 12/01/16 19:00 66 17 108/56 100 Mechanical Ventilator 12/01/16 18:00 66 19 106/52 100 Mechanical Ventilator 12/01/16 17:30 59 16 100 30 12/01/16 17:00 64 19 97/56 100 Mechanical Ventilator 12/01/16 16:00 59 12/01/16 16:00 99.0 59 19 107/56 100 Mechanical Ventilator 12/01/16 15:17 60 18 100 30 12/01/16 15:00 57 17 112/56 100 Mechanical Ventilator 12/01/16 14:00 59 18 115/55 100 Mechanical Ventilator 12/01/16 13:09 61 20 100 30 12/01/16 13:00 61 19 124/55 100 Mechanical Ventilator 12/01/16 12:00 58 12/01/16 12:00 98.7 58 17 128/59 100 Mechanical Ventilator 12/01/16 12:00 30 12/01/16 11:33 61 19 100 30 12/01/16 11:00 61 22 122/62 Mechanical Ventilator 12/01/16 10:00 58 22 122/58 Mechanical Ventilator 12/01/16 09:45 59 19 100 30 12/01/16 09:00 57 16 101/51 100 Mechanical Ventilator 12/01/16 08:00 30 12/01/16 08:00 61 20 100 30 12/01/16 08:00 99.0 61 20 113/50 100 Mechanical Ventilator 12/01/16 08:00 60 12/01/16 07:00 59 19 119/52 100 Mechanical Ventilator 12/01/16 06:00 58 18 119/52 100 Mechanical Ventilator 12/01/16 05:07 60 18 100 30 12/01/16 05:00 62 20 115/53 100 Mechanical Ventilator 12/01/16 04:00 98.0 63 19 108/49 99 Mechanical Ventilator 12/01/16 04:00 55 12/01/16 03:11 62 19 100 30 12/01/16 03:00 61 19 108/52 99 Mechanical Ventilator 12/01/16 02:00 60 17 119/53 100 Mechanical Ventilator 12/01/16 01:10 58 18 100 30 12/01/16 01:00 59 19 110/51 100 Mechanical Ventilator 12/01/16 00:01 30 12/01/16 00:00 97.7 55 19 99/50 99 Mechanical Ventilator 12/01/16 00:00 50 11/30/16 23:00 58 15 93/45 98 Mechanical Ventilator 11/30/16 22:59 55 19 100 30 11/30/16 22:00 57 18 101/59 100 Mechanical Ventilator 11/30/16 21:17 63 19 98 30 11/30/16 21:00 63 19 111/53 100 Mechanical Ventilator 11/30/16 20:00 30 11/30/16 20:00 65 11/30/16 20:00 98.0 68 19 102/54 99 Mechanical Ventilator 11/30/16 19:35 67 21 100 30 11/30/16 19:00 64 19 79/54 99 Mechanical Ventilator 11/30/16 18:00 61 18 82/50 99 Mechanical Ventilator Vital Signs Date Time Temp Pulse Resp B/P Pulse Ox O2 Delivery O2 Flow Rate FiO2 12/03/16 17:15 99 2.0 12/03/16 16:00 55 12/03/16 14:57 19 30 12/03/16 14:00 118/59 Mechanical Ventilator 12/03/16 12:00 99.3 Intake and Output 12/02/16 12/02/16 12/03/16 15:00 23:00 07:00 Intake Total 1464 ml 985 ml 1070 ml Output Total 1830 ml 477 ml 655 ml Balance -366 ml 508 ml 415 ml Exam immediately s/p extubation Constitutional: frail, non-verbal, obese, No alert, No oriented Respiratory: congested cough, other (rhonchorous) Cardiovascular: nl pulses, regular rate and rhythm, No edema, No murmurs/extra sounds, No rub Gastrointestinal: bowel sounds, nl liver, spleen, non-tender, soft, No mass, No rebound or guarding Musculoskeletal: nl extremities to inspection Extremities: normal pulses, No clubbing, No cyanosis, No edema Neurological: lethargic Additional Comments Bedside Glucose - 72 Hours Test 11/30/16 17:38 11/30/16 20:53 12/01/16 01:40 12/01/16 06:00 Bedside Glucose 170mg/dL (70-220) 193mg/dL (70-220) 195mg/dL (70-220) 174mg/dL (70-220) Test 12/01/16 10:20 12/01/16 13:17 12/01/16 17:26 12/01/16 20:39 Bedside Glucose 204mg/dL (70-220) 169mg/dL (70-220) 250mg/dL (70-220) H 192mg/dL (70-220) Test 12/02/16 01:04 12/02/16 04:31 12/02/16 09:20 12/02/16 12:41 Bedside Glucose 186mg/dL (70-220) 180mg/dL (70-220) 223mg/dL (70-220) H 256mg/dL (70-220) H Test 12/02/16 17:08 12/02/16 20:48 12/03/16 01:46 12/03/16 04:51 Bedside Glucose 207mg/dL (70-220) 182mg/dL (70-220) 214mg/dL (70-220) 201mg/dL (70-220) Test 12/03/16 09:11 12/03/16 12:59 Bedside Glucose 234mg/dL (70-220) H 236mg/dL (70-220) H Results Result Diagram: 12/02/16 0600 12/02/16 0600 Results 24 hrs Laboratory Tests Test 12/02/16 20:48 12/03/16 01:46 12/03/16 04:51 12/03/16 09:11 Bedside Glucose 182 214 201 234 H Test 12/03/16 12:59 Bedside Glucose 236 H Medications Medications Current Medications Acetaminophen (Tylenol Liquid) 650 mg PRN PRN NGT PAIN AND OR ELEVATED TEMP Last administered on 12/02/16 10:49; Admin Dose 650 MG; Start 11/21/16 at 21:00 Acetaminophen 650 mg 650 mg PRN PRN [place] fever Last administered on 11/27/16 17: 29; Admin Dose 650 MG; Start 11/21/16 at 21:00 Levetiracetam 100 ml @ 400 mls/hr Q12 IVPB Last administered on 12/03/16 08:59 ; Admin Dose 400 MLS/HR; Start 12/02/16 at 10:30 Morphine Sulfate/ Sodium Chloride 100 ml @ 1 mls/hr TITRATE IV Last administered on 12/03/16 15:18; Admin Dose 1 MLS/HR; Start 4/6/17 at 14:30 Lorazepam/Dextrose (Ativan/D5W) 60 ml @ 1 mls/hr TITRATE IV Last administered on 12/03/16t 15:17; Admin Dose 1 MLS/HR; Start 12/03/16 at 14:30; Stop 12/04/16 at 14:29 HARISH WALKER MD Dec 03, 2016 17:29
[2016-12-04] MEDS: morphine (DRIP) 100 MG/100 ML 100 ML IV SCH ×3 (01:08→20:34)
[2016-12-04 08:05] VITALS: BP 66/37; RESP 20
[2016-12-04 09:00] VITALS: BP 66/37; PULSE 82; RESP 14
[2016-12-04] MEDS ORDERED: LORAZEPAM (MDV) 60 MG in DEXTROSE 5% 30 ML IV SCH (12:00)
[2016-12-04 13:00] VITALS: BP 68/49; PULSE 75; RESP 14
[2016-12-04] MEDS: LEVETIRACETAM 500 MG (PMX) 100 ML IVPB SCH ×2 (13:07→20:33)
[2016-12-04 17:00] VITALS: BP 58/32; RESP 12
[2016-12-04 19:25] VITALS: BP 82/45; RESP 16
[2016-12-04 19:48] VITALS: BP 66/37; PULSE 82; RESP 14
--- NOTE | 2016-12-04 21:16 | PN ---
Date/Time of Note Date/Time of Note DATE: 12/04/16 TIME: 21:11 Assessment/Plan VTE Prophylaxis VTE Prophylaxis Intervention: contraindicated VTE Contraindication Reason: hemorrhagic cerebral infarction Lines/Catheters IV Catheter Type (from Nrsg): Peripheral IV Urinary Cath still in place: Yes Reason Cath still needed: terminal illness/intractable pain Assessment/Plan Problems: (1) Hemorrhagic stroke Status: Acute (2) Comfort measures only status Status: Acute Comment: Pt. on increasing doses of IV morphine and ativan. Respirations appear depressed. Anticipate endpoint shortly. Subjective 24 Hr Interval Summary Subjective hx not possible: pt non-verbal Exam/Review of Systems Vital Signs Vitals VS - Last 72 Hours, by Label Date Time Temp Pulse Resp B/P Pulse Ox O2 Delivery O2 Flow Rate FiO2 12/04/16 19:48 82 14 66/37 98 Nasal Cannula 12/04/16 19:25 97.4 72 16 82/45 94 12/04/16 17:00 12 58/32 96 Nasal Cannula 12/04/16 15:20 2.0 12/04/16 13:00 75 14 68/49 98 Nasal Cannula 12/04/16 09:00 82 14 /37 98 Nasal Cannula 12/04/16 08:40 Nasal Cannula 2.0 12/04/16 08:05 97.7 82 20 66/37 98 12/04/16 05:10 2.0 12/03/16 23:00 2.0 12/03/16 20:29 97 2.0 12/03/16 19:28 Nasal Cannula 2.0 12/03/16 18:38 98 2.0 12/03/16 18:00 61 16 88/51 96 Mechanical Ventilator 12/03/16 17:15 99 2.0 12/03/16 17:15 99 2.0 12/03/16 17:00 55 15 83/50 100 Mechanical Ventilator 12/03/16 16:00 55 12/03/16 16:00 54 17 118/58 100 Mechanical Ventilator 12/03/16 15:00 54 17 120/58 100 Mechanical Ventilator 12/03/16 14:57 55 19 100 30 12/03/16 14:00 58 15 118/59 100 Mechanical Ventilator 12/03/16 13:12 60 17 100 30 12/03/16 13:00 62 14 101/50 100 Mechanical Ventilator 12/03/16 12:00 60 12/03/16 12:00 99.3 60 15 100/50 100 Mechanical Ventilator 12/03/16 11:30 60 17 100 30 12/03/16 11:00 56 16 109/52 99 Mechanical Ventilator 12/03/16 10:00 58 17 126/62 99 Mechanical Ventilator 12/03/16 09:07 56 18 100 30 12/03/16 09:00 58 13 118/54 97 Mechanical Ventilator 12/03/16 08:00 60 12/03/16 08:00 30 12/03/16 08:00 99.1 59 17 127/61 98 Mechanical Ventilator 12/03/16 07:10 60 14 100 30 12/03/16 07:00 60 13 112/55 100 Mechanical Ventilator 12/03/16 06:00 59 17 113/56 100 Mechanical Ventilator 12/03/16 05:03 59 18 100 30 12/03/16 05:00 64 15 129/108 100 Mechanical Ventilator 12/03/16 04:00 56 12/03/16 04:00 99.9 56 16 111/53 100 Mechanical Ventilator 12/03/16 03:25 64 20 100 30 12/03/16 03:00 61 14 114/56 100 Mechanical Ventilator 12/03/16 02:00 58 17 116/57 100 Mechanical Ventilator 12/03/16 01:42 63 19 100 30 12/03/16 01:00 57 15 120/59 100 Mechanical Ventilator 12/03/16 00:00 99.0 62 18 116/51 100 Mechanical Ventilator 12/03/16 00:00 61 12/03/16 00:00 61 12/02/16 23:54 60 19 100 30 12/02/16 23:00 61 20 119/66 100 Mechanical Ventilator 12/02/16 22:00 57 18 117/56 100 Mechanical Ventilator 12/02/16 21:40 61 22 100 30 12/02/16 21:00 54 15 121/59 100 Mechanical Ventilator 12/02/16 20:00 30 12/02/16 20:00 53 12/02/16 20:00 97.6 54 18 120/59 100 Mechanical Ventilator 12/02/16 19:44 55 19 98 30 12/02/16 19:00 53 12 116/53 100 Mechanical Ventilator 12/02/16 18:00 51 17 118/57 100 Mechanical Ventilator 12/02/16 17:07 54 17 100 30 12/02/16 17:00 98.9 51 16 110/52 100 Mechanical Ventilator 12/02/16 16:00 54 12/02/16 16:00 60 21 109/52 100 Mechanical Ventilator 12/02/16 15:19 53 16 100 30 12/02/16 15:00 56 17 100/49 100 Mechanical Ventilator 12/02/16 14:00 46 17 103/51 98 Mechanical Ventilator 12/02/16 13:20 51 18 99 30 12/02/16 13:00 60 15 103/55 99 Mechanical Ventilator 12/02/16 12:00 57 12/02/16 12:00 99.0 58 17 84/50 99 Mechanical Ventilator 12/02/16 11:13 58 19 100 30 12/02/16 11:00 60 14 127/58 99 Mechanical Ventilator 12/02/16 10:00 62 18 130/60 99 Mechanical Ventilator 12/02/16 09:17 62 16 100 30 12/02/16 09:00 63 13 125/59 100 Mechanical Ventilator 12/02/16 08:00 30 12/02/16 08:00 66 12/02/16 08:00 66 19 120/59 100 Mechanical Ventilator 12/02/16 07:35 63 19 100 30 12/02/16 07:30 99.6 65 18 100 Mechanical Ventilator 12/02/16 07:00 63 14 118/62 100 Mechanical Ventilator 12/02/16 06:00 55 17 130/56 99 Mechanical Ventilator 12/02/16 05:16 63 18 100 30 12/02/16 05:00 63 16 118/55 100 Mechanical Ventilator 12/02/16 04:00 64 12/02/16 04:00 100.2 64 18 126/64 100 Mechanical Ventilator 12/02/16 03:25 65 18 98 30 12/02/16 03:00 67 18 136/67 99 Mechanical Ventilator 12/02/16 02:00 65 18 132/68 100 Mechanical Ventilator 12/02/16 01:19 64 19 99 30 12/02/16 01:00 66 18 116/62 99 Mechanical Ventilator 12/02/16 00:00 71 12/02/16 00:00 99.0 72 18 102/54 99 Mechanical Ventilator 12/01/16 23:30 70 17 100 30 12/01/16 23:00 66 19 116/57 99 Mechanical Ventilator 12/01/16 22:00 62 17 124/59 100 Mechanical Ventilator 12/01/16 21:13 63 21 100 30 Vital Signs Date Time Temp Pulse Resp B/P Pulse Ox O2 Delivery O2 Flow Rate FiO2 12/04/16 19:48 82 14 66/37 98 Nasal Cannula 12/04/16 19:25 97.4 12/04/16 15:20 2.0 12/03/16 14:57 30 Intake and Output 12/03/16 12/03/16 12/04/16 15:00 23:00 07:00 Intake Total 790 ml 787.0 ml 58 ml Output Total 125 ml 1485 ml Balance 665 ml -698.0 ml 58 ml Exam Constitutional: non-verbal, No alert Respiratory: clear to auscultation, normal air movement Cardiovascular: nl pulses, regular rate and rhythm, No edema, No murmurs/extra sounds, No rub Gastrointestinal: bowel sounds, nl liver, spleen, non-tender, soft, No mass, No rebound or guarding Musculoskeletal: nl extremities to inspection Extremities: normal pulses, No clubbing, No cyanosis, No edema Neurological: unresponsive Additional Comments Bedside Glucose - 72 Hours Test 12/02/16 01:04 12/02/16 04:31 12/02/16 09:20 12/02/16 12:41 Bedside Glucose 186mg/dL (70-220) 180mg/dL (70-220) 223mg/dL (70-220) H 256mg/dL (70-220) H Test 12/02/16 17:08 12/02/16 20:48 12/03/16 01:46 12/03/16 04:51 Bedside Glucose 207mg/dL (70-220) 182mg/dL (70-220) 214mg/dL (70-220) 201mg/dL (70-220) Test 12/03/16 09:11 12/03/16 12:59 Bedside Glucose 234mg/dL (70-220) H 236mg/dL (70-220) H Results Result Diagram: 12/02/16 0600 12/02/16 0600 Medications Medications Current Medications Acetaminophen (Tylenol Liquid) 650 mg PRN PRN NGT PAIN AND OR ELEVATED TEMP Last administered on 12/02/16t 10:49; Admin Dose 650 MG; Start 11/21/16 at 21:00 Acetaminophen 650 mg 650 mg PRN PRN [place] fever Last administered on 11/27/16 17: 29; Admin Dose 650 MG; Start 11/21/16 at 21:00 Levetiracetam 100 ml @ 400 mls/hr Q12 IVPB Last administered on 12/04/16 20:33 ; Admin Dose 400 MLS/HR; Start 12/02/16 at 10:30 Morphine Sulfate/ Sodium Chloride 100 ml @ 1 mls/hr TITRATE IV Last administered on 12/04/16 20:34; Admin Dose 10 MLS/HR; Start 12/03/16 at 14:30 Lorazepam/Dextrose (Ativan/D5W) 60 ml @ 1 mls/hr TITRATE IV Last administered on 12/04/16 13:07; Admin Dose 1 MLS/HR; Start 12/04/16 at 12:00 HARISH WALKER MD Dec 04, 2016 21:16
[2016-12-05] MEDS: morphine (DRIP) 100 MG/100 ML 100 ML IV SCH (06:49)
[2016-12-05] MEDS: ATROPINE 1% 5 ML OPH SL PRN ×3 (06:49→11:04)
[2016-12-05 08:08] VITALS: BP 79/42; RESP 22
--- NOTE | 2016-12-05 20:57 | PN ---
DATE: 12/05/2016 SUBJECTIVE: Mr. Mcgee appears to be comfortable at this time. Family members are in the room. Mu ltiple children, nieces, nephews, brother and a [id number]. He is currently on morphine and Ativ an drip. OBJECTIVE CHEST: Has Kussmaul respirations. Inspiratory and expiratory rhonchi on examination. CORONARY: Regular rate, regular rhythm. NEUROLOGICAL: Nonresponsive to any verbal or tactile stimulation. ASSESSMENT AND PLAN: I discussed the understanding, hopes, quality of life, femoral arteries, jessica rns with family members. Level of communication with healthcare team is excellent, and especially w ith the patient's primary care physician. Patient's pain has been addressed. He is on medications for terminal sedation. SURROGATE: Patient's . CODE STATUS: DNR. Dictated By: WENCESLAO MULLEN MD, LP/LOGAN Conf#: [id number] DID#: [id number]
--- NOTE | 2016-12-07 21:27 | DES ---
Date/Time of Note Date/Time of Note DATE: 12/07/16 TIME: 21:18 Discharge/ Summary Admission/Discharge Info Admit Date/Time Nov 20, 2016 at 23:09 Discharge Date/Time Dec 05, 2016 at 13:54 Final Diagnosis Hemorrhagic stroke with intraventricular hemorrhage Preliminary Cause of Terminal sedation Hx of Present Illness 81 year old [place] male with history of type 2 diabetes mellitus, hypertension, hyperlipidemia, coronary artery disease status post bypass grafting, thyroid cancer, left mural thrombus on warfarin, recently with diverticulitis, now status post colostomy in usual state of health until day of admission when he had acute onset of left sided hemiparesis. Needed son's help to rise from a chair. Had progressive worsening of symptoms and had to be brought to [facility]. Pt. found to have on CT scan R thalamic hemorrhagic stroke w / intraventricular extension. Pt. became increasingly obtunded and required intubation and mechanical ventilation. 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 Placed ventriculostomy to drainage w/ some stabilization but pronounced prognosis as poor. Family understood prognosis. Indicated they did not want a future that included tracheostomy and gastrostomy. Palliative care consultation called. Family agreed to monitor patient until 2 weeks from time of intubation and then to terminally extubate, which was done. Pt. did not immediately . Placed on morphine and ativan intravenously and these doses were titrated upwards. 2 days after terminal extubation, at 1354, patient pronounced . HARISH WALKER MD Dec 07, 2016 21:27
== END 2016-12-05 13:54 | disposition expired | DRG 23 ==
LOC: E/R 20:58 → ICU 23:09 → PP2 12-03 22:20 → MS2 12-04 02:11
PROVIDERS: ADMIT Internal Medicine; ATTEND Internal Medicine
PROC: 009630Z Drainage of Cerebral Ventricle with Drainage Device, Percutaneous Approach (ICD-10-PCS; principal; 2016-11-21)
PROC: 5A1955Z Respiratory Ventilation, Greater than 96 Consecutive Hours (ICD-10-PCS; 2016-11-21)
PROC: 0BH17EZ Insertion of Endotracheal Airway into Trachea, Via Natural or Artificial Opening (ICD-10-PCS; 2016-11-21)
DX: I61.5 Nontraumatic intracerebral hemorrhage, intraventricular (principal); J69.0 Pneumonitis due to inhalation of food and vomit; J96.00 Acute respiratory failure, unspecified whether with hypoxia or hypercapnia; R40.20 Unspecified coma; G93.40 Encephalopathy, unspecified; I13.0 Hypertensive heart and chronic kidney disease with heart failure and stage 1 through stage 4 chronic kidney disease, or unspecified chronic kidney disease; I50.32 Chronic diastolic (congestive) heart failure; G81.94 Hemiplegia, unspecified affecting left nondominant side; E11.22 Type 2 diabetes mellitus with diabetic chronic kidney disease; E11.65 Type 2 diabetes mellitus with hyperglycemia; N18.2 Chronic kidney disease, stage 2 (mild); Y95 Nosocomial condition; I25.10 Atherosclerotic heart disease of native coronary artery without angina pectoris; Z95.1 Presence of aortocoronary bypass graft; R40.2433 Glasgow coma scale score 3-8, at hospital admission; Z66 Do not resuscitate; Z93.3 Colostomy status
CPT/HCPCS: 31500; 36415; 36600; 70450; 71010; 80048; 80053; 80307; 81001; 81003; 82803; 82945; 82962; 83036; 83735; 84100; 84157; 84484; 85025; 85610; 85730; 86850; 86900; 86901; 87040; 87070; 87081; 87086; 89050; 93005; 94002; 94003; 94770; 96365; 96367; 96375; J0692; J0744; J1815; J1953; J2060; J2270; J2405; J2724; J3010; J3480; J7030; J7042